=== PATIENT | female | born 1950 | race Caucasian/White ===

== ENCOUNTER → 2017-07-25 10:23 | Outpatient (CLI) | payer MEDICARE, OTHER, SELFPAY ==
--- NOTE | 2017-07-25 10:27 | DI.RAD.S_ITS ---
PROCEDURE: XR CHEST 2V INDICATIONS: PERSISTENT COUGH TECHNIQUE: 2 views of the chest were acquired. COMPARISON: [facility], , CHEST 2 VIEW, 09/18/2013, 11:51. FINDINGS: Surgical changes and devices: Gastric banding Lungs and pleura: No pleural effusions or pneumothorax. Lungs are clear. Mediastinum: Mediastinal contours are normal. Heart size is normal. Aortic calcifications. Bones and chest wall: No suspicious bony abnormalities. Degenerative a.c. joint disease. Thoracic spondylosis. Soft tissues appear unremarkable. IMPRESSION: No acute cardiopulmonary abnormality Dictated by: Terry Masters M.D. on 07/25/2017 at 11:51 Approved by: Terry Masters M.D. on 07/25/2017 at 11:53
== END ==
PROVIDERS: PCP Family Medicine; Visit Provider Family Medicine
DX: R05 Cough (principal)
CPT/HCPCS: 71046

== ENCOUNTER → 2017-08-17 13:47 | Outpatient (CLI) | payer MEDICARE, OTHER, SELFPAY ==
[2017-08-17 14:21] LABS: Hemoglobin A1C% w Est Avg Glu 8.4 % (4.0-6.0)
[2017-08-17 14:25] LABS: BUN Creatinine Ratio 22.5 (6-22); Blood Urea Nitrogen 18 mg/dL (7-17); Calcium 9.7 mg/dL (8.4-10.2); Carbon Dioxide 24 mmol/L (22-32); Chloride 102 mmol/L (98-107); Estimated Glomerular Filt Rate > 60.0 mL/min (>60); Glucose 197 mg/dL (80-110); HEMOLYSIS < 15 (0-50); Potassium 4.7 mmol/L (3.4-5.1); Sodium 139 mmol/L (137-145)
== END ==
PROVIDERS: PCP Family Medicine; Visit Provider Family Medicine
DX: E11.9 Type 2 diabetes mellitus without complications (principal)
CPT/HCPCS: 36415; 80048; 83036

== ENCOUNTER → 2017-09-16 08:12 | Outpatient (CLI) | payer MEDICARE, OTHER, SELFPAY ==
--- NOTE | 2017-09-16 | DI.ECHO.S_ITS ---
[facility]+ [facility] +---------+ : : [address] : : : : [id number] : : : : Phone: [phone] Echocardiogram Report + + :Name: ABELARDO LAMA Study Date: 09/16/2017 Height: 64 in : :[facility] Weight: 203 lb : : Gender: Female BSA: 2.0 m2 : :: 1950 Age: 67 yrs BP: 144/64 mmHg: :Reason For Study: Conduction Disorder, LBBB : :Ordering Physician: Garrett : :Juan Hernandez Performed By: Damari Avila : :Referring: Dr. Misael Cardona : + + Interpretation Summary 1) Normal left ventricular thickness, size, and systolic function (EF 55-60%). 2) Septal motion is consistent with conduction abnormality. 3) Normal right ventricular size and function. 4) No significant valvular abnormalities. 5) No prior Echo available for comparison. Procedure: A two-dimensional transthoracic echocardiogram with color flow and Doppler was performed. The study quality was technically adequate. There is no prior echocardiogram noted for this patient. The heart rate ranged between 76-79 bpm during the study. Left Ventricle: The left ventricle is normal in size. Left ventricular wall thickness is normal. The ejection fraction is estimated to be 55-60%. Left ventricular systolic function is normal. Septal motion is consistent with conduction abnormality. Assessment of diastolic parameters suggests a pseudonormalization pattern, consistent with elevated filling pressures. Right Ventricle: The right ventricle grossly appears normal in size with probable normal systolic function. Atria: The left atrial size is normal. Right atrial size is normal. The interatrial septum is intact with no evidence for an atrial septal defect. Mitral Valve: The mitral valve is normal in structure and function. There is trace mitral regurgitation. Aortic Valve: The aortic valve opens well. There is no aortic valve stenosis. There is trace aortic regurgitation. Tricuspid Valve: The tricuspid valve is normal in structure and function. There is trace tricuspid regurgitation. The right ventricular systolic pressure is estimated at 35 mmHg assuming a right atrial pressure of 3 mm Hg. Pulmonic Valve: The pulmonic valve is not well visualized. Great Vessels: The aortic root is normal size. The dimensions of the ascending aorta are normal. The IVC is of normal diameter and collapses greater than 50% with a sniff. This suggests a low right atrial pressure of 3 mm Hg. Pericardium/ Pleura There is no pericardial effusion. There is no pleural effusion. MMode/2D Measurements & Calculations LVIDd: 4.5 cm Ao root diam: 3.3 cm LVIDs: 2.6 cm Aortic Jxn: 2.8 cm FS: 42.8 % asc Aorta Diam: 3.3 cm EPSS: 0.73 cm Ao Arch Diam (Prox Trans): 2.7 cm IVSd: 1.2 cm LVPWd: 0.87 cm LV whitaker. diameter/BSA (cm/m^2): 2.3 LV sys. diameter/BSA (cm/m^2): 1.3 LA A2 area: 20.0 cm2 RA long axis: 4.1 cm LA A4 area: 17.3 cm2 RA area: 12.8 cm2 LA length (vol): 4.8 cm RA vol: 33.8 ml LA vol: 61.1 ml RA : 17.2 ml/m2 LA vol index: 31.0 ml/m2 IVC diam: 1.1 cm RVDd major: 5.6 cm RVD1 (basal): 2.5 cm RVD2 (mid): 2.6 cm Doppler Measurements & Calculations Ao V2 max: 171.1 cm/sec MV E max jonny: 89.1 cm/sec Ao V2 mean: 113.3 cm/sec MV A max jonny: 111.1 cm/sec Ao max P.7 mmHg MV E/A: 0.80 Ao mean P.0 mmHg Med Peak E' Jonny: 4.9 cm/sec Ao V2 VTI: 35.8 cm E/E' med: 18.0 Lat Peak E' Jonny: 7.1 cm/sec E/E' lat: 12.6 E/e' average: 15.3 MV dec time: 0.20 sec MV P1/2t: 60.1 msec TR max jonny: 282.3 cm/sec MV P1/2t max jonny: 87.7 cm/sec TR max P.9 mmHg MVA(P1/2t): 3.7 cm2 PA V2 max: 87.4 cm/sec PA V2 mean: 59.5 cm/sec PA mean P.6 mmHg PA Accel Time: 0.14 sec Reading Physician:10:44 AM
== END ==
PROVIDERS: Family Provider Family Medicine; PCP Family Medicine; Visit Provider Internal Medicine Cardiovascular Disease
DX: I44.7 Left bundle-branch block, unspecified (principal); I45.9 Conduction disorder, unspecified
CPT/HCPCS: 93306

== ENCOUNTER → 2017-10-07 13:12 | Outpatient (CLI) | payer MEDICARE, OTHER, SELFPAY ==
--- NOTE | 2017-10-07 | DI.MG.S_ITS ---
BILATERAL DIGITAL SCREENING MAMMOGRAM 3D/2D WITH CAD: 10/07/2017 CLINICAL: Routine screening. Comparison is made to exams dated: 08/25/2016 mammogram, 08/25/2015 mammogram, and 06/07/2014 mammogram - [facility]. The tissue of both breasts is heterogeneously dense. This may lower the sensitivity of mammography. Current study was also evaluated with a Computer Aided Detection (CAD) system. No significant masses, calcifications, or other findings are seen in either breast. There has been no significant interval change. IMPRESSION: NEGATIVE There is no mammographic evidence of malignancy. A 1 year screening mammogram is recommended. This exam was interpreted at Station ID: [id number]. NOTE: For mammograms, a report in lay terms will be sent to the patient. Approximately 15% of breast malignancies will not be visualized mammographically. In the management of a palpable breast mass, a negative mammogram must not discourage biopsy of a clinically suspicious lesion. Electronically Signed By: Shae manzano/margie:10/07/2017 14:49:00 letter sent: Normal Exam ACR BI-RADS Category 1: Negative 3341F
== END ==
PROVIDERS: Family Provider Family Medicine; PCP Family Medicine; Visit Provider Family Medicine
DX: Z12.31 Encounter for screening mammogram for malignant neoplasm of breast (principal)
CPT/HCPCS: 77063; 77067

== ENCOUNTER → 2017-10-12 11:32 | Outpatient (CLI) | payer MEDICARE, OTHER, SELFPAY ==
[2017-10-12 12:33] LABS: Hemoglobin A1C% w Est Avg Glu 8.9 % (4.0-6.0)
[2017-10-12 12:51] LABS: BUN Creatinine Ratio 22.2 (6-22); Blood Urea Nitrogen 20 mg/dL (7-17); Calcium 10.2 mg/dL (8.4-10.2); Carbon Dioxide 26 mmol/L (22-32); Chloride 100 mmol/L (98-107); Estimated Glomerular Filt Rate > 60.0 mL/min (>60); Glucose 223 mg/dL (80-110); HEMOLYSIS < 15 (0-50); Potassium 5.3 mmol/L (3.4-5.1); Sodium 137 mmol/L (137-145)
== END ==
PROVIDERS: Family Provider Family Medicine; PCP Family Medicine; Visit Provider Family Medicine
DX: E11.9 Type 2 diabetes mellitus without complications (principal)
CPT/HCPCS: 36415; 80048; 83036

== ENCOUNTER → 2017-11-28 11:16 | Outpatient (CLI) | payer MEDICARE, OTHER, SELFPAY ==
[2017-11-28 12:35] LABS: Hemoglobin A1C% w Est Avg Glu 8.5 % (4.0-6.0)
[2017-11-28 12:54] LABS: BUN Creatinine Ratio 15.6 (6-22); Blood Urea Nitrogen 14 mg/dL (7-17); Calcium 10.1 mg/dL (8.4-10.2); Carbon Dioxide 25 mmol/L (22-32); Chloride 101 mmol/L (98-107); Cholesterol 139 mg/dL (140-199); Estimated Glomerular Filt Rate > 60.0 mL/min (>60); Glucose 256 mg/dL (80-110); HDL Cholesterol 47 mg/dL (40-60); HEMOLYSIS < 15 (0-50); LDL Cholesterol Calculated 58 mg/dL (<100); Sodium 139 mmol/L (137-145); Triglycerides 171 mg/dL (35-150)
== END ==
PROVIDERS: Family Provider Family Medicine; PCP Family Medicine; Visit Provider Internal Medicine Cardiovascular Disease
DX: E11.9 Type 2 diabetes mellitus without complications (principal)
CPT/HCPCS: 36415; 80048; 80061; 83036

== ENCOUNTER → 2017-12-29 13:51 | Outpatient (CLI) | payer MEDICARE, OTHER, SELFPAY ==
--- NOTE | 2017-12-29 | DI.NM.S_ITS ---
PROCEDURE: NM QING PERF SPECT R&S PHARM Rest and pharmacological stress myocardial perfusion SPECT with gated imaging and ejection fraction RADIOPHARMACEUTICAL: 21.7 mCi Tc-99m tetrafosmin IV at rest and 27.2 mCi Tc-99m tetrafosmin IV at peak effect of pharmacological stress. Mcz-tva-kquyjbbm was performed. INDICATIONS: Left bundle-branch block TECHNIQUE: Radiopharmaceutical was injected at peak stress test, and also at rest. SPECT images were obtained. SPECT myocardial perfusion images were displayed in short axis, horizontal long axis, and vertical long axis views. Gated images were reviewed using [employer] software. COMPARISON: None. CARDIAC STRESS: A pharmacologic stress test was performed under the supervision of an attending staff, using an infusion of lexiscan 0.4mg IV X1. Hemodynamic data: There is normal blood pressure and heart rate response to pharmacologic stress. Symptoms: The patient denied anginal chest pain. Aminophylline: none EKG: Resting ECG shows sinus rhythm with LBBB. No diagnostic changes of ischemia with lexiscan; no ectopy. FINDINGS: Raw data: There is good myocardial uptake of radiotracer. No significant motion artifacts. Pmum-hg-otyvp ratio is 0.30 (normal is less than 0.38 for tetrafosmin tracer). Left ventricle function: Gated images demonstrate normal left ventricular wall thickening. No segmental wall motion abnormalities. No transient ischemic dilation; TID is 1.07 (normal less than 1.3). Left ventricle resting end diastolic volume is 93 mL. Left ventricle stress ejection fraction is 74%; normal range is above 45%. Myocardial perfusion: There is mildly intense fixed defect in the septum that could be prior infarction or due to LBBB. No ischemia present. IMPRESSION: Abnormal pharmaceutical nuclear stress test. No ischemia. 1) Mildly intense fixed defect in the septum that could be prior infarction or due to LBBB itself. No ischemia present. 2) Normal left ventricular size, wall motion, and systolic function (EF post stress 74%). 3) ECG changes non-diagnostic due to LBBB at baseline. 4) No angina during the study. 5) No prior nuclear stress test available for comparison. Dictated by: Garrett Hernandez MD on 01/02/2018 at 17:51 Approved by: Garrett Hernandez MD on 01/02/2018 at 17:54
--- NOTE | 2017-12-29 15:03 | PM.TREADMILL ---
Cardiac Stress Test Report Referral & Results Date Patient Seen: 12/29/17 Requesting provider: Sonam Saleh Indication: Left bundle branch block Rest ECG: Left bundle branch block Procedure Note: After both written and verbal informed consent the patient had an IV started by the diagnostic imaging RN and then was hooked up to the treadmill monitoring system. The patient was then injected with the Angela scan material. The Cardiolite was then immediately administered. The patient spent an additional 2-3 minutes under observation. The patient had a normal response to all infused materials. Impression: Normal response as above, perfusion imaging will be reported separately Please note: Actual ECG tracings can be found in the PACS system.
== END ==
PROVIDERS: PCP Family Medicine; Visit Provider Internal Medicine Cardiovascular Disease
DX: I44.7 Left bundle-branch block, unspecified (principal)
CPT/HCPCS: 78452; 93016; 93017; 93018; A9502; J2785

== ENCOUNTER → 2018-01-13 10:41 | Outpatient (CLI) | payer MEDICARE, OTHER, SELFPAY ==
[2018-01-13 12:10] LABS: Blood Urea Nitrogen 14 mg/dL (7-17); Calcium 9.7 mg/dL (8.4-10.2); Carbon Dioxide 26 mmol/L (22-32); Chloride 100 mmol/L (98-107); Estimated Glomerular Filt Rate 55.1 mL/min (>60); Glucose 246 mg/dL (80-110); HEMOLYSIS < 15 (0-50); Potassium 4.4 mmol/L (3.4-5.1); Sodium 139 mmol/L (137-145)
[2018-01-13 12:22] LABS: Hemoglobin A1C% w Est Avg Glu 9.4 % (4.0-6.0)
== END ==
PROVIDERS: Family Medicine; PCP Family Medicine; Visit Provider Family Medicine
DX: E11.9 Type 2 diabetes mellitus without complications (principal)
CPT/HCPCS: 36415; 80048; 83036

== ENCOUNTER → 2018-02-17 08:25 | Outpatient (CLI) | payer MEDICARE, OTHER, SELFPAY ==
--- NOTE | 2018-02-17 | DI.MRI.S_ITS ---
PROCEDURE: MR LUMBAR SPINE WO CON INDICATIONS: OSTEOARTHRITIS OF SPINE WITH RADICULOPATHY TECHNIQUE: Noncontrast sagittal T1 spin echo and T2 fast echo, sagittal STIR, axial T1 and T2 fast spin echo through the lumbar spine. In cases with scoliosis, additional coronal T2 fast spin echo may be performed. COMPARISON: [facility], , L-SPINE WITHOUT CONTRAST, 06/11/2014, 13:51. FINDINGS: Image quality: Excellent. Alignment and Curvature: Levocurvature as before. Bone Marrow: Diffuse degenerative endplate signal change and spurring is present. Grade 1 anterolisthesis of L4 on L5. Grade 1 retrolisthesis of L1 on L2, L2 on L3 and L3 on L4, in addition to T12 on L1. No acute vertebral body compression fractures. Spinal Cord: Conus medullaris terminates at the L2 level. Visualized cord demonstrates normal signal and size. Paraspinous Soft Tissues: No paravertebral masses. At T12-L1: Broad-based posterior disc bulge and facet arthropathy. Mild central canal narrowing which appears unchanged. Partial effacement of the lateral recesses which is also probably unchanged and symmetric in appearance. The left foraminal stenosis. Moderate right foraminal narrowing which is unchanged L1-L2: Broad-based posterior disc bulge mild facet arthropathy. Mild canal narrowing, which appears grossly unchanged. Partial effacement of the lateral recesses which is mildly asymmetric, right greater than left. Mild to moderate left and severe right foraminal stenoses, with unchanged appearance L2-L3: Broad-based posterior disc bulge and bilateral facet arthropathy. Partial effacement of the lateral recesses progression on the right since prior study however still probably left slightly greater than right. Severe left foraminal narrowing. Moderate right foraminal stenosis. No definite interval change L3-L4: Posterior annular fissure and broad-based posterior disc bulge and bilateral facet arthropathy. Ligamentum flavum hypertrophy also seen. There is epidural lipomatosis and severe central canal narrowing. Near complete effacement of left and right lateral recesses, which is probably unchanged. Severe left and mild to moderate right foraminal narrowing. No interval change L4-L5: Broad-based posterior disc bulge about sonograp a period mild central canal narrowing. Near complete effacement of the lateral recesses bilaterally although this appears grossly symmetric. Severe left and moderate right foraminal narrowing L5-S1: Broad-based asymmetric posterior disc bulge, right greater than left. Mild partial effacement of the left and right lateral recesses although right greater than left. This appears progressed on the right since the prior study. IMPRESSION: Levocurvature. Multiple spondylolistheses as above, grossly unchanged. Severe central canal narrowing at L3-L4. This is slightly progressed and in part due to epidural lipomatosis Bilateral foraminal stenoses as detailed above by spinal level. Interval progression in right L2-L3 and L5-S1 subarticular narrowing. Dictated by: Luis Gimenez M.D. on 02/17/2018 at 10:31 Approved by: Luis Gimenez M.D. on 02/17/2018 at 11:34
== END ==
PROVIDERS: PCP Family Medicine; Visit Provider Orthopaedic Surgery Orthopaedic Surgery of the Spine
DX: M47.26 Other spondylosis with radiculopathy, lumbar region (principal); M43.16 Spondylolisthesis, lumbar region; M48.061 Spinal stenosis, lumbar region without neurogenic claudication; M48.07 Spinal stenosis, lumbosacral region; E88.2 Lipomatosis, not elsewhere classified
CPT/HCPCS: 72148

== ENCOUNTER 2018-02-20 11:56 | Emergency (ER) | payer MEDICARE, OTHER, SELFPAY ==
[2018-02-20 13:14] VITALS: BP 178/90; PULSE 98; RESP 14; TEMP 36.6; O2SAT 95; BMI 36.3
--- NOTE | 2018-02-20 13:19 | DI.RAD.S_ITS ---
PROCEDURE: XR FOOT RT MIN 3V INDICATIONS: fall, now pain and bruising. TECHNIQUE: 3 views of the foot were acquired. COMPARISON: [facility], , FOOT 3V LEFT, 07/19/2006, 12:37. FINDINGS: Bones: There is a minimally displaced, oblique fracture through the mid and distal portions of the fifth metatarsal. There is no intra-articular extension. Soft tissues: No tibiotalar joint effusion. Achilles tendon appears normal. IMPRESSION: Limited displaced fifth metatarsal shaft fracture as above. Dictated by: Shanta Vann M.D. on 02/20/2018 at 13:41 Approved by: Shanta Vann M.D. on 02/20/2018 at 13:47
[2018-02-20] MEDS: ACETAMINOPHEN 325 MG TABLET 975 MG PO (13:23)
[2018-02-20] MEDS: IBUPROFEN 400 MG TABLET PO (13:24)
--- NOTE | 2018-02-20 13:53 | ED_ITS ---
HPI - Fall <Marla Johnson PA-C - Last Filed: 02/20/18 20:43> General Chief Complaint: Fall Stated Complaint: fall down stairs last night, R foot and L Hip pain Time Seen by Provider: 02/20/18 13:35 Source: patient Mode of arrival: ambulatory History of Present Illness HPI Narrative: This 67-year-old female complains of right foot pain after a fall down her stairs last night. She states that she has chronic mobility impairment in the left knee and sometimes that causes her to trip, and she was carrying a bag of which she thinks made her off balance. She states that she just slipped and denies any chest pain or presyncopal type symptoms leading to the fall. She denies any head injury, neck pain or LOC. She states that she noticed pain in the right foot as soon as she went to stand up, and that has persisted today with some bruising and swelling. She states that she is a little bit sore on her sides and hips but feels like she just bumped other areas and not much pain elsewhere. She denies pain in her spine. She states that she has chronic reduced sensation in her feet due to neuropathy, no sensation changes. Denies other complaints or injuries Related Data Home Medications Medication Instructions Recorded Confirmed amlodipine 5 mg tablet PO DAILY 30 Days tab 01/16/18 01/18/18 atorvastatin 20 mg tablet 20 mg PO BEDTIME 90 Days tab 01/16/18 02/20/18 losartan 100 mg tablet 100 mg PO DAILY 90 Days tab 01/16/18 02/20/18 metformin 500 mg tablet See Label Instructions PO .COMPLEX 01/16/18 01/18/18 tab naproxen 500 mg tablet 500 mg PO BID PRN tab 01/16/18 01/18/18 paroxetine 20 mg tablet 0 PO BID tab 01/16/18 01/18/18 venlafaxine 150 mg PO DAILY 02/20/18 02/20/18 Previous Rx's Medication Instructions Recorded propranolol 10 mg PO BID #180 tab 01/10/17 glimepiride [Amaryl] 2 mg PO BID #180 tab 05/03/17 lorazepam 0.5 mg tablet 0.5 mg PO BID #60 tab 01/16/18 venlafaxine ER 37.5 mg 37.5 mg PO QAM #7 cap 01/16/18 capsule,extended release 24 hr venlafaxine ER 75 mg 75 mg PO QAM #7 cap 01/16/18 capsule,extended release 24 hr Allergies Allergy/AdvReac Type Severity Reaction Status Date / Time cephalexin [CEPHALEXIN] Allergy Mild Verified 02/20/18 13:18 Penicillins [PENICILLINS] Allergy Mild Verified 02/20/18 13:18 Sulfa (Sulfonamide Allergy Mild Verified 02/20/18 13:18 Antibiotics) [SULFA (SULFONAMIDE ANTIBIOTICS)] Review of Systems <Marla Johnson PA-C - Last Filed: 02/20/18 20:43> Review of Systems All systems reviewed & are unremarkable except as noted in HPI and below Exam <Marla Johnson PA-C - Last Filed: 02/20/18 20:43> Narrative Exam Narrative: GENERAL APPEARANCE: Patient sitting comfortably, in no distress. LUNGS: Clear to auscultation bilaterally. HEART: Rate and rhythm regular without murmur, normal S1 and S2, no S3 or S4. MUSCULOSKELETAL: Right lateral foot there is mild effusion. No visible deformity. Tender over the left mid 5th metatarsal. No tenderness over the ankle or elsewhere over the foot. Full range of motion of the right ankle nonweightbearing. Tender with plantar and dorsiflexing right foot. No tenderness over the right lower leg, knee or hips. No tenderness over the lumbar spine NEUROVASCULAR: Right ft pedal pulses 2+, sensation grossly intact NEUROLOGIC: Patient is alert and oriented with normal speech and coordination Initial Vital Signs Initial Vital Signs: Vital Signs Temperature 97.9 F 02/20/18 13:14 Pulse Rate 98 H 02/20/18 13:14 Respiratory Rate 14 02/20/18 13:14 Blood Pressure 178/90 H 02/20/18 13:14 Pulse Oximetry 95 02/20/18 13:14 <Lena Rowell DO - Last Filed: 02/21/18 08:09> Initial Vital Signs Initial Vital Signs: Vital Signs Temperature 97.9 F 02/20/18 13:14 Pulse Rate 98 H 02/20/18 13:14 Respiratory Rate 14 02/20/18 13:14 Blood Pressure 178/90 H 02/20/18 13:14 Pulse Oximetry 95 02/20/18 13:14 Course <Marla Johnson PA-C - Last Filed: 02/20/18 20:43> Additional Information: Patient was able to ambulate comfortably in orthopedic shoe. She will follow up with her PCP for recheck next week Orders Ordered: Discontinued Medications Acetaminophen (Tylenol) 975 mg PO NOW ONE Stop: 02/20/18 13:20 Last Admin: 02/20/18 13:23 Dose: 975 mg Ibuprofen (Advil) 400 mg PO NOW ONE Stop: 02/20/18 13:20 Last Admin: 02/20/18 13:24 Dose: 400 mg Vital Signs - 8 hr 02/20/18 13:14 02/20/18 14:29 Temperature 97.9 F Pulse Rate 98 H 93 H Respiratory Rate 14 17 Blood Pressure 178/90 H Blood Pressure [Left Arm] 166/82 H Pulse Oximetry 95 99 <Lena Rowell DO - Last Filed: 02/21/18 08:09> Orders Ordered: Discontinued Medications Acetaminophen (Tylenol) 975 mg PO NOW ONE Stop: 02/20/18 13:20 Last Admin: 02/20/18 13:23 Dose: 975 mg Ibuprofen (Advil) 400 mg PO NOW ONE Stop: 02/20/18 13:20 Last Admin: 02/20/18 13:24 Dose: 400 mg Vital Signs - 8 hr 02/20/18 13:14 02/20/18 14:29 Temperature 97.9 F Pulse Rate 98 H 93 H Respiratory Rate 14 17 Blood Pressure 178/90 H Blood Pressure [Left Arm] 166/82 H Pulse Oximetry 95 99 MDM - Fall <Marla Johnson PA-C - Last Filed: 02/20/18 20:43> Lab Data Point of Care Testing Glucose POC 124 Imaging Data foot: Radiologist's impression: BACK Foot X-Ray (Signed) Shanta Vann - 02/20/18 Launch Image View Report History [address] [address] XRay Report Signed Patient: Luz Stearns MR#: [id number] : 1950 Acct:[id number] Age/Sex: 67 / F Date of Service: 02/20/18 Loc: ED Accession Number: [id number] Procedure: XR foot RT min 3V Ordering Provider: Lena Rowell D.O. PROCEDURE: XR FOOT RT MIN 3V INDICATIONS: fall, now pain and bruising. TECHNIQUE: 3 views of the foot were acquired. COMPARISON: [facility], , FOOT 3V LEFT, 07/19/2006, 12:37. FINDINGS: Bones: There is a minimally displaced, oblique fracture through the mid and distal portions of the fifth metatarsal. There is no intra-articular extension. Soft tissues: No tibiotalar joint effusion. Achilles tendon appears normal. IMPRESSION: Limited displaced fifth metatarsal shaft fracture as above. Dictated by: Shanta Vann M.D. on 02/20/2018 at 13:41 Approved by: Shanta Vann M.D. on 02/20/2018 at 13:47 <Lena Rowell DO - Last Filed: 02/21/18 08:09> Lab Data Point of Care Testing Glucose POC 124 Discharge Plan Departure Patient Disposition: Home Clinical Impression: Metatarsal bone fracture Discharge Date/Time: 02/20/18 14:43 Interventions: ED Discharge Assessment Last Done: 02/20/18 14:42 Instructions: DI for Foot Fracture Activity Restrictions/Additional Instructions: You do have a break in the foot in the bone that connects to the 5th toe where you are bruised and tender. This is only slightly pushed out of place and typically these will heal well as long as you keep the stress off of the broken bone. You can take your Aleve twice daily as needed for pain. You may wish to use ice on the sore area today. Please wear the orthopedic shoe that we gave you at all times when you are putting weight on the foot. Please follow up with your PCP in 1 week for recheck, as x-rays may need to be repeated. Please return if you have any acutely worsening symptoms in the interim. Prescriptions: No Action venlafaxine 37.5 mg capsule,extended release 24hr 37.5 mg PO QAM Qty: 7 RF: 0 venlafaxine 75 mg capsule,extended release 24hr 75 mg PO QAM Qty: 7 RF: 0 metformin [Glucophage] 500 mg tablet See Patient Comments PO .COMPLEX RF: 0 naproxen [Naprosyn] 500 mg tablet 500 mg PO BID PRNRF: 0 paroxetine HCl [Paxil] 20 mg tablet PO BID RF: 0 amlodipine 5 mg tablet PO DAILY 30 Days RF: 0 atorvastatin 20 mg tablet 20 mg PO BEDTIME 90 Days RF: 0 losartan 100 mg tablet 100 mg PO DAILY 90 Days RF: 0 propranolol 10 MG tablet 10 mg PO BID Qty: 180 RF: 3 glimepiride [Amaryl] 2 MG tablet 2 mg PO BID Qty: 180 RF: 3 lorazepam [Ativan] 0.5 mg tablet 0.5 mg PO BID Qty: 60 RF: 2 venlafaxine 150 mg capsule,extended release 24hr 150 mg PO DAILY RF: 0 Referrals: Misael Cardona MD [Primary Care Provider] - <Lena Rowell DO - Last Filed: 02/21/18 08:09> [facility] Att[facility]: I was immediately available in the department for consultation. Documentation has been reviewed. I agree with assessment and plan.
[2018-02-20 14:29] VITALS: BP 166/82; PULSE 93; RESP 17; O2SAT 99
== END 2018-02-20 14:43 | disposition home or self-care (01) ==
PROVIDERS: Emergency Provider Internal Medicine; PCP Family Medicine
DX: S92.351A Displaced fracture of fifth metatarsal bone, right foot, initial encounter for closed fracture (principal); W10.8XXA Fall (on) (from) other stairs and steps, initial encounter
CPT/HCPCS: 73630; 82962; 99282; 99284

== ENCOUNTER → 2018-03-16 11:16 | Outpatient (CLI) | payer MEDICARE, OTHER, SELFPAY ==
[2018-03-16 12:13] LABS: Hemoglobin A1C% w Est Avg Glu 8.9 % (4.0-6.0)
[2018-03-16 12:16] LABS: BUN Creatinine Ratio 22.5 (6-22); Blood Urea Nitrogen 18 mg/dL (7-17); Calcium 9.7 mg/dL (8.4-10.2); Carbon Dioxide 27 mmol/L (22-32); Chloride 102 mmol/L (98-107); Estimated Glomerular Filt Rate > 60.0 mL/min (>60); Glucose 216 mg/dL (80-110); HEMOLYSIS < 15 (0-50); Potassium 4.7 mmol/L (3.4-5.1); Sodium 140 mmol/L (137-145)
== END ==
PROVIDERS: PCP Family Medicine; Visit Provider Family Medicine
DX: E11.9 Type 2 diabetes mellitus without complications (principal)
CPT/HCPCS: 36415; 80048; 83036

== ENCOUNTER → 2018-03-23 12:15 | Outpatient (CLI) | payer MEDICARE, OTHER, SELFPAY ==
--- NOTE | 2018-03-23 12:29 | DI.RAD.S_ITS ---
PROCEDURE: XR LUMBAR SPINE 2-3V INDICATIONS: s/p fall- hip and back pain TECHNIQUE: 3 views of the lumbar spine were acquired. COMPARISON: None. FINDINGS: Bones: No fracture or focal osseous destruction. There is levocurvature centered at L1. Diffuse endplate sclerosis and spurring. Grade 1 retrolisthesis of T12 on L1 and L2 and L3, L3 on L4. Grade 1 anterolisthesis of L4 on L5. Diffuse severe facet arthropathy. Severe narrowing of the L1-L2 disc space and L5-S1 disc space. Elsewhere, moderate lumbar disc space narrowing. Soft tissues: Overlying bowel gas pattern is normal. No suspicious soft tissue calcifications. IMPRESSION: Diffuse lumbar spine disc degeneration and facet arthropathy, most pronounced at L1-L2 and L5-S1. Levocurvature centered at L1. Multiple spondylolistheses as above No acute fracture identified although advanced degenerative changes limits study sensitivity Dictated by: Luis Gimenez M.D. on 03/23/2018 at 14:31 Approved by: Luis Gimenez M.D. on 03/23/2018 at 14:34
--- NOTE | 2018-03-23 12:29 | DI.RAD.S_ITS ---
PROCEDURE: XR HIP W PEL IF DONE LT 2V INDICATIONS: s/p fall- hip and back pain TECHNIQUE: AP pelvis with lateral view(s) of the left hip(s). COMPARISON: None. FINDINGS: Bones: No fractures or dislocations. Pelvic ring appears intact. No suspicious bony lesions. Lower lumbar degenerative disease. Mild bilateral hip degeneration. Soft tissues: The visualized bowel gas pattern is normal. No suspicious soft tissue calcifications. IMPRESSION: Mild bilateral hip degeneration. Dictated by: Luis Gimenez M.D. on 03/23/2018 at 14:30 Approved by: Luis Gimenez M.D. on 03/23/2018 at 14:31
== END ==
PROVIDERS: PCP Family Medicine; Visit Provider Family Medicine
DX: M54.5 Low back pain (principal); M25.552 Pain in left hip; M16.0 Bilateral primary osteoarthritis of hip; M51.36 Other intervertebral disc degeneration, lumbar region; M51.37 Other intervertebral disc degeneration, lumbosacral region; M47.816 Spondylosis without myelopathy or radiculopathy, lumbar region; M47.817 Spondylosis without myelopathy or radiculopathy, lumbosacral region; M43.16 Spondylolisthesis, lumbar region; M43.17 Spondylolisthesis, lumbosacral region
CPT/HCPCS: 72100; 73502

== ENCOUNTER → 2018-03-30 14:15 | Outpatient (CLI) | payer MEDICARE, OTHER, SELFPAY ==
--- NOTE | 2018-03-30 14:18 | DI.MRI.S_ITS ---
PROCEDURE: MR HEAD/BRAIN WO CON INDICATIONS: vison loss TECHNIQUE: Noncontrast axial T1 spin echo, axial T2 fast spin echo, sagittal and axial FLAIR, coronal T2 fast spin echo, axial gradient echo, axial diffusion and ADC through the brain. COMPARISON: None. FINDINGS: Image quality: Excellent. CSF Spaces: Basal cisterns are patent. No extra-axial fluid collections. Ventricles are normal in size and shape. Brain: No intracranial masses or hemorrhage. Russo/white matter interface is normal. There are several scattered small foci of elevated fluid signal within the deep white matter of each hemisphere, right slightly greater than left Brainstem appears normal. Diffusion-weighted images demonstrate no acute ischemic insult. No chronic ischemic insults. Normal intravascular flow voids are present. Skull and face: Calvarium has normal marrow signal. Orbits appear normal. Sinuses: Sinuses and mastoids are clear. IMPRESSION: Mild microvascular atherosclerotic change in the deep white matter of each hemisphere, no evidence for presence of a mass or hemorrhage, and through the occipital region and orbits bilaterally no lesion is found. Dictated by: Manuel Hooker M.D. on 03/30/2018 at 15:43 Approved by: Manuel Hooker M.D. on 03/30/2018 at 15:45
== END ==
PROVIDERS: PCP Family Medicine; Visit Provider Family Medicine
DX: H54.7 Unspecified visual loss (principal)
CPT/HCPCS: 70551

== ENCOUNTER → 2018-04-20 10:51 | Outpatient (CLI) | payer MEDICARE, OTHER, SELFPAY ==
[2018-04-20 11:36] LABS: Add Manual Diff / Slide Review NO; Basophils Absolute Auto 0 /uL (0-100); Basophils Percent Auto 0.5 % (0-2); Eosinophils Absolute Auto 100 /uL (0-450); Eosinophils Percent Auto 1.5 % (2-4); Hematocrit 36.2 % (36-46); Hemoglobin 12.4 g/dL (12.0-16.0); Lymphocytes Absolute Auto 1800 /uL (1100-4500); Lymphocytes Percent Auto 29.7 % (25-40); Mean Corpuscular HGB Conc 34.1 % (30-36); Mean Corpuscular Hemoglobin 30.7 PG (26-34); Mean Corpuscular Volume 89.8 fL (80-100); Monocytes Absolute Auto 500 /uL (0-900); Monocytes Percent Auto 8.9 % (3-14); Neutrophils Absolute Auto 3600 /uL (1500-7000); Neutrophils Percent Auto 59.4 % (50-75); Platelet Count 313 X10^3/uL (150-400); Red Blood Cell Count 4.03 X10^6/uL (4.0-5.2); Red Cell Distribution Width 13.1 % (11.6-14.8); White Blood Cell Count 6.1 X10^3/uL (4.5-11.0)
[2018-04-20 11:42] LABS: INR 0.9 (0.9-1.3); Prothrombin Time 10.6 SECONDS (10.1-12.7)
[2018-04-20 11:45] LABS: PTT Partial Thromboplastin Tim 28 SECONDS (26.4-36.2)
[2018-04-20 11:47] LABS: BUN Creatinine Ratio 23.8 (6-22); Blood Urea Nitrogen 19 mg/dL (7-17); Calcium 9.7 mg/dL (8.4-10.2); Carbon Dioxide 25 mmol/L (22-32); Chloride 101 mmol/L (98-107); Estimated Glomerular Filt Rate > 60.0 mL/min (>60); Glucose 266 mg/dL (80-110); HEMOLYSIS < 15 (0-50); Potassium 4.6 mmol/L (3.4-5.1); Sodium 138 mmol/L (137-145)
[2018-04-20 11:49] LABS: Hemoglobin A1C% w Est Avg Glu 8.9 % (4.0-6.0)
== END ==
PROVIDERS: PCP Family Medicine; Visit Provider Orthopaedic Surgery Orthopaedic Surgery of the Spine
DX: M48.061 Spinal stenosis, lumbar region without neurogenic claudication (principal); M51.36 Other intervertebral disc degeneration, lumbar region; Z01.812 Encounter for preprocedural laboratory examination; Z51.81 Encounter for therapeutic drug level monitoring; Z01.818 Encounter for other preprocedural examination; Z01.84 Encounter for antibody response examination
CPT/HCPCS: 36415; 80048; 83036; 85025; 85610; 85730; 86765; 93005

== ENCOUNTER 2018-05-03 05:53 | Inpatient (IN) | payer MEDICARE, OTHER, SELFPAY ==
[2018-04-26 08:45] VITALS: BMI 34.3
[2018-05-03] VITALS (20 sets, daily range): BP systolic 124–165; BP diastolic 64–89; PULSE 74–130; RESP 10–24; TEMP 35.7–36.9; O2SAT 93–99; BMI 34.3
[2018-05-03] MEDS: LACTATED RINGERS 1,000 ML 42 ML IV ×3 (07:10→11:23)
[2018-05-03] MEDS: CLINDAMYCIN 900 MG/50 ML PIGGYBACK 50 MG IV ×2 (07:51→17:03)
--- NOTE | 2018-05-03 08:49 | SUR.OPER ---
Prone on spine table, head in foam head support, padded chest and pelvic supports, gel pad at knees, lower legs supported by pillows; nipples, genitalia and toes free of pressure, arms secured on foam padded arm boards at <90 degrees abduction. Tape over blanket at thigh secured to table.
[2018-05-03] MEDS: BUPIVACAINE 0.25% W/ EPI VIAL 30 ML INJ (08:52)
[2018-05-03] MEDS: BUPIVACAINE LIPOSOME 266 MG/20 ML VIAL INJ (08:52)
[2018-05-03] MEDS: ACETAMINOPHEN IV 1,000 MG/100 ML VIAL 400 MG IV (10:30)
--- NOTE | 2018-05-03 12:50 | DI.RAD.S_ITS ---
PROCEDURE: XR LUMBAR SPINE 2-3V INDICATIONS: L3-4, L4-5, L5-S1 TLIF FINDINGS: 2 limited intraoperative fluoroscopically stored images of the lower lumbar spine were obtained for intraoperative hardware localization purposes. These images are not meant for diagnostic purposes. Intraoperative findings related to a lower lumbar fusion procedure are present. IMPRESSION: Intraoperative images obtained during the patient's lumbar fusion procedure. Dictated by: Jean Triplett M.D. on 05/03/2018 at 11:59 Approved by: Jean Triplett M.D. on 05/03/2018 at 12:02
--- NOTE | 2018-05-03 12:51 | PM.OP.1 ---
Operative Date/Time/Diagnoses Date of procedure: 05/03/18 Time of procedure: 07:51 Pre-op diagnosis: 1. L3-4, L4-5, L5-S1 spondylolisthesis 2. L3-4, L4-5, L5-S1 spinal stenosis 3. L3-4, L4-5, L5-S1 spondylosis with radiculopathy Procedure & Clinicians Procedure: 1. L3-4, L4-5, L5-S1 Postero-lateral and posterior interbody fusion 2. L3-4, L4-5, L5-S1 interbody cage placement. 3. L3-4, L4-5, L5-S1 decompressive laminectomy with bilateral facetecomies 4. L3-4, L4-5, L5-S1 Posterior segmental instrumentation 5. [place] of bone marrow from iliac crest 6. Utilization of microsurgical technique and operating microscope Same procedure as scheduled: Yes Indications: Patient has been having chronic back pain and worsening lumbar radiculopathy. Patient failed multiple conservative management with worsening pain weakness and numbness in her lower extremity. Patient has been having difficulty performing activity of daily living. After discussing risks benefits of treatment options, patient elected proceed with surgery. Surgeon: Brii Colon Multicultural Internship: Delphine Felipe Click Yes if Unassisted: No Anesthesia Type: General Operative Notes Closure Type: primary Specimen(s): none sent Prosthetic devices, grafts, tissues, transplants, or devices: Globus revolve screws, Rise cages Applied: catheter Estimated Blood Loss (mL): 100 Blood products transfused: none Procedure in detail: Patient was seen in the preoperative area. Risks and benefits of the surgery was discussed with the patient. Informed consent was obtained from the patient and placed in the chart. Surgical site was marked. Patient was taken to the operative room. General anesthesia was administered. Prophylactic antibiotic was given to the patient less than 30 min before the incision was made. Patient was placed into a prone position on the Cristopher table. Patient's back was then prepped and draped in the sterile fashion. Time-out was performed at this time. Using AP and lateral C-arm imaging the interval between L3-S1 was identified and marked on patient's back. A 3 inch incision 2 in from midline was made on the left side first. The fascia was incised in line with skin incision. Globus MARS retractors was placed inside the incision and docked onto the L3, L4 and L5 lamina. Using microsurgical technique and operating microscope, a L3, L4 and L5 laminectomy and L3-4, L4-5 L5-S1 facetectomy was performed using a Kerrison rongeur. The disc space at L3-4, L4-5, L5-S1 was identified. And a total diskectomy was performed at L3-4, L4-5, L5-S1 level. The endplates were decorticated using a rasp and shaver. The total diskectomy and decortication was performed at L3-4, L4-5, L5-S1 level in order to to accomplish a L3-4, L4-5, L5-S1 fusion. The local bone from the laminectomy and facetectomy was saved for local bone grafting. After the total diskectomy and decortication was completed, Bio4 bone graft material was combined with local bone that was harvested earlier. At this time, a separate skin is incision was made over the iliac crest. A Jamshidi needle was inserted into the iliac crest through a separate skin incision. 5 cc of bone marrow aspiration was obtained through the separate skin incision using a Jamshidi needle from the iliac crest. The bone marrow aspiration was combined with local bone and the Bio4 bone grafting material. The bone grafting material was placed into the L3-4, L4-5, L5-S1 interbody space along with three cages, one expandable cage at each level. The cages were expanded to their maximum height using the torque limiting screwdriver. At this time a mirror image incision was made on the right side. The fascia was incised in line with the skin incision. Globus MARS retractor was inserted and docked onto the L3-4, L4-5, L5-S1 posterolateral gutter. Using the power drill, posterior-lateral decortication was performed at L3-4, L4-5, L5-S1 level until bleeding cortical bone was identified. The remaining bone grafting material was placed into the L3-4, L4-5 L5-S1 posterior lateral gutter he order to accomplish posterolateral fusion at the L3-4, L4-5 L5-S1 levels. Using the double C-arm technique, pedicle screws were placed into the L3, L4, L5, S1 pedicles bilaterally. This was done by placing the Jamshidi needle into the pedicles, then placing the guidewires over the Jamshidi needle, and finally placing the cannulated screws over the guidewires bilaterally. After the pedicle screws were placed, 2 titanium rods was locked into the heads of the pedicle screws using locking caps and torque limiting screwdriver. Total 8 pedicles screws were placed. After all the hardware was placed, and confirmed with AP and lateral C-arm imaging, the wound was then irrigated with sterile normal saline and packed with [place] gauze for 3 min to accomplish hemostasis. After the gauze was removed the deep fascia was closed with #1 Vicryl suture. The subcutaneous layer was closed with 2-0 Vicryl. The skin was closed with skin judson. Patient tolerated the procedure well. There were no complications. Complications: none Condition: stable Disposition: PACU Plan for aftercare: Admit to inpatient hospital
--- NOTE | 2018-05-03 13:09 | SUR.PHASEI ---
glucose 191
[2018-05-03] MEDS: ONDANSETRON 4 MG/2 ML INJ IV ×2 (13:40→16:00)
[2018-05-03] MEDS: HYDROMORPHONE 2 MG INJ 0.5 MG IV (13:44)
[2018-05-03] MEDS: HYDROMORPHONE 2 MG INJ 0.25 MG IV (14:07)
--- NOTE | 2018-05-03 15:49 | PC.NURSE ---
pt somnolent postop. opens eyes and responds. friend, Cal came in and took pt's keys with her permission. skin warm moist. RR 14-16 with sat 95% on 2L/NC. admission done
[2018-05-03] MEDS: SODIUM CHLORIDE 0.9% 1,000 ML 100 ML IV (16:00)
[2018-05-03] MEDS: INSULIN ASPART 100 UNIT/ML INSULN PEN SUBCUT ×2 (17:07→20:50)
[2018-05-03] MEDS: OXYCODONE IR 5 MG TABLET 10 MG PO ×2 (18:19→20:47)
[2018-05-03] MEDS: HYDROMORPHONE 1 MG INJ 0.5 MG IV ×2 (19:17→22:56)
[2018-05-03] MEDS: NAPROXEN 250 MG TABLET 500 MG PO (20:48)
[2018-05-03] MEDS: DOCUSATE 100 MG CAPSULE PO (20:48)
[2018-05-03] MEDS: GLIMEPIRIDE 2 MG TABLET 4 MG PO (20:48)
[2018-05-03] MEDS: ATORVASTATIN 20 MG TABLET PO (20:49)
[2018-05-03] MEDS: SENNOSIDES 8.6 MG TABLET 17.2 MG PO (20:51)
[2018-05-03] MEDS: PROPRANOLOL 10 MG TABLET PO (20:51)
[2018-05-04] VITALS (7 sets, daily range): BP systolic 104–126; BP diastolic 42–71; PULSE 84–94; RESP 16–20; TEMP 36.2–36.9; O2SAT 95–98
[2018-05-04] MEDS: OXYCODONE IR 5 MG TABLET 10 MG PO ×7 (00:06→19:51)
[2018-05-04] MEDS: CLINDAMYCIN 900 MG/50 ML PIGGYBACK 50 MG IV (00:06)
--- NOTE | 2018-05-04 01:52 | PC.NURSE ---
Assumed care of pt at 2300 on 05/03/18. Pt resting in bed during bedside hand-off. Reports analgesics have been effective. IVF infusing per orders. Drsg to back c/d/i. Able to demonstrate log roll. Pt aware of spinal precautions of no bending, lifting or twisting. CMS+. Hand tremor noted. Foot scd's applied. Pt calling appropriately for needs. Bed alarm on.
[2018-05-04] MEDS: SODIUM CHLORIDE 0.9% 1,000 ML 100 ML IV (03:20)
[2018-05-04] MEDS: LEVOTHYROXINE 25 MCG TABLET PO (06:21)
[2018-05-04 07:10] LABS: Hematocrit 31.5 % (36-46); Hemoglobin 10.8 g/dL (12.0-16.0)
--- NOTE | 2018-05-04 07:45 | PM.PNPO.1 ---
Subjective Date Patient Seen: 05/04/18 Time Patient Seen: 07:45 Interval history: Hospital day 2, postop day 1 following L3-4 through L5-S1 TLIF, cage, posterior screw fixation by Dr. Colon. Patient has remained stable postoperatively. Pain controlled with oxycodone 10 mg and occasional Dilaudid IV. She has not had any physical therapy yet. Patient does have stairs at home. She does anticipate to staying at least 2 nights. Exam Vital Signs (past 8 hours): - 05/04/18 03:20 05/04/18 07:29 Temperature 97.1 F L Pulse Rate 89 Respiratory Rate 20 Blood Pressure 111/56 L Pulse Oximetry 95 97 Fraction of Inspired Oxygen 21 Oxygen Delivery Method Room Air Oxygen Flow Rate 0 Narrative Exam Narrative: Alert, oriented no acute distress resting in bed. Legs. No calf pain or swelling. Pulses symmetrical. Good sensation to touch the lower legs. Good strength on foot dorsiflexion plantar flexion. Objective Labs Result Diagrams: 05/04/18 06:33 Labs: Laboratory Results - last 24 hr 05/04/18 06:33 Hgb 10.8 L Hct 31.5 L Assessment & Plan Post-op Postoperative Procedures Operation Date: 05/03/18 07:45 Actual Procedures Side Surgeon p L3-4,L4-5,L5-S1 TLIF w/Posterior Instru. Not Applicable Brii Colon MD plan: Patient will work with PT today. Observe for improvement in pain and function. Anticipate discharge home in the next 1-2 days if stable by PT.
[2018-05-04] MEDS: DOCUSATE 100 MG CAPSULE PO ×2 (08:23→19:53)
[2018-05-04] MEDS: VENLAFAXINE ER 75 MG CAP 150 MG PO (08:24)
[2018-05-04] MEDS: PROPRANOLOL 10 MG TABLET PO ×2 (08:24→19:52)
[2018-05-04] MEDS: AMLODIPINE 5 MG TABLET PO (08:24)
[2018-05-04] MEDS: METFORMIN HCL 500 MG TABLET 1500 MG PO (08:24)
[2018-05-04] MEDS: LOSARTAN 50 MG TABLET 100 MG PO (08:25)
[2018-05-04] MEDS: GLIMEPIRIDE 2 MG TABLET 4 MG PO ×2 (08:25→19:53)
[2018-05-04] MEDS: HYDROMORPHONE 1 MG INJ 0.5 MG IV (08:35)
[2018-05-04] MEDS: INSULIN ASPART 100 UNIT/ML INSULN PEN SUBCUT ×4 (08:37→20:59)
--- NOTE | 2018-05-04 10:45 | PT.IIE ---
Current Diagnoses Other secondary scoliosis, lumbar region (05/03/18) Spondylolisthesis, lumbar region (05/03/18) Spinal stenosis, lumbar region without neurogenic claudication (05/03/18) Surgery Performed Operation Date: 05/03/18 07:45 Actual Procedures p L3-4,L4-5,L5-S1 TLIF w/Posterior Instru.(Not Applicable) - Brii Colon MD Surgical History (This Medical Record has been edited. Action required.) Anesthesia (Resolved) History of knee replacement (Resolved 2004) History of knee replacement (Resolved 2007) History of knee replacement (Resolved 2009) History of tympanoplasty (Resolved 2013) S/P surgical manipulation of knee joint (Resolved 2004) Status post biopsy (Resolved 12/04/13) Status post gastric banding surgery (Resolved 2007) Status post hysterectomy (Resolved 1989) Status post hysteroscopic myomectomy (Resolved ~1979) Medical History (This Medical Record has been edited. Action required.) Diabetic retinopathy (Acute) Foot fracture, right (Acute ~02/2018) HTN (hypertension) (Acute) Hyperlipidemia (Acute) Ocular migraine (Acute ~02/2018) Anxiety (Chronic) Cataract (Chronic) Cervical spine disease (Chronic) Cervical stenosis (uterine cervix) (Chronic) Chronic back pain (Chronic) Depression (Chronic) Diabetes mellitus (Chronic ~1989) Dyspareunia (Chronic) Eczema (Chronic) Hayfever (Chronic) Hearing loss (Chronic) Hemorrhoids (Chronic) History of recurrent ear infection (Chronic 2013) Hypothyroidism (Chronic) IBS (irritable bowel syndrome) (Chronic) LBBB (left bundle branch block) (Chronic) Lumbar spine pain (Chronic) Osteoarthritis (Chronic) Psoriasis (Chronic) RLS (restless legs syndrome) (Chronic) Recurrent sinusitis (Chronic) Scoliosis (Chronic) Sleep apnea (Chronic) Thyroid nodule (Chronic 2013) Chicken pox (Resolved 1950) Endometriosis (Resolved) Fibroids (Resolved) History of heavy periods (Resolved) Irregular periods/menstrual cycles (Resolved) MRSA infection (Resolved 2003) Measles (Resolved) Mumps (Resolved) Ovarian cyst (Resolved) Painful menstrual periods (Resolved) Pelvic inflammatory disease (Resolved 1971) Ruptured tympanic membrane (Resolved 2013) Physical Therapy Inpatient Evaluation/Re-Eval M1 PT/OT-IP Prior Functional Status Start: 05/04/18 12:47 Freq: NEEDED Status: Active Protocol: Document 05/04/18 10:45 AB (Rec: 05/04/18 13:15 AB [id number]) Medical Review Prior Functional Status Medical History Reviewed Yes Communication able to make needs known Mobility and Gait pt stated that she is independent with all mobilities and ambulation without AD Social History Household Members other Living Arrangements House Number of Floors (Floors) Two Floors Number of Stairs To Enter/Railing? 6 steps to enter with L rail ascending has 17 stteps with L rail ascending to 2nd floor Home Environment Standard Height Toilet Tub/Shower Home Equipment Front Wheel Walker Straight Cane Employment Status Retired Additional Social History Comment pt stated that she can stay on the main level of the house if needed and sleep on her couch; will just have friends, her ex - and house renter to assist her at home. M2 PT-IP Current Condition Start: 05/04/18 12:47 Freq: NEEDED Status: Active Protocol: Document 05/04/18 10:45 AB (Rec: 05/04/18 13:15 AB [id number]) Physical Therapy Current Condition Current Condition Evaluation Date 05/04/18 Treatment Diagnosis s/p L3-4, L4-5, L5S1 fusion/ lami; difficulty in walking Onset Date 05/03/18 Precautions Lumbar Precautions Log Roll No Twisting Limit Bending Lifting Restriction of 10 lbs Gait Belt above Incisional Area Other Precautions Falls M3 PT-IP Subjective Start: 05/04/18 12:47 Freq: NEEDED Status: Active Protocol: Document 05/04/18 10:45 AB (Rec: 05/04/18 13:15 AB [id number]) Subjective Physical Therapy Visit Type Type Initial Evaluation Visit Start Time 10:45 Visit Stop Time 11:35 Total Visit Minutes 50 Number of [employer] Visits 0 Physical Therapy Visit Comments Patient Comments pt agreeable to do PT Therapy Pain Assessment Pain When Pain Assessed At Rest Pain Present Pain Present Pain Reported Location Back Intensity 10 Scale Used Numeric (1 - 10) Pain Management Techniques Apply Cold Re-positioning Timing of Activity with Medications M4 PT-IP Mobility and Gait Start: 05/04/18 12:47 Freq: NEEDED Status: Active Protocol: Document 05/04/18 10:45 AB (Rec: 05/04/18 13:15 AB [id number]) PT-Bed Mobility Assessment Rolling Type of Rolling Log Rolling Level of Assist Moderate Assistance Supine to Sit Supine to Sit Maximum Assistance 1 Person Assistance PT-Transfer Assessment Sit to and From Stand Sit to and from Stand Moderate Assistance 1 Person Assistance Use of Upper Extremities Equipment Transfer Assistive Device Gait Belt Front Wheeled Walker Orthotic/Prosthetic Devices or Brace: Yes Transfers Transfer Destination Chair Transfer Technique pt ambulated to the chair using FWW Transfer Ability Level of Assist Moderate Assistance Gait Assessment Gait Gait Assistance Required: Moderate Assistance Distance (Feet) 12 Able to Maintain Weight Bearing Status Yes During Gait Assistive Devices Assistive Device Gait Belt Front Wheeled Walker Orthotic/Prosthetic Devices or Brace: No Gait Deviations General Gait Pattern Antalgic Decreased Stride Length Decreased Feet Clearance Factors Limiting Gait Function Factors Limiting Gait Function Decreased Activity Tolerance Decreased Strength Limited Range of Motion Pain Poor Balance Poor Safety Awareness PT-Balance Assessment Sitting Balance and Reactions Static Sitting Balance Ability Good Dynamic Sitting Balance Ability Good Standing Balance and Reactions Static Standing Balance Ability Fair Dynamic Standing Balance Ability Poor Device Used FWW M5 PT-IP Objective Assessments Start: 05/04/18 12:47 Freq: NEEDED Status: Active Protocol: Document 05/04/18 10:45 AB (Rec: 05/04/18 13:15 AB [id number]) Orientation Orientation/Cognition Level of Alertness Alert Orientation Name Age Birthday Month Date Year Day of Week Place Situation Language Function Ability No Deficits Noted Safety Awareness Understands Safety Issues Memory Description No Deficits Noted Gross Range of Motion Lower Extremity ROM Assessment Left Impaired Impairments decrearse knee flexion: ~ 40 deg Strength Lower Extremity Strength Assessment Bilaterally Impaired Knee 3+/5 Coordination Assessment Gross Coordination Gross Coordination WNL Sensation Assessment Sensation Gross Sensation Right LE Impaired Left LE Impaired Light Touch Impaired Proprioception (Position) Impaired Sensation Description Numbness Comments Sensation Comments c/o numbness on all toes Muscle Tone Muscle Tone WNL Yes M6 PT-IP Treatment Start: 05/04/18 12:47 Freq: NEEDED Status: Active Protocol: Document 05/04/18 10:45 AB (Rec: 05/04/18 13:15 AB [id number]) Physical Therapy Treatment Exercises Exercises Heel Slides Education Education Provided Precautions Weight Bearing Status Post-Op Packet Safety M7 PT-IP Assessment and Plan Start: 05/04/18 12:47 Freq: NEEDED Status: Active Protocol: Document 05/04/18 10:45 AB (Rec: 05/04/18 13:15 AB [id number]) PT Summary Assessment and Plan Potential Rehabilitation Potential Fair Status of Condition at Evaluation Evolving Summary Impairments Pain ROM Strength Balance Coordination Sensation Bed Mobility Transfers Gait Activity Tolerance Assessment Summary pt requiring mod to max A with mobility at this time. pt has limited assistance at home and will benefit from SNF rehab to improve strength and functional independence prior to d/c home. Goals Bed Mobility Goal Standby Assistance Transfer Goal Standby Assistance Front Wheeled Walker Gait Goal Standby Assistance Front Wheel Walker Gait Distance 150 Other Goals up/down 17 steps with L rail ascending Days to Meet Goals 5 Frequency of Treatment Frequency Of Treatment Twice a Day Treatment Plan Physical Therapy Treatment Plan Bed Mobility Training Transfer Training Gait Training Therapeutic Exercise Balance Retraining Post Op Education Discharge Planning Hot or Cold Pack Neuromuscular Re-ed Coordination Retraining Manual Therapy Other Recommendations and Next Treatment ambulation Focus Recommendations To Nursing Amount of Assist Needed 1 Person Assist Discharge Recommendations PT Discharge Recommendations SNF Rehab
[2018-05-04] MEDS: NAPROXEN 250 MG TABLET 500 MG PO (11:50)
[2018-05-04] MEDS: hydrOXYzine pamoate 25 MG CAPSULE PO ×3 (12:43→20:59)
--- NOTE | 2018-05-04 13:38 | OT.IP.EVAL ---
Current Diagnoses Other secondary scoliosis, lumbar region (05/03/18) Spondylolisthesis, lumbar region (05/03/18) Spinal stenosis, lumbar region without neurogenic claudication (05/03/18) Surgery Performed Operation Date: 05/03/18 07:45 Actual Procedures p L3-4,L4-5,L5-S1 TLIF w/Posterior Instru.(Not Applicable) - Brii Colon MD Past Medical History (This Medical Record has been edited. Action required.) Diabetic retinopathy (Acute) Foot fracture, right (Acute ~02/2018) HTN (hypertension) (Acute) Hyperlipidemia (Acute) Ocular migraine (Acute ~02/2018) Anxiety (Chronic) Cataract (Chronic) Cervical spine disease (Chronic) Cervical stenosis (uterine cervix) (Chronic) Chronic back pain (Chronic) Depression (Chronic) Diabetes mellitus (Chronic ~1989) Dyspareunia (Chronic) Eczema (Chronic) Hayfever (Chronic) Hearing loss (Chronic) Hemorrhoids (Chronic) History of recurrent ear infection (Chronic 2014) Hypothyroidism (Chronic) IBS (irritable bowel syndrome) (Chronic) LBBB (left bundle branch block) (Chronic) Lumbar spine pain (Chronic) Osteoarthritis (Chronic) Psoriasis (Chronic) RLS (restless legs syndrome) (Chronic) Recurrent sinusitis (Chronic) Scoliosis (Chronic) Sleep apnea (Chronic) Thyroid nodule (Chronic 2013) Chicken pox (Resolved 1950) Endometriosis (Resolved) Fibroids (Resolved) History of heavy periods (Resolved) Irregular periods/menstrual cycles (Resolved) MRSA infection (Resolved 2003) Measles (Resolved) Mumps (Resolved) Ovarian cyst (Resolved) Painful menstrual periods (Resolved) Pelvic inflammatory disease (Resolved 1971) Ruptured tympanic membrane (Resolved 2013) Surgical History (This Medical Record has been edited. Action required.) Anesthesia (Resolved) History of knee replacement (Resolved 2004) History of knee replacement (Resolved 2007) History of knee replacement (Resolved 2009) History of tympanoplasty (Resolved 2013) S/P surgical manipulation of knee joint (Resolved 2004) Status post biopsy (Resolved 12/04/13) Status post gastric banding surgery (Resolved 2007) Status post hysterectomy (Resolved 1989) Status post hysteroscopic myomectomy (Resolved ~1979) Occupational Therapy Inpatient Evaluation/Re-Eval M1 PT/OT-IP Prior Functional Status Start: 05/04/18 12:47 Freq: NEEDED Status: Active Protocol: Document 05/04/18 13:38 PJM (Rec: 05/04/18 14:52 PJ [id number]) Medical Review Prior Functional Status Medical History Reviewed Yes Diet/Fluid Consistency Regular Communication WNL Mobility and Gait Pt stated that she is independent with all mobilities and ambulation without AD, but limited by LBP . Activities of Daily Living and IADL's Pt indep with all self are, IADLS, and driving. Prior Functional Level (Other details) Pt lives alone but has boarder who works stripper color. Social History Household Members other Living Arrangements House Number of Floors (Floors) Two Floors Number of Stairs To Enter/Railing? 6 steps to enter with L rail ascending has 17 steps with L rail ascending to 2nd floor bedroom and bathroom with claw foot tub Home Environment Standard Height Toilet Tub/Shower Home Equipment Front Wheel Walker Straight Cane Long Handled Sponge Automotive Service Advisor Employment Status Retired Additional Social History Comment Pt stated that she can stay on the main level of the house if needed and sleep on her couch; main floor bathroom has standard tub shower combo. Upstairs bath has claw foot tub. Pt's plans to borrow BSC or RTS to increase height of toilet and transfer tub bench . Ex stops in twice/day and can assist with dog care, groceries, some meal prep. Friends can also assist PRN. M2 OT-IP Current Condition Start: 05/04/18 14:36 Freq: Status: Active Protocol: Document 05/04/18 13:38 PJM (Rec: 05/04/18 14:52 PJ [id number]) Occupational Therapy Current Condition Current Condition Evaluation Date 05/04/18 Treatment Diagnosis decreased self care, mobility s/p L3-S1 decompressive lami, TLIF Post Operative Precautions Lumbar Precautions Log Roll No Twisting Limit Bending Lifting Restriction of 10 lbs Gait Belt above Incisional Area M3 OT- IP Subjective and Pain Start: 05/04/18 14:36 Freq: Status: Active Protocol: Document 05/04/18 13:38 PJM (Rec: 05/04/18 14:52 PJ [id number]) OT- Subjective Occupational Therapy Visit Type Type Initial Evaluation Visit Start Time 13:00 Visit Stop Time 13:38 Occupational Therapy Visit Comments Patient/Caregiver Goals to have less back pain during daily activities and regain independence in ambulation without a device OT Pain Assessment Pain When Pain Assessed After Treatment Pain Present Pain Present Pain Reported Location Back Intensity 8 Scale Used Numeric (1 - 10) Description Aching Acute M4 OT- IP ADL's Start: 05/04/18 14:36 Freq: Status: Active Protocol: Document 05/04/18 13:38 PJM (Rec: 05/04/18 14:52 PJM [id number]) OT [id number] General Evaluation Self-Feeding Ability Independent OT ADL-Grooming General Evaluation Grooming Ability Standby Assistance Areas Needing Assistance Retrieving/Set-up of Grooming Items Comments OT Grooming Comments seated in chair OT ADL-Oral Care General Eval Oral Care Ability Standby Assistance Devices Oral Care Devices Toothbrush Comments Oral Care Comments seated in chair OT ADL-Dressing General Eval Upper Body Dressing Ability Minimal Assistance Lower Body Dressing Ability Maximum Assistance Assistive Devices Dressing Assistive Devices Long Handled Shoe Horn [employer]otive Service Advisor Sock Aid Comments OT Dressing Comments Began education re: LB dressing techniques within lumbar spine precautions. Pt has manager technical sales and long shoe horn provided. pt does not usually wear socks and has difficulty getting them on so provided education re: sock aid also. OT ADL-Toileting General Evaluation Toileting Ability Total Assistance Areas Needing Assistance Empty Catheter or Colostomy Comments OT Toileting Comments mao in place OT ADL-Bathing Comments OT Bathing Comments to be assessed as activity tolerance improves M5 OT- IP IADL's Start: 05/04/18 14:36 Freq: Status: Active Protocol: Document 05/04/18 13:38 PJM (Rec: 05/04/18 14:52 PJ NR) OT-Instrumental Activities of Daily Living Deficits IADL Deficits Identified Deficits Home Safety Awareness Awareness of Need for Assistance at Home Good Awareness Ability to Problem Solve Emergency Able to Problem Solve Situations Medication Management Medication Management No Deficits Identified Money Management Money Management No Deficits Identified Meal Preparation Meal Preparation Caregiver Provides Assist Meal Preparation Comments ex and friends can provide some assist with meal prep Bed Bug Exterminator Bed Bug Exterminator Caregiver Provides Assist Bed Bug Exterminator Comments ex and friends can provide some assist until pt able Driving Driving Caregiver Provides Assist Driving Comments ex and friends can provide some assist until pt able M6 OT- IP Functional Cognition Start: 05/04/18 14:36 Freq: Status: Active Protocol: Document 05/04/18 13:38 PJM (Rec: 05/04/18 14:52 PJM [id number]) Cognitive Factors Limiting Selfcare Function Cognitive Ability Level of Alertness Alert Patient Orientation Name Age Birthday Month Date Year Day of Week Place Situation Attention Span Ability Capable of Focused Attention Capable of Sustained Attention Ability to Follow Commands Able to Follow One Step Commands Memory Description No Deficits Noted Safety Awareness Decreased Ability to Apply Precautions Underestimates Need for Assistance Problem Solving Ability Needs Assist to Identify Solutions OT- Vision and Hearing OT- Hearing Assessment OT- Hearing Assessment WFL OT- Vision Assessment Visual Acuity Glasses All The Time Vision Assessment Comments Pt has diabetic retinopathy with decreased ability to read small print. M7 OT- IP Mobility and Balance Start: 05/04/18 14:36 Freq: Status: Active Protocol: Document 05/04/18 13:38 PJM (Rec: 05/04/18 14:52 PJM [id number]) OT-Transfer Assessment Comments Mobility Comments see P.T. notes OT- Gait Assessment Comments Gait Ability Comments see P.T. notes OT- Balance Assessment Comments Other Balance Tests/Deviations/Treatment see P.T. notes : M8 OT- IP Objective Assessments Start: 05/04/18 14:36 Freq: Status: Active Protocol: Document 05/04/18 13:38 PJM (Rec: 05/04/18 14:52 PJM [id number]) OT Gross Range of Motion Upper Extremity Range of Motion Assessment Within Functional Limits OT Strength Hand Rhinologist Strength Hand Dominance Right OT- Coordination Assessment Upper Extremity Finger to Nose Test Within Functional Limits Finger Tapping Test Within Functional Limits Comments Coordination Comments pt has intermittent B hand essential tremor but none noted this session OT-Muscle Tone Assessment Muscle Tone WNL Yes OT Sensation Assessment Comments Summary Comments Pt denies deficits Edema Edema Absent M9 OT- IP Assessment and Plan Start: 05/04/18 14:36 Freq: Status: Active Protocol: Document 05/04/18 13:38 PJM (Rec: 05/04/18 14:52 PJM [id number]) OT Summary Assessment and Plan Potential Rehabilitation Potential Good Analytic Complexity at Evaluation Low Summary OT Impairments Pain Functional Mobility Grooming Dressing Toileting Bathing Toilet Transfers Shower Transfers Assessment Summary Low complexity OT assessment completed with emphasis on self care within lumbar spine precautions. Pt currently has high pain level with radiating B hip pain with performance deficits in all functional mobility/transfers, standing grooming, dressing, bathing, and toileting. Pt is far below her baseline level of function as she normally lives alone and is independent in all self are, IADLS, driving. Recommend short term SNF at d/c for short term rehab services prior to return home alone. Goals Grooming Goal Standby Assistance Dressing Goal Minimal Assistance Long Handled Shoe Horn [employer] Service Advisor Sock Aid Toileting Goal Standby Assistance Bathing Goal Minimal Assistance Toilet Transfer Goal Standby Assistance Shower Transfer Goal Contact Guard Assistance Patient/Caregiver Education Goal Demonstrate Post-Op Precautions Demonstrate Energy Conservation and Pacing Caregiver Independent Assisting Patient OT-Other Goals Grooming to be done standing at sink with good balance and safety awareness. Days to Meet Goals 3 Frequency of Treatment Frequency Of Treatment Once a Day Treatment Plan OT Treatment Plan ADL Training Functional Mobility Patient/Family Education Discharge Planning Discharge Recommendations OT Discharge Recommendations SNF Rehab Home Equipment Needs transfer tub bench, raised toilet seat or BSC over toilet
--- NOTE | 2018-05-04 13:42 | PC.NURSE ---
Addendum entered by Deborah Huang 05/04/18 14:00: Patient reported improved back pain with vistaril, still aching in hips. patient reported improved appetite, and provided snack Original Note: pt reporting post surgical back and hip pain throughout care. provided scheduled and ordered pain meds,ice packs and repositioned. Patient moed to chair with PT, tolerated moderately well and reported improved comfort while sitting in recliner. Patient reported having back spasms, vistaril ordered and given at 1245. IV fluids discontinued and saline locked at 1315
--- NOTE | 2018-05-04 14:30 | PC.NURSE ---
AM shift Agree with SN charting, precepted by this RN.
--- NOTE | 2018-05-04 14:33 | PT.IPTN ---
Current Diagnoses Other secondary scoliosis, lumbar region (05/03/18) Spondylolisthesis, lumbar region (05/03/18) Spinal stenosis, lumbar region without neurogenic claudication (05/03/18) Surgery Performed Operation Date: 05/03/18 07:45 Actual Procedures p L3-4,L4-5,L5-S1 TLIF w/Posterior Instru.(Not Applicable) - Brii Colon MD Physical Therapy Treatment Note M2 PT-IP Current Condition Start: 05/04/18 12:47 Freq: NEEDED Status: Active Protocol: Document 05/04/18 10:45 AB (Rec: 05/04/18 13:15 AB [id number]) Physical Therapy Current Condition Current Condition Evaluation Date 05/04/18 Treatment Diagnosis s/p L3-4, L4-5, L5S1 fusion/ lami; difficulty in walking Onset Date 05/03/18 Precautions Lumbar Precautions Log Roll No Twisting Limit Bending Lifting Restriction of 10 lbs Gait Belt above Incisional Area Other Precautions Falls M3 PT-IP Subjective Start: 05/04/18 12:47 Freq: NEEDED Status: Active Protocol: Document 05/04/18 15:04 AB (Rec: 05/04/18 15:22 AB [id number]) Subjective Physical Therapy Visit Type Type Treatment Note Visit Start Time 14:33 Visit Stop Time 14:58 Total Visit Minutes 25 Number of BRISKET PULLER Visits 0 Physical Therapy Visit Comments Patient Comments pt agreeable to do PT Therapy Pain Assessment Pain When Pain Assessed At Rest Pain Present Pain Present Pain Reported Location Back Intensity 5 Scale Used Numeric (1 - 10) Pain Management Techniques Apply Cold Re-positioning Timing of Activity with Medications M4 PT-IP Mobility and Gait Start: 05/04/18 12:47 Freq: NEEDED Status: Active Protocol: Document 05/04/18 15:04 AB (Rec: 05/04/18 15:22 AB [id number]) PT-Bed Mobility Assessment Rolling Type of Rolling Log Rolling Level of Assist Standby Assistance Supine to Sit Supine to Sit Standby Assistance Sit to Supine Sit to Supine Standby Assistance Scooting Scooting to Edge of Bed Standby Assistance Scooting Up and Down in Bed Standby Assistance PT-Transfer Assessment Sit to and From Stand Sit to and from Stand Standby Assistance Equipment Transfer Assistive Device Gait Belt Front Wheeled Walker Orthotic/Prosthetic Devices or Brace: No Comments Mobility Comments completed log roll bed mobility x 2 sets requiring SBA and cues for techniques and safety. Gait Assessment Gait Gait Assistance Required: Contact Guard Assist Minimum Assistance Distance (Feet) 60 Able to Maintain Weight Bearing Status Yes During Gait Assistive Devices Assistive Device Gait Belt Front Wheeled Walker Orthotic/Prosthetic Devices or Brace: No Gait Deviations General Gait Pattern Antalgic Decreased Stride Length Decreased Feet Clearance Factors Limiting Gait Function Factors Limiting Gait Function Decreased Activity Tolerance Decreased Strength Limited Range of Motion Pain Poor Balance Poor Safety Awareness Comments Gait Comments pt completed ambulation using FWW ~ 60 ft CGA to min A. increase unsteadiness towards end of ambulation. M5 PT-IP Objective Assessments Start: 05/04/18 12:47 Freq: NEEDED Status: Active Protocol: Document 05/04/18 10:45 AB (Rec: 05/04/18 13:15 AB [id number]) Orientation Orientation/Cognition Level of Alertness Alert Orientation Name Age Birthday Month Date Year Day of Week Place Situation Language Function Ability No Deficits Noted Safety Awareness Understands Safety Issues Memory Description No Deficits Noted Gross Range of Motion Lower Extremity ROM Assessment Left Impaired Impairments decrearse knee flexion: ~ 40 deg Strength Lower Extremity Strength Assessment Bilaterally Impaired Knee 3+/5 Coordination Assessment Gross Coordination Gross Coordination WNL Sensation Assessment Sensation Gross Sensation Right LE Impaired Left LE Impaired Light Touch Impaired Proprioception (Position) Impaired Sensation Description Numbness Comments Sensation Comments c/o numbness on all toes Muscle Tone Muscle Tone WNL Yes M6 PT-IP Treatment Start: 05/04/18 12:47 Freq: NEEDED Status: Active Protocol: Document 05/04/18 15:04 AB (Rec: 05/04/18 15:22 AB [id number]) Physical Therapy Treatment Education Education Provided Precautions Safety M7 PT-IP Assessment and Plan Start: 05/04/18 12:47 Freq: NEEDED Status: Active Protocol: Document 05/04/18 15:04 AB (Rec: 05/04/18 15:22 AB [id number]) PT Summary Assessment and Plan Potential Rehabilitation Potential Good Summary Impairments Pain ROM Strength Balance Coordination Sensation Cognition Bed Mobility Transfers Gait Activity Tolerance Progress Towards Goals Progressing Toward Goals Assessment Summary pt progressing with mobility and able to ambulate more this afternoon but continues to require one person assist with mobility. pt will benefit from SNF rehab to improve mobility and independence prior to d/c home. Goals Bed Mobility Goal Standby Assistance Transfer Goal Standby Assistance Front Wheeled Walker Gait Goal Standby Assistance Front Wheel Walker Gait Distance 150 Other Goals up/down 17 steps with L rail ascending Days to Meet Goals 5 Frequency of Treatment Frequency Of Treatment Twice a Day Treatment Plan Physical Therapy Treatment Plan Bed Mobility Training Transfer Training Gait Training Therapeutic Exercise Balance Retraining Post Op Education Discharge Planning Hot or Cold Pack Neuromuscular Re-ed Coordination Retraining Manual Therapy Other Recommendations and Next Treatment ambulation Focus Recommendations To Nursing Amount of Assist Needed 1 Person Assist Discharge Recommendations PT Discharge Recommendations SNF Rehab
[2018-05-04] MEDS: MAGNESIUM HYDROXIDE 30 ML UDC PO (15:48)
[2018-05-04] MEDS: METFORMIN HCL 500 MG TABLET 1000 MG PO (16:57)
[2018-05-04] MEDS: SENNOSIDES 8.6 MG TABLET 17.2 MG PO (19:52)
[2018-05-04] MEDS: ATORVASTATIN 20 MG TABLET PO (19:53)
[2018-05-05] VITALS (7 sets, daily range): BP systolic 111–153; BP diastolic 56–85; PULSE 88–95; RESP 16–18; TEMP 36.6–36.9; O2SAT 95–97
[2018-05-05] MEDS: OXYCODONE IR 5 MG TABLET 10 MG PO ×4 (00:10→16:10)
[2018-05-05] MEDS: hydrOXYzine pamoate 25 MG CAPSULE PO ×2 (01:07→08:02)
[2018-05-05] MEDS: LEVOTHYROXINE 25 MCG TABLET PO (05:57)
--- NOTE | 2018-05-05 06:30 | PC.NURSE ---
0600 DC'd daylin, tolerated procedure well. Reports having problem with urgency. BSC @ the bedside & instructed to call for assistance to the BSC or to the BR. Medicated with 10 mg. of Percolone X 2 doses this shift. Slept most of the shift, allso reports bilateral thighs still sl. numb. Will cont. POC & monitor.
[2018-05-05] MEDS: INSULIN ASPART 100 UNIT/ML INSULN PEN SUBCUT ×4 (07:59→20:49)
[2018-05-05] MEDS: METFORMIN HCL 500 MG TABLET 1500 MG PO (08:04)
--- NOTE | 2018-05-05 09:20 | PM.PNPO.1 ---
Subjective Date Patient Seen: 05/05/18 Interval history: Patient seen bedside status post L3-4,L4-5,L5-S1 TLIF with Dr. Colon on 05/03/18. Patient is POD #2. Patient is doing well, however she still complaining of pain as well as bilateral numbness into her thighs. She has had her Arango removed this morning. She has been ambulating with PT however she is having difficulty with rolling and getting out of bed. Exam Vital Signs (past 8 hours): - 05/05/18 05:00 05/05/18 08:00 Temperature 98.2 F 98.1 F Pulse Rate 91 H 95 H Respiratory Rate 16 18 Blood Pressure 128/65 131/74 Pulse Oximetry 96 96 Fraction of Inspired Oxygen 21 Oxygen Delivery Method Room Air Oxygen Flow Rate 0 Narrative Exam Narrative: Well-developed well-nourished no acute distress alert oriented x3. Lumbar spine dressing is clean dry and intact no signs of drainage minimal erythema and swelling around the surgical area. Calves are soft and compressible. Range of motion bilateral extremities intact. Objective Labs Result Diagrams: 05/04/18 06:33 Assessment & Plan Post-op Postoperative Procedures Operation Date: 05/03/18 07:45 Actual Procedures Side Surgeon p L3-4,L4-5,L5-S1 TLIF w/Posterior Instru. Not Applicable Brii Colon MD 1. Postop day 2. Status post above procedure- Continue with pain management, ambulation with PT/OT. Add Decadron to help with postoperative inflammation and pain. 2. Diabetes mellitus type 2-continue home medications. 3. Postoperative anemia due to acute blood loss-stable. Recheck H/H in A.M. Disp-d/c home tomorrow if ambulating better and pain controlled. Quality VTE Deep Vein Thrombosis/Pulmonary Embolism Present on Admission: No
[2018-05-05] MEDS: VENLAFAXINE ER 75 MG CAP 150 MG PO (09:37)
[2018-05-05] MEDS: AMLODIPINE 5 MG TABLET PO (09:37)
[2018-05-05] MEDS: DOCUSATE 100 MG CAPSULE PO ×2 (09:37→20:33)
[2018-05-05] MEDS: GLIMEPIRIDE 2 MG TABLET 4 MG PO ×2 (09:37→20:33)
[2018-05-05] MEDS: LOSARTAN 50 MG TABLET 100 MG PO (09:38)
[2018-05-05] MEDS: DEXAMETHASONE 4 MG TABLET 8 MG PO (09:38)
[2018-05-05] MEDS: PROPRANOLOL 10 MG TABLET PO ×2 (09:39→20:32)
[2018-05-05] MEDS: SODIUM CHLORIDE 0.9% FLUSH 10 ML IV ×3 (09:40→21:12)
--- NOTE | 2018-05-05 10:05 | CM.MNRNOTE ---
Assess- pt complains of 10/10 pain, given 10mg of percolone. Pt is working with OT at this time. She states that she is feeling better up and moving around. The bed makes her stiff. BS this am 261, insulin and po medications given. Sitting up in chair now.
--- NOTE | 2018-05-05 10:07 | OT.IP.TRT ---
Current Diagnoses Other secondary scoliosis, lumbar region (05/03/18) Spondylolisthesis, lumbar region (05/03/18) Spinal stenosis, lumbar region without neurogenic claudication (05/03/18) Surgery Performed Operation Date: 05/03/18 07:45 Actual Procedures p L3-4,L4-5,L5-S1 TLIF w/Posterior Instru.(Not Applicable) - Brii Colon MD Occupational Therapy Treatment Note M2 OT-IP Current Condition Start: 05/04/18 14:36 Freq: Status: Active Protocol: Document 05/04/18 13:38 PJM (Rec: 05/04/18 14:52 PJM [id number]) Occupational Therapy Current Condition Current Condition Evaluation Date 05/04/18 Treatment Diagnosis decreased self care, mobility s/p L3-S1 decompressive lami, TLIF Post Operative Precautions Lumbar Precautions Log Roll No Twisting Limit Bending Lifting Restriction of 10 lbs Gait Belt above Incisional Area M3 OT- IP Subjective and Pain Start: 05/04/18 14:36 Freq: Status: Active Protocol: Document 05/05/18 10:07 PJM (Rec: 05/05/18 12:06 PJM [id number]) OT- Subjective Occupational Therapy Visit Type Type Treatment Note Visit Start Time 09:28 Visit Stop Time 10:07 Total Visit Minutes 39 Notes Pt in bed, wants to get up to bathroom and then chair which she finds more comfortable than bed. Occupational Therapy Visit Comments Patient Comments I am ready to get up. Patient/Caregiver Goals to go home, have less pain during daily tasks OT Pain Assessment Pain When Pain Assessed After Treatment Pain Present Pain Present Pain Reported Location Back Intensity 7 Scale Used Numeric (1 - 10) Description Aching Acute Pain Behaviors Facial Grimacing Guarding Management Techniques Apply Cold Distraction Re-positioning Timing of Activity with Medications M4 OT- IP ADL's Start: 05/04/18 14:36 Freq: Status: Active Protocol: Document 05/05/18 10:07 PJM (Rec: 05/05/18 12:06 PJM [id number]) OT [id number] General Evaluation Self-Feeding Ability Independent OT ADL-Grooming General Evaluation Grooming Ability Standby Assistance Areas Needing Assistance Combing/Brushing Hair Face Washing Comments OT Grooming Comments standing at sink 5 min with FWW with no LOB after education re; body mechanics OT ADL-Oral Care General Eval Areas of Assistance Brushing Teeth Devices Oral Care Devices Toothbrush Comments Oral Care Comments standing at sink 5 min with FWW with no LOB after education re; body mechanics OT ADL-Dressing General Eval Upper Body Dressing Ability Minimal Assistance Areas Needing Assistance Underpants/Brief Assistive Devices Dressing Assistive Devices Fiscal Economist Comments OT Dressing Comments Pt donned incontinent brief with min assist and mod cues re: use of textile engraver to adhere to lumbar spine precautions. Pt states she never wears socks so declines sock aid. She plans to wear slip on shoes. OT ADL-Toileting General Evaluation Toileting Ability Standby Assistance Devices Toileting Assistive Devices Raised Toilet Seat OT ADL-Bathing Bathing Type Bathing Type Sponge Bath General Evaluation Bathing Ability Minimal Assistance Areas Needing Assistance Wash/Dry Back Comments OT Bathing Comments pt would like to shower tomorrow; pt needed min assist with upper body sponge bath seated in chair today M5 OT- IP IADL's Start: 05/04/18 14:36 Freq: Status: Active Protocol: Document 05/04/18 13:38 PJM (Rec: 05/04/18 14:52 PJM [id number]) OT-Instrumental Activities of Daily Living Deficits IADL Deficits Identified Deficits Home Safety Awareness Awareness of Need for Assistance at Home Good Awareness Ability to Problem Solve Emergency Able to Problem Solve Situations Medication Management Medication Management No Deficits Identified Money Management Money Management No Deficits Identified Meal Preparation Meal Preparation Caregiver Provides Assist Meal Preparation Comments ex and friends can provide some assist with meal prep Chip Loft Worker Chip Loft Worker Caregiver Provides Assist Chip Loft Worker Comments ex and friends can provide some assist until pt able Driving Driving Caregiver Provides Assist Driving Comments ex and friends can provide some assist until pt able M6 OT- IP Functional Cognition Start: 05/04/18 14:36 Freq: Status: Active Protocol: Document 05/05/18 10:07 PJM (Rec: 05/05/18 12:06 PJM [id number]) Cognitive Factors Limiting Selfcare Function Cognitive Ability Level of Alertness Alert Patient Orientation Name Age Birthday Month Date Year Day of Week Place Situation Attention Span Ability Capable of Focused Attention Capable of Sustained Attention Ability to Follow Commands Able to Follow One Step Commands Able to Follow Multi-Step Commands Cognitive Comments Cognitive Assessment Comments Pt needs min verbal cues to avoid twisting and forward bending during functional tasks. M7 OT- IP Mobility and Balance Start: 05/04/18 14:36 Freq: Status: Active Protocol: Document 05/05/18 10:07 INDRA (Rec: 05/05/18 12:06 JULIA [id number]) OT- Bed Mobility Assessment Rolling Type of Rolling Roll to Left Level of Assistance Contact Guard Assistance 1 Person Assistance Bedrails Supine to Sit Supine to Sit Assist Standby Assistance 1 Person Assistance Scooting Scooting to Edge of Bed Standby Assistance OT-Transfer Assessment Sit to and From Stand Sit to and from Stand Contact Guard Assistance Transfers Transfer Ability Contact Guard Assistance Technique Transfer Destination Chair Toilet Transfer Technique Stand Step Pivot Devices Transfer Assistive Devices Gait Belt Front Wheeled Walker Comments Mobility Comments Pt needs mod verbal cues for log roll technique and pt using upper bed rail today with bed flat. Once side lying, pt is SBA only for bed mobility. OT- Gait Assessment Gait Gait Assistance Required: Contact Guard Assist Distance (Feet) 35 Assistive Devices Assistive Device Gait Belt Front Wheeled Walker Comments Gait Ability Comments No LOB noted with gait to bathroom, sink, then chair with FWW. OT- Balance Assessment Sitting Balance and Reactions Static Sitting Balance Ability Good Dynamic Sitting Balance Ability Good Standing Balance and Reactions Static Standing Balance Ability Good M9 OT- IP Assessment and Plan Start: 05/04/18 14:36 Freq: Status: Active Protocol: Document 05/05/18 10:07 INDRA (Rec: 05/05/18 12:06 JULIA [id number]) OT Summary Assessment and Plan Potential Rehabilitation Potential Good Summary OT Impairments Pain Balance Functional Mobility Dressing Toileting Bathing Toilet Transfers Shower Transfers Progress Towards Goals Progressing Toward Goals Assessment Summary Pt making daily progress with bed mobility, functional mobility with FWW, and self care skills. Pt will benefit from 1 additional OT session tomorrow for showering and further education re: adapted dressing techniques. Pt may be able to d/c home with assist from ex and friends if she continues to improve here and is able to do stairs. She has 6 stairs to enter her home. Frequency of Treatment Frequency Of Treatment Once a Day Treatment Plan OT Treatment Plan ADL Training Functional Mobility Patient/Family Education Discharge Planning Discharge Recommendations OT Discharge Recommendations Home with Assistance Home Equipment Needs transfer tub bench, RTS with armrests or BSC over toilet
--- NOTE | 2018-05-05 10:30 | PT.IPTN ---
Current Diagnoses Other secondary scoliosis, lumbar region (05/03/18) Spondylolisthesis, lumbar region (05/03/18) Spinal stenosis, lumbar region without neurogenic claudication (05/03/18) Surgery Performed Operation Date: 05/03/18 07:45 Actual Procedures p L3-4,L4-5,L5-S1 TLIF w/Posterior Instru.(Not Applicable) - Brii Colon MD Physical Therapy Treatment Note M2 PT-IP Current Condition Start: 05/04/18 12:47 Freq: NEEDED Status: Active Protocol: Document 05/04/18 10:45 AB (Rec: 05/04/18 13:15 AB [id number]) Physical Therapy Current Condition Current Condition Evaluation Date 05/04/18 Treatment Diagnosis s/p L3-4, L4-5, L5S1 fusion/ lami; difficulty in walking Onset Date 05/03/18 Precautions Lumbar Precautions Log Roll No Twisting Limit Bending Lifting Restriction of 10 lbs Gait Belt above Incisional Area Other Precautions Falls M3 PT-IP Subjective Start: 05/04/18 12:47 Freq: NEEDED Status: Active Protocol: Document 05/05/18 10:30 AB (Rec: 05/05/18 11:39 AB [id number]) Subjective Physical Therapy Visit Type Type Treatment Note Visit Start Time 10:30 Visit Stop Time 10:46 Total Visit Minutes 16 Number of INTERACTIVE DIGITAL MEDIA SPECIALIST Visits 0 Physical Therapy Visit Comments Patient Comments pt agreed to do PT Therapy Pain Assessment Pain When Pain Assessed At Rest Pain Present Pain Present Pain Reported Location Back Intensity 6 Scale Used Numeric (1 - 10) Pain Management Techniques Apply Cold Re-positioning Timing of Activity with Medications M4 PT-IP Mobility and Gait Start: 05/04/18 12:47 Freq: NEEDED Status: Active Protocol: Document 05/05/18 10:30 AB (Rec: 05/05/18 11:39 AB [id number]) PT-Transfer Assessment Sit to and From Stand Sit to and from Stand Contact Guard Assistance 1 Person Assistance Use of Upper Extremities Equipment Transfer Assistive Device Gait Belt Front Wheeled Walker Orthotic/Prosthetic Devices or Brace: No Gait Assessment Gait Gait Assistance Required: Contact Guard Assist Minimum Assistance Distance (Feet) 100 Able to Maintain Weight Bearing Status Yes During Gait Assistive Devices Assistive Device Gait Belt Front Wheeled Walker Orthotic/Prosthetic Devices or Brace: No Gait Deviations General Gait Pattern Antalgic Decreased Stride Length Decreased Feet Clearance Factors Limiting Gait Function Factors Limiting Gait Function Decreased Activity Tolerance Decreased Strength Limited Range of Motion Pain Poor Balance Poor Safety Awareness Comments Gait Comments pt ambulated using FWW ~ 100 ft CGA with (+) slight LOB requiring min A to rebalance. M5 PT-IP Objective Assessments Start: 05/04/18 12:47 Freq: NEEDED Status: Active Protocol: Document 05/04/18 10:45 AB (Rec: 05/04/18 13:15 AB [id number]) Orientation Orientation/Cognition Level of Alertness Alert Orientation Name Age Birthday Month Date Year Day of Week Place Situation Language Function Ability No Deficits Noted Safety Awareness Understands Safety Issues Memory Description No Deficits Noted Gross Range of Motion Lower Extremity ROM Assessment Left Impaired Impairments decrearse knee flexion: ~ 40 deg Strength Lower Extremity Strength Assessment Bilaterally Impaired Knee 3+/5 Coordination Assessment Gross Coordination Gross Coordination WNL Sensation Assessment Sensation Gross Sensation Right LE Impaired Left LE Impaired Light Touch Impaired Proprioception (Position) Impaired Sensation Description Numbness Comments Sensation Comments c/o numbness on all toes Muscle Tone Muscle Tone WNL Yes M6 PT-IP Treatment Start: 05/04/18 12:47 Freq: NEEDED Status: Active Protocol: Document 05/05/18 10:30 AB (Rec: 05/05/18 11:39 AB [id number]) Physical Therapy Treatment Education Education Provided Safety M7 PT-IP Assessment and Plan Start: 05/04/18 12:47 Freq: NEEDED Status: Active Protocol: Document 05/05/18 10:30 AB (Rec: 05/05/18 11:39 AB [id number]) PT Summary Assessment and Plan Potential Rehabilitation Potential Good Summary Impairments Pain ROM Strength Balance Sensation Cognition Bed Mobility Transfers Gait Activity Tolerance Progress Towards Goals Slow Progress due to Pain Slow Progress due to Activity Tolerance Assessment Summary pt progressing slowly but continues to require CGA to min A with ambulation using FWW. Pt does not have much assistance at home and to be be more independent than current level to d/c home. pt will require SNF rehab to improve mobility and functional independence. Goals Bed Mobility Goal Standby Assistance Transfer Goal Standby Assistance Front Wheeled Walker Gait Goal Standby Assistance Front Wheel Walker Gait Distance 150 Other Goals up/down 17 steps with L rail ascending Days to Meet Goals 5 Frequency of Treatment Frequency Of Treatment Twice a Day Treatment Plan Physical Therapy Treatment Plan Bed Mobility Training Transfer Training Gait Training Therapeutic Exercise Balance Retraining Post Op Education Discharge Planning Hot or Cold Pack Neuromuscular Re-ed Coordination Retraining Manual Therapy Other Recommendations and Next Treatment ambulation Focus Recommendations To Nursing Amount of Assist Needed 1 Person Assist Discharge Recommendations PT Discharge Recommendations SNF Rehab
--- NOTE | 2018-05-05 13:02 | PC.NURSE ---
Assess_Pt complains of 10/10 pain, given 10mg of percolone. Pt is working with OT at this time. She states that she is feeling better when she is up and moving around. The bed makes her stiff. Bs this am 261, insulin and po meds given. Sitting up in chair now.
--- NOTE | 2018-05-05 13:15 | CM.DANOTE ---
Addendum entered by Katerin Norris LPN 05/05/18 13:44: Met with pt; introduced self and role. Pt confirms that her desire at d/c is for home, not snf. She is aware that some of the team has recommended snf setting but was under the impression that this might only be a day or 2. Explained more about the snf rehab process and also that the orthopedic team would need to order his. Pt is firm that her desire is home: I am much more comfortable there. My ex Cal will be checking in frequently and may stay with me for awhile. A friend is arriving Tuesday and will stay with me on the day of discharge. Pt confirms that she will be staying on one level of her home so will not have the 17 steps to her bedroom. She said she finds she is much more comfortable in a recliner and I have several of those that will work well. Pt says her boyfriend will not be available to help as per her initial pre-op plan as he is caring for him mother. Her roommate is a PT but is in and out. She says he can be counted on if an emergency arises. Pt does admit she still must master the stairs to the home. all three entrances to my home have stairs.. Discussed caregiver training with Cal. She said she did not realize this would be needed and agree to alert him to this. Cal then entered the room and left them discussing all this. Spoke with PT Maribell. She will alert the PT seeing pt this afternoon to need for this training. Pt is hopeful that she can get therapy morning and afternoon tomorrow and then go home if able or stay until Tuesday for more therapy if that is what it takes to get her to her home setting. Encouraged her to discuss this with the rounding ortho staff tomorrow. DCPlanning team will be following. Pt is aware that her Medicare will cover her stay here as long as she meets medical need for the INPT stay. Original Note: Discharge Planning/Care Management DCP: assessment: case received yesterday and discussed in Team Rounds: Documentation revealed that pt is a 67 year old female who admitted for a planned spinal surgery on 05/03/18: Surgeon: Dr. Colon Admission status: INPT: confirmed by [facility] RN team. PCP: Dr. Misael Cardona Payer: Medicare and [facility]. Case is discussed today in Team Rounds: PT is indicating that pt may need to consider snf before home. OT today is supportive of home plan if pt can continue to improve and manage stairs. Ortho PALOMA Crandall expects pt will go home tomorrow. P: will see pt now for discussion of d/c issues and options. CM Discharge Assessment Start: 05/05/18 13:13 Freq: Status: Active Protocol: Document 05/05/18 13:14 ITV (Rec: 05/05/18 13:14 ITV [id number]) Discharge Planning Assessment Advance Directives? Yes Advance Directives on File Yes History Provided By Patient Medical Record Prior Living Arrangements House Household Members other Whiteboard Updated in Patient Room with Yes name and ext. # of Executive Compensation Analyst Review Status In Process Next Review Type Continued Stay Review Pre-Anesthesia Assessment Start: 04/26/18 08:45 Freq: Status: Active Protocol: Document 04/26/18 08:45 CAB (Rec: 04/26/18 09:36 CAB [id number]) Pre-Anesthesia Assessment PAC Comment Cardiac visit/clearance scanned to record Patient Information Reviewed Via Phone Assessment Assessment Completed With Patient Diagnostic Results BMP/CMP CBC EKG Primary Care Provider Misael Cardona Seen Specialist in Last 12 Months Yes Specialist Seen Trucksmith Opthamologist/Designer/Writer Orthopedist Primary Language Portuguese Height 162.56 cm Weight 90.718 kg Body Mass Index (BMI) 34.3 Hearing Ability Normal Visual Assist Glasses Dentition Type Teeth, Natural Present Teeth, Missing Barriers to Learning None Other Aids No Hx Anesthesia Reactions No Hx Family Anesthesia Reaction No Hx Malignant Hyperthermia No Hx Blood Transfusions No Anesthesia Review Requested Yes: Surgeon requested re: Cardiac Medicare Contact Specialist No alcohol intake current alcohol intake frequency a few times a week Smoking Status Never smoker Substance Use Type marijuana Comment Pt advised not to smoke marijuana 24 hours prior to surgery Pain Present Pain Reported Musculoskeletal Symptoms Abnormal Gait Back Pain Difficulty Walking Joint Pain Limited Range of Motion Muscle Cramps Numbness Tingling History of Falling (Recent or History of Yes ) Patient is completely paralyzed or No completely immobile Prosthesis or Orthotic Device Front Wheel Walker Crutches Mental Status Oriented to own ability Is patient on oxygen? No Does patient have BRIGHT/SOB No Hx Sleep Apnea Yes: Resolved w/weight loss per pt, no CPAP Currently Taking a Beta Moshe Yes: Propanolol Can You Climb a Flight of Stairs Without Yes SOB Hx Chest Pain No Hx SOB No Hx Syncope or Dizziness No Anti-Coagulant Therapy No Has a Trucksmith Yes: Dr. 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 in the last 30 days? Marital Status Lives With other Prior Living Arrangements House Number of Floors (Floors) Two Floors Number of Stairs To Enter/Railing? 8 stairs, railing present Does the Patient Have Assistance After Yes Surgery Patient Discharge Plan Description Return Home Comment Roommate is a P.T., ex- and boyfriend will assist with care at home Feels Safe in Current Environment Yes Been Physically Hurt or Threatened By a No Person in Current Environment Do you have thoughts of harming yourself None or others? Are you currently considering suicide? No Do you have a plan to hurt yourself or No Plan others? Do You Have Any Spiritual Beliefs That No May Affect Your HC Choices? Do You Have Any Cultural Practices That No May Affect Your HC Choices? Who Can We Speak to About Patient's Care Family, friends Identifying Code for Release of Patient Declines to issue Information Health Care Proxy/Next of Kin Luis Alberto Reynososon) Health Care Proxy Emergency Contact Name Luis Alberto Reynososon) Emergency Contact Advance Directives? Yes Advance Directives on File Yes Power of Bar Machine Operator Production Yes Power of Bar Machine Operator Production Name Luis Alberto chavze) Power of Bar Machine Operator Production PAC Instructions Durable medical equipment Medications to take/avoid Nasal antibiotic No ETOH/petroleum product on skin DOS NPO Post-op transportation Pre-surgical wash Sensory aids Sturdy shoes/comfortable clothes Do not bring valuables and remove jewelry
[2018-05-05] MEDS: DEXAMETHASONE 4 MG TABLET PO ×2 (13:30→20:53)
--- NOTE | 2018-05-05 13:47 | PC.NURSE ---
pt. up to chair speaking with PT. States feeling much better after given vistaril. Pain decreased from 8 to 2.
--- NOTE | 2018-05-05 15:16 | PT.IPTN ---
Current Diagnoses Other secondary scoliosis, lumbar region (05/03/18) Spondylolisthesis, lumbar region (05/03/18) Spinal stenosis, lumbar region without neurogenic claudication (05/03/18) Surgery Performed Operation Date: 05/03/18 07:45 Actual Procedures p L3-4,L4-5,L5-S1 TLIF w/Posterior Instru.(Not Applicable) - Brii Colon MD Physical Therapy Treatment Note M2 PT-IP Current Condition Start: 05/04/18 12:47 Freq: NEEDED Status: Active Protocol: Document 05/04/18 10:45 AB (Rec: 05/04/18 13:15 AB [id number]) Physical Therapy Current Condition Current Condition Evaluation Date 05/04/18 Treatment Diagnosis s/p L3-4, L4-5, L5S1 fusion/ lami; difficulty in walking Onset Date 05/03/18 Precautions Lumbar Precautions Log Roll No Twisting Limit Bending Lifting Restriction of 10 lbs Gait Belt above Incisional Area Other Precautions Falls M3 PT-IP Subjective Start: 05/04/18 12:47 Freq: NEEDED Status: Active Protocol: Document 05/05/18 15:00 GGD (Rec: 05/05/18 15:16 GGD [id number]) Subjective Physical Therapy Visit Type Type Treatment Note Visit Start Time 14:30 Visit Stop Time 15:00 Total Visit Minutes 30 Notes PT up to toilet without assist . Number of TICKET TAKER FERRYBOAT Visits 1 Physical Therapy Visit Comments Patient Comments Pt ready to work with therapy. Therapy Pain Assessment Pain When Pain Assessed During Mobility Pain Present Pain Present Pain Reported M4 PT-IP Mobility and Gait Start: 05/04/18 12:47 Freq: NEEDED Status: Active Protocol: Document 05/05/18 15:00 GGD (Rec: 05/05/18 15:16 GGD [id number]) PT-Bed Mobility Assessment Rolling Type of Rolling Log Rolling Level of Assist Standby Assistance Supine to Sit Supine to Sit Standby Assistance Sit to Supine Sit to Supine Standby Assistance Scooting Scooting to Edge of Bed Standby Assistance Scooting Up and Down in Bed Standby Assistance PT-Transfer Assessment Sit to and From Stand Sit to and from Stand Contact Guard Assistance Use of Upper Extremities Equipment Transfer Assistive Device Gait Belt Front Wheeled Walker Orthotic/Prosthetic Devices or Brace: No Transfers Transfer Destination Bed Chair Transfer Ability Level of Assist Contact Guard Assistance Comments Mobility Comments Pt need min cues for full log roll. She was SBA for bed mobility from higher bed. Gait Assessment Gait Gait Assistance Required: Standby Assistance Contact Guard Assist Distance (Feet) 160 Able to Maintain Weight Bearing Status Yes During Gait Assistive Devices Assistive Device Gait Belt Front Wheeled Walker Orthotic/Prosthetic Devices or Brace: No Gait Deviations General Gait Pattern Antalgic Decreased Stride Length Decreased Feet Clearance Factors Limiting Gait Function Factors Limiting Gait Function Decreased Activity Tolerance Decreased Strength Limited Range of Motion Pain Poor Balance Poor Safety Awareness Stair Climbing Assessment Evaluation Level of Assist On Stairs Contact Guard Assistance Devices Stair Climbing Assistive Devices Left Railing Technique/Endurance Stair Climbing Direction Ascend and Descend Stair Climbing Technique Step to Step Number of Steps Climbed 3 Query Text: Stair Climbing Set # Repetitions (reps) 4 Comments Stair Climbing Comments Pt need min cues for stair techinque. M5 PT-IP Objective Assessments Start: 05/04/18 12:47 Freq: NEEDED Status: Active Protocol: Document 05/04/18 10:45 AB (Rec: 05/04/18 13:15 AB [id number]) Orientation Orientation/Cognition Level of Alertness Alert Orientation Name Age Birthday Month Date Year Day of Week Place Situation Language Function Ability No Deficits Noted Safety Awareness Understands Safety Issues Memory Description No Deficits Noted Gross Range of Motion Lower Extremity ROM Assessment Left Impaired Impairments decrearse knee flexion: ~ 40 deg Strength Lower Extremity Strength Assessment Bilaterally Impaired Knee 3+/5 Coordination Assessment Gross Coordination Gross Coordination WNL Sensation Assessment Sensation Gross Sensation Right LE Impaired Left LE Impaired Light Touch Impaired Proprioception (Position) Impaired Sensation Description Numbness Comments Sensation Comments c/o numbness on all toes Muscle Tone Muscle Tone WNL Yes M6 PT-IP Treatment Start: 05/04/18 12:47 Freq: NEEDED Status: Active Protocol: Document 05/05/18 15:00 GGD (Rec: 05/05/18 15:16 GGD [id number]) Physical Therapy Treatment Exercises Exercises Gluteal Sets Education Education Provided Precautions Safety M7 PT-IP Assessment and Plan Start: 05/04/18 12:47 Freq: NEEDED Status: Active Protocol: Document 05/05/18 15:00 GGD (Rec: 05/05/18 15:16 GGD [id number]) PT Summary Assessment and Plan Summary Assessment Summary Pt progressing with mobility. She was CGA for all mobility. She was safe and stable with stair. She had mild unsteadiness, but no LOB. She is safe for home D/C when medically stable. Frequency of Treatment Frequency Of Treatment Twice a Day Treatment Plan Physical Therapy Treatment Plan Bed Mobility Training Transfer Training Gait Training Therapeutic Exercise Balance Retraining Post Op Education Discharge Planning Hot or Cold Pack Neuromuscular Re-ed Coordination Retraining Manual Therapy Other Recommendations and Next Treatment ambulation Focus Recommendations To Nursing Amount of Assist Needed 1 Person Assist Discharge Recommendations PT Discharge Recommendations Home with Assistance
[2018-05-05] MEDS: METFORMIN HCL 500 MG TABLET 1000 MG PO (16:18)
[2018-05-05] MEDS: SENNOSIDES 8.6 MG TABLET 17.2 MG PO (20:32)
[2018-05-05] MEDS: ATORVASTATIN 20 MG TABLET PO (20:33)
--- NOTE | 2018-05-05 20:40 | PC.NURSE ---
PM shift Pt is doing significantly better with pain control since adding Decadron. Oxycodone 10mg given once this shift. CBG elevated since starting Decadron. SS and PO's given.
[2018-05-06 04:22] VITALS: BP 159/81; PULSE 91; RESP 16; TEMP 36.7; O2SAT 96
[2018-05-06] MEDS: DEXAMETHASONE 4 MG TABLET PO (05:50)
[2018-05-06] MEDS: LEVOTHYROXINE 25 MCG TABLET PO (05:50)
--- NOTE | 2018-05-06 07:46 | P.DS_ITS ---
History of Present Illness Date Patient Seen: 05/06/18 Chief complaint: Translaminar Interbody Fusion/Laminotomy Narrative: Patient seen bedside s/p L3-4, L4-5, L5-S1 Postero-lateral and posterior interbody fusion with Dr. Colon on 05/03/[address] Colon. Patient is post- op day #3. She is doing well, her pain is much better controlled and she feels like the dexamethasone yesterday really helped with her thigh pain. She denies CP, SOB, and nausea/vomiting. She has ambulated with physical therapy and is cognizant of her lumbar restrictions. She would like to go home today. She states that she will have help at home for the next few days. Discharge Providers Date of admission: 05/03/18 05:53 Discharge Date: 05/06/18 Primary care physician: Misael Cardona MD Consults: 04/26/18 09:37 Consult to Anesthesiology Routine Comment: Consulting Provider: Anesthesiologist Reason for consultation: Surgeon requested re: Cardiac Consult to Respiratory Therapy Evaluate & Treat Comment: Physician Instructions: Evaluate and treat 05/03/18 14:42 Consult to Occupational Therapy Evaluate & Treat Comment: Physician Instructions: Evaluate and treat Consult to Physical Therapy Evaluate & Treat Comment: Physician Instructions: Evaluate and Treat Discharge provider: Karley Lopez PA-C Summary Discharge Diagnosis: 1. L3-4, L4-5, L5-S1 spondylolisthesis 2. L3-4, L4-5, L5-S1 spinal stenosis 3. L3-4, L4-5, L5-S1 spondylosis with radiculopathy Hospital Course: Patient was admitted to the hospital on 05/03/18 s/p L3-4, L4-5, L5-S1 Postero-lateral and posterior interbody fusion with Dr. Colon. Patient tolerated the procedure well with no major complications. They were transferred to the acute care floor where they were placed on the standard lumbar fusion post-operative pathway and protocol. They were seen by physical therapy who recommended that they be discharged home. They were stable and ready for discharge on 05/06/18. Postoperative pain management was discussed and it was determined that benefit of treating the patient's pain with opioids outweighed the risks. Patient was notified of risks of use, safe and secure storage, and proper disposal of narcotics. Patient was screened for risks of overdose and was found to be low risk. Patient will be tapered off opioids appropriately and is expected to be completely off of opioids by 6 weeks post-operatively. Status at Discharge Cognitive/behavioral status at discharge: Alert & oriented x3 Functional status at discharge: uses cane/walker Overall status at discharge: patient is progressing back to baseline Time Spent with Patient Less than 30 minutes Exam Vital Signs (past 8 hours): - 05/05/18 23:52 05/06/18 04:22 Temperature 98.4 F 98.0 F Pulse Rate 93 H 91 H Respiratory Rate 16 16 Blood Pressure 127/57 L 159/81 H Pulse Oximetry 95 96 Fraction of Inspired Oxygen 21 Oxygen Delivery Method Room Air Oxygen Flow Rate 0 Narrative Exam Narrative: Well-developed, well-nourished, no acute distress. Alert and oriented to person, place, and time. Dressing on lumbar spine is clean, dry, and intact with no signs of drainage. Minimal erythema and generalized swelling around the surgical site. Neurovascularly intact in bilateral lower extremities with soft and compressible calves. Range of motion intact bilateral lower extremities. Objective Labs Result Diagrams: 05/04/18 06:33 Discharge Plan Discharge Plan Patient Disposition: Home Discharge Med Rec/Prescriptions Prescriptions: New hydroxyzine pamoate 25 mg Capsule 25 mg PO Q4HR PRN (Reason: Muscle Spasm) Qty: 50 RF: 0 oxycodone 5 mg tablet 5 mg PO Q4-6H PRN (Reason: pain) Qty: 40 RF: 0 Continued metformin [Glucophage] 500 mg tablet 1,000 mg PO BID RF: 0 naproxen [Naprosyn] 500 mg tablet 500 mg PO BID PRN (Reason: pain) RF: 0 amlodipine 5 mg tablet 5 mg PO DAILY 30 Days RF: 0 atorvastatin 20 mg tablet 20 mg PO BEDTIME 90 Days RF: 0 losartan 100 mg tablet 100 mg PO DAILY 90 Days RF: 0 venlafaxine 150 mg capsule,extended release 24hr 150 mg PO DAILY Qty: 30 RF: 5 propranolol 10 mg tablet 10 mg PO BID Qty: 180 RF: 3 glimepiride [Amaryl] 2 mg tablet 4 mg PO BID Qty: 360 RF: 3 levothyroxine 25 mcg Tablet 25 mcg PO DAILY RF: 0 Follow up/Referrals: Brii Colon MD [Physician] - (Follow up in 10-14 days at your previously scheduled appointment.) Provider Discharge Instructions Diet: Carb-consistent/Diabetic Activity: Weightbearing as tolerated, no bending, lifting greater than 5 lbs or twisting. Cold/Heat Therapy: Apply ice to surgical site 20 minutes at a time at least hourly while awake. Skin/Wound/Dressing Care Report to your healthcare provider any signs of infection, such as:: chills, fever, night sweats, increased pain, unusual drainage and unusual redness Dressing: Keep dressing clean, dry, and intact. May shower with it in place but no soaking. Visit Report/Discharge Packet Instructions: DI for Transforaminal Lumbar Interbody Fusion Stand Alone Forms: Surgery Discharge Discharge Data Primary Care Provider: Misael Cardona Attending Provider: Brii Colon Admit Date/Time: 05/03/18 05:53 Quality VTE Deep Vein Thrombosis/Pulmonary Embolism Present on Admission: No
[2018-05-06] MEDS: METFORMIN HCL 500 MG TABLET 1500 MG PO (08:24)
[2018-05-06] MEDS: INSULIN ASPART 100 UNIT/ML INSULN PEN SUBCUT ×2 (08:24→12:15)
[2018-05-06] MEDS: GLIMEPIRIDE 2 MG TABLET 4 MG PO (08:25)
[2018-05-06] MEDS: SODIUM CHLORIDE 0.9% FLUSH 10 ML IV (08:25)
[2018-05-06] MEDS: DOCUSATE 100 MG CAPSULE PO (08:25)
[2018-05-06] MEDS: VENLAFAXINE ER 75 MG CAP 150 MG PO (08:25)
[2018-05-06] MEDS: LOSARTAN 50 MG TABLET 100 MG PO (08:26)
[2018-05-06] MEDS: AMLODIPINE 5 MG TABLET PO (08:26)
[2018-05-06] MEDS: PROPRANOLOL 10 MG TABLET PO (08:26)
[2018-05-06] MEDS: OXYCODONE IR 5 MG TABLET 10 MG PO (08:32)
[2018-05-06 09:00] VITALS: BP 152/72; PULSE 88; RESP 18; TEMP 36.7; O2SAT 98
--- NOTE | 2018-05-06 09:00 | PT.IPTN ---
Current Diagnoses Other secondary scoliosis, lumbar region (05/03/18) Spondylolisthesis, lumbar region (05/03/18) Spinal stenosis, lumbar region without neurogenic claudication (05/03/18) Surgery Performed Operation Date: 05/03/18 07:45 Actual Procedures p L3-4,L4-5,L5-S1 TLIF w/Posterior Instru.(Not Applicable) - Brii Colon MD Physical Therapy Treatment Note M2 PT-IP Current Condition Start: 05/04/18 12:47 Freq: NEEDED Status: Active Protocol: Document 05/04/18 10:45 AB (Rec: 05/04/18 13:15 AB [id number]) Physical Therapy Current Condition Current Condition Evaluation Date 05/04/18 Treatment Diagnosis s/p L3-4, L4-5, L5S1 fusion/ lami; difficulty in walking Onset Date 05/03/18 Precautions Lumbar Precautions Log Roll No Twisting Limit Bending Lifting Restriction of 10 lbs Gait Belt above Incisional Area Other Precautions Falls M3 PT-IP Subjective Start: 05/04/18 12:47 Freq: NEEDED Status: Active Protocol: Document 05/06/18 11:32 GGD (Rec: 05/06/18 11:32 GGD [id number]) Subjective Physical Therapy Visit Type Type Patient Refusal Notes Pt refused, states that she is D/C and has no needs for PT.
--- NOTE | 2018-05-06 10:02 | OT.IP.TRT ---
Current Diagnoses Other secondary scoliosis, lumbar region (05/03/18) Spondylolisthesis, lumbar region (05/03/18) Spinal stenosis, lumbar region without neurogenic claudication (05/03/18) Surgery Performed Operation Date: 05/03/18 07:45 Actual Procedures p L3-4,L4-5,L5-S1 TLIF w/Posterior Instru.(Not Applicable) - Brii Colon MD Occupational Therapy Treatment Note M3 OT- IP Subjective and Pain Start: 05/04/18 14:36 Freq: Status: Active Protocol: Document 05/06/18 10:02 PJM (Rec: 05/06/18 16:34 PJM [id number]) OT- Subjective Occupational Therapy Visit Type Type Treatment Note Visit Start Time 09:04 Visit Stop Time 10:02 Total Visit Minutes 58 Notes Pt would like to shower today Occupational Therapy Visit Comments Patient Comments I feel better today. Patient/Caregiver Goals to go home today OT Pain Assessment Pain When Pain Assessed After Treatment Pain Present Pain Present Pain Reported Location Back Intensity 4 Description Aching Acute Pain Behaviors Guarding Management Techniques Distraction Re-positioning Timing of Activity with Medications M4 OT- IP ADL's Start: 05/04/18 14:36 Freq: Status: Active Protocol: Document 05/06/18 10:02 PJM (Rec: 05/06/18 16:34 PJ [id number]) OT [id number] General Evaluation Self-Feeding Ability Independent OT ADL-Grooming General Evaluation Grooming Ability Independent Areas Needing Assistance Combing/Brushing Hair Comments OT Grooming Comments standing at sink with good body mechanics OT ADL-Oral Care General Eval Oral Care Ability Independent Devices Oral Care Devices Toothbrush Comments Oral Care Comments standing at sink with good body mechanics OT ADL-Dressing General Eval Upper Body Dressing Ability Independent Areas Needing Assistance Pull-Over Shirt Underpants/Brief Pants/Shorts Shoes Assistive Devices Dressing Assistive Devices Long Handled Shoe Horn Jacquard Loom Carpet Weaver Comments OT Dressing Comments Pt does not wear socks. Pt using commercial real estate broker and long shoe horn, wears slip on shoes OT ADL-Toileting General Evaluation Toileting Ability Independent Comments OT Toileting Comments with good body mechanics OT ADL-Bathing Bathing Type Bathing Type Shower General Evaluation Bathing Ability Independent Devices Bathing Equipment Hand Held Shower Sprayer Shower Chair with Arms Comments OT Bathing Comments Pt indep after set up and education re: body mechanics. Ex obtaining transfer tub bench for pt to use in tub shower combo. Pt has long bath brush. M6 OT- IP Functional Cognition Start: 05/04/18 14:36 Freq: Status: Active Protocol: Document 05/06/18 10:02 PJM (Rec: 05/06/18 16:34 PJ [id number]) Cognitive Factors Limiting Selfcare Function Cognitive Ability Level of Alertness Alert Patient Orientation Name Age Birthday Month Date Year Day of Week Place Situation Attention Span Ability Capable of Focused Attention Capable of Sustained Attention Ability to Follow Commands Able to Follow Multi-Step Commands Memory Description No Deficits Noted Safety Awareness No Deficits Noted Problem Solving Ability No deficits Noted Cognitive Comments Cognitive Assessment Comments Pt verbalizes and demonstrates understanding of lumbar spine precautions during all self care tasks and functional mobility M7 OT- IP Mobility and Balance Start: 05/04/18 14:36 Freq: Status: Active Protocol: Document 05/06/18 10:02 PJM (Rec: 05/06/18 16:34 PJ [id number]) OT- Bed Mobility Assessment Rolling Type of Rolling Roll to Left Level of Assistance Independent Supine to Sit Supine to Sit Assist Independent Scooting Scooting to Edge of Bed Independent OT-Transfer Assessment Sit to and From Stand Sit to and from Stand Independent Transfers Transfer Ability Independent Technique Transfer Destination Chair Shower Stall Toilet Transfer Technique Stand Step Pivot Devices Transfer Assistive Devices Front Wheeled Walker OT- Gait Assessment Gait Gait Assistance Required: Independent Distance (Feet) 35 Assistive Devices Assistive Device Front Wheeled Walker OT- Balance Assessment Sitting Balance and Reactions Static Sitting Balance Ability Good Dynamic Sitting Balance Ability Good Standing Balance and Reactions Static Standing Balance Ability Good Dynamic Standing Balance Ability Good M9 OT- IP Assessment and Plan Start: 05/04/18 14:36 Freq: Status: Active Protocol: Document 05/06/18 10:02 PJM (Rec: 05/06/18 16:34 PJ [id number]) OT Summary Assessment and Plan Summary Progress Towards Goals Safe For Discharge Goals Met Assessment Summary All OT goals achieved for this admission. Pt to d/c home today with daily assist from ex and/or friends. No further OT services needed. Frequency of Treatment Frequency Of Treatment Discharge Discharge Recommendations OT Discharge Recommendations Home with Assistance
--- NOTE | 2018-05-06 12:29 | PC.NURSE ---
Discharge: IV dc'd itact. Showered with the help of OT this morning. Dressing on her back had rolled down, so was replaced with new Coversite dressings. Incisions were well-approximated with judson, no active bleeding or drainage noted. Instructed to leave in place until follow up appt. She does sweat a fair amount, so was given a few extra dressings in case the one I put on starts to come off. Reviewed d/c instructions thoroughly. Given scripts for Oxycodone and Vistaril. Advised to take OTC stool softener while on narcotics, and to consider taking something stronger since her last reported BM was 04/30. Patient reports issues with infrequent BM's before surgery and denies feeling constipated. Verbalized understanding of all d/c info and stated no further questions. All belongings sent with patient at discharge including glasses, clothing, cellphone and charges, and wallet from safe. Assisted into wheelchair, taken out to private vehicle by nursing staff.
== END 2018-05-06 12:34 | disposition home or self-care (01) | DRG 454 ==
PROVIDERS: Admitting Provider Orthopaedic Surgery Orthopaedic Surgery of the Spine; PCP Family Medicine; Visit Provider Orthopaedic Surgery Orthopaedic Surgery of the Spine
PROC: 0SG10AJ Fusion of 2 or more Lumbar Vertebral Joints with Interbody Fusion Device, Posterior Approach, Anterior Column, Open Approach (ICD-10-PCS; principal; 2018-05-03 07:45)
DX: M43.16 Spondylolisthesis, lumbar region (principal); D62 Acute posthemorrhagic anemia; E11.40 Type 2 diabetes mellitus with diabetic neuropathy, unspecified; M43.17 Spondylolisthesis, lumbosacral region; M48.061 Spinal stenosis, lumbar region without neurogenic claudication; M48.07 Spinal stenosis, lumbosacral region; M47.26 Other spondylosis with radiculopathy, lumbar region; M47.27 Other spondylosis with radiculopathy, lumbosacral region; G25.81 Restless legs syndrome; E66.9 Obesity, unspecified; Z79.84 Long term (current) use of oral hypoglycemic drugs; M41.9 Scoliosis, unspecified
CPT/HCPCS: 36415; 72100; 76000; 82962; 85014; 85018; 94760; 94762; 97110; 97116; 97162; 97165; 97530; 97535; C1776; C9290; J0131; J0330; J1170; J2250; J2405; J2704; J3010

== ENCOUNTER → 2018-06-15 11:15 | Outpatient (CLI) | payer MEDICARE, OTHER, SELFPAY ==
[2018-05-03 14:44] VITALS: BMI 34.3
[2018-06-15 12:55] LABS: BUN Creatinine Ratio 18.6 (6-22); Blood Urea Nitrogen 13 mg/dL (7-17); Calcium 9.8 mg/dL (8.4-10.2); Carbon Dioxide 23 mmol/L (22-32); Chloride 101 mmol/L (98-107); Estimated Glomerular Filt Rate > 60.0 mL/min (>60); Glucose 293 mg/dL (80-110); HEMOLYSIS < 15 (0-50); Potassium 4.6 mmol/L (3.4-5.1); Sodium 137 mmol/L (137-145)
== END ==
PROVIDERS: PCP Family Medicine; Visit Provider Family Medicine
DX: E11.9 Type 2 diabetes mellitus without complications (principal)
CPT/HCPCS: 36415; 80048; 83036

== ENCOUNTER → 2018-07-04 08:55 | Outpatient (CLI) | payer MEDICARE, OTHER, SELFPAY ==
[2018-05-03 14:44] VITALS: BMI 34.3
--- NOTE | 2018-07-04 | DI.US.S_ITS ---
PROCEDURE: US PELVIC COMPLETE INDICATIONS: HIRSUTISM TECHNIQUE: Real-time scanning was performed of the pelvic organs, with image documentation. Additional endovaginal scanning was necessary due to incomplete visualization of the adnexal and endometrial structures by transabdominal scanning. COMPARISON: None. FINDINGS: Transabdominal scanning: Limited scanning through the kidneys shows no hydronephrosis. No pathologic free abdominal or pelvic fluid. Endovaginal scanning: Uterus: Uterus is surgically absent. Ovaries: Right ovary measures 3.2 x 1.1 x 1.3 cm. Left ovary measures 2.9 x 1.2 x 1.3 cm. There are punctate calcifications in the right ovary. No overt masses. IMPRESSION: 1. Hysterectomy. 2. Punctate calcifications in the right ovary. Ovaries are slightly prominent in size for age but no ovarian masses. Dictated by: Shawn Lion M.D. on 07/04/2018 at 12:30 Approved by: Shawn Lion M.D. on 07/04/2018 at 12:34
== END ==
PROVIDERS: PCP Family Medicine; Visit Provider Internal Medicine
DX: L68.0 Hirsutism (principal); N83.8 Other noninflammatory disorders of ovary, fallopian tube and broad ligament; Z90.710 Acquired absence of both cervix and uterus
CPT/HCPCS: 76830; 76856

== ENCOUNTER 2018-07-13 00:01 | Emergency (ER) | payer MEDICARE, OTHER, SELFPAY ==
[2018-05-03 14:44] VITALS: BMI 34.3
[2018-07-13 00:12] VITALS: BP 179/102; PULSE 88; RESP 20; TEMP 36.6; O2SAT 100; BMI 29.2
[2018-07-13 00:37] LABS: RBC Urine None Seen (0-5/HPF)
[2018-07-13 00:41] LABS: Appearance Urine UA CLOUDY; Bilirubin Urine UA NEGATIVE (NEGATIVE); Color Urine UA YELLOW; Glucose Urine UA 3+ g/dL (Negative); Ketones Urine UA NEGATIVE (NEGATIVE); Leukocyte Esterase Urine UA TRACE (NEGATIVE); Nitrite Urine UA NEGATIVE (Negative); Occult Blood Urine UA TRACE-LYSED (Negative); Protein Urine UA NEGATIVE (Negative); Urobilinogen Urine UA 0.2 E.U./dL (0.2); pH Urine UA 5.5 (4.5-8.0)
[2018-07-13 00:51] LABS: Bacteria Urine Many (>30); Squamous Epithelial Cell Urine 5-10 /HPF (0-5/HPF); WBC Urine 5-10/HPF (0-5/HPF)
[2018-07-13 00:54] LABS: Urine Amphetamines Negative (Negative); Urine Barbiturates Negative (Negative); Urine Benzodiazepines Negative (Negative); Urine Cocaine Negative (Negative); Urine MDMA Negative (Negative); Urine Methadone Negative (Negative); Urine Methamphetamines Negative (Negative); Urine Morphine/Opi cutoff 2000 Negative (Negative); Urine Oxycodone Negative (Negative); Urine Phencyclidine Negative (Negative); Urine Tetrahydrocannabinol Positive (Negative); Urine Tricyclic Antidepressant Negative (Negative)
--- NOTE | 2018-07-13 01:00 | ED.AMS ---
HPI - Altered Mental Status <Lena Rowell, DO - Last Filed: 07/13/18 18:09> General Chief Complaint: Altered Mental Status Stated Complaint: States repeating same things non stop Time Seen by Provider: 07/13/18 01:00 Source: family Mode of arrival: ambulatory History of Present Illness HPI narrative: Patient is 67-year-old female presents with her son for altered mental status. Son states that she has been very hyperactive today. His aunt called him she saw the patient yesterday noted that something was off. Patient does not remember the last time she slept. She has no history of bipolar. She was seen by psychiatrist diagnosed with anxiety and depression. She was placed on venlalfazine complaint: altered mental status Related Data Home Medications Medication Instructions Recorded Confirmed amlodipine 5 mg tablet 5 mg PO DAILY 30 Days tab 01/16/18 07/13/18 atorvastatin 20 mg tablet 20 mg PO BEDTIME 90 Days tab 01/16/18 07/13/18 losartan 100 mg tablet 100 mg PO QPM 90 Days tab 01/16/18 07/13/18 metformin 500 mg tablet 1,500 mg PO QAM tab 01/16/18 07/13/18 naproxen 500 mg tablet 500 mg PO BID PRN tab 01/16/18 07/13/18 levothyroxine 25 mcg PO DAILY 04/26/18 07/13/18 gabapentin 300 mg PO BID 07/13/18 07/13/18 metformin 1,000 mg PO QPM 07/13/18 07/13/18 Previous Rx's Medication Instructions Recorded glimepiride 2 mg tablet 4 mg PO BID #360 tab 03/23/18 propranolol 10 mg PO BID #180 tab 03/28/18 venlafaxine ER 150 mg 150 mg PO DAILY #30 cap 03/28/18 capsule,extended release 24 hr lamotrigine 25 mg tablet 25 mg PO BID #60 tab 07/13/18 Allergies Allergy/AdvReac Type Severity Reaction Status Date / Time cephalexin [CEPHALEXIN] Allergy Mild Rash Verified 05/03/18 06:53 latex Allergy Mild Rash Verified 05/03/18 06:53 Penicillins [PENICILLINS] Allergy Mild Rash Verified 05/03/18 06:53 Sulfa (Sulfonamide Allergy Mild Rash Verified 05/03/18 06:53 Antibiotics) [SULFA (SULFONAMIDE ANTIBIOTICS)] Review of Systems <Lena Rowell DO - Last Filed: 07/13/18 18:09> Review of Systems ROS Unobtainable: All systems reviewed & are unremarkable except as noted in HPI and below Eyes Denies change in vision, Denies eye discharge, Denies irritation and Denies loss of vision Cardiovascular Denies chest pain, Denies irregular heart rhythm, Denies lightheadedness, Denies palpitations, Denies dyspnea, Denies dyspnea on exertion and Denies orthopnea Respiratory Denies cough, Denies dyspnea, Denies dyspnea on exertion and Denies wheezing Musculoskeletal Denies back pain, Denies muscle weakness, Denies numbness and Denies tingling Integumentary/Breasts Denies pruritus, Denies erythema, Denies rash and Denies wounds Neurologic Denies loss of vision, Denies numbness and Denies tingling Psychiatric Reports as per HPI Endocrine Denies palpitations Allergic/Immunologic Denies wheezing Exam <Lena Rowell DO - Last Filed: 07/13/18 18:09> Initial Vital Signs Initial Vital Signs: Vital Signs Temperature 98 F 07/13/18 00:12 Pulse Rate 88 07/13/18 00:12 Respiratory Rate 20 07/13/18 00:12 Blood Pressure 179/102 H 07/13/18 00:12 Pulse Oximetry 100 07/13/18 00:12 Gen.: Alert well-dressed female no acute distress HEENT: Head atraumatic EOMI Neck: Neck is supple Lungs: Speaks without any difficulty clear bilaterally Cardiac: Regular rate and rhythm peripheral pulses intact Extremities: Moves all extremities no gross bony deformity no edema Neurologic: Alert oriented x3 PSHYCH: Pressured speech, flight of ideas he has, slightly promiscuous <Gerald Brennan DO - Last Filed: 07/13/18 14:05> Initial Vital Signs Initial Vital Signs: Vital Signs Temperature 98 F 07/13/18 00:12 Pulse Rate 88 07/13/18 00:12 Respiratory Rate 20 07/13/18 00:12 Blood Pressure 179/102 H 07/13/18 00:12 Pulse Oximetry 100 07/13/18 00:12 Course <Lena Rowell DO - Last Filed: 07/13/18 18:09> Orders Ordered: ED Orders 07/13/18 06:51 CT head/brain wo con Stat Vital Signs - 8 hr 07/13/18 11:12 Pulse Rate 95 H Respiratory Rate 20 Blood Pressure 146/80 H Pulse Oximetry 96 <Gerald Brennan DO - Last Filed: 07/13/18 14:05> Course Narrative: Patient seen by [facility]. Please see her note for details, but in some after extensive bedside interview patient and family feel quite comfortable with the patient going home with family members and initiation of some new medications. Her primary care provider has been kept in the loop and will see her on Tuesday morning in the office (Dr. Cardona). Additionally he called in a new prescription which she will pick up operator today Orders Ordered: ED Orders 07/13/18 06:51 CT head/brain wo con Stat Vital Signs - 8 hr 07/13/18 11:12 Pulse Rate 95 H Respiratory Rate 20 Blood Pressure 146/80 H Pulse Oximetry 96 MDM - Altered Mental Status <Lena Rowell DO - Last Filed: 07/13/18 18:09> Lab Data Attestation: I reviewed the patient's lab results. Result diagrams: 07/13/18 01:17 07/13/18 01:17 Lab Results 07/13/18 07/13/18 07/13/18 Range/Units 00:36 00:36 01:17 WBC 9.3 (4.5-11.0) X10^3/uL RBC 3.90 L (4.0-5.2) X10^6/uL Hgb 11.6 L (12.0-16.0) g/dL Hct 34.2 L (36-46) % MCV 87.6 (80-100) fL MCH 29.8 (26-34) PG MCHC 34.0 (30-36) % RDW 13.2 (11.6-14.8) % Plt Count 347 (150-400) X10^3/uL Neut % (Auto) 57.2 (50-75) % Lymph % (Auto) 26.1 (25-40) % [place] % (Auto) 12.5 (3-14) % Eos % (Auto) 3.3 (2-4) % Baso % (Auto) 0.9 (0-2) % Neut # (Auto) 5300 (6780-1847) /uL Lymph # (Auto) 2400 (8086-9199) /uL Oter[place] # (Auto) 1200 H (0-900) /uL Eos # (Auto) 300 (0-450) /uL Baso # (Auto) 100 (0-100) /uL Sodium (137-145) mmol/L Potassium (3.4-5.1) mmol/L Chloride (98-107) mmol/L Carbon Dioxide (22-32) mmol/L BUN (7-17) mg/dL Creatinine (0.52-1.04) mg/dL Estimated GFR (>60) mL/min BUN/Creatinine Ratio (6-22) Glucose (80-110) mg/dL Calcium (8.4-10.2) mg/dL Total Bilirubin (0.2-1.3) mg/dL AST (14-36) IU/L ALT (9-52) IU/L Alkaline Phosphatase (38-126) U/L Total Protein (6.3-8.2) g/dL Albumin (3.5-5.0) g/dL Globulin (1.7-4.1) g/dL Albumin/Globulin Ratio (1.0-2.8) TSH (0.47-4.68) uIU/mL Urine Color Yellow Urine Appearance Cloudy Urine pH 5.5 (4.5-8.0) Ur Specific [place] 1.020 (1.000-1.035) Urine Protein Negative (Negative) Urine Glucose (UA) 3+ H (Negative) g/dL Urine Ketones Negative (NEGATIVE) Urine Occult Blood Trace-lysed (Negative) Urine Nitrate Negative (Negative) Urine Bilirubin Negative (NEGATIVE) Urine Urobilinogen 0.2 (0.2) E.U./dL Ur Leukocyte Esterase Trace H (NEGATIVE) Urine RBC None seen (0-5/HPF) Urine WBC 5-10/hpf H (0-5/HPF) Ur Squamous Epith Cells 5-10 /hpf H (0-5/HPF) Urine Bacteria Many (>30) H (None) Ur Culture Indicated? Culture not indicate Micro UA Comment Urine Opiates Screen Negative (Negative) Ur Oxycodone Screen Negative (Negative) Urine Methadone Screen Negative (Negative) Ur Barbiturates Screen Negative (Negative) U Tricyclic Antidepress Negative (Negative) Ur Phencyclidine Scrn Negative (Negative) Ur Amphetamines Screen Negative (Negative) U Methamphetamines Scrn Negative (Negative) Ur MDMA Scrn (Ecstasy) Negative (Negative) U Benzodiazepines Scrn Negative (Negative) Urine Cocaine Screen Negative (Negative) U Marijuana (THC) Screen Positive H (Negative) Ethyl Alcohol mg/dL 07/13/18 07/13/18 Range/Units 01:17 01:17 WBC (4.5-11.0) X10^3/uL RBC (4.0-5.2) X10^6/uL Hgb (12.0-16.0) g/dL Hct (36-46) % MCV (80-100) fL MCH (26-34) PG MCHC (30-36) % RDW (11.6-14.8) % Plt Count (150-400) X10^3/uL Neut % (Auto) (50-75) % Lymph % (Auto) (25-40) % [place]ter[place] % (Auto) (3-14) % Eos % (Auto) (2-4) % Baso % (Auto) (0-2) % Neut # (Auto) (0795-7120) /uL Lymph # (Auto) (1567-2511) /uL [place] # (Auto) (0-900) /uL Eos # (Auto) (0-450) /uL Baso # (Auto) (0-100) /uL Sodium 138 (137-145) mmol/L Potassium 4.1 (3.4-5.1) mmol/L Chloride 102 (98-107) mmol/L Carbon Dioxide 22 (22-32) mmol/L BUN 18 H (7-17) mg/dL Creatinine 0.70 (0.52-1.04) mg/dL Estimated GFR > 60.0 (>60) mL/min BUN/Creatinine Ratio 25.7 H (6-22) Glucose 320 H (80-110) mg/dL Calcium 9.8 (8.4-10.2) mg/dL Total Bilirubin 0.2 (0.2-1.3) mg/dL AST 23 (14-36) IU/L ALT 14 (9-52) IU/L Alkaline Phosphatase 119 (38-126) U/L Total Protein 7.6 (6.3-8.2) g/dL Albumin 4.6 (3.5-5.0) g/dL Globulin 3.0 (1.7-4.1) g/dL Albumin/Globulin Ratio 1.5 (1.0-2.8) TSH 2.74 (0.47-4.68) uIU/mL Urine Color Urine Appearance Urine pH (4.5-8.0) Ur Specific [place] (1.000-1.035) Urine Protein (Negative) Urine Glucose (UA) (Negative) g/dL Urine Ketones (NEGATIVE) Urine Occult Blood (Negative) Urine Nitrate (Negative) Urine Bilirubin (NEGATIVE) Urine Urobilinogen (0.2) E.U./dL Ur Leukocyte Esterase (NEGATIVE) Urine RBC (0-5/HPF) Urine WBC (0-5/HPF) Ur Squamous Epith Cells (0-5/HPF) Urine Bacteria (None) Ur Culture Indicated? Micro UA Comment Urine Opiates Screen (Negative) Ur Oxycodone Screen (Negative) Urine Methadone Screen (Negative) Ur Barbiturates Screen (Negative) U Tricyclic Antidepress (Negative) Ur Phencyclidine Scrn (Negative) Ur Amphetamines Screen (Negative) U Methamphetamines Scrn (Negative) Ur MDMA Scrn (Ecstasy) (Negative) U Benzodiazepines Scrn (Negative) Urine Cocaine Screen (Negative) U Marijuana (THC) Screen (Negative) Ethyl Alcohol < 10 mg/dL Imaging Data CT scan - head: Radiologist's impression: security shift supervisor report: Generalized involutional changes noted, consistent with age. No acute abnormality identified. MDM Narrative Medical decision making narrative: The son is at bedside this is extremely odd and new behavior for his mother. She is typically able to care for herself is. He she does have depression but no history of jamilah. [employer] have been called. Someone will be dispatched. 6:00 a.m. as the patient has been talking nonstop since she arrived to the emergency department. Her son is in the room seems to be keeping her calm. But she overall has not slept and has not stopped talking. CT had requested by psychiatric facilities Patient signed out to Dr. Brennan is waiting for mental health [facility]. <Gerald Brennan DO - Last Filed: 07/13/18 14:05> Lab Data Lab Results 07/13/18 07/13/18 07/13/18 Range/Units 00:36 00:36 01:17 WBC 9.3 (4.5-11.0) X10^3/uL RBC 3.90 L (4.0-5.2) X10^6/uL Hgb 11.6 L (12.0-16.0) g/dL Hct 34.2 L (36-46) % MCV 87.6 (80-100) fL MCH 29.8 (26-34) PG MCHC 34.0 (30-36) % RDW 13.2 (11.6-14.8) % Plt Count 347 (150-400) X10^3/uL Neut % (Auto) 57.2 (50-75) % Lymph % (Auto) 26.1 (25-40) % [place] % (Auto) 12.5 (3-14) % Eos % (Auto) 3.3 (2-4) % Baso % (Auto) 0.9 (0-2) % Neut # (Auto) 5300 (4843-7224) /uL Lymph # (Auto) 2400 (6468-8982) /uL [place] # (Auto) 1200 H (0-900) /uL Eos # (Auto) 300 (0-450) /uL Baso # (Auto) 100 (0-100) /uL Sodium (137-145) mmol/L Potassium (3.4-5.1) mmol/L Chloride (98-107) mmol/L Carbon Dioxide (22-32) mmol/L BUN (7-17) mg/dL Creatinine (0.52-1.04) mg/dL Estimated GFR (>60) mL/min BUN/Creatinine Ratio (6-22) Glucose (80-110) mg/dL Calcium (8.4-10.2) mg/dL Total Bilirubin (0.2-1.3) mg/dL AST (14-36) IU/L ALT (9-52) IU/L Alkaline Phosphatase (38-126) U/L Total Protein (6.3-8.2) g/dL Albumin (3.5-5.0) g/dL Globulin (1.7-4.1) g/dL Albumin/Globulin Ratio (1.0-2.8) TSH (0.47-4.68) uIU/mL Urine Color Yellow Urine Appearance Cloudy Urine pH 5.5 (4.5-8.0) Ur Specific [place] 1.020 (1.000-1.035) Urine Protein Negative (Negative) Urine Glucose (UA) 3+ H (Negative) g/dL Urine Ketones Negative (NEGATIVE) Urine Occult Blood Trace-lysed (Negative) Urine Nitrate Negative (Negative) Urine Bilirubin Negative (NEGATIVE) Urine Urobilinogen 0.2 (0.2) E.U./dL Ur Leukocyte Esterase Trace H (NEGATIVE) Urine RBC None seen (0-5/HPF) Urine WBC 5-10/hpf H (0-5/HPF) Ur Squamous Epith Cells 5-10 /hpf H (0-5/HPF) Urine Bacteria Many (>30) H (None) Ur Culture Indicated? Culture not indicate Micro UA Comment Urine Opiates Screen Negative (Negative) Ur Oxycodone Screen Negative (Negative) Urine Methadone Screen Negative (Negative) Ur Barbiturates Screen Negative (Negative) U Tricyclic Antidepress Negative (Negative) Ur Phencyclidine Scrn Negative (Negative) Ur Amphetamines Screen Negative (Negative) U Methamphetamines Scrn Negative (Negative) Ur MDMA Scrn (Ecstasy) Negative (Negative) U Benzodiazepines Scrn Negative (Negative) Urine Cocaine Screen Negative (Negative) U Marijuana (THC) Screen Positive H (Negative) Ethyl Alcohol mg/dL 07/13/18 07/13/18 Range/Units 01:17 01:17 WBC (4.5-11.0) X10^3/uL RBC (4.0-5.2) X10^6/uL Hgb (12.0-16.0) g/dL Hct (36-46) % MCV (80-100) fL MCH (26-34) PG MCHC (30-36) % RDW (11.6-14.8) % Plt Count (150-400) X10^3/uL Neut % (Auto) (50-75) % Lymph % (Auto) (25-40) % [place]ter[place] % (Auto) (3-14) % Eos % (Auto) (2-4) % Baso % (Auto) (0-2) % Neut # (Auto) (1511-5883) /uL Lymph # (Auto) (9011-9025) /uL [place] # (Auto) (0-900) /uL Eos # (Auto) (0-450) /uL Baso # (Auto) (0-100) /uL Sodium 138 (137-145) mmol/L Potassium 4.1 (3.4-5.1) mmol/L Chloride 102 (98-107) mmol/L Carbon Dioxide 22 (22-32) mmol/L BUN 18 H (7-17) mg/dL Creatinine 0.70 (0.52-1.04) mg/dL Estimated GFR > 60.0 (>60) mL/min BUN/Creatinine Ratio 25.7 H (6-22) Glucose 320 H (80-110) mg/dL Calcium 9.8 (8.4-10.2) mg/dL Total Bilirubin 0.2 (0.2-1.3) mg/dL AST 23 (14-36) IU/L ALT 14 (9-52) IU/L Alkaline Phosphatase 119 (38-126) U/L Total Protein 7.6 (6.3-8.2) g/dL Albumin 4.6 (3.5-5.0) g/dL Globulin 3.0 (1.7-4.1) g/dL Albumin/Globulin Ratio 1.5 (1.0-2.8) TSH 2.74 (0.47-4.68) uIU/mL Urine Color Urine Appearance Urine pH (4.5-8.0) Ur Specific [place] (1.000-1.035) Urine Protein (Negative) Urine Glucose (UA) (Negative) g/dL Urine Ketones (NEGATIVE) Urine Occult Blood (Negative) Urine Nitrate (Negative) Urine Bilirubin (NEGATIVE) Urine Urobilinogen (0.2) E.U./dL Ur Leukocyte Esterase (NEGATIVE) Urine RBC (0-5/HPF) Urine WBC (0-5/HPF) Ur Squamous Epith Cells (0-5/HPF) Urine Bacteria (None) Ur Culture Indicated? Micro UA Comment Urine Opiates Screen (Negative) Ur Oxycodone Screen (Negative) Urine Methadone Screen (Negative) Ur Barbiturates Screen (Negative) U Tricyclic Antidepress (Negative) Ur Phencyclidine Scrn (Negative) Ur Amphetamines Screen (Negative) U Methamphetamines Scrn (Negative) Ur MDMA Scrn (Ecstasy) (Negative) U Benzodiazepines Scrn (Negative) Urine Cocaine Screen (Negative) U Marijuana (THC) Screen (Negative) Ethyl Alcohol < 10 mg/dL Discharge Plan Departure Patient Disposition: Home Clinical Impression: Manic behavior Discharge Date/Time: 07/13/18 11:13 Interventions: ED Discharge Assessment Last Done: 07/13/18 11:12 Instructions: DI for Bipolar Disorder Activity Restrictions/Additional Instructions: *You have been diagnosed with [manic type behavior] *What to do: *Take medications as directed: Dr. Cardona has called in a prescription for you please start taking it today *Follow up with Dr. Cardona on Tuesday at 1000am. *Please be sure to have family stay with you during the weekend, and at least until you see Dr. Cardona on Tuesday. Please have family with you for this visit. *Return to ER if you should have any new, worsening or concerning symptoms] Prescriptions: No Action metformin [Glucophage] 500 mg tablet 1,500 mg PO QAM RF: 0 naproxen [Naprosyn] 500 mg tablet 500 mg PO BID PRN (Reason: pain) RF: 0 amlodipine 5 mg tablet 5 mg PO DAILY 30 Days RF: 0 atorvastatin 20 mg tablet 20 mg PO BEDTIME 90 Days RF: 0 losartan 100 mg tablet 100 mg PO QPM 90 Days RF: 0 venlafaxine 150 mg capsule,extended release 24hr 150 mg PO DAILY Qty: 30 RF: 5 propranolol 10 mg tablet 10 mg PO BID Qty: 180 RF: 3 lamotrigine [Lamictal] 25 mg tablet 25 mg PO BID Qty: 60 RF: 6 glimepiride [Amaryl] 2 mg tablet 4 mg PO BID Qty: 360 RF: 3 metformin 500 mg tablet 1,000 mg PO QPM RF: 0 gabapentin 300 mg capsule 300 mg PO BID RF: 0 levothyroxine 25 mcg Tablet 25 mcg PO DAILY RF: 0 Referrals: Misael Cardona MD [Primary Care Provider] -
--- NOTE | 2018-07-13 01:17 | ED_ITS ---
HPI - Altered Mental Status <Lena Rowell, DO - Last Filed: 07/13/18 18:09> General Chief Complaint: Altered Mental Status Stated Complaint: States repeating same things non stop Time Seen by Provider: 07/13/18 01:00 Source: family Mode of arrival: ambulatory History of Present Illness HPI narrative: Patient is 67-year-old female presents with her son for altered mental status. Son states that she has been very hyperactive today. His aunt called him she saw the patient yesterday noted that something was off. Patient does not remember the last time she slept. She has no history of bipolar. She was seen by psychiatrist diagnosed with anxiety and depression. She was placed on venlalfazine complaint: altered mental status Related Data Home Medications Medication Instructions Recorded Confirmed amlodipine 5 mg tablet 5 mg PO DAILY 30 Days tab 01/16/18 07/13/18 atorvastatin 20 mg tablet 20 mg PO BEDTIME 90 Days tab 01/16/18 07/13/18 losartan 100 mg tablet 100 mg PO QPM 90 Days tab 01/16/18 07/13/18 metformin 500 mg tablet 1,500 mg PO QAM tab 01/16/18 07/13/18 naproxen 500 mg tablet 500 mg PO BID PRN tab 01/16/18 07/13/18 levothyroxine 25 mcg PO DAILY 04/26/18 07/13/18 gabapentin 300 mg PO BID 07/13/18 07/13/18 metformin 1,000 mg PO QPM 07/13/18 07/13/18 Previous Rx's Medication Instructions Recorded glimepiride 2 mg tablet 4 mg PO BID #360 tab 03/23/18 propranolol 10 mg PO BID #180 tab 03/28/18 venlafaxine ER 150 mg 150 mg PO DAILY #30 cap 03/28/18 capsule,extended release 24 hr lamotrigine 25 mg tablet 25 mg PO BID #60 tab 07/13/18 Allergies Allergy/AdvReac Type Severity Reaction Status Date / Time cephalexin [CEPHALEXIN] Allergy Mild Rash Verified 05/03/18 06:53 latex Allergy Mild Rash Verified 05/03/18 06:53 Penicillins [PENICILLINS] Allergy Mild Rash Verified 05/03/18 06:53 Sulfa (Sulfonamide Allergy Mild Rash Verified 05/03/18 06:53 Antibiotics) [SULFA (SULFONAMIDE ANTIBIOTICS)] Review of Systems <Lena Rowell DO - Last Filed: 07/13/18 18:09> Review of Systems ROS Unobtainable: All systems reviewed & are unremarkable except as noted in HPI and below Eyes Denies change in vision, Denies eye discharge, Denies irritation and Denies loss of vision Cardiovascular Denies chest pain, Denies irregular heart rhythm, Denies lightheadedness, Denies palpitations, Denies dyspnea, Denies dyspnea on exertion and Denies orthopnea Respiratory Denies cough, Denies dyspnea, Denies dyspnea on exertion and Denies wheezing Musculoskeletal Denies back pain, Denies muscle weakness, Denies numbness and Denies tingling Integumentary/Breasts Denies pruritus, Denies erythema, Denies rash and Denies wounds Neurologic Denies loss of vision, Denies numbness and Denies tingling Psychiatric Reports as per HPI Endocrine Denies palpitations Allergic/Immunologic Denies wheezing Exam <Lena Rowell DO - Last Filed: 07/13/18 18:09> Initial Vital Signs Initial Vital Signs: Vital Signs Temperature 98 F 07/13/18 00:12 Pulse Rate 88 07/13/18 00:12 Respiratory Rate 20 07/13/18 00:12 Blood Pressure 179/102 H 07/13/18 00:12 Pulse Oximetry 100 07/13/18 00:12 Gen.: Alert well-dressed female no acute distress HEENT: Head atraumatic EOMI Neck: Neck is supple Lungs: Speaks without any difficulty clear bilaterally Cardiac: Regular rate and rhythm peripheral pulses intact Extremities: Moves all extremities no gross bony deformity no edema Neurologic: Alert oriented x3 PSHYCH: Pressured speech, flight of ideas he has, slightly promiscuous <Gerald Brennan DO - Last Filed: 07/13/18 14:05> Initial Vital Signs Initial Vital Signs: Vital Signs Temperature 98 F 07/13/18 00:12 Pulse Rate 88 07/13/18 00:12 Respiratory Rate 20 07/13/18 00:12 Blood Pressure 179/102 H 07/13/18 00:12 Pulse Oximetry 100 07/13/18 00:12 Course <Lena Rowell DO - Last Filed: 07/13/18 18:09> Orders Ordered: ED Orders 07/13/18 06:51 CT head/brain wo con Stat Vital Signs - 8 hr 07/13/18 11:12 Pulse Rate 95 H Respiratory Rate 20 Blood Pressure 146/80 H Pulse Oximetry 96 <Gerald Brennan DO - Last Filed: 07/13/18 14:05> Course Narrative: Patient seen by [facility]. Please see her note for details, but in some after extensive bedside interview patient and family feel quite comfortable with the patient going home with family members and initiation of some new medications. Her primary care provider has been kept in the loop and will see her on Tuesday morning in the office (Dr. Cardona). 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 Result diagrams: 07/13/18 01:17 07/13/18 01:17 Lab Results 07/13/18 07/13/18 07/13/18 Range/Units 00:36 00:36 01:17 WBC 9.3 (4.5-11.0) X10^3/uL RBC 3.90 L (4.0-5.2) X10^6/uL Hgb 11.6 L (12.0-16.0) g/dL Hct 34.2 L (36-46) % MCV 87.6 (80-100) fL MCH 29.8 (26-34) PG MCHC 34.0 (30-36) % RDW 13.2 (11.6-14.8) % Plt Count 347 (150-400) X10^3/uL Neut % (Auto) 57.2 (50-75) % Lymph % (Auto) 26.1 (25-40) % [place] % (Auto) 12.5 (3-14) % Eos % (Auto) 3.3 (2-4) % Baso % (Auto) 0.9 (0-2) % Neut # (Auto) 5300 (1740-9191) /uL Lymph # (Auto) 2400 (1722-3621) /uL [place] # (Auto) 1200 H (0-900) /uL Eos # (Auto) 300 (0-450) /uL Baso # (Auto) 100 (0-100) /uL Sodium (137-145) mmol/L Potassium (3.4-5.1) mmol/L Chloride (98-107) mmol/L Carbon Dioxide (22-32) mmol/L BUN (7-17) mg/dL Creatinine (0.52-1.04) mg/dL Estimated GFR (>60) mL/min BUN/Creatinine Ratio (6-22) Glucose (80-110) mg/dL Calcium (8.4-10.2) mg/dL Total Bilirubin (0.2-1.3) mg/dL AST (14-36) IU/L ALT (9-52) IU/L Alkaline Phosphatase (38-126) U/L Total Protein (6.3-8.2) g/dL Albumin (3.5-5.0) g/dL Globulin (1.7-4.1) g/dL Albumin/Globulin Ratio (1.0-2.8) TSH (0.47-4.68) uIU/mL Urine Color Yellow Urine Appearance Cloudy Urine pH 5.5 (4.5-8.0) Ur Specific [place] 1.020 (1.000-1.035) Urine Protein Negative (Negative) Urine Glucose (UA) 3+ H (Negative) g/dL Urine Ketones Negative (NEGATIVE) Urine Occult Blood Trace-lysed (Negative) Urine Nitrate Negative (Negative) Urine Bilirubin Negative (NEGATIVE) Urine Urobilinogen 0.2 (0.2) E.U./dL Ur Leukocyte Esterase Trace H (NEGATIVE) Urine RBC None seen (0-5/HPF) Urine WBC 5-10/hpf H (0-5/HPF) Ur Squamous Epith Cells 5-10 /hpf H (0-5/HPF) Urine Bacteria Many (>30) H (None) Ur Culture Indicated? Culture not indicate Micro UA Comment Urine Opiates Screen Negative (Negative) Ur Oxycodone Screen Negative (Negative) Urine Methadone Screen Negative (Negative) Ur Barbiturates Screen Negative (Negative) U Tricyclic Antidepress Negative (Negative) Ur Phencyclidine Scrn Negative (Negative) Ur Amphetamines Screen Negative (Negative) U Methamphetamines Scrn Negative (Negative) Ur MDMA Scrn (Ecstasy) Negative (Negative) U Benzodiazepines Scrn Negative (Negative) Urine Cocaine Screen Negative (Negative) U Marijuana (THC) Screen Positive H (Negative) Ethyl Alcohol mg/dL 07/13/18 07/13/18 Range/Units 01:17 01:17 WBC (4.5-11.0) X10^3/uL RBC (4.0-5.2) X10^6/uL Hgb (12.0-16.0) g/dL Hct (36-46) % MCV (80-100) fL MCH (26-34) PG MCHC (30-36) % RDW (11.6-14.8) % Plt Count (150-400) X10^3/uL Neut % (Auto) (50-75) % Lymph % (Auto) (25-40) % [place]anan % (Auto) (3-14) % Eos % (Auto) (2-4) % Baso % (Auto) (0-2) % Neut # (Auto) (7219-2039) /uL Lymph # (Auto) (2786-0986) /uL [place] # (Auto) (0-900) /uL Eos # (Auto) (0-450) /uL Baso # (Auto) (0-100) /uL Sodium 138 (137-145) mmol/L Potassium 4.1 (3.4-5.1) mmol/L Chloride 102 (98-107) mmol/L Carbon Dioxide 22 (22-32) mmol/L BUN 18 H (7-17) mg/dL Creatinine 0.70 (0.52-1.04) mg/dL Estimated GFR > 60.0 (>60) mL/min BUN/Creatinine Ratio 25.7 H (6-22) Glucose 320 H (80-110) mg/dL Calcium 9.8 (8.4-10.2) mg/dL Total Bilirubin 0.2 (0.2-1.3) mg/dL AST 23 (14-36) IU/L ALT 14 (9-52) IU/L Alkaline Phosphatase 119 (38-126) U/L Total Protein 7.6 (6.3-8.2) g/dL Albumin 4.6 (3.5-5.0) g/dL Globulin 3.0 (1.7-4.1) g/dL Albumin/Globulin Ratio 1.5 (1.0-2.8) TSH 2.74 (0.47-4.68) uIU/mL Urine Color Urine Appearance Urine pH (4.5-8.0) Ur Specific [place] (1.000-1.035) Urine Protein (Negative) Urine Glucose (UA) (Negative) g/dL Urine Ketones (NEGATIVE) Urine Occult Blood (Negative) Urine Nitrate (Negative) Urine Bilirubin (NEGATIVE) Urine Urobilinogen (0.2) E.U./dL Ur Leukocyte Esterase (NEGATIVE) Urine RBC (0-5/HPF) Urine WBC (0-5/HPF) Ur Squamous Epith Cells (0-5/HPF) Urine Bacteria (None) Ur Culture Indicated? Micro UA Comment Urine Opiates Screen (Negative) Ur Oxycodone Screen (Negative) Urine Methadone Screen (Negative) Ur Barbiturates Screen (Negative) U Tricyclic Antidepress (Negative) Ur Phencyclidine Scrn (Negative) Ur Amphetamines Screen (Negative) U Methamphetamines Scrn (Negative) Ur MDMA Scrn (Ecstasy) (Negative) U Benzodiazepines Scrn (Negative) Urine Cocaine Screen (Negative) U Marijuana (THC) Screen (Negative) Ethyl Alcohol < 10 mg/dL Imaging Data CT scan - head: Radiologist's impression: security shift supervisor report: Generalized involutional changes noted, consistent with age. No acute abnormality identified. MDM Narrative Medical decision making narrative: The son is at bedside this is extremely odd and new behavior for his mother. She is typically able to care for herself is. He she does have depression but no history of jamilah. [employer] have been called. Someone will be dispatched. 6:00 a.m. as the patient has been talking nonstop since she arrived to the emergency department. Her son is in the room seems to be keeping her calm. But she overall has not slept and has not stopped talking. CT had requested by psychiatric facilities Patient signed out to Dr. Brennan is waiting for mental health [facility]. <Gerald Brennan DO - Last Filed: 07/13/18 14:05> Lab Data Lab Results 07/13/18 07/13/18 07/13/18 Range/Units 00:36 00:36 01:17 WBC 9.3 (4.5-11.0) X10^3/uL RBC 3.90 L (4.0-5.2) X10^6/uL Hgb 11.6 L (12.0-16.0) g/dL Hct 34.2 L (36-46) % MCV 87.6 (80-100) fL MCH 29.8 (26-34) PG MCHC 34.0 (30-36) % RDW 13.2 (11.6-14.8) % Plt Count 347 (150-400) X10^3/uL Neut % (Auto) 57.2 (50-75) % Lymph % (Auto) 26.1 (25-40) % [place]anan % (Auto) 12.5 (3-14) % Eos % (Auto) 3.3 (2-4) % Baso % (Auto) 0.9 (0-2) % Neut # (Auto) 5300 (0327-3452) /uL Lymph # (Auto) 2400 (6896-1856) /uL [place] # (Auto) 1200 H (0-900) /uL Eos # (Auto) 300 (0-450) /uL Baso # (Auto) 100 (0-100) /uL Sodium (137-145) mmol/L Potassium (3.4-5.1) mmol/L Chloride (98-107) mmol/L Carbon Dioxide (22-32) mmol/L BUN (7-17) mg/dL Creatinine (0.52-1.04) mg/dL Estimated GFR (>60) mL/min BUN/Creatinine Ratio (6-22) Glucose (80-110) mg/dL Calcium (8.4-10.2) mg/dL Total Bilirubin (0.2-1.3) mg/dL AST (14-36) IU/L ALT (9-52) IU/L Alkaline Phosphatase (38-126) U/L Total Protein (6.3-8.2) g/dL Albumin (3.5-5.0) g/dL Globulin (1.7-4.1) g/dL Albumin/Globulin Ratio (1.0-2.8) TSH (0.47-4.68) uIU/mL Urine Color Yellow Urine Appearance Cloudy Urine pH 5.5 (4.5-8.0) Ur Specific [place] 1.020 (1.000-1.035) Urine Protein Negative (Negative) Urine Glucose (UA) 3+ H (Negative) g/dL Urine Ketones Negative (NEGATIVE) Urine Occult Blood Trace-lysed (Negative) Urine Nitrate Negative (Negative) Urine Bilirubin Negative (NEGATIVE) Urine Urobilinogen 0.2 (0.2) E.U./dL Ur Leukocyte Esterase Trace H (NEGATIVE) Urine RBC None seen (0-5/HPF) Urine WBC 5-10/hpf H (0-5/HPF) Ur Squamous Epith Cells 5-10 /hpf H (0-5/HPF) Urine Bacteria Many (>30) H (None) Ur Culture Indicated? Culture not indicate Micro UA Comment Urine Opiates Screen Negative (Negative) Ur Oxycodone Screen Negative (Negative) Urine Methadone Screen Negative (Negative) Ur Barbiturates Screen Negative (Negative) U Tricyclic Antidepress Negative (Negative) Ur Phencyclidine Scrn Negative (Negative) Ur Amphetamines Screen Negative (Negative) U Methamphetamines Scrn Negative (Negative) Ur MDMA Scrn (Ecstasy) Negative (Negative) U Benzodiazepines Scrn Negative (Negative) Urine Cocaine Screen Negative (Negative) U Marijuana (THC) Screen Positive H (Negative) Ethyl Alcohol mg/dL 07/13/18 07/13/18 Range/Units 01:17 01:17 WBC (4.5-11.0) X10^3/uL RBC (4.0-5.2) X10^6/uL Hgb (12.0-16.0) g/dL Hct (36-46) % MCV (80-100) fL MCH (26-34) PG MCHC (30-36) % RDW (11.6-14.8) % Plt Count (150-400) X10^3/uL Neut % (Auto) (50-75) % Lymph % (Auto) (25-40) % [place] % (Auto) (3-14) % Eos % (Auto) (2-4) % Baso % (Auto) (0-2) % Neut # (Auto) (9644-4375) /uL Lymph # (Auto) (8705-7951) /uL [place] # (Auto) (0-900) /uL Eos # (Auto) (0-450) /uL Baso # (Auto) (0-100) /uL Sodium 138 (137-145) mmol/L Potassium 4.1 (3.4-5.1) mmol/L Chloride 102 (98-107) mmol/L Carbon Dioxide 22 (22-32) mmol/L BUN 18 H (7-17) mg/dL Creatinine 0.70 (0.52-1.04) mg/dL Estimated GFR > 60.0 (>60) mL/min BUN/Creatinine Ratio 25.7 H (6-22) Glucose 320 H (80-110) mg/dL Calcium 9.8 (8.4-10.2) mg/dL Total Bilirubin 0.2 (0.2-1.3) mg/dL AST 23 (14-36) IU/L ALT 14 (9-52) IU/L Alkaline Phosphatase 119 (38-126) U/L Total Protein 7.6 (6.3-8.2) g/dL Albumin 4.6 (3.5-5.0) g/dL Globulin 3.0 (1.7-4.1) g/dL Albumin/Globulin Ratio 1.5 (1.0-2.8) TSH 2.74 (0.47-4.68) uIU/mL Urine Color Urine Appearance Urine pH (4.5-8.0) Ur Specific [place] (1.000-1.035) Urine Protein (Negative) Urine Glucose (UA) (Negative) g/dL Urine Ketones (NEGATIVE) Urine Occult Blood (Negative) Urine Nitrate (Negative) Urine Bilirubin (NEGATIVE) Urine Urobilinogen (0.2) E.U./dL Ur Leukocyte Esterase (NEGATIVE) Urine RBC (0-5/HPF) Urine WBC (0-5/HPF) Ur Squamous Epith Cells (0-5/HPF) Urine Bacteria (None) Ur Culture Indicated? Micro UA Comment Urine Opiates Screen (Negative) Ur Oxycodone Screen (Negative) Urine Methadone Screen (Negative) Ur Barbiturates Screen (Negative) U Tricyclic Antidepress (Negative) Ur Phencyclidine Scrn (Negative) Ur Amphetamines Screen (Negative) U Methamphetamines Scrn (Negative) Ur MDMA Scrn (Ecstasy) (Negative) U Benzodiazepines Scrn (Negative) Urine Cocaine Screen (Negative) U Marijuana (THC) Screen (Negative) Ethyl Alcohol < 10 mg/dL Discharge Plan Departure Patient Disposition: Home Clinical Impression: Manic behavior Discharge Date/Time: 07/13/18 11:13 Interventions: ED Discharge Assessment Last Done: 07/13/18 11:12 Instructions: DI for Bipolar Disorder Activity Restrictions/Additional Instructions: *You have been diagnosed with [manic type behavior] *What to do: *Take medications as directed: Dr. Cardona has called in a prescription for you please start taking it today *Follow up with Dr. Cardona on Tuesday at 1000am. *Please be sure to have family stay with you during the weekend, and at least until you see Dr. Cardona on Tuesday. Please have family with you for this visit. *Return to ER if you should have any new, worsening or concerning symptoms] Prescriptions: No Action metformin [Glucophage] 500 mg tablet 1,500 mg PO QAM RF: 0 naproxen [Naprosyn] 500 mg tablet 500 mg PO BID PRN (Reason: pain) RF: 0 amlodipine 5 mg tablet 5 mg PO DAILY 30 Days RF: 0 atorvastatin 20 mg tablet 20 mg PO BEDTIME 90 Days RF: 0 losartan 100 mg tablet 100 mg PO QPM 90 Days RF: 0 venlafaxine 150 mg capsule,extended release 24hr 150 mg PO DAILY Qty: 30 RF: 5 propranolol 10 mg tablet 10 mg PO BID Qty: 180 RF: 3 lamotrigine [Lamictal] 25 mg tablet 25 mg PO BID Qty: 60 RF: 6 glimepiride [Amaryl] 2 mg tablet 4 mg PO BID Qty: 360 RF: 3 metformin 500 mg tablet 1,000 mg PO QPM RF: 0 gabapentin 300 mg capsule 300 mg PO BID RF: 0 levothyroxine 25 mcg Tablet 25 mcg PO DAILY RF: 0 Referrals: Misael Cardona MD [Primary Care Provider] -
[2018-07-13 01:42] LABS: Add Manual Diff / Slide Review NO; Basophils Absolute Auto 100 /uL (0-100); Basophils Percent Auto 0.9 % (0-2); Eosinophils Absolute Auto 300 /uL (0-450); Eosinophils Percent Auto 3.3 % (2-4); Hematocrit 34.2 % (36-46); Hemoglobin 11.6 g/dL (12.0-16.0); Lymphocytes Absolute Auto 2400 /uL (1100-4500); Lymphocytes Percent Auto 26.1 % (25-40); Mean Corpuscular Hemoglobin 29.8 PG (26-34); Mean Corpuscular Volume 87.6 fL (80-100); Monocytes Absolute Auto 1200 /uL (0-900); Monocytes Percent Auto 12.5 % (3-14); Neutrophils Absolute Auto 5300 /uL (1500-7000); Neutrophils Percent Auto 57.2 % (50-75); Platelet Count 347 X10^3/uL (150-400); Red Cell Distribution Width 13.2 % (11.6-14.8); White Blood Cell Count 9.3 X10^3/uL (4.5-11.0)
--- NOTE | 2018-07-13 01:56 | PC.NURSE ---
She told me I may start going 5000 MPH again,my right eye is closing like a dolls eye,I know you conferred with every body and know this.
[2018-07-13 01:57] LABS: Alanine Aminotransferase 14 IU/L (9-52); Albumin 4.6 g/dL (3.5-5.0); Albumin Globulin Ratio 1.5 (1.0-2.8); Alkaline Phosphatase 119 U/L (38-126); Aspartate Aminotransferase 23 IU/L (14-36); BUN Creatinine Ratio 25.7 (6-22); Bilirubin Total 0.2 mg/dL (0.2-1.3); Blood Urea Nitrogen 18 mg/dL (7-17); Calcium 9.8 mg/dL (8.4-10.2); Carbon Dioxide 22 mmol/L (22-32); Chloride 102 mmol/L (98-107); Estimated Glomerular Filt Rate > 60.0 mL/min (>60); Ethanol (ETOH) < 10 mg/dL; Glucose 320 mg/dL (80-110); HEMOLYSIS < 15 (0-50); Potassium 4.1 mmol/L (3.4-5.1); Sodium 138 mmol/L (137-145); Total Protein 7.6 g/dL (6.3-8.2)
[2018-07-13 02:02] VITALS: BP 165/96; PULSE 92; RESP 20; O2SAT 96
[2018-07-13 02:55] LABS: Thyroid Stimulating Hormone 2.74 uIU/mL (0.47-4.68)
--- NOTE | 2018-07-13 06:51 | DI.CT.S_ITS ---
PROCEDURE: CT HEAD/BRAIN WO CON INDICATIONS: acute behavior changes TECHNIQUE: Noncontrast 4.5 mm thick angled axial sections acquired from the foramen magnum to the vertex, with coronal and sagittal reformats. For radiation dose reduction, the following was used: automated exposure control, adjustment of mA and/or kV according to patient size. COMPARISON: None. FINDINGS: Image quality: Excellent. CSF spaces: Basal cisterns are patent. No extra-axial fluid collections. The ventricles are symmetric in size and shape. Brain: No intracranial bleeds or masses. There is cerebral volume loss for age, with resultant ventricular and sulcal prominence. There are periventricular and deep white matter chronic small vessel ischemic changes. There is intracranial internal carotid artery atherosclerosis. Skull and face: Calvarium and visualized facial bones appear intact, without suspicious lesions. Sinuses: Visualized sinuses and mastoids are clear. IMPRESSION: No acute intracranial process. Dictated by: Luis Gimenez M.D. on 07/13/2018 at 7:58 Approved by: Luis Gimenez M.D. on 07/13/2018 at 7:59
[2018-07-13 08:15] VITALS: BP 137/61; PULSE 91; RESP 20
[2018-07-13 11:12] VITALS: BP 146/80; PULSE 95; RESP 20; O2SAT 96
== END 2018-07-13 11:13 | disposition home or self-care (01) ==
PROVIDERS: Emergency Medicine; Emergency Provider Emergency Medicine; PCP Family Medicine
DX: F30.10 Manic episode without psychotic symptoms, unspecified (principal)
CPT/HCPCS: 36415; 70450; 80053; 80305; 80320; 81001; 84443; 85025; 99283; 99284

== ENCOUNTER 2018-07-15 15:05 | Emergency (ER) | payer MEDICARE, OTHER, SELFPAY ==
[2018-05-03 14:44] VITALS: BMI 34.3
[2018-07-15 15:18] VITALS: BP 148/98; PULSE 100; RESP 18; TEMP 36.4; O2SAT 99; BMI 29.2
--- NOTE | 2018-07-15 16:13 | ED.PSYCH ---
HPI - Psych <Sonam Saleh, TRIAGE TECHNICIAN-BC - Last Filed: 07/15/18 22:53> General Chief Complaint: Psychiatric Symptoms Stated Complaint: manic behavior Time Seen by Provider: 07/15/18 16:05 Source: patient and family Mode of arrival: ambulatory Limitations: no limitations History of Present Illness HPI Narrative: The patient is a 67-year-old female with history of depression and type 2 diabetes who presents with her family. They states she is manic. She was seen in this department 2 days ago for the same thing. Her family states that she is unable to sleep, not eating, not drinking and not taking her medications unless prompted.. They state that her son committed suicide 6 years ago. She presents with her brother, sister, best friend and son. They states she has been very hyperactive. She was started on Lamictal 2 days ago. Patient does not have any history of bipolar. Of note her father appeared to have bipolar disorder plate in his life. She had a thorough evaluation on the including head CT and was seen by the [facility] The patient has no physical complaints. Related Data Home Medications Medication Instructions Recorded Confirmed amlodipine 5 mg tablet 5 mg PO DAILY 30 Days tab 01/16/18 07/13/18 atorvastatin 20 mg tablet 20 mg PO BEDTIME 90 Days tab 01/16/18 07/13/18 losartan 100 mg tablet 100 mg PO QPM 90 Days tab 01/16/18 07/13/18 metformin 500 mg tablet 1,500 mg PO QAM tab 01/16/18 07/13/18 naproxen 500 mg tablet 500 mg PO BID PRN tab 01/16/18 07/13/18 levothyroxine 25 mcg PO DAILY 04/26/18 07/13/18 gabapentin 300 mg PO BID 07/13/18 07/13/18 metformin 1,000 mg PO QPM 07/13/18 07/13/18 Previous Rx's Medication Instructions Recorded glimepiride 2 mg tablet 4 mg PO BID #360 tab 03/23/18 propranolol 10 mg PO BID #180 tab 03/28/18 venlafaxine ER 150 mg 150 mg PO DAILY #30 cap 03/28/18 capsule,extended release 24 hr lamotrigine 25 mg tablet 25 mg PO BID #60 tab 07/13/18 Allergies Allergy/AdvReac Type Severity Reaction Status Date / Time cephalexin [CEPHALEXIN] Allergy Mild Rash Verified 07/15/18 15:18 latex Allergy Mild Rash Verified 07/15/18 15:18 Penicillins [PENICILLINS] Allergy Mild Rash Verified 07/15/18 15:18 Sulfa (Sulfonamide Allergy Mild Rash Verified 07/15/18 15:18 Antibiotics) [SULFA (SULFONAMIDE ANTIBIOTICS)] Review of Systems [facility] - Last Filed: 07/15/18 22:53> Review of Systems GENERAL: Denies chills, fatigue, malaise, fever, sweats. HEENT: Denies sinus pain, ear pain, sore throat, difficulty swallowing, dizziness. RESPIRATORY: Denies dyspnea, cough, wheezing, hemoptysis, sputum. CARDIOVASCULAR: Denies chest pain, palpitations, orthopnea, edema, GASTROINTESTINAL: Denies nausea, vomiting, abdominal pain, diarrhea, constipation, melena. : Denies dysuria, frequency, incontinence, hematuria, urinary retention. MUSCULOSKELETAL: denies weakness, joint pain, or bony pain SKIN: Denies rash, skin lesions, or other NEUROLOGIC: Denies weakness, headache, numbness, change in speech, confusion, seizures, incoordination. PSYCHIATRIC: See HPI 12 point review of systems is negative except for those stated above PFSH <[facility] - Last Filed: 07/15/18 22:53> Social History household members: other Smoking Status: Never smoker alcohol intake: current Exam <Sonam Mccannmadalyn [facility] - Last Filed: 07/15/18 22:53> Narrative Exam Narrative: GENERAL: well-dressed female sitting on stretcher speaking with family HEAD: Atraumatic. Normocephalic. No temporal or scalp tenderness. EYES: Pupils equal round and reactive. Extraocular motions intact. No scleral icterus. No injection or drainage. CARDIOVASCULAR: Regular rate and rhythm. RESPIRATORY: Clear to auscultation. Breath sounds equal bilaterally. No wheezes, rales, or rhonchi. GASTROINTESTINAL: Abdomen soft, non-tender, nondistended. No hepato-splenomegaly, or palpable masses. No guarding. NEURO: AOx3. Psych: Tangential. Pressured speech. Flight of ideas noted. Denies SI. Denies HI. Initial Vital Signs Initial Vital Signs: Vital Signs Temperature 97.5 F L 07/15/18 15:18 Pulse Rate 100 H 07/15/18 15:18 Respiratory Rate 18 07/15/18 15:18 Blood Pressure 148/98 H 07/15/18 15:18 Pulse Oximetry 99 07/15/18 15:18 <Albino Booth DO - Last Filed: 07/16/18 05:29> Initial Vital Signs Initial Vital Signs: Vital Signs Temperature 97.5 F L 07/15/18 15:18 Pulse Rate 100 H 07/15/18 15:18 Respiratory Rate 18 07/15/18 15:18 Blood Pressure 148/98 H 07/15/18 15:18 Pulse Oximetry 99 07/15/18 15:18 Course <AUDREY Townsend - Last Filed: 07/15/18 22:53> Orders Ordered: Discontinued Medications Atorvastatin Calcium (Lipitor) 20 mg PO NOW ONE Stop: 07/15/18 22:29 Last Admin: 07/15/18 22:36 Dose: Not Given Gabapentin (Neurontin) 300 mg PO NOW ONE Stop: 07/15/18 22:29 Last Admin: 07/15/18 22:36 Dose: Not Given Glimepiride (Amaryl) 4 mg PO NOW ONE Stop: 07/15/18 22:31 Last Admin: 07/15/18 22:36 Dose: Not Given Lamotrigine (Lamictal) 25 mg PO NOW ONE Stop: 07/15/18 22:29 Last Admin: 07/15/18 22:36 Dose: Not Given Lorazepam (Ativan) 1 mg PO NOW ONE Stop: 07/15/18 22:31 Last Admin: 07/15/18 22:44 Dose: 1 mg Losartan Potassium (Cozaar) 100 mg PO NOW ONE Stop: 07/15/18 22:31 Last Admin: 07/15/18 22:36 Dose: Not Given Metformin HCl (Glucophage) 1,000 mg PO BEDTIME MARICRUZ Olanzapine (Zyprexa Zydis) 10 mg PO NOW ONE Stop: 07/15/18 20:19 Last Admin: 07/15/18 20:28 Dose: 10 mg Vital Signs - 8 hr 07/16/18 05:04 Temperature 97.3 F L Pulse Rate 67 Respiratory Rate 16 Blood Pressure [Left Arm] 97/63 Pulse Oximetry 100 <Albino Booth DO - Last Filed: 07/16/18 05:29> Orders Ordered: Discontinued Medications Atorvastatin Calcium (Lipitor) 20 mg PO NOW ONE Stop: 07/15/18 22:29 Last Admin: 07/15/18 22:36 Dose: Not Given Gabapentin (Neurontin) 300 mg PO NOW ONE Stop: 07/15/18 22:29 Last Admin: 07/15/18 22:36 Dose: Not Given Glimepiride (Amaryl) 4 mg PO NOW ONE Stop: 07/15/18 22:31 Last Admin: 07/15/18 22:36 Dose: Not Given Lamotrigine (Lamictal) 25 mg PO NOW ONE Stop: 07/15/18 22:29 Last Admin: 07/15/18 22:36 Dose: Not Given Lorazepam (Ativan) 1 mg PO NOW ONE Stop: 07/15/18 22:31 Last Admin: 07/15/18 22:44 Dose: 1 mg Losartan Potassium (Cozaar) 100 mg PO NOW ONE Stop: 07/15/18 22:31 Last Admin: 07/15/18 22:36 Dose: Not Given Metformin HCl (Glucophage) 1,000 mg PO BEDTIME MARICRUZ Olanzapine (Zyprexa Zydis) 10 mg PO NOW ONE Stop: 07/15/18 20:19 Last Admin: 07/15/18 20:28 Dose: 10 mg Vital Signs - 8 hr 07/16/18 05:04 Temperature 97.3 F L Pulse Rate 67 Respiratory Rate 16 Blood Pressure [Left Arm] 97/63 Pulse Oximetry 100 MDM - Psych <AUDREY Townsend - Last Filed: 07/15/18 22:53> Lab Data Result diagrams: 07/15/18 16:35 07/15/18 16:35 Lab Results 07/15/18 07/15/18 07/15/18 Range/Units 16:30 16:30 16:35 WBC 7.8 (4.5-11.0) X10^3/uL RBC 4.14 (4.0-5.2) X10^6/uL Hgb 12.0 (12.0-16.0) g/dL Hct 36.5 (36-46) % MCV 88.2 (80-100) fL MCH 29.0 (26-34) PG MCHC 32.9 (30-36) % RDW 13.2 (11.6-14.8) % Plt Count 363 (150-400) X10^3/uL Neut % (Auto) 53.3 (50-75) % Lymph % (Auto) 32.0 (25-40) % [place] % (Auto) 10.5 (3-14) % Eos % (Auto) 3.5 (2-4) % Baso % (Auto) 0.7 (0-2) % Neut # (Auto) 4200 (3070-5345) /uL Lymph # (Auto) 2500 (5157-0980) /uL [place] # (Auto) 800 (0-900) /uL Eos # (Auto) 300 (0-450) /uL Baso # (Auto) 100 (0-100) /uL Sodium (137-145) mmol/L Potassium (3.4-5.1) mmol/L Chloride (98-107) mmol/L Carbon Dioxide (22-32) mmol/L BUN (7-17) mg/dL Creatinine (0.52-1.04) mg/dL Estimated GFR (>60) mL/min BUN/Creatinine Ratio (6-22) Glucose (80-110) mg/dL Calcium (8.4-10.2) mg/dL Total Bilirubin (0.2-1.3) mg/dL AST (14-36) IU/L ALT (9-52) IU/L Alkaline Phosphatase (38-126) U/L Total Protein (6.3-8.2) g/dL Albumin (3.5-5.0) g/dL Globulin (1.7-4.1) g/dL Albumin/Globulin Ratio (1.0-2.8) TSH (0.47-4.68) uIU/mL Urine Color Yellow Urine Appearance Cloudy Urine pH 5.0 (4.5-8.0) Ur Specific [place] >=1.030 H (1.000-1.035) Urine Protein Trace H (Negative) Urine Glucose (UA) 3+ H (Negative) g/dL Urine Ketones Negative (NEGATIVE) Urine Occult Blood Negative (Negative) Urine Nitrate Negative (Negative) Urine Bilirubin Negative (NEGATIVE) Urine Urobilinogen 0.2 (0.2) E.U./dL Ur Leukocyte Esterase Negative (NEGATIVE) Urine RBC 1-5/hpf (0-5/HPF) Urine WBC 1-5/hpf (0-5/HPF) Ur Squamous Epith Cells 1-5 /hpf (0-5/HPF) Urine Bacteria Many (>30) H (None) Ur Culture Indicated? Cult not indicated Salicylates (<20) mg/dL Urine Opiates Screen Negative (Negative) Ur Oxycodone Screen Negative (Negative) Urine Methadone Screen Negative (Negative) Acetaminophen (10-30) ug/mL Ur Barbiturates Screen Negative (Negative) U Tricyclic Antidepress Negative (Negative) Ur Phencyclidine Scrn Negative (Negative) Ur Amphetamines Screen Negative (Negative) U Methamphetamines Scrn Negative (Negative) Ur MDMA Scrn (Ecstasy) Negative (Negative) U Benzodiazepines Scrn Negative (Negative) Urine Cocaine Screen Negative (Negative) U Marijuana (THC) Screen Positive H (Negative) Ethyl Alcohol mg/dL 07/15/18 07/15/18 Range/Units 16:35 16:35 WBC (4.5-11.0) X10^3/uL RBC (4.0-5.2) X10^6/uL Hgb (12.0-16.0) g/dL Hct (36-46) % MCV (80-100) fL MCH (26-34) PG MCHC (30-36) % RDW (11.6-14.8) % Plt Count (150-400) X10^3/uL Neut % (Auto) (50-75) % Lymph % (Auto) (25-40) % [place] % (Auto) (3-14) % Eos % (Auto) (2-4) % Baso % (Auto) (0-2) % Neut # (Auto) (6397-0787) /uL Lymph # (Auto) (5123-6706) /uL [place] # (Auto) (0-900) /uL Eos # (Auto) (0-450) /uL Baso # (Auto) (0-100) /uL Sodium 136 L (137-145) mmol/L Potassium 4.6 (3.4-5.1) mmol/L Chloride 98 (98-107) mmol/L Carbon Dioxide 23 (22-32) mmol/L BUN 21 H (7-17) mg/dL Creatinine 0.80 (0.52-1.04) mg/dL Estimated GFR > 60.0 (>60) mL/min BUN/Creatinine Ratio 26.3 H (6-22) Glucose 269 H (80-110) mg/dL Calcium 9.9 (8.4-10.2) mg/dL Total Bilirubin 0.4 (0.2-1.3) mg/dL AST 19 (14-36) IU/L ALT 21 (9-52) IU/L Alkaline Phosphatase 132 H (38-126) U/L Total Protein 8.3 H (6.3-8.2) g/dL Albumin 4.8 (3.5-5.0) g/dL Globulin 3.5 (1.7-4.1) g/dL Albumin/Globulin Ratio 1.4 (1.0-2.8) TSH 2.35 (0.47-4.68) uIU/mL Urine Color Urine Appearance Urine pH (4.5-8.0) Ur Specific [place] (1.000-1.035) Urine Protein (Negative) Urine Glucose (UA) (Negative) g/dL Urine Ketones (NEGATIVE) Urine Occult Blood (Negative) Urine Nitrate (Negative) Urine Bilirubin (NEGATIVE) Urine Urobilinogen (0.2) E.U./dL Ur Leukocyte Esterase (NEGATIVE) Urine RBC (0-5/HPF) Urine WBC (0-5/HPF) Ur Squamous Epith Cells (0-5/HPF) Urine Bacteria (None) Ur Culture Indicated? Salicylates < 1.0 (<20) mg/dL Urine Opiates Screen (Negative) Ur Oxycodone Screen (Negative) Urine Methadone Screen (Negative) Acetaminophen < 10 L (10-30) ug/mL Ur Barbiturates Screen (Negative) U Tricyclic Antidepress (Negative) Ur Phencyclidine Scrn (Negative) Ur Amphetamines Screen (Negative) U Methamphetamines Scrn (Negative) Ur MDMA Scrn (Ecstasy) (Negative) U Benzodiazepines Scrn (Negative) Urine Cocaine Screen (Negative) U Marijuana (THC) Screen (Negative) Ethyl Alcohol < 10 mg/dL Point of Care Testing Glucose POC 249 MDM Narrative Medical decision making narrative: the patient is a 67-year-old female who presents in a manic state. She is gravely disabled at this point time and is unable to take care of herself. Thus DCR was contacted and came out to see the patient. Pio, the DCR mad the patient involuntary. The patient was given Zyprexa to help her be calmed, and as needed Ativan order was placed. She was given her nightly medications by her family members. The patient was able to obtain a bed at [facility] in [place]. She can be accepted at 9:00 a.m.. Transportation was arranged. A sitter was arranged. The patient has not made any threats towards self or anybody else during her stay at this point time. The patient was signed out to Dr. Booth at 23:00 <Albino Booth, DO - Last Filed: 07/16/18 05:29> Lab Data Lab Results 07/15/18 07/15/18 07/15/18 Range/Units 16:30 16:30 16:35 WBC 7.8 (4.5-11.0) X10^3/uL RBC 4.14 (4.0-5.2) X10^6/uL Hgb 12.0 (12.0-16.0) g/dL Hct 36.5 (36-46) % MCV 88.2 (80-100) fL MCH 29.0 (26-34) PG MCHC 32.9 (30-36) % RDW 13.2 (11.6-14.8) % Plt Count 363 (150-400) X10^3/uL Neut % (Auto) 53.3 (50-75) % Lymph % (Auto) 32.0 (25-40) % [place] % (Auto) 10.5 (3-14) % Eos % (Auto) 3.5 (2-4) % Baso % (Auto) 0.7 (0-2) % Neut # (Auto) 4200 (2723-6224) /uL Lymph # (Auto) 2500 (2180-0113) /uL [place] # (Auto) 800 (0-900) /uL Eos # (Auto) 300 (0-450) /uL Baso # (Auto) 100 (0-100) /uL Sodium (137-145) mmol/L Potassium (3.4-5.1) mmol/L Chloride (98-107) mmol/L Carbon Dioxide (22-32) mmol/L BUN (7-17) mg/dL Creatinine (0.52-1.04) mg/dL Estimated GFR (>60) mL/min BUN/Creatinine Ratio (6-22) Glucose (80-110) mg/dL Calcium (8.4-10.2) mg/dL Total Bilirubin (0.2-1.3) mg/dL AST (14-36) IU/L ALT (9-52) IU/L Alkaline Phosphatase (38-126) U/L Total Protein (6.3-8.2) g/dL Albumin (3.5-5.0) g/dL Globulin (1.7-4.1) g/dL Albumin/Globulin Ratio (1.0-2.8) TSH (0.47-4.68) uIU/mL Urine Color Yellow Urine Appearance Cloudy Urine pH 5.0 (4.5-8.0) Ur Specific [place] >=1.030 H (1.000-1.035) Urine Protein Trace H (Negative) Urine Glucose (UA) 3+ H (Negative) g/dL Urine Ketones Negative (NEGATIVE) Urine Occult Blood Negative (Negative) Urine Nitrate Negative (Negative) Urine Bilirubin Negative (NEGATIVE) Urine Urobilinogen 0.2 (0.2) E.U./dL Ur Leukocyte Esterase Negative (NEGATIVE) Urine RBC 1-5/hpf (0-5/HPF) Urine WBC 1-5/hpf (0-5/HPF) Ur Squamous Epith Cells 1-5 /hpf (0-5/HPF) Urine Bacteria Many (>30) H (None) Ur Culture Indicated? Cult not indicated Salicylates (<20) mg/dL Urine Opiates Screen Negative (Negative) Ur Oxycodone Screen Negative (Negative) Urine Methadone Screen Negative (Negative) Acetaminophen (10-30) ug/mL Ur Barbiturates Screen Negative (Negative) U Tricyclic Antidepress Negative (Negative) Ur Phencyclidine Scrn Negative (Negative) Ur Amphetamines Screen Negative (Negative) U Methamphetamines Scrn Negative (Negative) Ur MDMA Scrn (Ecstasy) Negative (Negative) U Benzodiazepines Scrn Negative (Negative) Urine Cocaine Screen Negative (Negative) U Marijuana (THC) Screen Positive H (Negative) Ethyl Alcohol mg/dL 07/15/18 07/15/18 Range/Units 16:35 16:35 WBC (4.5-11.0) X10^3/uL RBC (4.0-5.2) X10^6/uL Hgb (12.0-16.0) g/dL Hct (36-46) % MCV (80-100) fL MCH (26-34) PG MCHC (30-36) % RDW (11.6-14.8) % Plt Count (150-400) X10^3/uL Neut % (Auto) (50-75) % Lymph % (Auto) (25-40) % [place] % (Auto) (3-14) % Eos % (Auto) (2-4) % Baso % (Auto) (0-2) % Neut # (Auto) (5710-4113) /uL Lymph # (Auto) (0570-4694) /uL [place] # (Auto) (0-900) /uL Eos # (Auto) (0-450) /uL Baso # (Auto) (0-100) /uL Sodium 136 L (137-145) mmol/L Potassium 4.6 (3.4-5.1) mmol/L Chloride 98 (98-107) mmol/L Carbon Dioxide 23 (22-32) mmol/L BUN 21 H (7-17) mg/dL Creatinine 0.80 (0.52-1.04) mg/dL Estimated GFR > 60.0 (>60) mL/min BUN/Creatinine Ratio 26.3 H (6-22) Glucose 269 H (80-110) mg/dL Calcium 9.9 (8.4-10.2) mg/dL Total Bilirubin 0.4 (0.2-1.3) mg/dL AST 19 (14-36) IU/L ALT 21 (9-52) IU/L Alkaline Phosphatase 132 H (38-126) U/L Total Protein 8.3 H (6.3-8.2) g/dL Albumin 4.8 (3.5-5.0) g/dL Globulin 3.5 (1.7-4.1) g/dL Albumin/Globulin Ratio 1.4 (1.0-2.8) TSH 2.35 (0.47-4.68) uIU/mL Urine Color Urine Appearance Urine pH (4.5-8.0) Ur Specific [place] (1.000-1.035) Urine Protein (Negative) Urine Glucose (UA) (Negative) g/dL Urine Ketones (NEGATIVE) Urine Occult Blood (Negative) Urine Nitrate (Negative) Urine Bilirubin (NEGATIVE) Urine Urobilinogen (0.2) E.U./dL Ur Leukocyte Esterase (NEGATIVE) Urine RBC (0-5/HPF) Urine WBC (0-5/HPF) Ur Squamous Epith Cells (0-5/HPF) Urine Bacteria (None) Ur Culture Indicated? Salicylates < 1.0 (<20) mg/dL Urine Opiates Screen (Negative) Ur Oxycodone Screen (Negative) Urine Methadone Screen (Negative) Acetaminophen < 10 L (10-30) ug/mL Ur Barbiturates Screen (Negative) U Tricyclic Antidepress (Negative) Ur Phencyclidine Scrn (Negative) Ur Amphetamines Screen (Negative) U Methamphetamines Scrn (Negative) Ur MDMA Scrn (Ecstasy) (Negative) U Benzodiazepines Scrn (Negative) Urine Cocaine Screen (Negative) U Marijuana (THC) Screen (Negative) Ethyl Alcohol < 10 mg/dL Point of Care Testing Glucose POC 249 Discharge Plan Departure Patient Disposition: Xfer Psychiatric Hosp Clinical Impression: Manic behavior Referrals: Misael Cardona MD [Primary Care Provider] - <Albino Booth DO - Last Filed: 07/16/18 05:29> Cosign ED Attending Cosignature Attestation: Received turned over from day provider. I did review the patient's note and lab reports. The patient has been detained by the DCR. Patient has also already been medicated. She is scheduled for pick up and delivery driver at 0900 hours in the morning to be taken to care facility. Patient has been sleeping all night without any problems. Patient continues to be medically cleared.
[2018-07-15 16:41] LABS: Add Manual Diff / Slide Review NO; Basophils Absolute Auto 100 /uL (0-100); Basophils Percent Auto 0.7 % (0-2); Eosinophils Absolute Auto 300 /uL (0-450); Eosinophils Percent Auto 3.5 % (2-4); Hematocrit 36.5 % (36-46); Lymphocytes Absolute Auto 2500 /uL (1100-4500); Mean Corpuscular HGB Conc 32.9 % (30-36); Mean Corpuscular Volume 88.2 fL (80-100); Monocytes Absolute Auto 800 /uL (0-900); Monocytes Percent Auto 10.5 % (3-14); Neutrophils Absolute Auto 4200 /uL (1500-7000); Neutrophils Percent Auto 53.3 % (50-75); Platelet Count 363 X10^3/uL (150-400); Red Blood Cell Count 4.14 X10^6/uL (4.0-5.2); Red Cell Distribution Width 13.2 % (11.6-14.8); White Blood Cell Count 7.8 X10^3/uL (4.5-11.0)
[2018-07-15 16:48] LABS: Bilirubin Urine UA NEGATIVE (NEGATIVE); Color Urine UA YELLOW; Glucose Urine UA 3+ g/dL (Negative); Ketones Urine UA NEGATIVE (NEGATIVE); Leukocyte Esterase Urine UA NEGATIVE (NEGATIVE); Nitrite Urine UA NEGATIVE (Negative); Occult Blood Urine UA NEGATIVE (Negative); Protein Urine UA TRACE (Negative); Specific Gravity Urine UA >=1.030 (1.000-1.035); Urobilinogen Urine UA 0.2 E.U./dL (0.2)
[2018-07-15 16:53] LABS: Acetaminophen < 10 ug/mL (10-30); Alanine Aminotransferase 21 IU/L (9-52); Albumin 4.8 g/dL (3.5-5.0); Albumin Globulin Ratio 1.4 (1.0-2.8); Alkaline Phosphatase 132 U/L (38-126); Aspartate Aminotransferase 19 IU/L (14-36); BUN Creatinine Ratio 26.3 (6-22); Bilirubin Total 0.4 mg/dL (0.2-1.3); Blood Urea Nitrogen 21 mg/dL (7-17); Calcium 9.9 mg/dL (8.4-10.2); Carbon Dioxide 23 mmol/L (22-32); Chloride 98 mmol/L (98-107); Estimated Glomerular Filt Rate > 60.0 mL/min (>60); Ethanol (ETOH) < 10 mg/dL; Globulin 3.5 g/dL (1.7-4.1); Glucose 269 mg/dL (80-110); HEMOLYSIS < 15 (0-50); Potassium 4.6 mmol/L (3.4-5.1); Salicylate < 1.0 mg/dL (<20); Sodium 136 mmol/L (137-145); Total Protein 8.3 g/dL (6.3-8.2)
[2018-07-15 16:55] LABS: Urine Amphetamines Negative (Negative); Urine Barbiturates Negative (Negative); Urine Benzodiazepines Negative (Negative); Urine Cocaine Negative (Negative); Urine MDMA Negative (Negative); Urine Methadone Negative (Negative); Urine Methamphetamines Negative (Negative); Urine Morphine/Opi cutoff 2000 Negative (Negative); Urine Oxycodone Negative (Negative); Urine Phencyclidine Negative (Negative); Urine Tetrahydrocannabinol Positive (Negative); Urine Tricyclic Antidepressant Negative (Negative)
[2018-07-15 16:57] LABS: Bacteria Urine Many (>30); RBC Urine 1-5/HPF (0-5/HPF); Squamous Epithelial Cell Urine 1-5 /HPF (0-5/HPF); WBC Urine 1-5/HPF (0-5/HPF)
[2018-07-15 16:58] LABS: Appearance Urine UA Cloudy
[2018-07-15 16:59] LABS: Culture Indicated Urine Cult Not Indicated
[2018-07-15 17:23] LABS: Thyroid Stimulating Hormone 2.35 uIU/mL (0.47-4.68)
[2018-07-15 20:27] VITALS: BP 148/76; PULSE 98; RESP 20; O2SAT 97
[2018-07-15] MEDS: OLANZapine ODT 10 MG TAB PO (20:28)
[2018-07-15] MEDS: LORazepam 0.5 MG TABLET 1 MG PO (22:44)
--- NOTE | 2018-07-15 22:52 | ED_ITS ---
HPI - Psych <Sonam Saleh, CUSTOMER SALES [employer]IST[employer] - Last Filed: 07/15/18 22:53> General Chief Complaint: Psychiatric Symptoms Stated Complaint: manic behavior Time Seen by Provider: 07/15/18 16:05 Source: patient and family Mode of arrival: ambulatory Limitations: no limitations History of Present Illness HPI Narrative: The patient is a 67-year-old female with history of depression and type 2 diabetes who presents with her family. They states she is manic. She was seen in this department 2 days ago for the same thing. Her family states that she is unable to sleep, not eating, not drinking and not taking her medications unless prompted.. They state that her son committed suicide 6 years ago. She presents with her brother, sister, best friend and son. They states she has been very hyperactive. She was started on Lamictal 2 days ago. Patient does not have any history of bipolar. Of note her father appeared to have bipolar disorder plate in his life. She had a thorough evaluation on the including head CT and was seen by the [facility] The patient has no physical complaints. Related Data Home Medications Medication Instructions Recorded Confirmed amlodipine 5 mg tablet 5 mg PO DAILY 30 Days tab 01/16/18 07/13/18 atorvastatin 20 mg tablet 20 mg PO BEDTIME 90 Days tab 01/16/18 07/13/18 losartan 100 mg tablet 100 mg PO QPM 90 Days tab 01/16/18 07/13/18 metformin 500 mg tablet 1,500 mg PO QAM tab 01/16/18 07/13/18 naproxen 500 mg tablet 500 mg PO BID PRN tab 01/16/18 07/13/18 levothyroxine 25 mcg PO DAILY 04/26/18 07/13/18 gabapentin 300 mg PO BID 07/13/18 07/13/18 metformin 1,000 mg PO QPM 07/13/18 07/13/18 Previous Rx's Medication Instructions Recorded glimepiride 2 mg tablet 4 mg PO BID #360 tab 03/23/18 propranolol 10 mg PO BID #180 tab 03/28/18 venlafaxine ER 150 mg 150 mg PO DAILY #30 cap 03/28/18 capsule,extended release 24 hr lamotrigine 25 mg tablet 25 mg PO BID #60 tab 07/13/18 Allergies Allergy/AdvReac Type Severity Reaction Status Date / Time cephalexin [CEPHALEXIN] Allergy Mild Rash Verified 07/15/18 15:18 latex Allergy Mild Rash Verified 07/15/18 15:18 Penicillins [PENICILLINS] Allergy Mild Rash Verified 07/15/18 15:18 Sulfa (Sulfonamide Allergy Mild Rash Verified 07/15/18 15:18 Antibiotics) [SULFA (SULFONAMIDE ANTIBIOTICS)] Review of Systems <[facility] - Last Filed: 07/15/18 22:53> Review of Systems GENERAL: Denies chills, fatigue, malaise, fever, sweats. HEENT: Denies sinus pain, ear pain, sore throat, difficulty swallowing, dizziness. RESPIRATORY: Denies dyspnea, cough, wheezing, hemoptysis, sputum. CARDIOVASCULAR: Denies chest pain, palpitations, orthopnea, edema, GASTROINTESTINAL: Denies nausea, vomiting, abdominal pain, diarrhea, constipation, melena. : Denies dysuria, frequency, incontinence, hematuria, urinary retention. MUSCULOSKELETAL: denies weakness, joint pain, or bony pain SKIN: Denies rash, skin lesions, or other NEUROLOGIC: Denies weakness, headache, numbness, change in speech, confusion, seizures, incoordination. PSYCHIATRIC: See HPI 12 point review of systems is negative except for those stated above PFSH <[facility]ID[facility] - Last Filed: 07/15/18 22:53> Social History household members: other Smoking Status: Never smoker alcohol intake: current Exam <Sonam Mccannmadalyn [facility] - Last Filed: 07/15/18 22:53> Narrative Exam Narrative: GENERAL: well-dressed female sitting on stretcher speaking with family HEAD: Atraumatic. Normocephalic. No temporal or scalp tenderness. EYES: Pupils equal round and reactive. Extraocular motions intact. No scleral icterus. No injection or drainage. CARDIOVASCULAR: Regular rate and rhythm. RESPIRATORY: Clear to auscultation. Breath sounds equal bilaterally. No wheezes, rales, or rhonchi. GASTROINTESTINAL: Abdomen soft, non-tender, nondistended. No hepato- splenomegaly, or palpable masses. No guarding. NEURO: AOx3. Psych: Tangential. Pressured speech. Flight of ideas noted. Denies SI. Denies HI. Initial Vital Signs Initial Vital Signs: Vital Signs Temperature 97.5 F L 07/15/18 15:18 Pulse Rate 100 H 07/15/18 15:18 Respiratory Rate 18 07/15/18 15:18 Blood Pressure 148/98 H 07/15/18 15:18 Pulse Oximetry 99 07/15/18 15:18 <Albino Booth DO - Last Filed: 07/16/18 05:29> Initial Vital Signs Initial Vital Signs: Vital Signs Temperature 97.5 F L 07/15/18 15:18 Pulse Rate 100 H 07/15/18 15:18 Respiratory Rate 18 07/15/18 15:18 Blood Pressure 148/98 H 07/15/18 15:18 Pulse Oximetry 99 07/15/18 15:18 Course <AUDREY Townsend - Last Filed: 07/15/18 22:53> Orders Ordered: Discontinued Medications Atorvastatin Calcium (Lipitor) 20 mg PO NOW ONE Stop: 07/15/18 22:29 Last Admin: 07/15/18 22:36 Dose: Not Given Gabapentin (Neurontin) 300 mg PO NOW ONE Stop: 07/15/18 22:29 Last Admin: 07/15/18 22:36 Dose: Not Given Glimepiride (Amaryl) 4 mg PO NOW ONE Stop: 07/15/18 22:31 Last Admin: 07/15/18 22:36 Dose: Not Given Lamotrigine (Lamictal) 25 mg PO NOW ONE Stop: 07/15/18 22:29 Last Admin: 07/15/18 22:36 Dose: Not Given Lorazepam (Ativan) 1 mg PO NOW ONE Stop: 07/15/18 22:31 Last Admin: 07/15/18 22:44 Dose: 1 mg Losartan Potassium (Cozaar) 100 mg PO NOW ONE Stop: 07/15/18 22:31 Last Admin: 07/15/18 22:36 Dose: Not Given Metformin HCl (Glucophage) 1,000 mg PO BEDTIME MARICRUZ Olanzapine (Zyprexa Zydis) 10 mg PO NOW ONE Stop: 07/15/18 20:19 Last Admin: 07/15/18 20:28 Dose: 10 mg Vital Signs - 8 hr 07/16/18 05:04 Temperature 97.3 F L Pulse Rate 67 Respiratory Rate 16 Blood Pressure [Left Arm] 97/63 Pulse Oximetry 100 <Albino Booth DO - Last Filed: 07/16/18 05:29> Orders Ordered: Discontinued Medications Atorvastatin Calcium (Lipitor) 20 mg PO NOW ONE Stop: 07/15/18 22:29 Last Admin: 07/15/18 22:36 Dose: Not Given Gabapentin (Neurontin) 300 mg PO NOW ONE Stop: 07/15/18 22:29 Last Admin: 07/15/18 22:36 Dose: Not Given Glimepiride (Amaryl) 4 mg PO NOW ONE Stop: 07/15/18 22:31 Last Admin: 07/15/18 22:36 Dose: Not Given Lamotrigine (Lamictal) 25 mg PO NOW ONE Stop: 07/15/18 22:29 Last Admin: 07/15/18 22:36 Dose: Not Given Lorazepam (Ativan) 1 mg PO NOW ONE Stop: 07/15/18 22:31 Last Admin: 07/15/18 22:44 Dose: 1 mg Losartan Potassium (Cozaar) 100 mg PO NOW ONE Stop: 07/15/18 22:31 Last Admin: 07/15/18 22:36 Dose: Not Given Metformin HCl (Glucophage) 1,000 mg PO BEDTIME MARICRUZ Olanzapine (Zyprexa Zydis) 10 mg PO NOW ONE Stop: 07/15/18 20:19 Last Admin: 07/15/18 20:28 Dose: 10 mg Vital Signs - 8 hr 07/16/18 05:04 Temperature 97.3 F L Pulse Rate 67 Respiratory Rate 16 Blood Pressure [Left Arm] 97/63 Pulse Oximetry 100 MDM - Psych <AUDREY Townsend - Last Filed: 07/15/18 22:53> Lab Data Result diagrams: 07/15/18 16:35 07/15/18 16:35 Lab Results 07/15/18 07/15/18 07/15/18 Range/Units 16:30 16:30 16:35 WBC 7.8 (4.5-11.0) X10^3/uL RBC 4.14 (4.0-5.2) X10^6/uL Hgb 12.0 (12.0-16.0) g/dL Hct 36.5 (36-46) % MCV 88.2 (80-100) fL MCH 29.0 (26-34) PG MCHC 32.9 (30-36) % RDW 13.2 (11.6-14.8) % Plt Count 363 (150-400) X10^3/uL Neut % (Auto) 53.3 (50-75) % Lymph % (Auto) 32.0 (25-40) % [place] % (Auto) 10.5 (3-14) % Eos % (Auto) 3.5 (2-4) % Baso % (Auto) 0.7 (0-2) % Neut # (Auto) 4200 (3563-5627) /uL Lymph # (Auto) 2500 (4216-6950) /uL [place] # (Auto) 800 (0-900) /uL Eos # (Auto) 300 (0-450) /uL Baso # (Auto) 100 (0-100) /uL Sodium (137-145) mmol/L Potassium (3.4-5.1) mmol/L Chloride (98-107) mmol/L Carbon Dioxide (22-32) mmol/L BUN (7-17) mg/dL Creatinine (0.52-1.04) mg/dL Estimated GFR (>60) mL/min BUN/Creatinine Ratio (6-22) Glucose (80-110) mg/dL Calcium (8.4-10.2) mg/dL Total Bilirubin (0.2-1.3) mg/dL AST (14-36) IU/L ALT (9-52) IU/L Alkaline Phosphatase (38-126) U/L Total Protein (6.3-8.2) g/dL Albumin (3.5-5.0) g/dL Globulin (1.7-4.1) g/dL Albumin/Globulin Ratio (1.0-2.8) TSH (0.47-4.68) uIU/mL Urine Color Yellow Urine Appearance Cloudy Urine pH 5.0 (4.5-8.0) Ur Specific [place] >=1.030 H (1.000-1.035) Urine Protein Trace H (Negative) Urine Glucose (UA) 3+ H (Negative) g/dL Urine Ketones Negative (NEGATIVE) Urine Occult Blood Negative (Negative) Urine Nitrate Negative (Negative) Urine Bilirubin Negative (NEGATIVE) Urine Urobilinogen 0.2 (0.2) E.U./dL Ur Leukocyte Esterase Negative (NEGATIVE) Urine RBC 1-5/hpf (0-5/HPF) Urine WBC 1-5/hpf (0-5/HPF) Ur Squamous Epith Cells 1-5 /hpf (0-5/HPF) Urine Bacteria Many (>30) H (None) Ur Culture Indicated? Cult not indicated Salicylates (<20) mg/dL Urine Opiates Screen Negative (Negative) Ur Oxycodone Screen Negative (Negative) Urine Methadone Screen Negative (Negative) Acetaminophen (10-30) ug/mL Ur Barbiturates Screen Negative (Negative) U Tricyclic Antidepress Negative (Negative) Ur Phencyclidine Scrn Negative (Negative) Ur Amphetamines Screen Negative (Negative) U Methamphetamines Scrn Negative (Negative) Ur MDMA Scrn (Ecstasy) Negative (Negative) U Benzodiazepines Scrn Negative (Negative) Urine Cocaine Screen Negative (Negative) U Marijuana (THC) Screen Positive H (Negative) Ethyl Alcohol mg/dL 07/15/18 07/15/18 Range/Units 16:35 16:35 WBC (4.5-11.0) X10^3/uL RBC (4.0-5.2) X10^6/uL Hgb (12.0-16.0) g/dL Hct (36-46) % MCV (80-100) fL MCH (26-34) PG MCHC (30-36) % RDW (11.6-14.8) % Plt Count (150-400) X10^3/uL Neut % (Auto) (50-75) % Lymph % (Auto) (25-40) % [place] % (Auto) (3-14) % Eos % (Auto) (2-4) % Baso % (Auto) (0-2) % Neut # (Auto) (5508-9562) /uL Lymph # (Auto) (3543-8320) /uL [place] # (Auto) (0-900) /uL Eos # (Auto) (0-450) /uL Baso # (Auto) (0-100) /uL Sodium 136 L (137-145) mmol/L Potassium 4.6 (3.4-5.1) mmol/L Chloride 98 (98-107) mmol/L Carbon Dioxide 23 (22-32) mmol/L BUN 21 H (7-17) mg/dL Creatinine 0.80 (0.52-1.04) mg/dL Estimated GFR > 60.0 (>60) mL/min BUN/Creatinine Ratio 26.3 H (6-22) Glucose 269 H (80-110) mg/dL Calcium 9.9 (8.4-10.2) mg/dL Total Bilirubin 0.4 (0.2-1.3) mg/dL AST 19 (14-36) IU/L ALT 21 (9-52) IU/L Alkaline Phosphatase 132 H (38-126) U/L Total Protein 8.3 H (6.3-8.2) g/dL Albumin 4.8 (3.5-5.0) g/dL Globulin 3.5 (1.7-4.1) g/dL Albumin/Globulin Ratio 1.4 (1.0-2.8) TSH 2.35 (0.47-4.68) uIU/mL Urine Color Urine Appearance Urine pH (4.5-8.0) Ur Specific [place] (1.000-1.035) Urine Protein (Negative) Urine Glucose (UA) (Negative) g/dL Urine Ketones (NEGATIVE) Urine Occult Blood (Negative) Urine Nitrate (Negative) Urine Bilirubin (NEGATIVE) Urine Urobilinogen (0.2) E.U./dL Ur Leukocyte Esterase (NEGATIVE) Urine RBC (0-5/HPF) Urine WBC (0-5/HPF) Ur Squamous Epith Cells (0-5/HPF) Urine Bacteria (None) Ur Culture Indicated? Salicylates < 1.0 (<20) mg/dL Urine Opiates Screen (Negative) Ur Oxycodone Screen (Negative) Urine Methadone Screen (Negative) Acetaminophen < 10 L (10-30) ug/mL Ur Barbiturates Screen (Negative) U Tricyclic Antidepress (Negative) Ur Phencyclidine Scrn (Negative) Ur Amphetamines Screen (Negative) U Methamphetamines Scrn (Negative) Ur MDMA Scrn (Ecstasy) (Negative) U Benzodiazepines Scrn (Negative) Urine Cocaine Screen (Negative) U Marijuana (THC) Screen (Negative) Ethyl Alcohol < 10 mg/dL Point of Care Testing Glucose POC 249 MDM Narrative Medical decision making narrative: the patient is a 67-year-old female who presents in a manic state. She is gravely disabled at this point time and is unable to take care of herself. Thus DCR was contacted and came out to see the patient. Pio, the DCR mad the patient involuntary. The patient was given Zyprexa to help her be calmed, and as needed Ativan order was placed. She was given her nightly medications by her family members. The patient was able to obtain a bed at [facility] in [place]. She can be accepted at 9:00 a.m.. Transportation was arranged. A sitter was arranged. The patient has not made any threats towards self or anybody else during her stay at this point time. The patient was signed out to Dr. Booth at 23:00 <Albino Booth, DO - Last Filed: 07/16/18 05:29> Lab Data Lab Results 07/15/18 07/15/18 07/15/18 Range/Units 16:30 16:30 16:35 WBC 7.8 (4.5-11.0) X10^3/uL RBC 4.14 (4.0-5.2) X10^6/uL Hgb 12.0 (12.0-16.0) g/dL Hct 36.5 (36-46) % MCV 88.2 (80-100) fL MCH 29.0 (26-34) PG MCHC 32.9 (30-36) % RDW 13.2 (11.6-14.8) % Plt Count 363 (150-400) X10^3/uL Neut % (Auto) 53.3 (50-75) % Lymph % (Auto) 32.0 (25-40) % [place] % (Auto) 10.5 (3-14) % Eos % (Auto) 3.5 (2-4) % Baso % (Auto) 0.7 (0-2) % Neut # (Auto) 4200 (8118-2135) /uL Lymph # (Auto) 2500 (0781-5257) /uL [place] # (Auto) 800 (0-900) /uL Eos # (Auto) 300 (0-450) /uL Baso # (Auto) 100 (0-100) /uL Sodium (137-145) mmol/L Potassium (3.4-5.1) mmol/L Chloride (98-107) mmol/L Carbon Dioxide (22-32) mmol/L BUN (7-17) mg/dL Creatinine (0.52-1.04) mg/dL Estimated GFR (>60) mL/min BUN/Creatinine Ratio (6-22) Glucose (80-110) mg/dL Calcium (8.4-10.2) mg/dL Total Bilirubin (0.2-1.3) mg/dL AST (14-36) IU/L ALT (9-52) IU/L Alkaline Phosphatase (38-126) U/L Total Protein (6.3-8.2) g/dL Albumin (3.5-5.0) g/dL Globulin (1.7-4.1) g/dL Albumin/Globulin Ratio (1.0-2.8) TSH (0.47-4.68) uIU/mL Urine Color Yellow Urine Appearance Cloudy Urine pH 5.0 (4.5-8.0) Ur Specific [place] >=1.030 H (1.000-1.035) Urine Protein Trace H (Negative) Urine Glucose (UA) 3+ H (Negative) g/dL Urine Ketones Negative (NEGATIVE) Urine Occult Blood Negative (Negative) Urine Nitrate Negative (Negative) Urine Bilirubin Negative (NEGATIVE) Urine Urobilinogen 0.2 (0.2) E.U./dL Ur Leukocyte Esterase Negative (NEGATIVE) Urine RBC 1-5/hpf (0-5/HPF) Urine WBC 1-5/hpf (0-5/HPF) Ur Squamous Epith Cells 1-5 /hpf (0-5/HPF) Urine Bacteria Many (>30) H (None) Ur Culture Indicated? Cult not indicated Salicylates (<20) mg/dL Urine Opiates Screen Negative (Negative) Ur Oxycodone Screen Negative (Negative) Urine Methadone Screen Negative (Negative) Acetaminophen (10-30) ug/mL Ur Barbiturates Screen Negative (Negative) U Tricyclic Antidepress Negative (Negative) Ur Phencyclidine Scrn Negative (Negative) Ur Amphetamines Screen Negative (Negative) U Methamphetamines Scrn Negative (Negative) Ur MDMA Scrn (Ecstasy) Negative (Negative) U Benzodiazepines Scrn Negative (Negative) Urine Cocaine Screen Negative (Negative) U Marijuana (THC) Screen Positive H (Negative) Ethyl Alcohol mg/dL 07/15/18 07/15/18 Range/Units 16:35 16:35 WBC (4.5-11.0) X10^3/uL RBC (4.0-5.2) X10^6/uL Hgb (12.0-16.0) g/dL Hct (36-46) % MCV (80-100) fL MCH (26-34) PG MCHC (30-36) % RDW (11.6-14.8) % Plt Count (150-400) X10^3/uL Neut % (Auto) (50-75) % Lymph % (Auto) (25-40) % [place] % (Auto) (3-14) % Eos % (Auto) (2-4) % Baso % (Auto) (0-2) % Neut # (Auto) (1693-1538) /uL Lymph # (Auto) (9581-6792) /uL [place] # (Auto) (0-900) /uL Eos # (Auto) (0-450) /uL Baso # (Auto) (0-100) /uL Sodium 136 L (137-145) mmol/L Potassium 4.6 (3.4-5.1) mmol/L Chloride 98 (98-107) mmol/L Carbon Dioxide 23 (22-32) mmol/L BUN 21 H (7-17) mg/dL Creatinine 0.80 (0.52-1.04) mg/dL Estimated GFR > 60.0 (>60) mL/min BUN/Creatinine Ratio 26.3 H (6-22) Glucose 269 H (80-110) mg/dL Calcium 9.9 (8.4-10.2) mg/dL Total Bilirubin 0.4 (0.2-1.3) mg/dL AST 19 (14-36) IU/L ALT 21 (9-52) IU/L Alkaline Phosphatase 132 H (38-126) U/L Total Protein 8.3 H (6.3-8.2) g/dL Albumin 4.8 (3.5-5.0) g/dL Globulin 3.5 (1.7-4.1) g/dL Albumin/Globulin Ratio 1.4 (1.0-2.8) TSH 2.35 (0.47-4.68) uIU/mL Urine Color Urine Appearance Urine pH (4.5-8.0) Ur Specific [place] (1.000-1.035) Urine Protein (Negative) Urine Glucose (UA) (Negative) g/dL Urine Ketones (NEGATIVE) Urine Occult Blood (Negative) Urine Nitrate (Negative) Urine Bilirubin (NEGATIVE) Urine Urobilinogen (0.2) E.U./dL Ur Leukocyte Esterase (NEGATIVE) Urine RBC (0-5/HPF) Urine WBC (0-5/HPF) Ur Squamous Epith Cells (0-5/HPF) Urine Bacteria (None) Ur Culture Indicated? Salicylates < 1.0 (<20) mg/dL Urine Opiates Screen (Negative) Ur Oxycodone Screen (Negative) Urine Methadone Screen (Negative) Acetaminophen < 10 L (10-30) ug/mL Ur Barbiturates Screen (Negative) U Tricyclic Antidepress (Negative) Ur Phencyclidine Scrn (Negative) Ur Amphetamines Screen (Negative) U Methamphetamines Scrn (Negative) Ur MDMA Scrn (Ecstasy) (Negative) U Benzodiazepines Scrn (Negative) Urine Cocaine Screen (Negative) U Marijuana (THC) Screen (Negative) Ethyl Alcohol < 10 mg/dL Point of Care Testing Glucose POC 249 Discharge Plan Departure Patient Disposition: Xfer Psychiatric Hosp Clinical Impression: Manic behavior Referrals: Misael Cardona MD [Primary Care Provider] - <Albino Booth DO - Last Filed: 07/16/18 05:29> Cosign ED Attending Cosignature Attestation: Received turned over from day provider. I did review the patient's note and lab reports. The patient has been detained by the DCR. Patient has also already been medicated. She is scheduled for olive pick[facility] at 0900 hours in the morning to be taken to care facility. Patient has been sleeping all night without any problems. Patient continues to be medically cleared.
--- NOTE | 2018-07-15 22:59 | PC.NURSE ---
Addendum entered by Vonda Miranda R.N. 07/15/18 23:43: Patient's purse, home meds, and all jewelry (except two rings on hand that will not come off) sent home with family. Addendum entered by Vonda Miranda R.N. 07/15/18 23:18: Took patient's cell phone, labeled and secured. Gave her a magazine. She is reading it without issue or complaint on stretcher. Original Note: Family is leaving for the night. Arranged for sitter to come and hospital bed for patient to be more comfortable. Patient moved to room 13 for better visualization. Gave patient more snacks per her request. Pt appears to be more calm and family states somewhat improved.
--- NOTE | 2018-07-15 23:40 | PC.NURSE ---
Patient requested that the head of her bed be lowered and extra warm blankets because she wanted to go to sleep. She is laying down in bed and appears to be resting. She is cooperative and calm.
[2018-07-16 05:04] VITALS: BP 97/63; PULSE 67; RESP 16; TEMP 36.3; O2SAT 100
--- NOTE | 2018-07-16 08:37 | PC.NURSE ---
Per noc shift nurse pt has not slept in weeks. did not disturb pt's sleep, observed rise and fall of chest. does not appear in distress.
[2018-07-16 08:53] VITALS: BP 112/64; PULSE 64; RESP 16; O2SAT 100
== END 2018-07-16 09:08 ==
PROVIDERS: Emergency Provider Nurse Practitioner Family; PCP Family Medicine
DX: F30.10 Manic episode without psychotic symptoms, unspecified (principal)
CPT/HCPCS: 36415; 80053; 80305; 80320; 80329; 81001; 82962; 84443; 85025; 99283; 99284; G0480

== ENCOUNTER → 2018-08-10 09:16 | Outpatient (CLI) | payer MEDICARE, OTHER, SELFPAY ==
[2018-05-03 14:44] VITALS: BMI 34.3
[2018-08-10 11:37] LABS: Hemoglobin A1C% w Est Avg Glu 11.1 % (4.0-6.0)
[2018-08-10 12:03] LABS: BUN Creatinine Ratio 18.8 (6-22); Blood Urea Nitrogen 15 mg/dL (7-17); Calcium 9.3 mg/dL (8.4-10.2); Carbon Dioxide 24 mmol/L (22-32); Chloride 104 mmol/L (98-107); Estimated Glomerular Filt Rate > 60.0 mL/min (>60); Glucose 236 mg/dL (80-110); HEMOLYSIS < 15 (0-50); Potassium 4.5 mmol/L (3.4-5.1); Sodium 136 mmol/L (137-145)
== END ==
PROVIDERS: PCP Family Medicine; Visit Provider Family Medicine
DX: E11.9 Type 2 diabetes mellitus without complications (principal)
CPT/HCPCS: 36415; 80048; 83036

== ENCOUNTER → 2018-08-12 10:06 | Outpatient (CLI) | payer MEDICARE, OTHER, SELFPAY ==
[2018-05-03 14:44] VITALS: BMI 34.3
[2018-08-12 11:07] LABS: Free T4, Direct Thyroxine 0.97 ng/dL (0.78-2.19)
[2018-08-12 11:21] LABS: Thyroid Stimulating Hormone 3.69 uIU/mL (0.47-4.68)
== END ==
PROVIDERS: PCP Family Medicine; Visit Provider Psychiatry & Neurology Psychiatry
DX: F31.13 Bipolar disorder, current episode manic without psychotic features, severe (principal)
CPT/HCPCS: 36415; 80178; 84439; 84443

== ENCOUNTER → 2018-09-08 10:52 | Outpatient (CLI) | payer MEDICARE, OTHER, SELFPAY ==
[2018-05-03 14:44] VITALS: BMI 34.3
[2018-09-08 13:19] LABS: Thyroid Stimulating Hormone 3.49 uIU/mL (0.47-4.68)
== END ==
PROVIDERS: Family Provider Family Medicine; PCP Family Medicine; Visit Provider Internal Medicine Endocrinology, Diabetes & Metabolism
DX: E03.8 Other specified hypothyroidism (principal); E04.2 Nontoxic multinodular goiter
CPT/HCPCS: 36415; 84443

== ENCOUNTER → 2018-09-14 09:53 | Outpatient (CLI) | payer MEDICARE, OTHER, SELFPAY ==
[2018-05-03 14:44] VITALS: BMI 34.3
[2018-09-14 11:03] LABS: BUN Creatinine Ratio 21.1 (6-22); Blood Urea Nitrogen 19 mg/dL (7-17); Carbon Dioxide 23 mmol/L (22-32); Chloride 105 mmol/L (98-107); Estimated Glomerular Filt Rate > 60.0 mL/min (>60); Glucose 97 mg/dL (80-110); HEMOLYSIS < 15 (0-50); Potassium 4.9 mmol/L (3.4-5.1); Sodium 139 mmol/L (137-145)
== END ==
PROVIDERS: PCP Family Medicine; Visit Provider Family Medicine
DX: E11.9 Type 2 diabetes mellitus without complications (principal)
CPT/HCPCS: 36415; 80048; 83036

== ENCOUNTER → 2018-09-21 11:14 | Outpatient (CLI) | payer MEDICARE, OTHER, SELFPAY ==
[2018-05-03 14:44] VITALS: BMI 34.3
--- NOTE | 2018-09-21 | DI.US.S_ITS ---
PROCEDURE: US THYROID INDICATIONS: GOITER TECHNIQUE: Real-time scanning was performed of the thyroid gland, with image documentation. COMPARISON: [facility], US, THYROID, 11/15/2016, 10:25. FINDINGS: Right: Thyroid lobe measures 4.8 x 1.6 x 1.5 cm, and is homogeneous in echotexture. Left: Thyroid lobe measures 4.1 x 2.2 x 1.7 cm, and is homogenous in echotexture. Isthmus: 6 mm thick. Nodule number: 1 Location: Mid right lobe Size: 0.5 x 0.5 x 0.4 cm. Composition: Solid Echogenicity: Isoechoic Shape: wider than tall. Margins: Smooth Echogenic foci: None Total points: 3 ACR TI-RADS category: Mildly suspicious Nodule number: 2 Location: Right/Isthmus Size: 0.8 x 0.7 x 0.4 cm. Composition: Solid Echogenicity: Isoechoic Shape: wider than tall. Margins: Smooth Echogenic foci: None Total points: 3 ACR TI-RADS category: Mildly suspicious Nodule number: 3 Location: Left mid lobe Size: 2.2 x 1.4 x 1.2 cm . Composition: Solid Echogenicity: Hypoechoic Shape: wider than tall. Margins: Smooth Echogenic foci: Punctate Total points: 7 ACR TI-RADS category: Highly suspicious Nodule number: 4 Location: Inferior left lobe Size: 1.2 x 0.9 x 0.8 cm. Composition: spongiform Echogenicity: Hypoechoic Shape: wider than tall. Margins: Smooth Echogenic foci: None Total points: 2 ACR TI-RADS category: Not suspicious IMPRESSION: Multiple bilateral thyroid nodules as above. Recommend further evaluation with ultrasound guided FNA of nodule #3 in the left lobe, per consensus guidelines below ACR TI-RADS definitions and recommendations: TI-RADS 1 (benign): 0 points. FNA not needed. TI-RADS 2 (not suspicious): 2 points. FNA not needed. TI-RADS 3 (mildly suspicious): 3 points. * FNA if 2.5 cm or larger, follow up if 1.5 cm or larger (at 1, 3, and 5 years). TI-RADS 4 (moderately suspicious): 4-6 points. * FNA if 1.5 cm or larger, follow up if 1 cm or larger (at 1, 2, 3, and 5 years). TI-RADS 5 (highly suspicious): 7 points or more. * FNA if 1 cm or larger, follow up if 0.5 cm or larger (every year for 5 years). Dictated by: Luis Gimenez M.D. on 09/21/2018 at 17:15 Approved by: Luis Gimenez M.D. on 09/21/2018 at 17:20
== END ==
PROVIDERS: PCP Family Medicine; Visit Provider Internal Medicine Endocrinology, Diabetes & Metabolism
DX: E04.2 Nontoxic multinodular goiter (principal)
CPT/HCPCS: 76536

== ENCOUNTER → 2018-10-19 08:29 | Outpatient (CLI) | payer MEDICARE, OTHER, SELFPAY ==
[2018-05-03 14:44] VITALS: BMI 34.3
--- NOTE | 2018-10-19 | DI.US.S_ITS ---
PROCEDURE: US FINE NEEDLE ASPIRATION INDICATIONS: GOITER TECHNIQUE: The indications, alternatives, benefits, risks, and complications of the procedure were explained to the patient. Written informed consent was obtained and placed in the chart. The thyroid region was examined sonographically and a site was chosen for ultrasound guided percutaneous sampling. The skin was prepared and draped in the usual fashion, and anesthetized with 1% lidocaine infiltrated from the skin down to the thyroid gland. Multiple passes were then performed, with contents emptied into an appropriate pathology specimen container. A bandage was applied to the area of access at completion of the study. COMPARISON: None. FINDINGS: Location(s) of lesion(s) sampled: Left lobe [place]: 25 gauge hypodermic needles. Number of passes: 6 Medications: 1% lidocaine for local anaesthesia. Complications: None. IMPRESSION: Successful ultrasound-guided thyroid nodule fine needle aspiration, with cytology results pending. Please see chart below for management recommendations based on cytology results. [employer] ReportingRecommendationsNon-diagnostic* Repeat US-guided FNA, with on-site cytology evaluation if possible. * Repeated non-diagnostic nodules without high suspicion US features: close observation vs surgical consult. * Consider surgery if nodule has high suspicion US features, grows >20% in 2 dimensions on followup, or patient has clinical risk factors for malignancy. Benign* If nodule has high suspicion US features: repeat US and FNA within 12 months. * If nodule has low to intermediate suspicion US features: repeat US at 12-24 months. If nodule grows (20% increase in at least 2 dimensions, with minimal increase of 2 mm or >50% change in volume), or development of new suspicious US features, then repeat FNA or continue followup. * If nodule has very low suspicion US features: followup US at >24 months. Atypia of undetermined significance, follicular lesion of undetermined significanceRepeat FNA, molecular testing, followup US, or surgical consult.Follicular neoplasm, suspicious for follicular neoplasmSurgical consult; also consider molecular testing. Suspicious for malignancySurgical consult.MalignantSurgical consult. Dictated by: Luis Gimenez M.D. on 10/19/2018 at 12:43 Approved by: Luis Gimenez M.D. on 10/19/2018 at 12:43
--- NOTE | 2018-10-19 | PATH_ITS ---
Note [facility] Accession Number: [id number] TESTS RESULT FLAG UNITS REF RANGE LAB Clinician Provided Cytology Information No. of containers..01 ThinPrep Vial No. of containers..10 Previously Prepared Cytology Slide 01 L THYROID DIAGNOSIS: 02 L THYROID NEGATIVE FOR MALIGNANT CELLS. BETHESDA CATEGORY II. SPECIMEN CONSISTS IS SCANTLY CELLULAR AND CONSISTS OF FEW BENIGN FOLLICULAR CELLS AND BLOOD. THIS PATTERN IS CONSISTENT WITH A BENIGN NODULE. 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 She has a multinodular goiter. Her las ultrasound was in 2017. The dominant nodule is 1.5 x 1.1 x 2.2 cm on the left. She had a smaller nodule on the left measuring 9 x 8 x 7mm there is a small nodule under a centimeter in the isthmus and no nodules in the right lobe area she had a biopsy of the dominant nodule on the left and it came back nondiagnostic. 02 Kathie Jauregui MD, Pathologist NPI- [id number] Shant Fox, Complaint Manager ([facility]) 01 30 CC, PINK, CLEAR Also received 5 alcohol fixed, 5 quick stained slides, and 1 RNA vial. /[facility] FLAG LEGEND: L-Low Normal,H-High Normal,LL-Alert Low,HH-Alert High <-Panic Low,>-Panic High,A-Abnormal,AA-Critical Abnormal Performed at: 01 =Z [facility] [address] [place] [address] [address] [facility], [place] [address] Jayden Silva MD, 02 [facility] [address] [place] [address] Heather Yeager MD, Performed at: 01 [facility] [address] [place] [address], [place], [place] [id number] MD Jayden Silva MD Phone: [phone]
== END ==
PROVIDERS: PCP Family Medicine; Visit Provider Internal Medicine Endocrinology, Diabetes & Metabolism
DX: E04.2 Nontoxic multinodular goiter (principal)
CPT/HCPCS: 10005

== ENCOUNTER → 2018-10-19 08:32 | Outpatient (CLI) | payer MEDICARE, OTHER, SELFPAY ==
[2018-05-03 14:44] VITALS: BMI 34.3
[2018-10-19 10:02] LABS: Lithium 0.5 mmol/L (0.6-1.2)
[2018-10-19 10:03] LABS: Blood Urea Nitrogen 20 mg/dL (7-17); Calcium 9.7 mg/dL (8.4-10.2); Carbon Dioxide 26 mmol/L (22-32); Chloride 104 mmol/L (98-107); Glucose 171 mg/dL (80-110); HEMOLYSIS < 15 (0-50); Sodium 140 mmol/L (137-145)
== END ==
PROVIDERS: PCP Family Medicine; Visit Provider Psychiatry & Neurology Psychiatry
DX: F31.73 Bipolar disorder, in partial remission, most recent episode manic (principal)
CPT/HCPCS: 36415; 80048; 80178

== ENCOUNTER → 2018-10-24 10:23 | Outpatient (CLI) | payer MEDICARE, OTHER, SELFPAY ==
[2018-05-03 14:44] VITALS: BMI 34.3
[2018-10-24 11:24] LABS: Blood Urea Nitrogen 18 mg/dL (7-17); Calcium 9.8 mg/dL (8.4-10.2); Carbon Dioxide 24 mmol/L (22-32); Chloride 104 mmol/L (98-107); Estimated Glomerular Filt Rate > 60.0 mL/min (>60); Glucose 173 mg/dL (80-110); HEMOLYSIS < 15 (0-50); Potassium 5.1 mmol/L (3.4-5.1); Sodium 138 mmol/L (137-145)
[2018-10-24 11:59] LABS: Hemoglobin A1C% w Est Avg Glu 7.9 % (4.0-6.0)
== END ==
PROVIDERS: PCP Family Medicine; Visit Provider Family Medicine
DX: E11.9 Type 2 diabetes mellitus without complications (principal)
CPT/HCPCS: 36415; 80048; 83036

== ENCOUNTER → 2018-10-25 14:05 | Outpatient (CLI) | payer MEDICARE, OTHER, SELFPAY ==
[2018-05-03 14:44] VITALS: BMI 34.3
--- NOTE | 2018-10-25 | DI.CT.S_ITS ---
PROCEDURE: CT LUMBAR SPINE WO CON INDICATIONS: Spinal stenosis, lumbar region TECHNIQUE: Noncontrast 3 mm thick sections acquired from the T12 level to the sacrum. Sagittal and coronal reformats were constructed. For radiation dose reduction, the following was used: automated exposure control. COMPARISON: None. FINDINGS: Image quality: Excellent. Bones: Postsurgical changes compatible L3-S1 PLIF. Orthopedic hardware is intact. No lucencies at the bone hardware interface. There is mild L2-L3 retrolisthesis. There is trace L1-L2 retrolisthesis. Approximately 14? of convex right scoliosis. No acute vertebral body compression fractures. No suspicious lytic or blastic bony lesions. Central spinal caliber is of normal overall caliber. No pars defects. T12-L1: Loss of disc height. Vacuum disc phenomenon. Mild, diffuse disc bulge. Mild narrowing of the central canal. Moderate right and mild left neural foraminal narrowing. No definite neural compression. L1-L2: Loss of disc height. Vacuum disc phenomenon. Moderate, diffuse disc bulge. Moderate narrowing of the central canal. Severe right and mild left neural foraminal narrowing with compression of the exiting right L1 nerve root. L2-L3: Loss of disc height. Moderate, diffuse disc bulge. Mild bilateral facet hypertrophy. Moderate ligamentum flavum hypertrophy. Moderate to severe narrowing of the central canal with possible compression of the nerve roots of the cauda equina. Mild right and severe left neural foraminal narrowing with compression of the exiting left L2 nerve root. L3-L4: Status post fusion. Status post left laminotomy. Moderate, diffuse disc bulge. Mild bilateral facet hypertrophy. Moderate narrowing of the central canal. Moderate bilateral neural foraminal narrowing. No definite neural compression. L4-L5: Status post fusion. Mild, diffuse disc bulge. Mild bilateral facet hypertrophy. Mild narrowing of the central canal. Moderate right and severe left neural foraminal narrowing with compression of the exiting left L4 nerve root. L5-S1: Status post fusion. Mild, diffuse disc bulge. Mild bilateral facet hypertrophy. No central stenosis. Severe right and moderate left neural foraminal narrowing with compression of the exiting right L5 nerve root Soft tissues: No retroperitoneal masses or hematomas. Visualized aorta is normal in caliber. IMPRESSION: 1. Status post L3-S1 PLIF. 2. Multilevel degenerative disease. 3. Multilevel facet arthropathy. 4. Moderate to severe L2-L3 central canal narrowing with possible compression of the nerve roots of cauda equina. 5. Severe right L1-L2 neural foraminal narrowing with compression of the right L1 nerve root. Severe left L2-L3 neural foraminal narrowing with compression of the left L2 nerve root. Severe left L4-L5 neural foraminal narrowing with compression of the left L4 nerve root. Severe right L5-S1 neuroforaminal narrowing with compression of the right L5 nerve root. 6. Convex right scoliosis. Dictated by: Nancy Mai MD, PhD on 10/25/2018 at 17:45 Approved by: Nancy Mai MD, PhD on 10/25/2018 at 17:52
== END ==
PROVIDERS: PCP Family Medicine; Visit Provider Orthopaedic Surgery Orthopaedic Surgery of the Spine
DX: M48.061 Spinal stenosis, lumbar region without neurogenic claudication (principal)
CPT/HCPCS: 72131

== ENCOUNTER → 2018-11-10 14:22 | Outpatient (CLI) | payer MEDICARE, OTHER, SELFPAY ==
[2018-05-03 14:44] VITALS: BMI 34.3
--- NOTE | 2018-11-10 | DI.MG.S_ITS ---
BILATERAL DIGITAL SCREENING MAMMOGRAM 3D/2D WITH CAD: 11/10/2018 CLINICAL: Routine screening. Comparison is made to exams dated: 10/07/2017 mammogram, 08/25/2016 mammogram, and 08/25/2015 mammogram - [facility]. The tissue of both breasts is heterogeneously dense. This may lower the sensitivity of mammography. Current study was also evaluated with a Computer Aided Detection (CAD) system. There are benign vascular calcifications in both breasts. No significant masses, calcifications, or other findings are seen in either breast. There has been no significant interval change. IMPRESSION: There is no mammographic evidence of malignancy. A 1 year screening mammogram is recommended. This exam was interpreted at Station ID: [id number]. NOTE: For mammograms, a report in lay terms will be sent to the patient. Approximately 15% of breast malignancies will not be visualized mammographically. In the management of a palpable breast mass, a negative mammogram must not discourage biopsy of a clinically suspicious lesion. Electronically Signed By: John hodge/margie:11/10/2018 17:54:51 letter sent: Normal Exam ACR BI-RADS Category 2: Benign Finding(s) 3342F
== END ==
PROVIDERS: PCP Family Medicine; Visit Provider Family Medicine
DX: Z12.31 Encounter for screening mammogram for malignant neoplasm of breast (principal); M85.852 Other specified disorders of bone density and structure, left thigh; Z78.0 Asymptomatic menopausal state; Z82.62 Family history of osteoporosis
CPT/HCPCS: 77063; 77067; 77080

== ENCOUNTER → 2018-12-11 09:31 | Outpatient (CLI) | payer MEDICARE, OTHER, SELFPAY ==
[2018-05-03 14:44] VITALS: BMI 34.3
[2018-12-11 11:45] LABS: Thyroid Stimulating Hormone 3.49 uIU/mL (0.47-4.68)
== END ==
PROVIDERS: Family Provider Family Medicine; PCP Family Medicine; Visit Provider Internal Medicine Endocrinology, Diabetes & Metabolism
DX: E03.8 Other specified hypothyroidism (principal); E04.2 Nontoxic multinodular goiter; E04.1 Nontoxic single thyroid nodule
CPT/HCPCS: 36415; 84443

== ENCOUNTER → 2018-12-23 10:50 | Outpatient (CLI) | payer MEDICARE, OTHER, SELFPAY ==
[2018-05-03 14:44] VITALS: BMI 34.3
[2018-12-23 12:55] LABS: Hemoglobin A1C% w Est Avg Glu 8.6 % (4.0-6.0)
== END ==
PROVIDERS: PCP Family Medicine; Visit Provider Family Medicine
DX: E11.9 Type 2 diabetes mellitus without complications (principal)
CPT/HCPCS: 36415; 83036

== ENCOUNTER → 2019-01-18 14:07 | Outpatient (CLI) | payer MEDICARE, OTHER, SELFPAY ==
[2018-05-03 14:44] VITALS: BMI 34.3
[2019-01-18 15:53] LABS: BUN Creatinine Ratio 22.2 (6-22); Blood Urea Nitrogen 20 mg/dL (7-17); Calcium 10.2 mg/dL (8.4-10.2); Carbon Dioxide 25 mmol/L (22-32); Chloride 102 mmol/L (98-107); Estimated Glomerular Filt Rate > 60.0 mL/min (>60); Glucose 246 mg/dL (80-110); HEMOLYSIS < 15 (0-50); Potassium 5.2 mmol/L (3.4-5.1); Sodium 136 mmol/L (137-145)
[2019-01-18 16:33] LABS: Lithium 0.4 mmol/L (0.6-1.2)
== END ==
PROVIDERS: PCP Family Medicine; Visit Provider Psychiatry & Neurology Psychiatry
DX: F31.74 Bipolar disorder, in full remission, most recent episode manic (principal)
CPT/HCPCS: 36415; 80048; 80178

== ENCOUNTER → 2019-02-09 11:18 | Outpatient (CLI) | payer MEDICARE, OTHER, SELFPAY ==
[2018-05-03 14:44] VITALS: BMI 34.3
[2019-02-09 12:30] LABS: Hemoglobin A1C% w Est Avg Glu 7.5 % (4.0-6.0)
[2019-02-09 12:32] LABS: BUN Creatinine Ratio 12.2 (6-22); Blood Urea Nitrogen 11 mg/dL (7-17); Calcium 9.9 mg/dL (8.4-10.2); Carbon Dioxide 24 mmol/L (22-32); Chloride 104 mmol/L (98-107); Estimated Glomerular Filt Rate > 60.0 mL/min (>60); Glucose 159 mg/dL (80-110); HEMOLYSIS < 15 (0-50); Sodium 137 mmol/L (137-145)
[2019-02-09 12:36] LABS: Potassium 5.4 mmol/L (3.4-5.1)
== END ==
PROVIDERS: PCP Family Medicine; Visit Provider Family Medicine
DX: E11.9 Type 2 diabetes mellitus without complications (principal)
CPT/HCPCS: 36415; 80048; 83036

== ENCOUNTER 2019-03-02 13:01 | Emergency (ER) | payer MEDICARE, OTHER, SELFPAY ==
[2018-05-03 14:44] VITALS: BMI 34.3
[2019-03-02 13:14] VITALS: BP 164/65; PULSE 73; RESP 21; TEMP 36.5; O2SAT 100; BMI 34.3
--- NOTE | 2019-03-02 13:17 | ED.SYNCOPE ---
HPI - Syncope General Chief Complaint: Syncope Stated Complaint: faint on catrachito glenda Time Seen by Provider: 03/02/19 13:17 Source: patient Mode of arrival: Ambulatory Limitations: no limitations History of Present Illness HPI narrative: Patient is a 68-year-old female is who presents with a syncopal episode 3 nights ago. She states that on Catrachito Glenda she was eating dinner she stood up she felt lightheaded and like she might pass out so she sat down and passed out briefly. EMS was called she was not evaluated. She tried follow-up with her PCP who told her to come to the emergency department for further evaluation. She has not had any recurrent episodes since then she denies any chest pain is heart palpitations dizziness lightheadedness numbness tingling or weakness. MD complaint: collapsed Related Data Home Medications Medication Instructions Recorded Confirmed atorvastatin 20 mg tablet 20 mg PO BEDTIME tab 02/20/19 03/02/19 glimepiride 4 mg PO BID 03/02/19 03/02/19 metformin 1,000 mg PO QPM 03/02/19 03/02/19 metformin 1,500 mg PO QAM 03/02/19 03/02/19 Previous Rx's Medication Instructions Recorded levothyroxine 25 mcg tablet 25 mcg PO DAILY #30 tab 08/09/18 lithium carbonate 300 mg capsule 300 mg PO BEDTIME #30 cap 12/19/18 losartan 100 mg tablet 100 mg PO QPM 90 Days #90 tab 12/28/18 propranolol 10 mg tablet 20 mg PO BID #180 tab 02/15/19 Allergies Allergy/AdvReac Type Severity Reaction Status Date / Time cephalexin [CEPHALEXIN] Allergy Mild Rash Verified 03/02/19 13:14 latex Allergy Mild Rash Verified 03/02/19 13:14 Penicillins [PENICILLINS] Allergy Mild Rash Verified 03/02/19 13:14 Sulfa (Sulfonamide Allergy Mild Rash Verified 03/02/19 13:14 Antibiotics) [SULFA (SULFONAMIDE ANTIBIOTICS)] Review of Systems Review of Systems Narrative: GENERAL: Denies chills, fatigue, malaise, fever, sweats, travel HEENT: Denies sinus pain, ear pain, sore throat, difficulty swallowing, neck pain RESPIRATORY: Denies dyspnea, cough, wheezing, hemoptysis, sputum. CARDIOVASCULAR: Denies chest pain, palpitations, orthopnea, edema GASTROINTESTINAL: Denies nausea, vomiting, abdominal pain, diarrhea, constipation, melena. : Denies dysuria, frequency, incontinence, hematuria, urinary retention, flank pain. MUSCULOSKELETAL: Denies weakness, joint pain, or bony pain SKIN: No rash, no erythema, no pruritus NEUROLOGIC: See HPI PSYCHIATRIC: No concerning psychosocial issues. 12 point review of systems is negative except for those stated above and HPI Patient History Medical History Anxiety (Chronic) Cataract (Chronic) Cervical spine disease (Chronic) Cervical stenosis (uterine cervix) (Chronic) Chicken pox (Resolved 1950) Chronic back pain (Chronic) Depression (Chronic) Diabetes mellitus (Chronic ~1989) Diabetic retinopathy (Acute) Dyspareunia (Chronic) Eczema (Chronic) Endometriosis (Resolved) Fibroids (Resolved) Foot fracture, right (Acute ~02/2018) Hayfever (Chronic) Hearing loss (Chronic) Hemorrhoids (Chronic) History of heavy periods (Resolved) History of recurrent ear infection (Chronic 2013) HTN (hypertension) (Acute) Hyperlipidemia (Acute) Hypothyroidism (Chronic) IBS (irritable bowel syndrome) (Chronic) Irregular periods/menstrual cycles (Resolved) LBBB (left bundle branch block) (Chronic) Lumbar spine pain (Chronic) Measles (Resolved) MRSA infection (Resolved 2003) Mumps (Resolved) Ocular migraine (Acute ~02/2018) Osteoarthritis (Chronic) Ovarian cyst (Resolved) Painful menstrual periods (Resolved) Pelvic inflammatory disease (Resolved 1971) Psoriasis (Chronic) Recurrent sinusitis (Chronic) RLS (restless legs syndrome) (Chronic) Ruptured tympanic membrane (Resolved 2013) Scoliosis (Chronic) Sleep apnea (Chronic) Thyroid nodule (Chronic 2013) Surgical History Anesthesia (Resolved) History of knee replacement (Resolved 2004) History of knee replacement (Resolved 2007) History of knee replacement (Resolved 2009) History of tympanoplasty (Resolved 2013) S/P surgical manipulation of knee joint (Resolved 2004) Status post biopsy (Resolved 12/04/13) Status post gastric banding surgery (Resolved 2007) Status post hysterectomy (Resolved 1989) Status post hysteroscopic myomectomy (Resolved ~1979) Family History Child Mental health problem Father Cancer Heart disease Hypertension High cholesterol Stroke Grandfather Cancer Grandmother Cancer Mother Heart disease Mental health problem Stroke Grandfather Diabetes mellitus Sister Age: 65 Mental health problem Social History household members: other Smoking Status: Never smoker alcohol intake: current Smoking Status: Never smoker alcohol intake frequency: a few times a week Substance Use Type: marijuana Exam Initial Vital Signs Initial Vital Signs: Vital Signs Temperature 97.7 F 03/02/19 13:14 Pulse Rate 73 03/02/19 13:14 Respiratory Rate 21 03/02/19 13:14 Blood Pressure 164/65 H 03/02/19 13:14 Pulse Oximetry 100 03/02/19 13:14 GENERAL: Well-appearing, well-nourished and in no acute distress. HEENT: Head atraumatic,EOMI, pupils reactive, face symmetric, moist mucous membranes CARDIOVASCULAR: Regular rate and rhythm without murmurs, rubs or gallops. RESPIRATORY: Breath sounds equal bilaterally, no wheezes rales or rhonchi. ABDOMEN: Soft, nontender. Normoactive bowel sounds all 4 quadrants. No guarding or rebound. EXTREMITIES: Normal range of motion, no clubbing or edema. Neurovascularly intact NEUROLOGICAL: Alert and oriented x4.Normal gait and speech. Cranial nerves II through XII grossly intact. SKIN: Warm, dry, no laceration, no petechiae, no rashes or lesions. Course Orders Ordered: ED Orders 03/02/19 13:12 Complete Blood Count AUTO DIFF Stat Comprehensive Metabolic Panel Stat [place] Stat 03/02/19 13:19 XR chest 2V Stat EKG-12 Lead Stat Discontinued Medications Sodium Chloride (Normal Saline 0.9%) 1,000 mls @ 1,000 mls/hr IV BOLUS ONE Stop: 03/02/19 14:53 Last Infusion: 03/02/19 14:48 Dose: 0 mls/hr Documented by: Admin: 03/02/19 14:00 Dose: 1,000 mls/hr Documented by: CHARLES Vital Signs Vital signs: Vital Signs - 8 hr 03/02/19 13:14 03/02/19 14:00 03/02/19 14:30 Temperature 97.7 F Pulse Rate 73 74 76 Respiratory Rate 21 12 17 Blood Pressure 164/65 H Blood Pressure [Right Arm] 131/63 139/70 Pulse Oximetry 100 100 98 MDM - Syncope Lab Data Attestation: I reviewed the patient's lab results. Result diagrams: 03/02/19 13:12 03/02/19 13:12 Labs: Lab Results 03/02/19 03/02/19 03/02/19 Range/Units 13:12 13:12 13:12 WBC 11.7 H (4.5-11.0) X10^3/uL RBC 3.96 L (4.0-5.2) X10^6/uL Hgb 11.9 L (12.0-16.0) g/dL Hct 35.5 L (36-46) % MCV 89.6 (80-100) fL MCH 30.1 (26-34) PG MCHC 33.6 (30-36) % RDW 13.8 (11.6-14.8) % Plt Count 358 (150-400) X10^3/uL Neut % (Auto) 66.3 (50-75) % Lymph % (Auto) 22.2 L (25-40) % [place] % (Auto) 8.3 (3-14) % Eos % (Auto) 2.7 (2-4) % Baso % (Auto) 0.5 (0-2) % Neut # (Auto) 7800 H (3127-0549) /uL Lymph # (Auto) 2600 (2826-9620) /uL [place] # (Auto) 1000 H (0-900) /uL Eos # (Auto) 300 (0-450) /uL Baso # (Auto) 100 (0-100) /uL Sodium 141 (137-145) mmol/L Potassium 5.1 (3.4-5.1) mmol/L Chloride 104 (98-107) mmol/L Carbon Dioxide 23 (22-32) mmol/L BUN 38 H (7-17) mg/dL Creatinine 2.10 H (0.52-1.04) mg/dL Estimated GFR 23.4 L (>60) mL/min BUN/Creatinine Ratio 18.1 (6-22) Glucose 81 (80-110) mg/dL Calcium 10.0 (8.4-10.2) mg/dL Total Bilirubin 0.4 (0.2-1.3) mg/dL AST 31 (14-36) IU/L ALT 16 (<35) IU/L Alkaline Phosphatase 72 (38-126) U/L Total Protein 7.8 (6.3-8.2) g/dL Albumin 4.9 (3.5-5.0) g/dL Globulin 2.9 (1.7-4.1) g/dL Albumin/Globulin Ratio 1.7 (1.0-2.8) [place] 1.1 (0.6-1.2) mmol/L Imaging Data Chest x-ray: Radiologist's Impression: PROCEDURE: XR CHEST 2V INDICATIONS: shortness of breath TECHNIQUE: 2 views of the chest were acquired. COMPARISON: [facility], CR, XR CHEST 2V, 07/25/2017, 10:27. FINDINGS: Surgical changes and devices: A gastric band is incidentally noted. Lungs and pleura: There may be minimal scar versus atelectasis within the left costophrenic angle. No definite pulmonary consolidation is evident. No effusion or pneumothorax is appreciated. Mediastinum: Mediastinal contours are normal. Heart size is normal. There is aortic atherosclerosis. Bones and chest wall: No suspicious bony abnormalities. At least moderate degenerative changes of the spine are present, not well evaluated. Soft tissues appear unremarkable. IMPRESSION: Probable mild scarring versus atelectasis at the left lung base. No definite acute cardiopulmonary process. Dictated by: Jean Triplett M.D. on 03/02/2019 at 12:56 Approved by: Jean Triplett M.D. on 03/02/2019 at 12:58 ECG Data Attestation: I personally reviewed and interpreted this ECG as follows: Prior ECG tracings: available for review Interpretation: Left bundle branch block sinus rhythm rate 59 is p.r. interval 2 0 for QRS [address] elevation depression or T-wave inversions similar to previous EKG MDM Narrative Medical decision making narrative: Patient is noted to have elevated creatinine of 2.1 a couple weeks ago her creatinine was normal this may have contributed to her syncopal episode 2 days ago. Has not had a recurrent syncopal episodes she is given 1 L of fluid she is tolerating oral fluids and electrolytes are normal. At this time I encouraged her to to drink fluids and follow up with his PCP and have blood work recheck I discussed case with , agrees with outpatient follow-up and recheck of blood work on Tuesday. Discharge Plan Departure Patient Disposition: Home Clinical Impression: Dehydration Activity Restrictions/Additional Instructions: Tuesday 11:[address] Cardona *You have been diagnosed with dehydration *What to do: Increase fluid intake with Gatorade or Gatorade like *Continue to take medications as directed *Follow up with your primary care provider on Tuesday as scheduled above *Return to ER if you should have recurrent episode of passing out dizziness lightheadedness or any new, worsening or concerning symptoms Prescriptions: No Action lithium carbonate 300 mg capsule 300 mg PO BEDTIME Qty: 30 RF: 3 atorvastatin 20 mg tablet 20 mg PO BEDTIME RF: 0 levothyroxine 25 mcg tablet 25 mcg PO DAILY Qty: 30 RF: 3 losartan 100 mg tablet 100 mg PO QPM 90 Days Qty: 90 RF: 3 propranolol 10 mg tablet 20 mg PO BID Qty: 180 RF: 3 metformin 500 mg tablet 1,000 mg PO QPM RF: 0 metformin 500 mg tablet 1,500 mg PO QAM RF: 0 glimepiride 4 mg tablet 4 mg PO BID RF: 0 Referrals: Misael Cardona MD [Primary Care Provider] -
[2019-03-02 13:27] LABS: Add Manual Diff / Slide Review NO; Basophils Absolute Auto 100 /uL (0-100); Basophils Percent Auto 0.5 % (0-2); Eosinophils Absolute Auto 300 /uL (0-450); Eosinophils Percent Auto 2.7 % (2-4); Hematocrit 35.5 % (36-46); Hemoglobin 11.9 g/dL (12.0-16.0); Lymphocytes Absolute Auto 2600 /uL (1100-4500); Lymphocytes Percent Auto 22.2 % (25-40); Mean Corpuscular HGB Conc 33.6 % (30-36); Mean Corpuscular Hemoglobin 30.1 PG (26-34); Mean Corpuscular Volume 89.6 fL (80-100); Monocytes Absolute Auto 1000 /uL (0-900); Monocytes Percent Auto 8.3 % (3-14); Neutrophils Absolute Auto 7800 /uL (1500-7000); Neutrophils Percent Auto 66.3 % (50-75); Platelet Count 358 X10^3/uL (150-400); Red Blood Cell Count 3.96 X10^6/uL (4.0-5.2); Red Cell Distribution Width 13.8 % (11.6-14.8); White Blood Cell Count 11.7 X10^3/uL (4.5-11.0)
[2019-03-02 13:43] LABS: Alanine Aminotransferase 16 IU/L (<35); Albumin 4.9 g/dL (3.5-5.0); Albumin Globulin Ratio 1.7 (1.0-2.8); Alkaline Phosphatase 72 U/L (38-126); Aspartate Aminotransferase 31 IU/L (14-36); BUN Creatinine Ratio 18.1 (6-22); Bilirubin Total 0.4 mg/dL (0.2-1.3); Blood Urea Nitrogen 38 mg/dL (7-17); Carbon Dioxide 23 mmol/L (22-32); Chloride 104 mmol/L (98-107); Estimated Glomerular Filt Rate 23.4 mL/min (>60); Globulin 2.9 g/dL (1.7-4.1); Glucose 81 mg/dL (80-110); HEMOLYSIS < 15 (0-50); Potassium 5.1 mmol/L (3.4-5.1); Sodium 141 mmol/L (137-145); Total Protein 7.8 g/dL (6.3-8.2)
[2019-03-02 14:00] VITALS: BP 131/63; PULSE 74; RESP 12; O2SAT 100
[2019-03-02] MEDS: SODIUM CHLORIDE 0.9% 1,000 ML 1000 ML IV (14:00)
[2019-03-02 14:30] VITALS: BP 139/70; PULSE 76; RESP 17; O2SAT 98
[2019-03-02 15:00] VITALS: BP 128/71; PULSE 97; RESP 17; O2SAT 96
[2019-03-02 15:04] LABS: Lithium 1.1 mmol/L (0.6-1.2)
== END 2019-03-02 15:19 | disposition home or self-care (01) ==
PROVIDERS: Emergency Provider Emergency Medicine; PCP Family Medicine
DX: E86.0 Dehydration (principal); R06.02 Shortness of breath; I10 Essential (primary) hypertension
CPT/HCPCS: 36415; 71046; 80053; 80178; 85025; 93005; 96360; 99284; 99285

== ENCOUNTER → 2019-03-05 10:54 | Outpatient (CLI) | payer MEDICARE, OTHER, SELFPAY ==
[2018-05-03 14:44] VITALS: BMI 34.3
[2019-03-05 11:44] LABS: Hemoglobin A1C% w Est Avg Glu 6.8 % (4.0-6.0)
[2019-03-05 13:18] LABS: BUN Creatinine Ratio 11.6 (6-22); Blood Urea Nitrogen 22 mg/dL (7-17); Calcium 9.5 mg/dL (8.4-10.2); Carbon Dioxide 23 mmol/L (22-32); Chloride 106 mmol/L (98-107); Estimated Glomerular Filt Rate 26.2 mL/min (>60); Glucose 99 mg/dL (80-110); HEMOLYSIS < 15 (0-50); Sodium 138 mmol/L (137-145)
[2019-03-05 13:20] LABS: Potassium 5.8 mmol/L (3.4-5.1)
== END ==
PROVIDERS: PCP Family Medicine; Visit Provider Family Medicine
DX: E11.9 Type 2 diabetes mellitus without complications (principal)
CPT/HCPCS: 36415; 80048; 83036

== ENCOUNTER → 2019-04-06 11:34 | Outpatient (CLI) | payer MEDICARE, OTHER, SELFPAY ==
[2018-05-03 14:44] VITALS: BMI 34.3
[2019-04-06 12:52] LABS: BUN Creatinine Ratio 21.8 (6-22); Blood Urea Nitrogen 24 mg/dL (7-17); Calcium 9.6 mg/dL (8.4-10.2); Carbon Dioxide 23 mmol/L (22-32); Chloride 102 mmol/L (98-107); Estimated Glomerular Filt Rate 49.2 mL/min (>60); Glucose 211 mg/dL (80-110); HEMOLYSIS < 15 (0-50); Sodium 137 mmol/L (137-145)
[2019-04-06 13:31] LABS: Lithium 0.6 mmol/L (0.6-1.2)
== END ==
PROVIDERS: PCP Family Medicine; Visit Provider Psychiatry & Neurology Psychiatry
DX: F31.74 Bipolar disorder, in full remission, most recent episode manic (principal)
CPT/HCPCS: 36415; 80048; 80178

== ENCOUNTER → 2019-04-20 12:17 | Outpatient (CLI) | payer MEDICARE, OTHER, SELFPAY ==
[2018-05-03 14:44] VITALS: BMI 34.3
[2019-04-20 12:47] LABS: Add Manual Diff / Slide Review NO; Basophils Absolute Auto 100 /uL (0-100); Basophils Percent Auto 0.7 % (0-2); Eosinophils Absolute Auto 300 /uL (0-450); Eosinophils Percent Auto 3.9 % (2-4); Hematocrit 33.3 % (36-46); Hemoglobin 11.1 g/dL (12.0-16.0); Lymphocytes Absolute Auto 2000 /uL (1100-4500); Lymphocytes Percent Auto 25.9 % (25-40); Mean Corpuscular HGB Conc 33.2 % (30-36); Mean Corpuscular Hemoglobin 29.9 PG (26-34); Monocytes Absolute Auto 700 /uL (0-900); Monocytes Percent Auto 8.8 % (3-14); Neutrophils Absolute Auto 4800 /uL (1500-7000); Neutrophils Percent Auto 60.7 % (50-75); Platelet Count 321 X10^3/uL (150-400); Red Blood Cell Count 3.71 X10^6/uL (4.0-5.2); Red Cell Distribution Width 13.8 % (11.6-14.8); White Blood Cell Count 7.9 X10^3/uL (4.5-11.0)
[2019-04-20 13:03] LABS: Alanine Aminotransferase 31 IU/L (<35); Albumin 4.6 g/dL (3.5-5.0); Albumin Globulin Ratio 1.5 (1.0-2.8); Alkaline Phosphatase 103 U/L (38-126); Aspartate Aminotransferase 28 IU/L (14-36); BUN Creatinine Ratio 16.4 (6-22); Bilirubin Total 0.4 mg/dL (0.2-1.3); Blood Urea Nitrogen 18 mg/dL (7-17); Calcium 9.7 mg/dL (8.4-10.2); Carbon Dioxide 23 mmol/L (22-32); Chloride 104 mmol/L (98-107); Estimated Glomerular Filt Rate 49.2 mL/min (>60); Glucose 271 mg/dL (80-110); HEMOLYSIS < 15 (0-50); Potassium 5.2 mmol/L (3.4-5.1); Sodium 136 mmol/L (137-145); Total Protein 7.6 g/dL (6.3-8.2)
[2019-04-20 13:43] LABS: Lithium 0.4 mmol/L (0.6-1.2)
[2019-04-20 13:59] LABS: Free T4, Direct Thyroxine 1.03 ng/dL (0.78-2.19)
[2019-04-20 14:13] LABS: Thyroid Stimulating Hormone 3.76 uIU/mL (0.47-4.68)
== END ==
PROVIDERS: Psychiatry & Neurology Psychiatry; PCP Family Medicine; Referring Provider Family Medicine; Visit Provider Family Medicine
DX: F31.74 Bipolar disorder, in full remission, most recent episode manic (principal)
CPT/HCPCS: 36415; 80053; 80178; 84439; 84443; 85025

== ENCOUNTER → 2019-04-25 15:37 | Outpatient (CLI) | payer MEDICARE, OTHER, SELFPAY ==
[2018-05-03 14:44] VITALS: BMI 34.3
[2019-04-25 17:10] LABS: Hemoglobin A1C% w Est Avg Glu 8.3 % (4.0-6.0)
[2019-04-25 17:59] LABS: HEMOLYSIS < 15 (0-50); Iron 95 ug/dL (37-170)
[2019-04-25 18:02] LABS: Blood Urea Nitrogen 21 mg/dL (7-17); Calcium 10.3 mg/dL (8.4-10.2); Carbon Dioxide 25 mmol/L (22-32); Chloride 102 mmol/L (98-107); Estimated Glomerular Filt Rate 37.3 mL/min (>60); Glucose 295 mg/dL (80-110); HEMOLYSIS < 15 (0-50); Potassium 4.9 mmol/L (3.4-5.1); Sodium 138 mmol/L (137-145)
[2019-04-25 18:10] LABS: Percent Iron Saturation 27 % (15-50); Total Iron Binding Capacity 353 ug/dL (265-497); Transferrin 302 mg/dL (206-381)
[2019-04-25 18:39] LABS: Ferritin 27 ng/mL (11-264)
[2019-04-25 19:08] LABS: Vitamin B12 260 pg/mL (239-931)
[2019-04-25 20:47] LABS: Folate 9.7 ng/mL (2.76-20.0)
== END ==
PROVIDERS: PCP Family Medicine; Referring Provider Family Medicine; Visit Provider Family Medicine
DX: E11.9 Type 2 diabetes mellitus without complications (principal); R79.9 Abnormal finding of blood chemistry, unspecified; R89.9 Unspecified abnormal finding in specimens from other organs, systems and tissues
CPT/HCPCS: 36415; 80048; 82607; 82728; 82746; 83036; 83540; 83550

== ENCOUNTER → 2019-05-10 11:50 | Outpatient (CLI) | payer MEDICARE, OTHER, SELFPAY ==
[2018-05-03 14:44] VITALS: BMI 34.3
[2019-05-10 12:43] LABS: Add Manual Diff / Slide Review NO; Basophils Absolute Auto 100 /uL (0-100); Basophils Percent Auto 0.8 % (0-2); Eosinophils Absolute Auto 300 /uL (0-450); Eosinophils Percent Auto 4.2 % (2-4); Hematocrit 31.3 % (36-46); Hemoglobin 10.6 g/dL (12.0-16.0); Lymphocytes Absolute Auto 2100 /uL (1100-4500); Lymphocytes Percent Auto 28.3 % (25-40); Mean Corpuscular HGB Conc 33.9 % (30-36); Mean Corpuscular Hemoglobin 30.4 PG (26-34); Mean Corpuscular Volume 89.7 fL (80-100); Monocytes Absolute Auto 600 /uL (0-900); Neutrophils Absolute Auto 4300 /uL (1500-7000); Neutrophils Percent Auto 58.7 % (50-75); Platelet Count 278 X10^3/uL (150-400); Red Blood Cell Count 3.49 X10^6/uL (4.0-5.2); Red Cell Distribution Width 13.7 % (11.6-14.8); White Blood Cell Count 7.4 X10^3/uL (4.5-11.0)
[2019-05-10 13:00] LABS: Blood Urea Nitrogen 18 mg/dL (7-17); Calcium 9.3 mg/dL (8.4-10.2); Carbon Dioxide 22 mmol/L (22-32); Chloride 101 mmol/L (98-107); Cholesterol 178 mg/dL (140-199); Estimated Glomerular Filt Rate 44.5 mL/min (>60); Glucose 320 mg/dL (80-110); HDL Cholesterol 43 mg/dL (40-60); HEMOLYSIS < 15 (0-50); LDL Cholesterol Calculated 83 mg/dL (<100); Potassium 4.5 mmol/L (3.4-5.1); Sodium 136 mmol/L (137-145); Triglycerides 260 mg/dL (35-150)
== END ==
PROVIDERS: PCP Family Medicine; Referring Provider Internal Medicine Cardiovascular Disease; Visit Provider Internal Medicine Cardiovascular Disease
DX: I10 Essential (primary) hypertension (principal)
CPT/HCPCS: 36415; 80048; 80061; 85025

== ENCOUNTER 2019-05-17 07:06 | Day surgery (SDC) | payer MEDICARE, OTHER, SELFPAY ==
[2018-05-03 14:44] VITALS: BMI 34.3
[2019-05-17] MEDS: PROPARACAINE 0.5% OPHTH SOL 2 DROPS EYE-OP (07:46)
[2019-05-17] MEDS: CATARACT EYE COMPOUND (10 DROPS/SYRINGE) 3 DROPS EYE-OP (07:47)
[2019-05-17 08:01] VITALS: BP 157/78; PULSE 70; RESP 16; TEMP 36.8; O2SAT 100; BMI 37.1
--- NOTE | 2019-05-17 08:21 | PM.PREOP ---
Pre-operative Note Interval Note History & Physical reviewed/Exam performed by Physician: Yes Changes to H&P: No
[2019-05-17] MEDS: MOXIFLOXACIN INJ 5 MG/ML VIAL EYE-OP (08:44)
[2019-05-17] MEDS: CHONDROIDTIN/SOD HYALURONATE 1.05 ML SYRINGE INTRAOCULA (08:45)
[2019-05-17] MEDS: TETRACAINE 0.5% OPHTH DROPS 4 ML 2 DROPS EYE-OP (08:45)
[2019-05-17] MEDS: BALANCED SALT IRRIG SOLN NO.2 500 ML, EPINEPHrine 1 MG IRR (08:45)
[2019-05-17] MEDS: LIDOCAINE 2% INJ SDV 2 ML INJ (08:46)
[2019-05-17] MEDS: PHENYLEPHRINE/LIDOCAINE VIAL (OR) 0.2 ML EYE-OP (08:46)
[2019-05-17] MEDS: BALANCED SALT IRRIG SOLN NO.2 15 ML 5 ML IRR (08:47)
--- NOTE | 2019-05-17 09:02 | PM.OP.1 ---
Procedure & Clinicians Procedure: Cataract extraction with intraocular lens implant, right. Same procedure as scheduled: Yes Indications: Visually significant age related nuclear sclerosis Surgeon: Yfn Castrejon Click Yes if Unassisted: Yes Anesthesia Type: MAC +/- Operative Notes Procedure in detail: The patient was brought to the operating suite. The correct patient, surgical site and lens were confirmed. 0.5 % tetracaine drops were placed in the right eye. The patient was prepped and draped in the typical sterile manner. A lid speculum was placed in the eye. 2% lidocaine was placed on the eye. A paracentesis port was created with a side-port blade. 0.1 mL of 1% preservative free lidocaine with phenylephrine was injected into the anterior chamber. Viscoelastic was injected into the anterior chamber. A 2.6mm keratome was used to create a clear corneal temporal incision. Cystotome and Utrata forceps were used to create a continuous curvilinear capsulorrhexis. Balanced salt solution was used to hydrodissect the nucleus. Phacoemulsification was used to remove the lens. The capsular bag was inflated with viscoelastic. A Hatfield ZCBOO +21.0D lens was inserted into the capsule. Viscoelastic was removed and the wound hydrated. The wound was found to be leak free and the eye was assessed to be at normal physiologic pressure. 0.1mL Moxifloxacin (5mg/mL) preservative free was injected into the anterior chamber. The lid speculum was removed and the patient left the operating room in excellent condition. Complications: none Post-operative Condition: stable Disposition: same day surgery
[2019-05-17 09:18] VITALS: BP 171/77; PULSE 77; RESP 17; TEMP 36.5; O2SAT 100
== END 2019-05-17 09:24 | disposition home or self-care (01) ==
LOC: OR 07:08
PROVIDERS: PCP Family Medicine; Referring Provider Ophthalmology; Visit Provider Ophthalmology
PROC: (CPT 66984; principal; 2019-05-17 08:15)
DX: H25.11 Age-related nuclear cataract, right eye (principal); I10 Essential (primary) hypertension; E11.9 Type 2 diabetes mellitus without complications; F41.9 Anxiety disorder, unspecified; F31.9 Bipolar disorder, unspecified; J44.9 Chronic obstructive pulmonary disease, unspecified; Z79.84 Long term (current) use of oral hypoglycemic drugs
CPT/HCPCS: 66984; J0171; J2250

== ENCOUNTER → 2019-06-15 09:56 | Outpatient (CLI) | payer MEDICARE, OTHER, SELFPAY ==
[2018-05-03 14:44] VITALS: BMI 34.3
[2019-06-15 10:46] LABS: Hemoglobin A1C% w Est Avg Glu 9.8 % (4.0-6.0)
[2019-06-15 11:43] LABS: BUN Creatinine Ratio 20.7 (6-22); Blood Urea Nitrogen 29 mg/dL (7-17); Calcium 9.7 mg/dL (8.4-10.2); Carbon Dioxide 21 mmol/L (22-32); Chloride 105 mmol/L (98-107); Estimated Glomerular Filt Rate 37.3 mL/min (>60); Glucose 260 mg/dL (80-110); HEMOLYSIS < 15 (0-50); Potassium 4.9 mmol/L (3.4-5.1); Sodium 137 mmol/L (137-145)
== END ==
PROVIDERS: PCP Family Medicine; Referring Provider Family Medicine; Visit Provider Family Medicine
DX: E11.9 Type 2 diabetes mellitus without complications (principal)
CPT/HCPCS: 36415; 80048; 83036

== ENCOUNTER → 2019-07-02 10:51 | Outpatient (CLI) | payer MEDICARE, OTHER, SELFPAY ==
[2018-05-03 14:44] VITALS: BMI 34.3
[2019-07-02 13:13] LABS: Alanine Aminotransferase 13 IU/L (<35); Albumin 4.6 g/dL (3.5-5.0); Albumin Globulin Ratio 1.5 (1.0-2.8); Alkaline Phosphatase 79 U/L (38-126); Aspartate Aminotransferase 24 IU/L (14-36); BUN Creatinine Ratio 25.2 (6-22); Bilirubin Total 0.3 mg/dL (0.2-1.3); Blood Urea Nitrogen 38 mg/dL (7-17); Calcium 9.8 mg/dL (8.4-10.2); Carbon Dioxide 21 mmol/L (22-32); Chloride 104 mmol/L (98-107); Estimated Glomerular Filt Rate 34.2 mL/min (>60); Glucose 302 mg/dL (80-110); HEMOLYSIS < 15 (0-50); Lithium 0.7 mmol/L (0.6-1.2); Potassium 5.3 mmol/L (3.4-5.1); Sodium 137 mmol/L (137-145); Total Protein 7.6 g/dL (6.3-8.2)
== END ==
PROVIDERS: PCP Family Medicine; Referring Provider Psychiatry & Neurology Psychiatry; Visit Provider Psychiatry & Neurology Psychiatry
DX: F31.81 Bipolar II disorder (principal); Z79.899 Other long term (current) drug therapy
CPT/HCPCS: 36415; 80053; 80178

== ENCOUNTER → 2019-07-16 09:55 | Outpatient (CLI) | payer MEDICARE, OTHER, SELFPAY ==
[2018-05-03 14:44] VITALS: BMI 34.3
[2019-07-16 11:51] LABS: Thyroid Stimulating Hormone 2.68 uIU/mL (0.47-4.68)
== END ==
PROVIDERS: PCP Family Medicine; Referring Provider Internal Medicine Endocrinology, Diabetes & Metabolism; Visit Provider Internal Medicine Endocrinology, Diabetes & Metabolism
DX: E04.1 Nontoxic single thyroid nodule (principal)
CPT/HCPCS: 36415; 84443

== ENCOUNTER → 2019-08-16 09:52 | Outpatient (CLI) | payer MEDICARE, OTHER, SELFPAY ==
[2018-05-03 14:44] VITALS: BMI 34.3
[2019-08-16 10:44] LABS: Add Manual Diff / Slide Review NO; Basophils Absolute Auto 0 /uL (0-100); Basophils Percent Auto 0.4 % (0-2); Eosinophils Absolute Auto 300 /uL (0-450); Eosinophils Percent Auto 3.5 % (2-4); Hematocrit 30.4 % (36-46); Hemoglobin 10.5 g/dL (12.0-16.0); Lymphocytes Absolute Auto 2400 /uL (1100-4500); Lymphocytes Percent Auto 26.1 % (25-40); Mean Corpuscular HGB Conc 34.4 % (30-36); Mean Corpuscular Hemoglobin 31.2 PG (26-34); Mean Corpuscular Volume 90.7 fL (80-100); Monocytes Absolute Auto 700 /uL (0-900); Monocytes Percent Auto 7.3 % (3-14); Neutrophils Absolute Auto 5700 /uL (1500-7000); Neutrophils Percent Auto 62.7 % (50-75); Platelet Count 309 X10^3/uL (150-400); Red Blood Cell Count 3.35 X10^6/uL (4.0-5.2); Red Cell Distribution Width 13.8 % (11.6-14.8); White Blood Cell Count 9.1 X10^3/uL (4.5-11.0)
[2019-08-16 10:52] LABS: Hemoglobin A1C% w Est Avg Glu 7.9 % (4.0-6.0)
[2019-08-16 11:04] LABS: BUN Creatinine Ratio 20.2 (6-22); Blood Urea Nitrogen 25 mg/dL (7-17); Calcium 9.4 mg/dL (8.4-10.2); Carbon Dioxide 23 mmol/L (22-32); Chloride 106 mmol/L (98-107); Estimated Glomerular Filt Rate 42.8 mL/min (>60); Glucose 81 mg/dL (80-110); HEMOLYSIS < 15 (0-50); Potassium 5.1 mmol/L (3.4-5.1); Sodium 137 mmol/L (137-145)
[2019-08-16 11:49] LABS: TSH w/ Reflex to FT4 3.85 uIU/mL (0.47-4.68)
== END ==
PROVIDERS: PCP Family Medicine; Referring Provider Family Medicine; Visit Provider Family Medicine
DX: E11.9 Type 2 diabetes mellitus without complications (principal)
CPT/HCPCS: 36415; 80048; 83036; 84443; 85025

== ENCOUNTER → 2019-08-20 10:41 | Outpatient (CLI) | payer MEDICARE, OTHER, SELFPAY ==
[2018-05-03 14:44] VITALS: BMI 34.3
[2019-08-21 02:01] LABS: COVID19 Sendout Not Detected (Not Detect)
== END ==
PROVIDERS: PCP Family Medicine; Visit Provider Physician Assistant
DX: Z01.812 Encounter for preprocedural laboratory examination (principal)
CPT/HCPCS: 87635

== ENCOUNTER 2019-08-23 06:32 | Day surgery (SDC) | payer MEDICARE, OTHER, SELFPAY ==
[2018-05-03 14:44] VITALS: BMI 34.3
[2019-08-23] MEDS: PROPARACAINE 0.5% OPHTH SOL 2 DROPS EYE-OP (07:19)
[2019-08-23] MEDS: CATARACT EYE COMPOUND (10 DROPS/SYRINGE) 3 DROPS EYE-OP (07:23)
[2019-08-23 07:27] VITALS: BP 127/70; PULSE 72; RESP 16; TEMP 36.7; O2SAT 100; BMI 36.6
--- NOTE | 2019-08-23 07:31 | PM.PREOP ---
Pre-operative Note COVID-19 COVID-19 status: Negative Result date/Date tested (Pos, Neg/Pending): 08/20/19 Interval Note History & Physical reviewed/Exam performed by Physician: Yes Changes to H&P: No
--- NOTE | 2019-08-23 07:53 | SUR.OPER ---
Supine on eye stretcher, head on extension cradle secured with tape. Arms tucked at sides with blanket. Pillow under knees.
[2019-08-23] MEDS: TETRACAINE 0.5% OPHTH DROPS 4 ML 2 DROPS EYE-OP (08:00)
[2019-08-23] MEDS: PHENYLEPHRINE/LIDOCAINE VIAL (OR) 0.2 ML EYE-OP (08:01)
[2019-08-23] MEDS: MOXIFLOXACIN INJ 5 MG/ML VIAL EYE-OP (08:02)
[2019-08-23] MEDS: CHONDROIDTIN/SOD HYALURONATE 1.05 ML SYRINGE INTRAOCULA (08:03)
[2019-08-23] MEDS: LIDOCAINE 2% INJ SDV 2 ML INJ (08:03)
[2019-08-23] MEDS: BALANCED SALT IRRIG SOLN NO.2 500 ML, EPINEPHrine 1 MG IRR (08:04)
--- NOTE | 2019-08-23 08:17 | PM.OP.1 ---
Procedure & Clinicians Procedure: Cataract extraction with intraocular lens implant, left. Same procedure as scheduled: Yes Indications: Visually significant nuclear sclerosis Surgeon: Yfn Castrejon Click Yes if Unassisted: Yes Anesthesia Type: MAC +/- Operative Notes Procedure in detail: The patient was brought to the operating suite. The correct patient, surgical site and lens were confirmed. 0.5 % tetracaine drops were placed in the left eye. The patient was prepped and draped in the typical sterile manner. A lid speculum was placed in the eye. 2% lidocaine was placed on the eye. A paracentesis port was created with a side-port blade. 0.1 mL of 1% preservative free lidocaine with phenylephrine was injected into the anterior chamber. Viscoelastic was injected into the anterior chamber. A 2.6mm keratome was used to create a clear corneal temporal incision. Cystotome and Utrata forceps were used to create a continuous curvilinear capsulorrhexis. Balanced salt solution was used to hydrodissect the nucleus. Phacoemulsification was used to remove the lens. The capsular bag was inflated with viscoelastic. A Hatfield ZCBOO 21.0D lens was inserted into the capsule. Viscoelastic was removed and the wound hydrated. The wound was found to be leak free and the eye was assessed to be at normal physiologic pressure. 0.1mL Moxifloxacin (5mg/mL) preservative free was injected into the anterior chamber. The lid speculum was removed and the patient left the operating room in excellent condition. Complications: none Post-operative Condition: stable Disposition: same day surgery
[2019-08-23 08:23] VITALS: BP 130/76; PULSE 80; RESP 16; TEMP 36.2; O2SAT 100
== END 2019-08-23 08:32 | disposition home or self-care (01) ==
PROVIDERS: PCP Family Medicine; Referring Provider Ophthalmology; Visit Provider Ophthalmology
PROC: (CPT 66984; principal; 2019-08-23 07:45)
DX: H25.12 Age-related nuclear cataract, left eye (principal); E11.3212 Type 2 diabetes mellitus with mild nonproliferative diabetic retinopathy with macular edema, left eye; I10 Essential (primary) hypertension; G47.33 Obstructive sleep apnea (adult) (pediatric); F41.9 Anxiety disorder, unspecified
CPT/HCPCS: 66984; J0171; J2250

== ENCOUNTER → 2019-08-31 12:47 | Outpatient (CLI) | payer MEDICARE, OTHER, SELFPAY ==
[2018-05-03 14:44] VITALS: BMI 34.3
--- NOTE | 2019-08-31 12:49 | DI.US.S_ITS ---
PROCEDURE: US THYROID INDICATIONS: NODULE TECHNIQUE: Real-time scanning was performed of the thyroid gland, with image documentation. COMPARISON: [facility], [place], US THYROID, 09/21/2018, 11:22. FINDINGS: Right: Thyroid lobe measures 5.2 x 1.7 x 2.0 cm, and is homogeneous in echotexture. Left: Thyroid lobe measures 4.8 x 2.0 x 2.2 cm, and is homogenous in echotexture. Isthmus: 2.0 mm thick. Nodule number: 1 Location: Right mid Size: Unchanged 0.7 x 0.4 x 0.7 cm. Composition: Solid Echogenicity: Isoechoic Shape: wider than tall. Margins: Smooth Echogenic foci: None Total points: 3 ACR TI-RADS category: Of a suspicious Nodule number: 2 Location: Right isthmus Size: Unchanged at 0.9 x 0.3 x 0.8 cm. Composition: Predominately solid Echogenicity: Isoechoic Shape: wider than tall. Margins: Smooth Echogenic foci: None Total points: 3 ACR TI-RADS category: Mildly suspicious Nodule number: 3 Location: Left mid Size: Unchanged 2.2 x 1.0 x 1.4 cm. Composition: Predominately solid Echogenicity: Hypoechoic Shape: wider than tall. Margins: Smooth Echogenic foci: Internal punctate echogenic foci Total points: 7 ACR TI-RADS category: Highly suspicious Nodule number: 4 Location: Left inferior Size: Unchanged at 1.0 x 0.8 x 1.3 cm. Composition: spongiform Echogenicity: Isoechoic Shape: wider than tall. Margins: Smooth Echogenic foci: None Total points: 1 ACR TI-RADS category: Benign Nodule number: 5 Location: Left mid Size: 0.8 x 0.6 x 0.8 cm. Composition: Predominately solid Echogenicity: Isoechoic Shape: wider than tall. Margins: Smooth Echogenic foci: None Total points: 3 ACR TI-RADS category: Mildly suspicious IMPRESSION: Stable appearance of bilateral thyroid nodules. Recommend continued followup ultrasound as detailed below. ACR TI-RADS definitions and recommendations: TI-RADS 1 (benign): 0 points. FNA not needed. TI-RADS 2 (not suspicious): 2 points. FNA not needed. TI-RADS 3 (mildly suspicious): 3 points. * FNA if 2.5 cm or larger, follow up if 1.5 cm or larger (at 1, 3, and 5 years). TI-RADS 4 (moderately suspicious): 4-6 points. * FNA if 1.5 cm or larger, follow up if 1 cm or larger (at 1, 2, 3, and 5 years). TI-RADS 5 (highly suspicious): 7 points or more. * FNA if 1 cm or larger, follow up if 0.5 cm or larger (every year for 5 years). Dictated by: Yaakov Grace [facility] Interpreted: Shanta Vann MD on 09/03/2019 at 11:32 Approved by: Shanta Vann M.D. on 09/03/2019 at 13:22
== END ==
PROVIDERS: PCP Family Medicine; Referring Provider Family Medicine; Visit Provider Family Medicine
DX: E04.2 Nontoxic multinodular goiter (principal)
CPT/HCPCS: 76536

== ENCOUNTER → 2019-09-14 10:25 | Outpatient (CLI) | payer MEDICARE, OTHER, SELFPAY ==
[2018-05-03 14:44] VITALS: BMI 34.3
[2019-09-14 12:27] LABS: Add Manual Diff / Slide Review NO; Basophils Absolute Auto 0 /uL (0-100); Basophils Percent Auto 0.6 % (0-2); Eosinophils Absolute Auto 200 /uL (0-450); Eosinophils Percent Auto 3.2 % (2-4); Hematocrit 32.6 % (36-46); Hemoglobin 10.7 g/dL (12.0-16.0); Lymphocytes Absolute Auto 2200 /uL (1100-4500); Lymphocytes Percent Auto 29.7 % (25-40); Mean Corpuscular HGB Conc 32.8 % (30-36); Mean Corpuscular Hemoglobin 30.2 PG (26-34); Monocytes Absolute Auto 700 /uL (0-900); Monocytes Percent Auto 8.8 % (3-14); Neutrophils Absolute Auto 4300 /uL (1500-7000); Neutrophils Percent Auto 57.7 % (50-75); Platelet Count 321 X10^3/uL (150-400); Red Blood Cell Count 3.54 X10^6/uL (4.0-5.2); White Blood Cell Count 7.4 X10^3/uL (4.5-11.0)
[2019-09-14 12:40] LABS: Alanine Aminotransferase 12 IU/L (<35); Albumin 4.3 g/dL (3.5-5.0); Albumin Globulin Ratio 1.5 (1.0-2.8); Alkaline Phosphatase 68 U/L (38-126); Aspartate Aminotransferase 19 IU/L (14-36); BUN Creatinine Ratio 17.5 (6-22); Bilirubin Total 0.3 mg/dL (0.2-1.3); Blood Urea Nitrogen 21 mg/dL (7-17); Calcium 9.9 mg/dL (8.4-10.2); Carbon Dioxide 21 mmol/L (22-32); Chloride 107 mmol/L (98-107); Estimated Glomerular Filt Rate 44.4 mL/min (>60); Globulin 2.9 g/dL (1.7-4.1); Glucose 114 mg/dL (80-110); HEMOLYSIS < 15 (0-50); Potassium 5.6 mmol/L (3.4-5.1); Sodium 135 mmol/L (137-145); Total Protein 7.2 g/dL (6.3-8.2)
[2019-09-14 12:44] LABS: Hemoglobin A1C% w Est Avg Glu 7.1 % (4.0-6.0)
== END ==
PROVIDERS: PCP Family Medicine; Referring Provider Family Medicine; Visit Provider Family Medicine
DX: D64.9 Anemia, unspecified (principal); E11.9 Type 2 diabetes mellitus without complications; N17.9 Acute kidney failure, unspecified; N18.9 Chronic kidney disease, unspecified; R73.09 Other abnormal glucose
CPT/HCPCS: 36415; 80053; 83036; 85025

== ENCOUNTER → 2019-09-28 08:03 | Outpatient (CLI) | payer MEDICARE, OTHER, SELFPAY ==
[2018-05-03 14:44] VITALS: BMI 34.3
--- NOTE | 2019-09-28 08:06 | DI.ECHO.S_ITS ---
[place] [facility]---------+ [facility] +---------+ : : [address] : : : : [address] : : : : [id number] : : : : Phone: [phone]+ Echocardiogram Report + + :Name: ABELARDO LAMA Study Date: 09/28/2019 Height: 25 in : :[facility] Weight: 214 lb : : Gender: Female BSA: 1.0 m2 : :: 1950 Age: 69 yrs BP: 144/72 mmHg: :Reason For Study: MURMUR : : Performed By: Pio Carvajal : :Referring: NADIYA MASTERS : + + Interpretation Summary 1) Normal left ventricular thickness, size, and systolic function (EF 55-60%). 2) Septal motion is consistent with conduction abnormality. 3) Diastolic parameters suggest a pseudonormalization pattern, consistent with probable elevated filling pressures. 4) Normal right ventricular size and function. 5) There is mild aortic regurgitation. 6) Compared to the Echo done 09/16/2017, no significant change. Procedure: A two-dimensional transthoracic echocardiogram with color flow and Doppler was performed. The study quality was technically good. Comparison is made with the echocardiogram of 09/16/17. The patient had a bundle branch block rhythm during the exam. Left Ventricle: The left ventricle is normal in size. There is normal left ventricular wall thickness. The ejection fraction is estimated to be 55-60%. Septal motion is consistent with conduction abnormality. Diastolic parameters suggest a pseudonormalization pattern, consistent with probable elevated filling pressures. Right Ventricle: The right ventricle is normal in size and function. Atria: The left atrium is moderately dilated. The right atrium is mildly dilated. The interatrial septum is intact with no evidence for an atrial septal defect. Mitral Valve: The mitral valve is normal in structure and function. There is mild mitral regurgitation. Aortic Valve: The aortic valve is trileaflet. The aortic valve opens well. The aortic valve is slightly calcified. There is no aortic valve stenosis. There is mild aortic regurgitation. Tricuspid Valve: The tricuspid valve is normal in structure and function. There is mild tricuspid regurgitation. The right ventricular systolic pressure is estimated to be at least 28 mmHg based on an estimated right atrial pressure of 3 mm Hg. Pulmonic Valve: The pulmonic valve is not well seen, but is grossly normal. There is no pulmonic valvular regurgitation. Great Vessels: The aortic root is normal size. The dimensions of the ascending aorta are normal. The pulmonary artery is normal size. The IVC is of normal diameter and collapses greater than 50% with a sniff. This suggests a low right atrial pressure of 3 mm Hg. Pericardium/ Pleura There is no pericardial effusion. There is no pleural effusion. MMode/2D Measurements & Calculations LVIDd: 4.7 cm LVOT diam: 2.1 cm LVIDs: 3.4 cm Ao root diam: 3.1 cm FS: 27.1 % asc Aorta Diam: 3.4 cm EPSS: 0.54 cm Ao Arch Diam (Prox Trans): 2.5 cm IVSd: 1.0 cm LVPWd: 1.0 cm LV whitaker. diameter/BSA (cm/m^2): 4.6 LV sys. diameter/BSA (cm/m^2): 3.3 LA dimension: 3.9 cm RA long axis: 4.7 cm LA A2 area: 23.3 cm2 RA area: 16.8 cm2 LA A4 area: 20.7 cm2 RA vol: 50.7 ml LA length (vol): 5.5 cm RA : 49.5 ml/m2 LA vol: 75.0 ml IVC diam: 1.7 cm LA vol index: 73.2 ml/m2 RVD1 (basal): 3.0 cm RVD2 (mid): 3.9 cm Doppler Measurements & Calculations Ao V2 max: 149.9 cm/sec LVOT Max Jonny: 83.4 cm/sec Ao V2 mean: 110.8 cm/sec LV V1 max P.8 mmHg Ao max P.0 mmHg LV V1 VTI: 20.1 cm Ao mean P.4 mmHg ROYAL(I,D): 1.9 cm2 Ao V2 VTI: 38.8 cm ROYAL(V,D): 2.0 cm2 sev ratio: 0.52 ROYAL indexed to BSA (cm^2/m^2): 1.8 AI P1/2t: 594.5 msec AI dec slope: 173.6 cm/sec2 MV E max jonny: 100.1 cm/sec TR max jonny: 250.6 cm/sec MV A max jonny: 78.6 cm/sec TR max P.1 mmHg MV E/A: 1.3 PA V2 max: 69.9 cm/sec Med Peak E' Jonny: 5.5 cm/sec PA V2 mean: 43.3 cm/sec E/E' med: 18.3 PA mean P.86 mmHg Lat Peak E' Jonny: 6.0 cm/sec PA pr(Accel): 24.2 mmHg E/E' lat: 16.7 E/e' average: 17.5 MV dec time: 0.17 sec SV(LVOT): 72.5 ml Reading Physician:11:33 AM
== END ==
PROVIDERS: PCP Family Medicine; Referring Provider Family Medicine; Visit Provider Family Medicine
DX: I08.3 Combined rheumatic disorders of mitral, aortic and tricuspid valves (principal); R01.1 Cardiac murmur, unspecified
CPT/HCPCS: 93306

== ENCOUNTER → 2019-10-23 10:41 | Outpatient (CLI) | payer MEDICARE, OTHER, SELFPAY ==
[2018-05-03 14:44] VITALS: BMI 34.3
[2019-10-23 12:59] LABS: Hemoglobin A1C% w Est Avg Glu 6.6 % (4.0-6.0)
[2019-10-23 13:18] LABS: Alanine Aminotransferase 12 IU/L (<35); Albumin 4.2 g/dL (3.5-5.0); Albumin Globulin Ratio 1.5 (1.0-2.8); Alkaline Phosphatase 73 U/L (38-126); Aspartate Aminotransferase 17 IU/L (14-36); BUN Creatinine Ratio 23.3 (6-22); Bilirubin Total 0.3 mg/dL (0.2-1.3); Blood Urea Nitrogen 27 mg/dL (7-17); Calcium 9.6 mg/dL (8.4-10.2); Carbon Dioxide 22 mmol/L (22-32); Chloride 107 mmol/L (98-107); Cholesterol 208 mg/dL (140-199); Estimated Glomerular Filt Rate 46.2 mL/min (>60); Globulin 2.8 g/dL (1.7-4.1); Glucose 137 mg/dL (80-110); HDL Cholesterol 36 mg/dL (40-60); HEMOLYSIS < 15 (0-50); LDL Cholesterol Calculated 120 mg/dL (<100); Sodium 136 mmol/L (137-145); Triglycerides 262 mg/dL (35-150)
[2019-10-23 13:29] LABS: LDL Cholesterol Direct 125 mg/dL (<100); Potassium 5.4 mmol/L (3.4-5.1)
[2019-10-23 15:18] LABS: Microalbumin Urine Random 0.7 mg/dL (0-1.6)
[2019-10-23 15:19] LABS: Creatinine Urine Random 72.7 mg/dL; Microalbumi Creatinin Ratio Ur 9.6 ug/mg CR (<30)
== END ==
PROVIDERS: PCP Family Medicine; Referring Provider Internal Medicine Endocrinology, Diabetes & Metabolism; Visit Provider Internal Medicine Endocrinology, Diabetes & Metabolism
DX: E04.2 Nontoxic multinodular goiter (principal); E11.22 Type 2 diabetes mellitus with diabetic chronic kidney disease; N18.3 Chronic kidney disease, stage 3 (moderate); Z79.4 Long term (current) use of insulin
CPT/HCPCS: 36415; 80053; 80061; 82043; 82570; 83036; 83721

== ENCOUNTER → 2019-10-26 11:10 | Outpatient (CLI) | payer MEDICARE, OTHER, SELFPAY ==
[2018-05-03 14:44] VITALS: BMI 34.3
--- NOTE | 2019-10-26 11:17 | DI.US.S_ITS ---
PROCEDURE: US RENAL COMPLETE INDICATIONS: CKD TECHNIQUE: Real-time scanning was performed of the kidneys and bladder, with image documentation. COMPARISON: None. FINDINGS: Kidneys: Kidneys are normal in size. Right kidney measures 10.5 cm long; left kidney measures 9.6 cm long. Right renal cortical thickness is 1.5 cm; left renal cortical thickness is 1.2 cm. Renal cortical echotexture is normal. No hydronephrosis or nephrolithiasis. No suspicious solid mass lesions. Peripelvic cysts are seen at the left kidney. Bladder: Bladder did not contain sufficient fluid for accurate assessment of the bladder lumen. lumen. Miscellaneous: No free pelvic fluid. IMPRESSION: No hydronephrosis or nephrolithiasis is found. A source of renal insufficiency is not identified. Note is made of several left-sided peripelvic cysts. Dictated by: Manuel Hooker M.D. on 10/26/2019 at 13:04 Approved by: Manuel Hooker M.D. on 10/26/2019 at 13:47
== END ==
PROVIDERS: PCP Family Medicine; Referring Provider Internal Medicine; Visit Provider Internal Medicine
DX: N18.3 Chronic kidney disease, stage 3 (moderate) (principal); N28.1 Cyst of kidney, acquired
CPT/HCPCS: 76770

== ENCOUNTER → 2019-10-30 10:44 | Outpatient (CLI) | payer MEDICARE, OTHER, SELFPAY ==
[2018-05-03 14:44] VITALS: BMI 34.3
[2019-10-30 11:37] LABS: RBC Urine None Seen (0-5/HPF)
[2019-10-30 13:35] LABS: Appearance Urine UA CLEAR; Bilirubin Urine UA NEGATIVE (NEGATIVE); Color Urine UA YELLOW; Glucose Urine UA NEGATIVE (Negative); Ketones Urine UA NEGATIVE (NEGATIVE); Leukocyte Esterase Urine UA NEGATIVE (NEGATIVE); Nitrite Urine UA POSITIVE (Negative); Occult Blood Urine UA NEGATIVE (Negative); Protein Urine UA NEGATIVE (Negative); Urobilinogen Urine UA 0.2 E.U./dL (0.2)
[2019-10-30 13:38] LABS: Add Manual Diff / Slide Review NO; Basophils Absolute Auto 0 /uL (0-100); Basophils Percent Auto 0.6 % (0-2); Eosinophils Absolute Auto 200 /uL (0-450); Eosinophils Percent Auto 3.1 % (2-4); Hematocrit 34.6 % (36-46); Hemoglobin 11.6 g/dL (12.0-16.0); Lymphocytes Absolute Auto 2100 /uL (1100-4500); Lymphocytes Percent Auto 28.8 % (25-40); Mean Corpuscular HGB Conc 33.5 % (30-36); Mean Corpuscular Hemoglobin 30.4 PG (26-34); Mean Corpuscular Volume 90.8 fL (80-100); Monocytes Absolute Auto 600 /uL (0-900); Monocytes Percent Auto 8.6 % (3-14); Neutrophils Absolute Auto 4300 /uL (1500-7000); Neutrophils Percent Auto 58.9 % (50-75); Platelet Count 329 X10^3/uL (150-400); Red Blood Cell Count 3.81 X10^6/uL (4.0-5.2); Red Cell Distribution Width 13.5 % (11.6-14.8); White Blood Cell Count 7.3 X10^3/uL (4.5-11.0)
[2019-10-30 13:45] LABS: Bacteria Urine Many (>30); Culture Indicated Urine Specimen Cultured; WBC Urine 5-10/HPF (0-5/HPF)
[2019-10-30 14:24] LABS: Alanine Aminotransferase 13 IU/L (<35); Albumin 4.5 g/dL (3.5-5.0); Albumin Globulin Ratio 1.6 (1.0-2.8); Alkaline Phosphatase 73 U/L (38-126); Aspartate Aminotransferase 19 IU/L (14-36); Bilirubin Total 0.5 mg/dL (0.2-1.3); Blood Urea Nitrogen 25 mg/dL (7-17); Calcium 9.8 mg/dL (8.4-10.2); Carbon Dioxide 22 mmol/L (22-32); Chloride 105 mmol/L (98-107); Estimated Glomerular Filt Rate 52.4 mL/min (>60); Globulin 2.9 g/dL (1.7-4.1); Glucose 159 mg/dL (80-110); HEMOLYSIS < 15 (0-50); Phosphorous 3.8 mg/dL (2.8-4.1); Potassium 5.2 mmol/L (3.4-5.1); Sodium 138 mmol/L (137-145); Total Protein 7.4 g/dL (6.3-8.2); Uric Acid 6.3 mg/dL (2.5-6.2)
[2019-10-30 15:10] LABS: Creatinine Urine Random 113.4 mg/dL
[2019-10-30 15:14] LABS: Microalbumi Creatinin Ratio Ur 27.3 ug/mg CR (<30); Microalbumin Urine Random 3.1 mg/dL (0-1.6)
[2019-10-30 15:26] LABS: Vitamin D 25 Hydroxy (D3) 25.6 ng/mL (30.0-100.0)
[2019-10-31 07:11] LABS: Parathyroid Hormone Int 28 pg/mL (15-65)
== END ==
PROVIDERS: PCP Family Medicine; Referring Provider Internal Medicine; Visit Provider Internal Medicine
DX: N18.3 Chronic kidney disease, stage 3 (moderate) (principal)
CPT/HCPCS: 36415; 80053; 81001; 82043; 82306; 82570; 83970; 84100; 84550; 85025; 87077; 87086; 87186

== ENCOUNTER → 2019-12-18 10:44 | Outpatient (CLI) | payer MEDICARE, OTHER, SELFPAY ==
[2018-05-03 14:44] VITALS: BMI 34.3
[2019-12-18 13:07] LABS: Alanine Aminotransferase 15 IU/L (<35); Albumin 4.5 g/dL (3.5-5.0); Albumin Globulin Ratio 1.5 (1.0-2.8); Alkaline Phosphatase 80 U/L (38-126); Aspartate Aminotransferase 20 IU/L (14-36); Bilirubin Total 0.4 mg/dL (0.2-1.3); Bilirubin Unconjugated 0.3 mg/dL (0.0-1.1); Cholesterol 153 mg/dL (140-199); Globulin 3.1 g/dL (1.7-4.1); HDL Cholesterol 36 mg/dL (40-60); HEMOLYSIS < 15 (0-50); LDL Cholesterol Calculated 74 mg/dL (<100); Total Protein 7.6 g/dL (6.3-8.2); Triglycerides 216 mg/dL (35-150)
== END ==
PROVIDERS: PCP Family Medicine; Referring Provider Internal Medicine Endocrinology, Diabetes & Metabolism; Visit Provider Internal Medicine Endocrinology, Diabetes & Metabolism
DX: E78.5 Hyperlipidemia, unspecified (principal)
CPT/HCPCS: 36415; 80061; 80076

== ENCOUNTER → 2020-01-18 10:29 | Outpatient (CLI) | payer MEDICARE, OTHER, SELFPAY ==
[2018-05-03 14:44] VITALS: BMI 34.3
[2020-01-18 11:24] LABS: Add Manual Diff / Slide Review NO; Basophils Absolute Auto 100 /uL (0-100); Basophils Percent Auto 0.7 % (0-2); Eosinophils Absolute Auto 300 /uL (0-450); Eosinophils Percent Auto 3.7 % (2-4); Hematocrit 33.4 % (36-46); Hemoglobin 11.1 g/dL (12.0-16.0); Lymphocytes Absolute Auto 2200 /uL (1100-4500); Lymphocytes Percent Auto 28.9 % (25-40); Mean Corpuscular HGB Conc 33.3 % (30-36); Mean Corpuscular Hemoglobin 29.7 PG (26-34); Monocytes Absolute Auto 700 /uL (0-900); Monocytes Percent Auto 9.6 % (3-14); Neutrophils Absolute Auto 4400 /uL (1500-7000); Neutrophils Percent Auto 57.1 % (50-75); Platelet Count 308 X10^3/uL (150-400); Red Blood Cell Count 3.76 X10^6/uL (4.0-5.2); Red Cell Distribution Width 13.6 % (11.6-14.8); White Blood Cell Count 7.7 X10^3/uL (4.5-11.0)
[2020-01-18 11:43] LABS: Hemoglobin A1C% w Est Avg Glu 8.4 % (4.0-6.0)
[2020-01-18 11:57] LABS: HEMOLYSIS < 15 (0-50); Potassium 4.6 mmol/L (3.4-5.1)
[2020-01-18 11:58] LABS: BUN Creatinine Ratio 22.3 (6-22); Blood Urea Nitrogen 25 mg/dL (7-17); Calcium 9.4 mg/dL (8.4-10.2); Carbon Dioxide 25 mmol/L (22-32); Chloride 105 mmol/L (98-107); Cholesterol 202 mg/dL (140-199); Estimated Glomerular Filt Rate 48.1 mL/min (>60); Glucose 193 mg/dL (80-110); HDL Cholesterol 36 mg/dL (40-60); LDL Cholesterol Calculated 107 mg/dL (<100); Sodium 135 mmol/L (137-145); Triglycerides 293 mg/dL (35-150)
== END ==
PROVIDERS: PCP Family Medicine; Referring Provider Family Medicine; Visit Provider Family Medicine
DX: E11.9 Type 2 diabetes mellitus without complications (principal)
CPT/HCPCS: 36415; 80048; 80061; 83036; 85025

== ENCOUNTER → 2020-02-28 10:15 | Outpatient (CLI) | payer MEDICARE, OTHER, SELFPAY ==
[2020-01-24 11:30] VITALS: BMI 34.3
--- NOTE | 2020-02-28 | DI.MG.S_ITS ---
BILATERAL DIGITAL SCREENING MAMMOGRAM 3D/2D WITH CAD: 02/28/2020 CLINICAL: Routine screening. Comparison is made to exams dated: 11/10/2018 mammogram, 10/07/2017 mammogram, and 08/25/2016 mammogram - [facility]. The tissue of both breasts is heterogeneously dense. This may lower the sensitivity of mammography. Current study was also evaluated with a Computer Aided Detection (CAD) system. There are benign calcifications in both breasts. There also are benign vascular calcifications in both breasts. No significant masses, calcifications, or other findings are seen in either breast. There has been no significant interval change. IMPRESSION: BENIGN There is no mammographic evidence of malignancy. A 1 year screening mammogram is recommended. This exam was interpreted at Station ID: [id number]. NOTE: For mammograms, a report in lay terms will be sent to the patient. Approximately 15% of breast malignancies will not be visualized mammographically. In the management of a palpable breast mass, a negative mammogram must not discourage biopsy of a clinically suspicious lesion. Electronically Signed By: Chris Russell acr/penrad:02/28/2020 11:13:03 letter sent: Normal Exam ACR BI-RADS Category 2: Benign Finding(s) 3342F
== END ==
PROVIDERS: PCP Nurse Practitioner Family; Referring Provider Nurse Practitioner Family; Visit Provider Nurse Practitioner Family
DX: Z12.31 Encounter for screening mammogram for malignant neoplasm of breast (principal)
CPT/HCPCS: 77063; 77067

== ENCOUNTER → 2020-04-23 11:42 | Outpatient (CLI) | payer MEDICARE, OTHER, SELFPAY ==
[2020-01-24 11:30] VITALS: BMI 34.3
[2020-04-23 12:48] LABS: Hemoglobin A1C% w Est Avg Glu 8.6 % (4.0-6.0)
[2020-04-23 12:52] LABS: BUN Creatinine Ratio 19.5 (6-22); Blood Urea Nitrogen 23 mg/dL (7-17); Calcium 9.7 mg/dL (8.4-10.2); Carbon Dioxide 28 mmol/L (22-32); Chloride 102 mmol/L (98-107); Estimated Glomerular Filt Rate 45.3 mL/min (>60); Glucose 223 mg/dL (80-110); HEMOLYSIS < 15 (0-50); Potassium 4.8 mmol/L (3.4-5.1); Sodium 135 mmol/L (137-145)
== END ==
PROVIDERS: Family Medicine; PCP Nurse Practitioner Family; Referring Provider Internal Medicine Endocrinology, Diabetes & Metabolism; Visit Provider Internal Medicine Endocrinology, Diabetes & Metabolism
DX: E11.22 Type 2 diabetes mellitus with diabetic chronic kidney disease (principal); N18.30 Chronic kidney disease, stage 3 unspecified; Z79.4 Long term (current) use of insulin
CPT/HCPCS: 36415; 80048; 83036; 84443

== ENCOUNTER → 2020-04-30 09:54 | Outpatient (CLI) | payer MEDICARE, OTHER, SELFPAY ==
[2020-01-24 11:30] VITALS: BMI 34.3
[2020-04-30 10:58] LABS: COVID19 -Nasal RAPID Negative (Negative)
== END ==
PROVIDERS: PCP Nurse Practitioner Family; Visit Provider Surgery
DX: Z20.822 Contact with and (suspected) exposure to COVID-19 (principal)
CPT/HCPCS: 87635; C9803

== ENCOUNTER 2020-05-01 11:50 | Day surgery (SDC) | payer MEDICARE, OTHER, SELFPAY ==
[2020-01-24 11:30] VITALS: BMI 34.3
[2020-05-01] MEDS: LACTATED RINGERS 1,000 ML 200 ML IV (12:12)
[2020-05-01 12:18] VITALS: BP 159/83; PULSE 94; RESP 18; TEMP 37.1; O2SAT 98; BMI 36.7
--- NOTE | 2020-05-01 13:14 | PM.HP.1 ---
History of Present Illness History of Present Illness Date Patient Seen: 05/01/20 Time Patient Seen: 13:14 Chief complaint: SCREENING COLONOSCOPY Narrative: The patient presents for colorectal sreening. She had a previous colonoscopy 5 years ago significant for benign polyps. No personal or family history of colon cancer. On further history denies any recent gastrointestinal symptoms. No nausea, vomiting, abdominal pain, loss of appetite, unexplained weight loss, change in bowel habits, diarrhea, constipation, melena, hematochezia, or bright red blood per rectum. Patient History Medical History Anxiety Cataract Cervical spine disease Cervical stenosis (uterine cervix) Chicken pox (1950) Chronic back pain Depression Diabetes mellitus (~1989) Diabetic retinopathy Dyspareunia Eczema Endometriosis Fibroids Foot fracture, right (~02/2018) Hayfever Hearing loss Hemorrhoids History of heavy periods History of recurrent ear infection (2013) HTN (hypertension) Hyperlipidemia Hypothyroidism IBS (irritable bowel syndrome) Irregular periods/menstrual cycles LBBB (left bundle branch block) Lumbar spine pain Measles MRSA infection (2003) Mumps Ocular migraine (~02/2018) Osteoarthritis Ovarian cyst Painful menstrual periods Pelvic inflammatory disease (1971) Psoriasis Recurrent sinusitis RLS (restless legs syndrome) Ruptured tympanic membrane (2013) Scoliosis Sleep apnea Thyroid nodule (2013) Surgical History Anesthesia History of knee replacement (2004) History of knee replacement (2007) History of knee replacement (2009) History of tympanoplasty (2013) S/P surgical manipulation of knee joint (2004) Status post biopsy (12/04/13) Status post gastric banding surgery (2007) Status post hysterectomy (1989) Status post hysteroscopic myomectomy (~1979) Family & Social History Family History Child Mental health problem Father Cancer Heart disease Hypertension High cholesterol Stroke Grandfather Cancer Grandmother Cancer Mother Heart disease Mental health problem Stroke Grandfather Diabetes mellitus Sister Age: 66 Mental health problem Social History: household members friend(s),none,other Tobacco & Substance use: Tobacco type cannabis/marijuana Smoking Status Current some day smoker alcohol intake current alcohol intake frequency a few times a week Substance Use Type marijuana Meds Home Medications and Allergies Home Medications Medication Instructions Recorded Confirmed Type glimepiride 4 mg tablet 2 mg PO BID #90 tab 01/24/20 05/01/20 Rx levothyroxine 25 mcg tablet 25 mcg PO DAILY #90 tab 01/24/20 05/01/20 Rx lithium carbonate 300 mg capsule 300 mg PO BEDTIME #90 cap 01/24/20 05/01/20 Rx losartan 50 mg tablet 50 mg PO BEDTIME #90 tab 01/24/20 05/01/20 Rx metformin 500 mg tablet See Rx Instructions PO 5XD #450 tab 01/24/20 05/01/20 Rx miscellaneous medical supply #1 ea 01/24/20 04/29/20 Rx pioglitazone 15 mg tablet 15 mg PO DAILY #90 tab 01/24/20 05/01/20 Rx propranolol 10 mg tablet 20 mg PO BID #360 tab 01/24/20 05/01/20 Rx dulaglutide 0.75 mg/0.5 mL 0.75 mg SUBCUT QWEEK #2 ml 04/29/20 05/01/20 Rx subcutaneous pen injector Allergies Allergy/AdvReac Type Severity Reaction Status Date / Time cephalexin [CEPHALEXIN] Allergy Mild Rash Verified 04/29/20 13:32 latex Allergy Mild Rash Verified 04/29/20 13:32 Penicillins [PENICILLINS] Allergy Mild Rash Verified 04/29/20 13:32 Sulfa (Sulfonamide Allergy Mild Rash Verified 04/29/20 13:32 Antibiotics) [SULFA (SULFONAMIDE ANTIBIOTICS)] Review of Systems Review of Systems ROS: Yes All systems reviewed with the patient and are negative except as otherwise documented Exam Vital Signs (past 8 hours): - 05/01/20 12:18 Temperature 98.7 F Pulse Rate 94 H Respiratory Rate 18 Blood Pressure 159/83 H Pulse Oximetry 98 Oxygen Delivery Method Room Air Narrative Exam Narrative: General-no acute distress, obese female HEENT-moist mucous membranes, no scleral icterus Neck-supple, no lymphadenopathy Chest- non labored respirations, clear to auscultation bilaterally Cardiac-regular rate no peripheral edema Abdomen-soft, nontender, non distended Extremities-warm, well perfused Neurological-alert and oriented, no focal deficits Assessment & Plan Assessment & Plan narrative: The patient requires colorectal screening and colonoscopy is recommended. Technical details were discussed. Risks, benefits, alternatives explained. Risks including but not limited to myocardial infarction, aspiration, bleeding, pain, missed lesion, incomplete examination, need for further radiographic studies, colonic perforation, and need for major abdominal surgery were discussed. All questions were answered to their satisfaction, and they are in agreement with this plan.
[2020-05-01] MEDS: fentaNYL 250 MCG/5 ML INJ IV (13:22)
[2020-05-01] MEDS: MIDAZOLAM 5 MG/5 ML VIAL IV (13:22)
--- NOTE | 2020-05-01 13:54 | PM.OP.ENDO ---
Operative Date/Time/Diagnoses Date of procedure: 05/01/20 Time of procedure: 13:54 Pre-op diagnosis: personal history of colonic polyps Post-op diagnosis: same Procedure & Clinicians Study performed: colonoscopy Same procedure as scheduled: Yes Indications: 69F colonoscopy 5 yrs ago with benign polyps Surgeon: Jose Wayne Procedure Notes Procedure in detail: Medications: Conscious sedation using 5mg IV midazolam and 200mcg IV of fentanyl The history and physical was performed/updated and the patient is ASA class is 2. The procedure was discussed in detail with the patient. Potential risks complications including infection, bleeding, missed diagnosis, perforation, need for surgery, and were explained. Their questions were answered and informed consent was obtained. Patient was brought to the procedure room and placed standard monitoring equipment. The patient's vital signs were monitored continuously throughout the entire procedure. Prior to starting time-out was performed. The patient was placed in the left lateral recumbent position. Procedural sedation was administered. Examination began with a thorough inspection of the perianal area there was no evidence of fissures, fistulae, external hemorrhoids or cutaneous malignancy. The colonoscopy scope was then placed into the anal canal and was advanced to the cecum, which was identified by the ileocecal valve, the appendiceal orifice and the confluence of the taenia. The scope was then slowly withdrawn examining colon thoroughly in all directions, irrigating it of any residual stool. No masses or polyps Sigmoid diverticulosis The patient tolerated the procedure well. They will be discharged once criteria are met. The prep was of good/excellent quality. The withdrawl time was 7 minutes. The sedation time was 29 minutes. Specimen(s): none sent Complications: none Impression: Normal colonoscopy Post-procedure Recommendations: Colonscopy in 10 years Disposition: same day surgery
[2020-05-01 14:00] VITALS: BP 168/77; PULSE 96; RESP 17; TEMP 36.5; O2SAT 97
[2020-05-01 14:05] VITALS: BP 154/60; PULSE 100; RESP 20; O2SAT 99
[2020-05-01 14:10] VITALS: BP 161/86; PULSE 93; RESP 16; O2SAT 99
[2020-05-01 14:15] VITALS: BP 165/82; PULSE 88; RESP 12; TEMP 36.9; O2SAT 98
[2020-05-01 14:16] VITALS: BP 160/76; PULSE 90; RESP 18; TEMP 36.9; O2SAT 97
== END 2020-05-01 14:30 | disposition home or self-care (01) ==
PROVIDERS: PCP Nurse Practitioner Family; Referring Provider Surgery; Visit Provider Surgery
PROC: 0DJD8ZZ Inspection of Lower Intestinal Tract, Via Natural or Artificial Opening Endoscopic (ICD-10-PCS; CPT 45378; principal; 2020-05-01 13:00)
DX: Z12.11 Encounter for screening for malignant neoplasm of colon (principal); Z86.010 Personal history of colon polyps; E11.9 Type 2 diabetes mellitus without complications; Z79.84 Long term (current) use of oral hypoglycemic drugs; E03.9 Hypothyroidism, unspecified; I10 Essential (primary) hypertension; E78.5 Hyperlipidemia, unspecified; K57.30 Diverticulosis of large intestine without perforation or abscess without bleeding
CPT/HCPCS: G0105; 82962; 99152; 99153; J2250; J3010

== ENCOUNTER → 2020-06-23 11:01 | Outpatient (CLI) | payer MEDICARE, OTHER, SELFPAY ==
[2020-01-24 11:30] VITALS: BMI 34.3
[2020-06-23 12:00] LABS: Add Manual Diff / Slide Review NO; Basophils Absolute Auto 0 /uL (0-100); Basophils Percent Auto 0.5 % (0-2); Eosinophils Absolute Auto 400 /uL (0-450); Eosinophils Percent Auto 5.1 % (2-4); Hematocrit 32.1 % (36-46); Hemoglobin 10.9 g/dL (12.0-16.0); Lymphocytes Absolute Auto 2000 /uL (1100-4500); Lymphocytes Percent Auto 26.4 % (25-40); Mean Corpuscular Hemoglobin 30.4 PG (26-34); Mean Corpuscular Volume 89.3 fL (80-100); Monocytes Absolute Auto 600 /uL (0-900); Monocytes Percent Auto 7.5 % (3-14); Neutrophils Absolute Auto 4700 /uL (1500-7000); Neutrophils Percent Auto 60.5 % (50-75); Platelet Count 251 X10^3/uL (150-400); Red Cell Distribution Width 13.4 % (11.6-14.8); White Blood Cell Count 7.7 X10^3/uL (4.5-11.0)
[2020-06-23 12:42] LABS: HEMOLYSIS < 15 (0-50); Iron 85 ug/dL (37-170)
[2020-06-23 12:45] LABS: BUN Creatinine Ratio 21.3 (6-22); Blood Urea Nitrogen 23 mg/dL (7-17); Calcium 9.5 mg/dL (8.4-10.2); Carbon Dioxide 24 mmol/L (22-32); Chloride 103 mmol/L (98-107); Estimated Glomerular Filt Rate 50.2 mL/min (>60); Glucose 223 mg/dL (80-110); HEMOLYSIS < 15 (0-50); Potassium 4.5 mmol/L (3.4-5.1); Sodium 135 mmol/L (137-145)
[2020-06-23 12:53] LABS: Percent Iron Saturation 24 % (15-50); Total Iron Binding Capacity 353 ug/dL (265-497); Transferrin 292 mg/dL (206-381)
[2020-06-23 13:21] LABS: Ferritin 26 ng/mL (11-264)
[2020-06-23 16:15] LABS: Vitamin D 25 Hydroxy (D3) 25.5 ng/mL (30.0-100.0)
== END ==
PROVIDERS: Nurse Practitioner Family; PCP Family Medicine; Referring Provider Family Medicine; Visit Provider Family Medicine
DX: E11.9 Type 2 diabetes mellitus without complications (principal); D64.9 Anemia, unspecified; N17.9 Acute kidney failure, unspecified; N18.1 Chronic kidney disease, stage 1
CPT/HCPCS: 36415; 80048; 82306; 82728; 83540; 83550; 85025

== ENCOUNTER → 2020-09-05 12:35 | Outpatient (CLI) | payer MEDICARE, OTHER, SELFPAY ==
[2020-01-24 11:30] VITALS: BMI 34.3
[2020-09-05 12:47] LABS: RBC Urine None Seen (0-5/HPF)
[2020-09-05 13:36] LABS: Add Manual Diff / Slide Review NO; Basophils Absolute Auto 0 /uL (0-100); Basophils Percent Auto 0.6 % (0-2); Bilirubin Urine UA NEGATIVE (NEGATIVE); Color Urine UA YELLOW; Eosinophils Absolute Auto 300 /uL (0-450); Eosinophils Percent Auto 3.9 % (2-4); Glucose Urine UA NEGATIVE (Negative); Hematocrit 35.5 % (36-46); Hemoglobin 11.8 g/dL (12.0-16.0); Ketones Urine UA NEGATIVE (NEGATIVE); Leukocyte Esterase Urine UA NEGATIVE (NEGATIVE); Lymphocytes Absolute Auto 2200 /uL (1100-4500); Lymphocytes Percent Auto 29.2 % (25-40); Mean Corpuscular HGB Conc 33.1 % (30-36); Mean Corpuscular Hemoglobin 29.7 PG (26-34); Mean Corpuscular Volume 89.8 fL (80-100); Monocytes Absolute Auto 700 /uL (0-900); Monocytes Percent Auto 9.1 % (3-14); Neutrophils Absolute Auto 4300 /uL (1500-7000); Neutrophils Percent Auto 57.2 % (50-75); Nitrite Urine UA POSITIVE (Negative); Occult Blood Urine UA NEGATIVE (Negative); Platelet Count 299 X10^3/uL (150-400); Protein Urine UA TRACE (Negative); Red Blood Cell Count 3.96 X10^6/uL (4.0-5.2); Red Cell Distribution Width 13.7 % (11.6-14.8); Urobilinogen Urine UA 0.2 E.U./dL (0.2); White Blood Cell Count 7.6 X10^3/uL (4.5-11.0)
[2020-09-05 13:37] LABS: Appearance Urine UA Slightly Cloudy
[2020-09-05 13:40] LABS: Bacteria Urine Many (>30); Squamous Epithelial Cell Urine 1-5 /HPF (0-5/HPF); WBC Urine 10-30/HPF (0-5/HPF)
[2020-09-05 13:41] LABS: Culture Indicated Urine Specimen Cultured
[2020-09-05 13:51] LABS: Albumin 4.4 g/dL (3.5-5.0); BUN Creatinine Ratio 16.8 (6-22); Blood Urea Nitrogen 20 mg/dL (7-17); Calcium 9.8 mg/dL (8.4-10.2); Carbon Dioxide 22 mmol/L (22-32); Chloride 108 mmol/L (98-107); Estimated Glomerular Filt Rate 44.7 mL/min (>60); Glucose 158 mg/dL (80-110); HEMOLYSIS < 15 (0-50); Phosphorous 3.8 mg/dL (2.8-4.1); Potassium 4.7 mmol/L (3.4-5.1); Sodium 139 mmol/L (137-145)
[2020-09-05 15:06] LABS: Creatinine Urine Random 114.7 mg/dL
[2020-09-05 15:10] LABS: Microalbumi Creatinin Ratio Ur 94.1 ug/mg CR (<30); Microalbumin Urine Random 10.8 mg/dL (0-1.6)
[2020-09-05 15:19] LABS: Vitamin D 25 Hydroxy (D3) 27.7 ng/mL (30.0-100.0)
[2020-09-06 12:09] LABS: Parathyroid Hormone Int 59 pg/mL (15-65)
== END ==
PROVIDERS: PCP Family Medicine; Referring Provider Internal Medicine Nephrology; Visit Provider Internal Medicine Nephrology
DX: N18.32 Chronic kidney disease, stage 3b (principal)
CPT/HCPCS: 36415; 80069; 81001; 82043; 82306; 82570; 83970; 85025; 87077; 87086; 87186

== ENCOUNTER → 2020-09-25 11:53 | Outpatient (CLI) | payer MEDICARE, OTHER, SELFPAY ==
[2020-01-24 11:30] VITALS: BMI 34.3
[2020-09-25 13:03] LABS: Add Manual Diff / Slide Review NO; Basophils Absolute Auto 0 /uL (0-100); Basophils Percent Auto 0.5 % (0-2); Eosinophils Absolute Auto 300 /uL (0-450); Eosinophils Percent Auto 3.7 % (2-4); Hematocrit 36.3 % (36-46); Hemoglobin 11.9 g/dL (12.0-16.0); Lymphocytes Absolute Auto 2300 /uL (1100-4500); Lymphocytes Percent Auto 30.4 % (25-40); Mean Corpuscular HGB Conc 32.8 % (30-36); Mean Corpuscular Hemoglobin 29.8 PG (26-34); Mean Corpuscular Volume 90.8 fL (80-100); Monocytes Absolute Auto 700 /uL (0-900); Monocytes Percent Auto 9.7 % (3-14); Neutrophils Absolute Auto 4300 /uL (1500-7000); Neutrophils Percent Auto 55.7 % (50-75); Platelet Count 309 X10^3/uL (150-400); Red Cell Distribution Width 13.9 % (11.6-14.8); White Blood Cell Count 7.7 X10^3/uL (4.5-11.0)
[2020-09-25 13:16] LABS: Alanine Aminotransferase 18 IU/L (<35); Albumin 4.6 g/dL (3.5-5.0); Albumin Globulin Ratio 1.5 (1.0-2.8); Alkaline Phosphatase 66 U/L (38-126); Aspartate Aminotransferase 23 IU/L (14-36); BUN Creatinine Ratio 15.7 (6-22); Bilirubin Total 0.3 mg/dL (0.2-1.3); Blood Urea Nitrogen 19 mg/dL (7-17); Carbon Dioxide 22 mmol/L (22-32); Chloride 107 mmol/L (98-107); Estimated Glomerular Filt Rate 43.9 mL/min (>60); Globulin 3.1 g/dL (1.7-4.1); Glucose 181 mg/dL (80-110); HEMOLYSIS < 15 (0-50); Potassium 4.7 mmol/L (3.4-5.1); Sodium 138 mmol/L (137-145); Total Protein 7.7 g/dL (6.3-8.2)
[2020-09-25 13:17] LABS: Hemoglobin A1C% w Est Avg Glu 8.3 % (4.0-6.0)
[2020-09-25 13:30] LABS: Lithium 0.2 mmol/L (0.6-1.2)
== END ==
PROVIDERS: PCP Family Medicine; Referring Provider Psychiatry & Neurology Psychiatry; Visit Provider Psychiatry & Neurology Psychiatry
DX: F31.74 Bipolar disorder, in full remission, most recent episode manic (principal); Z79.899 Other long term (current) drug therapy; D64.9 Anemia, unspecified; E11.9 Type 2 diabetes mellitus without complications; N18.31 Chronic kidney disease, stage 3a
CPT/HCPCS: 36415; 80053; 80178; 83036; 85025

== ENCOUNTER → 2020-09-29 13:33 | Outpatient (CLI) | payer MEDICARE, OTHER, SELFPAY ==
[2020-01-24 11:30] VITALS: BMI 34.3
--- NOTE | 2020-09-29 | DI.US.S_ITS ---
PROCEDURE: US THYROID INDICATIONS: NONTOXIC MULTINODULAR GOITER TECHNIQUE: Real-time scanning was performed of the thyroid gland, with image documentation. COMPARISON: [facility], US, US THYROID, 08/31/2019, 13:01. FINDINGS: Right: Thyroid lobe measures 5.1 x 1.6 x 1.9 cm, and is diffusely heterogeneous in echotexture. Left: Thyroid lobe measures 4.6 x 1.6 x 1.3 cm, and is diffusely heterogeneous in echotexture. Isthmus: 7.2 mm thick. Nodule number: 1 Location: Right Size: Essentially unchanged at 1.1 x 0.9 x 0.5 cm. Composition: Mixed cystic and solid Echogenicity: Heterogeneous Shape: wider than tall. Margins: Smooth Echogenic foci: None Total points: 3 ACR TI-RADS category: Mildly suspicious Nodule number: 2 Location: Left superior to mid Size: Unchanged 2.1 x 1.7 x 0.9 cm. Composition: Solid Echogenicity: Hypoechoic Shape: Wider than tall Margins: Smooth Echogenic foci: None Total points: 4 ACR TI-RADS category: Moderately suspicious Nodule number: 3 Location: Left inferior Size: Unchanged 1.1 x 1.4 x 1.0 cm. Composition: Spongy form Echogenicity: Heterogeneous Shape: wider than tall. Margins: Smooth Echogenic foci: None Total points: 2 ACR TI-RADS category: Not suspicious Nodule number: 4 Location: Left mid inferior Size: Unchanged 0.7 x 0.6 x 0.6 cm. Composition: Predominantly solid Echogenicity: Isoechoic Shape: wider than tall. Margins: Smooth Echogenic foci: None Total points: 3 ACR TI-RADS category: Mildly suspicious IMPRESSION: Stable appearance of bilateral thyroid nodules. Recommend continued followup ultrasound as detailed below. ACR TI-RADS definitions and recommendations: TI-RADS 1 (benign): 0 points. FNA not needed. TI-RADS 2 (not suspicious): 2 points. FNA not needed. TI-RADS 3 (mildly suspicious): 3 points. * FNA if 2.5 cm or larger, follow up if 1.5 cm or larger (at 1, 3, and 5 years). TI-RADS 4 (moderately suspicious): 4-6 points. * FNA if 1.5 cm or larger, follow up if 1 cm or larger (at 1, 2, 3, and 5 years). TI-RADS 5 (highly suspicious): 7 points or more. * FNA if 1 cm or larger, follow up if 0.5 cm or larger (every year for 5 years). Dictated by: Yaakov RAMIREZ Interpreted: Jimmy Del Valle MD on 09/29/2020 at 15:35 Transcribed by: KWESI on 09/29/2020 at 15:38 Approved by: Jimmy Del Valle M.D. on 09/29/2020 at 16:48
== END ==
PROVIDERS: PCP Family Medicine; Referring Provider Internal Medicine Endocrinology, Diabetes & Metabolism; Visit Provider Internal Medicine Endocrinology, Diabetes & Metabolism
DX: E04.2 Nontoxic multinodular goiter (principal)
CPT/HCPCS: 76536

== ENCOUNTER → 2021-01-27 08:23 | Outpatient (CLI) | payer MEDICARE, OTHER, SELFPAY ==
[2020-01-24 11:30] VITALS: BMI 34.3
[2021-01-27 09:28] LABS: Add Manual Diff / Slide Review NO; Basophils Absolute Auto 0 /uL (0-100); Basophils Percent Auto 0.7 % (0-2); Eosinophils Absolute Auto 200 /uL (0-450); Eosinophils Percent Auto 4.7 % (2-4); Hematocrit 36.3 % (36-46); Hemoglobin 12.2 g/dL (12.0-16.0); Lymphocytes Absolute Auto 1800 /uL (1100-4500); Lymphocytes Percent Auto 35.7 % (25-40); Mean Corpuscular HGB Conc 33.7 % (30-36); Mean Corpuscular Hemoglobin 29.9 PG (26-34); Mean Corpuscular Volume 88.7 fL (80-100); Monocytes Absolute Auto 500 /uL (0-900); Monocytes Percent Auto 10.3 % (3-14); Neutrophils Absolute Auto 2400 /uL (1500-7000); Neutrophils Percent Auto 48.6 % (50-75); Platelet Count 292 X10^3/uL (150-400); Red Blood Cell Count 4.09 X10^6/uL (4.0-5.2); Red Cell Distribution Width 13.7 % (11.6-14.8)
[2021-01-27 09:43] LABS: BUN Creatinine Ratio 16.7 (6-22); Blood Urea Nitrogen 19 mg/dL (7-17); Calcium 10.1 mg/dL (8.4-10.2); Carbon Dioxide 26 mmol/L (22-32); Chloride 104 mmol/L (98-107); Cholesterol 167 mg/dL (140-199); Glucose 217 mg/dL (80-110); HDL Cholesterol 45 mg/dL (40-60); HEMOLYSIS < 15 (0-50); LDL Cholesterol Calculated 83 mg/dL (<100); Potassium 4.7 mmol/L (3.4-5.1); Sodium 141 mmol/L (137-145); Triglycerides 197 mg/dL (35-150)
== END ==
PROVIDERS: PCP Family Medicine; Referring Provider Internal Medicine Cardiovascular Disease; Visit Provider Internal Medicine Cardiovascular Disease
DX: I10 Essential (primary) hypertension (principal); E78.5 Hyperlipidemia, unspecified
CPT/HCPCS: 36415; 80048; 80061; 85025

== ENCOUNTER → 2021-03-24 09:08 | Outpatient (CLI) | payer MEDICARE, OTHER, SELFPAY ==
[2020-01-24 11:30] VITALS: BMI 34.3
--- NOTE | 2021-03-24 | DI.MG.S_ITS ---
BILATERAL DIGITAL SCREENING MAMMOGRAM 3D/2D WITH CAD: 03/24/2021 CLINICAL: Routine screening. Family history of breast cancer. Comparison is made to exams dated: 02/28/2020 mammogram, 11/10/2018 mammogram, and 10/07/2017 mammogram - [facility]. The tissue of both breasts is heterogeneously dense. This may lower the sensitivity of mammography. Current study was also evaluated with a Computer Aided Detection (CAD) system. There are benign calcifications in both breasts. There also are benign vascular calcifications in both breasts. No significant masses, calcifications, or other findings are seen in either breast. There has been no significant interval change. IMPRESSION: BENIGN There is no mammographic evidence of malignancy. A 1 year screening mammogram is recommended. This exam was interpreted at Station ID: [id number]. NOTE: For mammograms, a report in lay terms will be sent to the patient. Approximately 15% of breast malignancies will not be visualized mammographically. In the management of a palpable breast mass, a negative mammogram must not discourage biopsy of a clinically suspicious lesion. Electronically Signed By: Jayden malone/margie:03/24/2021 14:07:20 letter sent: Normal Exam ACR BI-RADS Category 2: Benign Finding(s) 3342F
== END ==
PROVIDERS: PCP Family Medicine; Referring Provider Family Medicine; Visit Provider Family Medicine
DX: Z12.31 Encounter for screening mammogram for malignant neoplasm of breast (principal)
CPT/HCPCS: 77063; 77067

== ENCOUNTER → 2021-08-04 09:25 | Outpatient (CLI) | payer MEDICARE, OTHER, SELFPAY ==
[2020-01-24 11:30] VITALS: BMI 34.3
[2021-08-04 10:11] LABS: Add Manual Diff / Slide Review NO; Basophils Absolute Auto 100 /uL (0-100); Eosinophils Absolute Auto 400 /uL (0-450); Eosinophils Percent Auto 6.8 % (2-4); Hematocrit 36.4 % (36-46); Hemoglobin 12.2 g/dL (12.0-16.0); Lymphocytes Absolute Auto 1600 /uL (1100-4500); Lymphocytes Percent Auto 26.5 % (25-40); Mean Corpuscular HGB Conc 33.6 % (30-36); Mean Corpuscular Hemoglobin 30.1 PG (26-34); Mean Corpuscular Volume 89.4 fL (80-100); Monocytes Absolute Auto 700 /uL (0-900); Monocytes Percent Auto 10.8 % (3-14); Neutrophils Absolute Auto 3300 /uL (1500-7000); Neutrophils Percent Auto 54.9 % (50-75); Platelet Count 289 X10^3/uL (150-400); Red Blood Cell Count 4.06 X10^6/uL (4.0-5.2); Red Cell Distribution Width 13.8 % (11.6-14.8)
[2021-08-04 10:18] LABS: Hemoglobin A1C% w Est Avg Glu 6.9 % (4.0-6.0)
[2021-08-04 11:13] LABS: Alanine Aminotransferase 16 IU/L (<35); Albumin 4.6 g/dL (3.5-5.0); Albumin Globulin Ratio 1.6 (1.0-2.8); Alkaline Phosphatase 71 U/L (38-126); Aspartate Aminotransferase 21 IU/L (14-36); BUN Creatinine Ratio 20.7 (6-22); Bilirubin Total 0.4 mg/dL (0.2-1.3); Blood Urea Nitrogen 28 mg/dL (7-17); Calcium 9.6 mg/dL (8.4-10.2); Carbon Dioxide 25 mmol/L (22-32); Chloride 104 mmol/L (98-107); Cholesterol 170 mg/dL (140-199); Estimated Glomerular Filt Rate 42 mL/min (>60); Globulin 2.9 g/dL (1.7-4.1); Glucose 139 mg/dL (80-110); HDL Cholesterol 48 mg/dL (40-60); HEMOLYSIS < 15 (0-50); LDL Cholesterol Calculated 94 mg/dL (<100); Potassium 5.1 mmol/L (3.4-5.1); Sodium 141 mmol/L (137-145); Total Protein 7.5 g/dL (6.3-8.2); Triglycerides 141 mg/dL (35-150)
[2021-08-04 11:41] LABS: TSH w/ Reflex to FT4 1.65 uIU/mL (0.47-4.68)
== END ==
PROVIDERS: PCP Family Medicine; Referring Provider Family Medicine; Visit Provider Family Medicine
DX: D64.9 Anemia, unspecified (principal); E11.9 Type 2 diabetes mellitus without complications; I10 Essential (primary) hypertension; N18.31 Chronic kidney disease, stage 3a
CPT/HCPCS: 36415; 80053; 80061; 83036; 84443; 85025

== ENCOUNTER → 2021-09-17 14:33 | Outpatient (CLI) | payer MEDICARE, OTHER, SELFPAY ==
[2020-01-24 11:30] VITALS: BMI 34.3
--- NOTE | 2021-09-17 14:35 | DI.US.S_ITS ---
PROCEDURE: US THYROID INDICATIONS: GOITER TECHNIQUE: Real-time scanning was performed of the thyroid gland, with image documentation. COMPARISON: [facility], US, US THYROID, 09/29/2020, 14:14. FINDINGS: Right: Thyroid lobe measures 5.1 x 1.7 x 1.9 cm, and is homogeneous in echotexture. Left: Thyroid lobe measures 4.6 x 1.5 x 2.7 cm, and is homogenous in echotexture. Isthmus: 7 mm thick. Nodule number: 1 Location: Isthmus Size: 1.2 x 1.1 x 0.4 cm compared to 1.1 x 0.9 x 0.5 cm. Composition: Solid Echogenicity: Hypoechoic Shape: wider than tall. Margins: Smooth Echogenic foci: None. Is noted punctate echogenic foci were noted on prior exam, not seen on current exam. Total points: 4 ACR TI-RADS category: 4 Nodule number: 2 Location: Left superior Size: 2.2 x 2.0 x 1.1 cm compared to 2.1 x 1.7 x 0.9 cm. Composition: Solid Echogenicity: Hypoechoic Shape: wider than tall. Margins: Smooth Echogenic foci: Punctate Total points: 7 ACR TI-RADS category: 5 Nodule number: 3 Location: Left inferior Size: 1.0 x 1.0 x 0.8 cm compared to 1.1 x 1.4 x 1.0 cm. Composition: Spongiform Echogenicity: Isoechoic Shape: wider than tall. Margins: Smooth Echogenic foci: None Total points: 1 ACR TI-RADS category: 2 Nodule number: 4 Location: Left inferior Size: 0.8 x 0.7 x 0.7 cm compared to 0.7 x 0.6 x 0.6 cm. Composition: Solid Echogenicity: Hypoechoic Shape: wider than tall. Margins: Smooth Echogenic foci: None Total points: 4 ACR TI-RADS category: 4 IMPRESSION: Lesions 1 and 4 are stable and secondary to size continued interval imaging follow-up is recommended. Lesion 2 is considered category 5 and FNA is recommended if not already biopsy. Lesion 3 is considered category 2 and secondary to characteristics and size, no additional follow-up. ACR TI-RADS definitions and recommendations: TI-RADS 1 (benign): 0 points. FNA not needed. TI-RADS 2 (not suspicious): 2 points. FNA not needed. TI-RADS 3 (mildly suspicious): 3 points. * FNA if 2.5 cm or larger, follow up if 1.5 cm or larger (at 1, 3, and 5 years). TI-RADS 4 (moderately suspicious): 4-6 points. * FNA if 1.5 cm or larger, follow up if 1 cm or larger (at 1, 2, 3, and 5 years). TI-RADS 5 (highly suspicious): 7 points or more. * FNA if 1 cm or larger, follow up if 0.5 cm or larger (every year for 5 years). Dictated by: Shanta Vann M.D. on 09/17/2021 at 17:14 Approved by: Shanta Vann M.D. on 09/17/2021 at 17:39
== END ==
PROVIDERS: PCP Family Medicine; Referring Provider Internal Medicine Endocrinology, Diabetes & Metabolism; Visit Provider Internal Medicine Endocrinology, Diabetes & Metabolism
DX: E04.2 Nontoxic multinodular goiter (principal)
CPT/HCPCS: 76536

== ENCOUNTER → 2021-09-30 14:04 | Outpatient (CLI) | payer MEDICARE, OTHER, SELFPAY ==
[2020-01-24 11:30] VITALS: BMI 34.3
--- NOTE | 2021-09-30 | DI.US.S_ITS ---
PROCEDURE: US FINE NEEDLE ASPIRATION INDICATIONS: Nontoxic single thyroid nodule. Patient with multinodular thyroid. A left mid/upper pole nodule, which has grown on the most recent previous study, measures 2.2 x 2.0 x 1.1 cm, is a highly suspicious lesion by imaging criteria, for which fine-needle aspiration has been recommended. TECHNIQUE: The indications, alternatives, benefits, risks, and complications of the procedure were explained to the patient. Written informed consent was obtained and placed in the chart. The area of interest was examined sonographically and a site was chosen for ultrasound guided percutaneous sampling. The skin was prepared and draped in the usual fashion, and anesthetized with 1% lidocaine infiltrated from the skin down to the lesion. Multiple passes were then performed, with contents emptied into an appropriate pathology specimen container. A bandage was applied to the area of access at completion of the study. COMPARISON: [facility], , US THYROID, 09/17/2021, 15:45. [facility], , US FINE NEEDLE ASPIRATION, 10/19/2018, 9:15. FINDINGS: Location(s) of lesion(s) sampled: Left mid/upper pole nodule, previously labeled as nodule 2 Raymond: 25 gauge hypodermic needles. Number of passes: 6 Medications: 1% lidocaine for local anaesthesia. Complications: None. IMPRESSION: Successful ultrasound-guided 2.2 cm left lobe thyroid nodule fine needle aspiration, with cytology results pending. Comment: A sample was obtained for messenger RNA studies (Thyramir). Dictated by: Gaurav Avila M.D. on 09/30/2021 at 17:26 Approved by: Gaurav Avila M.D. on 09/30/2021 at 17:29
--- NOTE | 2021-09-30 | PATH_ITS ---
Note [facility] Accession Number: [id number] TESTS RESULT FLAG UNITS REF RANGE LAB Clinician Provided Cytology Information No. of containers..01 Other (Miscellaneous) No. of containers..02 Previously Prepared Cytology Slide Source: LEFT THYROID SUPERIOR NODULE DIAGNOSIS: LEFT THYROID SUPERIOR NODULE NEGATIVE FOR MALIGNANT CELLS. BETHESDA CATEGORY II. SPECIMEN CONSISTS OF BENIGN FOLLICULAR CELLS, BOTH MACRO- AND MICROFOLLICLES. THIS PATTERN IS CONSISTENT WITH A BENIGN FOLLICULAR NODULE. Pathologist ICD10: E04.1 Signed out by: Shirley Slaughter MD, Pathologist NPI- [id number] Performed by: Zenia Durbin, Senior Research Analyst ([facility]) Gross description: 30 CC, PINK, CLEAR RECIEVED: IN CYTOLYT WITH 6 ALCOHOL FIXED AND 6 QUICK STAINED SLIDES ALSO 1 RNA VIAL WAS RECEIVED. /VDU 10/01/[address] [place] [address] FLAG LEGEND: L-Low Normal,H-High Normal,LL-Alert Low,HH-Alert High <-Panic Low,>-Panic High,A-Abnormal,AA-Critical Abnormal Performed at: 01 =Z [facility] [address], [place] [address] Jayden Silva MD, Performed at: 01 [facility] [address], [place], [place] [id number] MD Jayden Silva MD Phone: [phone]
== END ==
PROVIDERS: PCP Family Medicine; Referring Provider Internal Medicine Endocrinology, Diabetes & Metabolism; Visit Provider Internal Medicine Endocrinology, Diabetes & Metabolism
DX: E04.1 Nontoxic single thyroid nodule (principal)
CPT/HCPCS: 10005

== ENCOUNTER → 2022-02-02 12:35 | Outpatient (CLI) | payer MEDICARE, OTHER, SELFPAY ==
[2020-01-24 11:30] VITALS: BMI 34.3
--- NOTE | 2022-02-02 12:37 | DI.ECHO.S_ITS ---
[place] [facility]---------+ [facility] +---------+ : : [address] : : : : [id number] : : : : Phone: [phone]+ Echocardiogram Report + + :Name: ABELARDO LAMA Study Date: 02/02/2022 Height: 64 in : :[facility] ReadingLocation: Weight: 187 lb : : Gender: Female BSA: 1.9 m2 : :: 1950 Age: 71 yrs BP: 148/84 mmHg: :Reason For Study: CARDIAC MURMUR : :Ordering Physician: WILMER, : :KATHRYN Performed By: Adele Lopez : :Referring: KATHRYN HERNANDEZ : + + Interpretation Summary 1) Normal left ventricular size with low normal systolic function (EF 50-55%). 2) Septal motion is consistent with conduction abnormality. 3) Normal right ventricular size and function. 4) There is mild to moderate aortic regurgitation. 5) Compared to the Echo done 09/28/2019, aortic regurgitation has progressed from mild to mild-moderate on this study. Procedure: A two-dimensional transthoracic echocardiogram with color flow and Doppler was performed. The study quality was technically adequate. Comparison is made with the echocardiogram of 09/28/2019. The patient had a bundle branch block rhythm during the exam. The heart rate ranged between 65- 78 bpm during the study. Left Ventricle: The left ventricle is normal in size. There is mild concentric left ventricular hypertrophy. The ejection fraction is estimated to be 50-55%. There is a mild dyssynchronous contraction pattern, consistent with a conduction abnormality. Diastolic function could not be accurately assessed due to contradictory data. Right Ventricle: The right ventricle is normal in size and function. Atria: The left atrial size is normal. Right atrial size is normal. There is no Doppler evidence for an interatrial shunt. Mitral Valve: The mitral valve is normal in structure and function. There is mild mitral regurgitation. Aortic Valve: The aortic valve is trileaflet. The aortic valve opens well. The aortic valve is slightly calcified. There is no aortic valve stenosis. There is mild to moderate aortic regurgitation. Tricuspid Valve: The tricuspid valve is normal in structure and function. There is mild tricuspid regurgitation. The right ventricular systolic pressure is estimated to be at least 30 mmHg based on an estimated right atrial pressure of 3 mm Hg. Pulmonic Valve: The pulmonic valve leaflets are thin and pliable; valve motion is normal. There is trace pulmonic regurgitation. Great Vessels: The aortic root is normal size. The dimensions of the ascending aorta are normal. The IVC is of normal diameter and collapses greater than 50% with a sniff. This suggests a low right atrial pressure of 3 mm Hg. Pericardium/ Pleura There is no pericardial effusion. There is no pleural effusion. MMode/2D Measurements & Calculations LVIDd: 4.3 cm LVOT diam: 2.0 cm LVIDs: 2.9 cm Ao root diam: 2.9 cm FS: 32.4 % asc Aorta Diam: 3.4 cm EPSS: 1.3 cm Ao Arch Diam (Prox Trans): 2.6 cm IVSd: 1.3 cm LVPWd: 1.1 cm LV whitaker. diameter/BSA (cm/m^2): 2.3 LV sys. diameter/BSA (cm/m^2): 1.5 LA A2 area: 22.2 cm2 RA long axis: 4.9 cm LA A4 area: 15.4 cm2 RA area: 15.4 cm2 LA length (vol): 5.1 cm RA vol: 41.1 ml LA vol: 56.8 ml RA : 21.6 ml/m2 LA vol index: 29.9 ml/m2 IVC diam: 1.6 cm RVD1 (basal): 3.4 cm RVD2 (mid): 3.0 cm TAPSE: 1.8 cm Doppler Measurements & Calculations Ao V2 max: 167.2 cm/sec LVOT Max Jonny: 81.8 cm/sec Ao V2 mean: 115.8 cm/sec LV V1 max P.7 mmHg Ao max P.2 mmHg LV V1 VTI: 18.9 cm Ao mean P.1 mmHg ROYAL(I,D): 1.7 cm2 Ao V2 VTI: 35.7 cm ROYAL(V,D): 1.6 cm2 sev ratio: 0.53 ROYAL indexed to BSA (cm^2/m^2): 0.90 AI P1/2t: 524.9 msec AI dec slope: 246.0 cm/sec2 MV E max jonny: 78.0 cm/sec TR max jonny: 259.6 cm/sec MV A max ojnny: 100.5 cm/sec TR max P.0 mmHg MV E/A: 0.78 PA V2 max: 104.7 cm/sec Med Peak E' Jonny: 4.0 cm/sec PA V2 mean: 70.8 cm/sec E/E' med: 19.3 PA mean P.3 mmHg Lat Peak E' Jonny: 6.3 cm/sec PA pr(Accel): 34.5 mmHg E/E' lat: 12.3 E/e' average: 15.8 MV dec time: 0.25 sec SV(LVOT): 61.4 ml Reading Physician:05:47 PM
== END ==
PROVIDERS: PCP Family Medicine; Referring Provider Internal Medicine Cardiovascular Disease; Visit Provider Internal Medicine Cardiovascular Disease
DX: I08.3 Combined rheumatic disorders of mitral, aortic and tricuspid valves (principal); R01.1 Cardiac murmur, unspecified
CPT/HCPCS: 93306

== ENCOUNTER → 2022-02-18 09:23 | Outpatient (CLI) | payer MEDICARE, OTHER, SELFPAY ==
[2020-01-24 11:30] VITALS: BMI 34.3
[2022-02-18 11:21] LABS: Add Manual Diff / Slide Review NO; Basophils Absolute Auto 0 /uL (0-100); Basophils Percent Auto 0.8 % (0-2); Eosinophils Absolute Auto 200 /uL (0-450); Eosinophils Percent Auto 3.9 % (2-4); Hematocrit 37.5 % (36-46); Hemoglobin 12.6 g/dL (12.0-16.0); Lymphocytes Absolute Auto 1600 /uL (1100-4500); Lymphocytes Percent Auto 29.6 % (25-40); Mean Corpuscular HGB Conc 33.5 % (30-36); Mean Corpuscular Hemoglobin 29.9 PG (26-34); Mean Corpuscular Volume 89.4 fL (80-100); Monocytes Absolute Auto 500 /uL (0-900); Monocytes Percent Auto 9.8 % (3-14); Neutrophils Absolute Auto 3100 /uL (1500-7000); Neutrophils Percent Auto 55.9 % (50-75); Platelet Count 268 X10^3/uL (150-400); Red Blood Cell Count 4.19 X10^6/uL (4.0-5.2); Red Cell Distribution Width 13.7 % (11.6-14.8); White Blood Cell Count 5.6 X10^3/uL (4.5-11.0)
[2022-02-18 11:23] LABS: Appearance Urine UA CLEAR; Bilirubin Urine UA NEGATIVE (NEGATIVE); Color Urine UA YELLOW; Glucose Urine UA NEGATIVE (Negative); Ketones Urine UA TRACE (NEGATIVE); Leukocyte Esterase Urine UA TRACE (NEGATIVE); Nitrite Urine UA NEGATIVE (Negative); Occult Blood Urine UA TRACE-LYSED (Negative); Protein Urine UA 1+ (Negative); Specific Gravity Urine UA 1.025 (1.000-1.035); Urobilinogen Urine UA 0.2 E.U./dL (0.2)
[2022-02-18 11:27] LABS: Creatinine Urine Random 141.5 mg/dL
[2022-02-18 11:32] LABS: Microalbumin Urine Random 14.3 mg/dL (0-1.6)
[2022-02-18 11:38] LABS: Bacteria Urine Many (>30); Culture Indicated Urine Specimen Cultured; RBC Urine 1-5/HPF (0-5/HPF); Squamous Epithelial Cell Urine 10-30 /HPF (0-5/HPF); WBC Urine 5-10/HPF (0-5/HPF)
[2022-02-18 11:59] LABS: Alanine Aminotransferase 17 IU/L (<35); Albumin 4.6 g/dL (3.5-5.0); Albumin Globulin Ratio 1.6 (1.0-2.8); Alkaline Phosphatase 66 U/L (38-126); Aspartate Aminotransferase 22 IU/L (14-36); Bilirubin Total 0.5 mg/dL (0.2-1.3); Blood Urea Nitrogen 19 mg/dL (7-17); Calcium 9.7 mg/dL (8.4-10.2); Carbon Dioxide 23 mmol/L (22-32); Chloride 103 mmol/L (98-107); Cholesterol 125 mg/dL (140-199); Estimated Glomerular Filt Rate 52 mL/min (>60); Globulin 2.9 g/dL (1.7-4.1); Glucose 145 mg/dL (80-110); HDL Cholesterol 54 mg/dL (40-60); HEMOLYSIS < 15 (0-50); LDL Cholesterol Calculated 48 mg/dL (<100); Potassium 4.7 mmol/L (3.4-5.1); Sodium 139 mmol/L (137-145); Total Protein 7.5 g/dL (6.3-8.2); Triglycerides 114 mg/dL (35-150)
[2022-02-18 12:00] LABS: Magnesium 1.7 mg/dL (1.6-2.3); Phosphorous 3.9 mg/dL (2.8-4.1); Uric Acid 6.5 mg/dL (2.5-6.2)
[2022-02-18 12:16] LABS: Vitamin D 25 Hydroxy (D3) 29.6 ng/mL (30.0-100.0)
[2022-02-18 12:21] LABS: TSH w/ Reflex to FT4 0.47 uIU/mL (0.47-4.68)
[2022-02-21 10:53] LABS: Parathyroid Hormone Int 50 pg/mL (15-65)
== END ==
PROVIDERS: PCP Family Medicine; Referring Provider Internal Medicine Nephrology; Visit Provider Internal Medicine Nephrology
DX: N18.32 Chronic kidney disease, stage 3b (principal); E11.319 Type 2 diabetes mellitus with unspecified diabetic retinopathy without macular edema; D64.9 Anemia, unspecified; I10 Essential (primary) hypertension; N17.9 Acute kidney failure, unspecified; N18.1 Chronic kidney disease, stage 1; N18.31 Chronic kidney disease, stage 3a
CPT/HCPCS: 36415; 80053; 80061; 81001; 82043; 82306; 82570; 83036; 83735; 83970; 84100; 84443; 84550; 85025; 87086

== ENCOUNTER → 2022-03-17 10:09 | Outpatient (CLI) | payer MEDICARE, OTHER, SELFPAY ==
[2020-01-24 11:30] VITALS: BMI 34.3
--- NOTE | 2022-03-17 10:10 | DI.MG.S_ITS ---
BILATERAL DIGITAL SCREENING MAMMOGRAM 3D/2D WITH CAD: 03/17/2022 CLINICAL: Routine screening. Family history of breast cancer. Comparison is made to exams dated: 03/24/2021 mammogram, 02/28/2020 mammogram, and 11/10/2018 mammogram - [facility]. Both breasts are heterogeneously dense, which may obscure small masses (category c / 51-75% glandular tissue). Current study was also evaluated with a Computer Aided Detection (CAD) system. There are benign calcifications in both breasts. There also are benign vascular calcifications in both breasts. No significant masses, calcifications, or other findings are seen in either breast. There has been no significant interval change. IMPRESSION: BENIGN There is no mammographic evidence of malignancy. A 1 year screening mammogram is recommended. Based on the Tyrer Cuzick model (a risk assessment model) the patient's lifetime risk is 4.3% and her 10 year risk is 3.2%. According to the ACR, ACS, and NCCN guidelines, an annual breast MRI exam along with mammogram is recommended if the patient's lifetime risk is 20% or greater. This exam was interpreted at Station ID: [id number]. NOTE: For mammograms, a report in lay terms will be sent to the patient. Approximately 15% of breast malignancies will not be visualized mammographically. In the management of a palpable breast mass, a negative mammogram must not discourage biopsy of a clinically suspicious lesion. Electronically Signed By: Lesly obregon/margie:03/17/2022 15:12:55 letter sent: Normal Exam ACR BI-RADS Category 2: Benign Finding(s) 3342F
[2022-03-17 11:57] LABS: Appearance Urine UA SL CLOUDY; Bilirubin Urine UA NEGATIVE (NEGATIVE); Color Urine UA YELLOW; Glucose Urine UA NEGATIVE (Negative); Ketones Urine UA NEGATIVE (NEGATIVE); Leukocyte Esterase Urine UA NEGATIVE (NEGATIVE); Nitrite Urine UA NEGATIVE (Negative); Occult Blood Urine UA TRACE-LYSED (Negative); Protein Urine UA 1+ (Negative); Specific Gravity Urine UA >=1.030 (1.000-1.035); Urobilinogen Urine UA 0.2 E.U./dL (0.2)
[2022-03-17 12:06] LABS: Bacteria Urine Moderate (10-30); Culture Indicated Urine Cult Not Indicated; RBC Urine 0-1/HPF (0-5/HPF); Squamous Epithelial Cell Urine 5-10 /HPF (0-5/HPF); WBC Urine 1-5/HPF (0-5/HPF)
== END ==
PROVIDERS: PCP Family Medicine; Referring Provider Family Medicine; Visit Provider Family Medicine
DX: Z12.31 Encounter for screening mammogram for malignant neoplasm of breast (principal); Z80.3 Family history of malignant neoplasm of breast; I12.9 Hypertensive chronic kidney disease with stage 1 through stage 4 chronic kidney disease, or unspecified chronic kidney disease; N18.31 Chronic kidney disease, stage 3a; N32.89 Other specified disorders of bladder
CPT/HCPCS: 77063; 77067; 81001

== ENCOUNTER → 2022-05-26 11:25 | Outpatient (CLI) | payer MEDICARE, OTHER, SELFPAY ==
[2020-01-24 11:30] VITALS: BMI 34.3
[2022-05-26 12:47] LABS: Appearance Urine UA SL CLOUDY; Bilirubin Urine UA NEGATIVE (NEGATIVE); Color Urine UA YELLOW; Glucose Urine UA NEGATIVE (Negative); Ketones Urine UA NEGATIVE (NEGATIVE); Leukocyte Esterase Urine UA 1+ (NEGATIVE); Nitrite Urine UA NEGATIVE (Negative); Occult Blood Urine UA 1+ (Negative); Protein Urine UA TRACE (Negative); Urobilinogen Urine UA 0.2 E.U./dL (0.2)
[2022-05-26 13:01] LABS: Free T4, Direct Thyroxine 1.03 ng/dL (0.78-2.19)
[2022-05-26 13:03] LABS: Bacteria Urine Moderate (10-30); Culture Indicated Urine Specimen Cultured; RBC Urine 1-5/HPF (0-5/HPF); Squamous Epithelial Cell Urine 0-1 /HPF (0-5/HPF); Transitional Epi Cells Urine 0-1/HPF (0-5/HPF); WBC Urine 30-100/HPF (0-5/HPF)
[2022-05-26 13:15] LABS: Thyroid Stimulating Hormone 1.62 uIU/mL (0.47-4.68)
== END ==
PROVIDERS: PCP Family Medicine; Referring Provider Internal Medicine Endocrinology, Diabetes & Metabolism; Visit Provider Internal Medicine Endocrinology, Diabetes & Metabolism
DX: E03.8 Other specified hypothyroidism (principal); E04.2 Nontoxic multinodular goiter; G89.29 Other chronic pain; M54.50 Low back pain, unspecified; R35.0 Frequency of micturition
CPT/HCPCS: 36415; 81001; 84439; 84443; 87077; 87086; 87186

== ENCOUNTER → 2022-08-27 12:41 | Outpatient (CLI) | payer MEDICARE, OTHER, SELFPAY ==
[2020-01-24 11:30] VITALS: BMI 34.3
--- NOTE | 2022-08-27 | DI.MRI.S_ITS ---
PROCEDURE: MR LUMBAR SPINE WO CON INDICATIONS: Spondylosis without myelopathy or radiculopathy, t TECHNIQUE: Noncontrast sagittal T1 spin echo and T2 fast echo, sagittal STIR, and T2 fast spin echo through the lumbar spine. In cases with scoliosis, additional coronal T2 fast spin echo may be performed. COMPARISON: [facility], MR, MR LUMBAR SPINE WO CON, 02/17/2018, 8:36. CT 01/06/2021 FINDINGS: Image quality: Good Alignment: There is leftward spinal curvature again seen, centered at L1. This is similar to prior. Trace retrolisthesis of L2 on L3 again seen. Marrow: Scattered Modic changes. Compared to 2018, there is new fusion hardware from L3-S1, with interbody spacers. These were present on CT from 2020. Multilevel disc space height loss and desiccation. Cord: Cord terminates at L1-L2, within normal limits. There is clumping of the cauda equina nerve roots at L2-L3. Soft tissues: There are small renal cysts. Postsurgical changes in the post lumbar soft tissues. Suspected small hiatal hernia. Specific levels: T11-T12: Mild facet arthropathy, mild to moderate left and moderate right neural foraminal narrowing. T12-L1 could posterior osteophyte and disc bulge. Facet arthropathy. Moderate right and mild left neural foraminal narrowing. Mild right subarticular recess narrowing. L1-L2: Right greater than left osteophyte and disc bulge. Facet arthropathy. Moderate central narrowing, affecting both subarticular recesses. Moderate to severe right and [id number] left neural foraminal narrowing. L2-L3: Posterior osteophyte, significant facet arthropathy, and diffuse disc bulge. There is significant displacement of the traversing L3 nerve root in the left subarticular recess. Moderate to severe central narrowing, also involving the right subarticular recess. Moderate right and severe left neural foraminal narrowing. The above levels are progressed compared to 2018 imaging. L3-L4: Fused level. Annular fissure. Small disc bulge. Moderate left neural foraminal narrowing. L4-L5: Fused level. Mild central narrowing affecting both subarticular recesses. Moderate left and mild right neural foraminal narrowing. L5-S1: Fused level [id number] left and mild right neural foraminal narrowing. IMPRESSION: Fusion from L3-S1. Spondylosis above the level of fusion, with particular stenosis at L2-L3, have progressed. Dictated by: Riley Ma M.D. on 08/27/2022 at 16:00 Approved by: Riley Ma M.D. on 08/27/2022 at 16:09
== END ==
PROVIDERS: PCP Family Medicine; Referring Provider Physical Medicine & Rehabilitation Pain Medicine; Visit Provider Physical Medicine & Rehabilitation Pain Medicine
DX: M47.815 Spondylosis without myelopathy or radiculopathy, thoracolumbar region (principal); M47.814 Spondylosis without myelopathy or radiculopathy, thoracic region; M47.816 Spondylosis without myelopathy or radiculopathy, lumbar region; M48.061 Spinal stenosis, lumbar region without neurogenic claudication; M54.50 Low back pain, unspecified; Z98.1 Arthrodesis status
CPT/HCPCS: 72148

== ENCOUNTER → 2022-09-03 15:30 | Outpatient (CLI) | payer MEDICARE, OTHER, SELFPAY ==
[2020-01-24 11:30] VITALS: BMI 34.3
[2022-09-03 16:39] LABS: Appearance Urine UA CLEAR; Bilirubin Urine UA NEGATIVE (NEGATIVE); Color Urine UA YELLOW; Glucose Urine UA NEGATIVE (Negative); Ketones Urine UA NEGATIVE (NEGATIVE); Leukocyte Esterase Urine UA TRACE (NEGATIVE); Nitrite Urine UA NEGATIVE (Negative); Occult Blood Urine UA NEGATIVE (Negative); Protein Urine UA NEGATIVE (Negative); Urobilinogen Urine UA 0.2 E.U./dL (0.2)
[2022-09-03 16:40] LABS: pH Urine UA 5.5 (4.5-8.0)
[2022-09-03 16:41] LABS: Hematocrit 33.7 % (36-46); Hemoglobin 11.4 g/dL (12.0-16.0); Mean Corpuscular HGB Conc 33.8 % (30-36); Mean Corpuscular Hemoglobin 30.2 PG (26-34); Mean Corpuscular Volume 89.4 fL (80-100); Platelet Count 251 X10^3/uL (150-400); Red Blood Cell Count 3.76 X10^6/uL (4.0-5.2); Red Cell Distribution Width 13.2 % (11.6-14.8); White Blood Cell Count 8.1 X10^3/uL (4.5-11.0)
[2022-09-03 16:46] LABS: Alanine Aminotransferase 23 IU/L (<35); Albumin 4.5 g/dL (3.5-5.0); Albumin Globulin Ratio 1.6 (1.0-2.8); Alkaline Phosphatase 67 U/L (38-126); Aspartate Aminotransferase 28 IU/L (14-36); BUN Creatinine Ratio 23.7 (6-22); Bilirubin Total 0.4 mg/dL (0.2-1.3); Blood Urea Nitrogen 31 mg/dL (7-17); Calcium 9.1 mg/dL (8.4-10.2); Carbon Dioxide 24 mmol/L (22-32); Chloride 103 mmol/L (98-107); Estimated Glomerular Filt Rate 43 mL/min (>60); Globulin 2.8 g/dL (1.7-4.1); Glucose 128 mg/dL (80-110); HEMOLYSIS < 15 (0-50); Potassium 4.3 mmol/L (3.4-5.1); Sodium 137 mmol/L (137-145); Total Protein 7.3 g/dL (6.3-8.2)
[2022-09-03 17:03] LABS: Free T4, Direct Thyroxine 0.93 ng/dL (0.78-2.19)
[2022-09-03 17:04] LABS: Bacteria Urine Occasional (0-1); Culture Indicated Urine Specimen Cultured; RBC Urine None Seen (0-5/HPF); Squamous Epithelial Cell Urine 5-10 /HPF (0-5/HPF); WBC Urine 5-10/HPF (0-5/HPF)
[2022-09-03 17:17] LABS: Thyroid Stimulating Hormone 1.29 uIU/mL (0.47-4.68)
[2022-09-04 08:29] LABS: Labcorp Hemoglobin (Hb) A1c 6.6 % (4.8-5.6)
== END ==
PROVIDERS: PCP Family Medicine; Referring Provider Nurse Practitioner Family; Visit Provider Nurse Practitioner Family
DX: D64.9 Anemia, unspecified (principal); E11.9 Type 2 diabetes mellitus without complications; I10 Essential (primary) hypertension; N18.31 Chronic kidney disease, stage 3a
CPT/HCPCS: 36415; 80053; 81001; 83036; 84439; 84443; 85027; 87086

== ENCOUNTER → 2022-09-11 13:46 | Outpatient (CLI) | payer MEDICARE, OTHER, SELFPAY ==
[2020-01-24 11:30] VITALS: BMI 34.3
--- NOTE | 2022-09-11 13:47 | DI.MRI.S_ITS ---
PROCEDURE: MR THORACIC SPINE WO CON INDICATIONS: Sprain of unspecified parts of thorax TECHNIQUE: Noncontrast sagittal T1 spine echo and T2 fast spin echo, sagittal STIR, and T2 fast spin echo through the thoracic spine. COMPARISON: [facility], , MR LUMBAR SPINE WO CON, 08/27/2022, 13:10. [facility] [place], CR, XR THORACIC SPINE 2 VIEWS, 08/18/2022, 14:26. FINDINGS: Image quality: Excellent. Alignment and Curvature: Mild dextroconvex scoliotic curvature is seen. Accentuated thoracic kyphosis is seen. No focal AP alignment abnormality is seen. Bone Marrow: Marrow is of normal overall signal. No acute vertebral body compression fractures. Spinal Cord: Visualized spinal cord is normal in size and signal. Paraspinous Soft Tissues: No paravertebral masses. A small hiatal hernia is incidentally noted. Miscellaneous: At the T5-T6 level, there is a central/right disc protrusion. Mild central canal narrowing is seen, without significant mass effect upon the ventral spinal cord. Moderate bilateral neural foraminal narrowing is seen. At the T6-T7 level, there is a central/left disc protrusion seen, with new mild central canal narrowing and mild mass effect upon the ventral spinal cord. At least moderate bilateral neural foraminal narrowing can be seen. At the T7-T8 level, there is a central/left disc protrusion seen, with minimal central canal narrowing, without mass effect upon the ventral spinal cord. Mac VIII right foraminal At the T1-T2 level, there is a central/right disc protrusion, with moderate central canal narrowing and at least moderate right-sided neural foraminal narrowing. Milder degenerative changes are seen elsewhere. IMPRESSION: Midthoracic spine degenerative change can be seen. Additional findings: Small hiatal hernia Dictated by: Laurent Rhoades M.D. on 09/13/2022 at 17:36 Approved by: Laurent Rhoades M.D. on 09/13/2022 at 17:39
== END ==
PROVIDERS: PCP Family Medicine; Referring Provider Physical Medicine & Rehabilitation Pain Medicine; Visit Provider Physical Medicine & Rehabilitation Pain Medicine
DX: S23.9XXA Sprain of unspecified parts of thorax, initial encounter (principal); M47.814 Spondylosis without myelopathy or radiculopathy, thoracic region; K44.9 Diaphragmatic hernia without obstruction or gangrene
CPT/HCPCS: 72146

== ENCOUNTER → 2022-09-15 16:58 | Outpatient (CLI) | payer MEDICARE, OTHER, SELFPAY ==
[2020-01-24 11:30] VITALS: BMI 34.3
--- NOTE | 2022-09-15 17:01 | DI.US.S_ITS ---
PROCEDURE: US ABDOMEN COMPLETE INDICATIONS: PAIN TECHNIQUE: Real-time scanning was performed of the abdominal and retroperitoneal organs, with image documentation. COMPARISON: [facility], US, US ABDOMEN COMPLETE, 10/15/2020, 9:39. [facility], CT, CT ABDOMEN PELVIS WITH CONTRAST, 01/06/2021, 14:17. FINDINGS: Liver: Liver is normal in size and homogeneous in echotexture. Gallbladder: No findings of gallstones or sludge are seen. The gallbladder wall is not thickened, measuring 3 mm or less. No specific pericholecystic fluid is seen. The sonographic Cortes sign is negative. Biliary ducts: Intrahepatic bile ducts are non-dilated. Extrahepatic bile duct caliber measures 6 mm. Normal is 6-7 mm or less in diameter, or 10 mm or less post-cholecystectomy. Pancreas: Visualized portions of the pancreas are sonographically normal. Spleen: Spleen is normal in size and homogeneous in echotexture. Kidneys: Kidneys are normal in size and echotexture. Right kidney measures 10.7 cm long; left kidney measures 9.9 cm long. No hydronephrosis or nephrolithiasis. No solid masses. At the inferior aspect of the right kidney, there is a 1.3 cm simple cyst seen. Within the left kidney, multiple likely simple peripelvic cysts can be seen that measure up to 0.9 cm. Aorta: Visualized aorta is normal in caliber at less than 3 cm. Iliacs: Proximal common iliac arteries are normal in caliber at less than 2.5 cm. IVC: Intrahepatic inferior vena cava is patent. Miscellaneous: No free abdominal fluid. Overall scan quality is limited to bowel gas. The patient's lap band surgery is partially seen. IMPRESSION: The gallbladder demonstrates a normal sonographic appearance. No biliary dilatation is seen. Additional findings: Bilateral renal cysts Dictated by: Laurent Rhoades M.D. on 09/15/2022 at 17:14 Approved by: Laurent Rhoades M.D. on 09/15/2022 at 17:16
== END ==
PROVIDERS: PCP Family Medicine; Referring Provider Nurse Practitioner Family; Visit Provider Nurse Practitioner Family
DX: N28.1 Cyst of kidney, acquired (principal); R10.9 Unspecified abdominal pain
CPT/HCPCS: 76700

== ENCOUNTER → 2022-09-23 12:38 | Outpatient (CLI) | payer MEDICARE, OTHER, SELFPAY ==
[2020-01-24 11:30] VITALS: BMI 34.3
[2022-09-23 13:55] LABS: Albumin 4.7 g/dL (3.5-5.0); Blood Urea Nitrogen 26 mg/dL (7-17); Calcium 9.6 mg/dL (8.4-10.2); Carbon Dioxide 24 mmol/L (22-32); Chloride 104 mmol/L (98-107); Estimated Glomerular Filt Rate 46 mL/min (>60); Glucose 111 mg/dL (80-110); HEMOLYSIS < 15 (0-50); Magnesium 1.7 mg/dL (1.6-2.3); Phosphorous 3.6 mg/dL (2.8-4.1); Potassium 4.2 mmol/L (3.4-5.1); Sodium 138 mmol/L (137-145)
[2022-09-23 14:53] LABS: Folate 11.7 ng/mL (2.76-20.0); Vitamin B12 265 pg/mL (239-931)
[2022-09-24 06:36] LABS: Parathyroid Hormone Int 40 pg/mL (15-65)
[2022-09-24 17:25] LABS: Vitamin D 25 Hydroxy (D3) 33.6 ng/mL (30.0-100.0)
== END ==
PROVIDERS: PCP Family Medicine; Referring Provider Internal Medicine Nephrology; Visit Provider Internal Medicine Nephrology
DX: N18.31 Chronic kidney disease, stage 3a (principal)
CPT/HCPCS: 36415; 80048; 82040; 82306; 82607; 82746; 83735; 83970; 84100

== ENCOUNTER → 2022-12-30 10:59 | Outpatient (CLI) | payer MEDICARE, OTHER, SELFPAY ==
[2020-01-24 11:30] VITALS: BMI 34.3
[2022-12-30 12:24] LABS: Erythrocyte Sedimentation Rate 18 MM/HR (0-20)
[2022-12-30 12:31] LABS: C-Reactive Protein Quant < 0.5 mg/dL (<1.0)
[2022-12-30 12:32] LABS: Rheumatoid Factor < 8.6 IU/mL (<12.0)
[2023-01-01 14:34] LABS: ANA Screen, IFA Negative (.)
[2023-01-07 14:39] LABS: HLA B27 Negative (.)
== END ==
PROVIDERS: PCP Family Medicine; Referring Provider Family Medicine; Visit Provider Family Medicine
DX: R25.2 Cramp and spasm (principal); M65.30 Trigger finger, unspecified finger; M25.60 Stiffness of unspecified joint, not elsewhere classified; M47.816 Spondylosis without myelopathy or radiculopathy, lumbar region; M45.9 Ankylosing spondylitis of unspecified sites in spine
CPT/HCPCS: 36415; 81374; 85651; 86038; 86140; 86430

== ENCOUNTER → 2023-03-19 07:59 | Outpatient (CLI) | payer MEDICARE, OTHER, SELFPAY ==
[2020-01-24 11:30] VITALS: BMI 34.3
--- NOTE | 2023-03-19 | DI.MG.S_ITS ---
BILATERAL DIGITAL SCREENING MAMMOGRAM 3D/2D WITH CAD: 03/19/2023 CLINICAL: Routine screening. Family history of breast cancer. Comparison is made to exams dated: 03/17/2022 mammogram, 03/24/2021 mammogram, and 02/28/2020 mammogram - [facility]. Both breasts are heterogeneously dense, which may obscure small masses (category c / 51-75% glandular tissue). Current study was also evaluated with a Computer Aided Detection (CAD) system. There are benign calcifications in both breasts. There also are benign vascular calcifications in both breasts. No significant masses, calcifications, or other findings are seen in either breast. There has been no significant interval change. IMPRESSION: BENIGN There is no mammographic evidence of malignancy. A 1 year screening mammogram is recommended. Based on the Tyrer Cuzick model (a risk assessment model) the patient's lifetime risk is 4.1% and her 10 year risk is 3.3%. According to the ACR, ACS, and NCCN guidelines, an annual breast MRI exam along with mammogram is recommended if the patient's lifetime risk is 20% or greater. This exam was interpreted at Station ID: [id number]. NOTE: For mammograms, a report in lay terms will be sent to the patient. Approximately 15% of breast malignancies will not be visualized mammographically. In the management of a palpable breast mass, a negative mammogram must not discourage biopsy of a clinically suspicious lesion. Electronically Signed By: Riley barry/margie:03/21/2023 09:11:19 letter sent: Normal Exam ACR BI-RADS Category 2: Benign Finding(s) 3342F
[2023-03-19 09:29] LABS: Add Manual Diff / Slide Review NO; Basophils Absolute Auto 0 /uL (0-100); Basophils Percent Auto 0.4 % (0-2); Eosinophils Absolute Auto 300 /uL (0-450); Eosinophils Percent Auto 4.6 % (2-4); Hematocrit 35.7 % (36-46); Hemoglobin 11.9 g/dL (12.0-16.0); Lymphocytes Absolute Auto 1800 /uL (1100-4500); Lymphocytes Percent Auto 30.8 % (25-40); Mean Corpuscular HGB Conc 33.3 % (30-36); Mean Corpuscular Hemoglobin 30.3 PG (26-34); Monocytes Absolute Auto 600 /uL (0-900); Monocytes Percent Auto 9.5 % (3-14); Neutrophils Absolute Auto 3200 /uL (1500-7000); Neutrophils Percent Auto 54.7 % (50-75); Platelet Count 292 X10^3/uL (150-400); Red Blood Cell Count 3.92 X10^6/uL (4.0-5.2); Red Cell Distribution Width 14.3 % (11.6-14.8); White Blood Cell Count 5.8 X10^3/uL (4.5-11.0)
[2023-03-19 09:41] LABS: Albumin 4.5 g/dL (3.5-5.0); BUN Creatinine Ratio 22.7 (6-22); Blood Urea Nitrogen 29 mg/dL (7-17); Calcium 9.8 mg/dL (8.4-10.2); Carbon Dioxide 25 mmol/L (22-32); Chloride 103 mmol/L (98-107); Estimated Glomerular Filt Rate 44 mL/min (>60); Glucose 133 mg/dL (80-110); HEMOLYSIS < 15 (0-50); Phosphorous 3.6 mg/dL (2.8-4.1); Potassium 4.8 mmol/L (3.4-5.1); Sodium 137 mmol/L (137-145); Uric Acid 6.8 mg/dL (2.5-6.2)
[2023-03-19 09:54] LABS: Microalbumin Urine Random 7.4 mg/dL (0-1.6)
[2023-03-19 10:08] LABS: Vitamin D 25 Hydroxy (D3) 27.6 ng/mL (30.0-100.0)
[2023-03-22 06:32] LABS: Parathyroid Hormone Int 73 pg/mL (15-65)
== END ==
LOC: MAMMO 08:05
PROVIDERS: PCP Family Medicine; Referring Provider Family Medicine; Visit Provider Family Medicine
DX: Z12.31 Encounter for screening mammogram for malignant neoplasm of breast (principal); Z80.3 Family history of malignant neoplasm of breast; N18.32 Chronic kidney disease, stage 3b; R92.333 Mammographic heterogeneous density, bilateral breasts
CPT/HCPCS: 36415; 77063; 77067; 80048; 82040; 82043; 82306; 82570; 83735; 83970; 84100; 84550; 85025

== ENCOUNTER → 2023-04-09 10:48 | Outpatient (CLI) | payer MEDICARE, OTHER, SELFPAY ==
[2020-01-24 11:30] VITALS: BMI 34.3
[2023-04-09 11:28] LABS: Lipase 97 U/L (23-300)
[2023-04-09 11:43] LABS: Free T4, Direct Thyroxine 0.75 ng/dL (0.78-2.19)
[2023-04-09 11:57] LABS: Thyroid Stimulating Hormone 1.17 uIU/mL (0.47-4.68)
== END ==
LOC: LAB 10:50
PROVIDERS: PCP Family Medicine; Referring Provider Internal Medicine Endocrinology, Diabetes & Metabolism; Visit Provider Internal Medicine Endocrinology, Diabetes & Metabolism
DX: E03.8 Other specified hypothyroidism (principal); E11.22 Type 2 diabetes mellitus with diabetic chronic kidney disease; N18.31 Chronic kidney disease, stage 3a; E78.5 Hyperlipidemia, unspecified; R10.9 Unspecified abdominal pain; Z79.4 Long term (current) use of insulin
CPT/HCPCS: 36415; 83690; 84439; 84443

== ENCOUNTER → 2023-04-14 12:47 | Outpatient (CLI) | payer MEDICARE, OTHER, SELFPAY ==
[2020-01-24 11:30] VITALS: BMI 34.3
--- NOTE | 2023-04-14 | DI.US.S_ITS ---
PROCEDURE: US THYROID INDICATIONS: NONTOXIC MULTINODULAR GOITER TECHNIQUE: Real-time scanning was performed of the thyroid gland, with image documentation. COMPARISON: [facility], US, US THYROID, 09/17/2021, 15:45. FINDINGS: Right: Thyroid lobe measures 5.3 x 1.2 x 1.7 cm, and is homogeneous in echotexture. Left: Thyroid lobe measures 4.1 x 2.0 x 1.6 cm, and is homogenous in echotexture. Isthmus: 0.4 cm thick. Nodule number: 1 Location: Isthmus Size: Stable at 1.3 cm. Composition: Predominantly cystic Echogenicity: Hypoechoic Shape: wider than tall. Margins: Smooth Echogenic foci: None Total points: 3 ACR TI-RADS category: 3 Nodule number: 2 Location: Left mid/superior Size: Stable a 2.2 cm. Composition: Solid Echogenicity: Hypoechoic Shape: wider than tall. Margins: Smooth Echogenic foci: None Total points: 4 ACR TI-RADS category: 4 Nodule number: 3 Location: Left mid/inferior Size: Stable at 0.8 cm. Composition: Solid Echogenicity: Isoechoic Shape: wider than tall. Margins: Ill-defined Echogenic foci: None Total points: 3 ACR TI-RADS category: 3 The nodule labeled 3 on prior exam is not visualized on current exam. IMPRESSION: Stable thyroid nodules compared to prior with one of the nodules on prior exam not visualized on current exam. Nodule #2 qualifies for fine-needle aspiration if not previously performed. ACR TI-RADS definitions and recommendations: TI-RADS 1 (benign): 0 points. FNA not needed. TI-RADS 2 (not suspicious): 2 points. FNA not needed. TI-RADS 3 (mildly suspicious): 3 points. * FNA if 2.5 cm or larger, follow up if 1.5 cm or larger (at 1, 3, and 5 years). TI-RADS 4 (moderately suspicious): 4-6 points. * FNA if 1.5 cm or larger, follow up if 1 cm or larger (at 1, 2, 3, and 5 years). TI-RADS 5 (highly suspicious): 7 points or more. * FNA if 1 cm or larger, follow up if 0.5 cm or larger (every year for 5 years). Dictated by: Yong Crook M.D. on 04/14/2023 at 15:28 Approved by: Yong Crook M.D. on 04/14/2023 at 15:34
== END ==
LOC: US 12:48
PROVIDERS: PCP Family Medicine; Referring Provider Internal Medicine Endocrinology, Diabetes & Metabolism; Visit Provider Internal Medicine Endocrinology, Diabetes & Metabolism
DX: E03.8 Other specified hypothyroidism (principal); E04.2 Nontoxic multinodular goiter
CPT/HCPCS: 76536

== ENCOUNTER → 2023-05-26 09:27 | Outpatient (CLI) | payer MEDICARE, OTHER, SELFPAY ==
[2020-01-24 11:30] VITALS: BMI 34.3
[2023-05-26 09:58] LABS: Add Manual Diff / Slide Review NO; Basophils Absolute Auto 0 /uL (0-100); Basophils Percent Auto 0.7 % (0-2); Eosinophils Absolute Auto 200 /uL (0-450); Eosinophils Percent Auto 4.5 % (2-4); Hematocrit 34.7 % (36-46); Hemoglobin 11.8 g/dL (12.0-16.0); Lymphocytes Absolute Auto 1900 /uL (1100-4500); Lymphocytes Percent Auto 35.3 % (25-40); Mean Corpuscular HGB Conc 33.9 % (30-36); Mean Corpuscular Hemoglobin 30.5 PG (26-34); Mean Corpuscular Volume 89.9 fL (80-100); Monocytes Absolute Auto 600 /uL (0-900); Neutrophils Absolute Auto 2600 /uL (1500-7000); Neutrophils Percent Auto 47.5 % (50-75); Platelet Count 294 X10^3/uL (150-400); Red Blood Cell Count 3.86 X10^6/uL (4.0-5.2); Red Cell Distribution Width 13.8 % (11.6-14.8); White Blood Cell Count 5.4 X10^3/uL (4.5-11.0)
[2023-05-26 10:22] LABS: Hemoglobin A1C% w Est Avg Glu 6.3 % (4.0-6.0)
[2023-05-26 10:30] LABS: BUN Creatinine Ratio 24.8 (6-22); Blood Urea Nitrogen 30 mg/dL (7-17); Calcium 9.6 mg/dL (8.4-10.2); Carbon Dioxide 22 mmol/L (22-32); Chloride 109 mmol/L (98-107); Cholesterol 131 mg/dL (140-199); Estimated Glomerular Filt Rate 47 mL/min (>60); Glucose 130 mg/dL (80-110); HDL Cholesterol 60 mg/dL (40-60); HEMOLYSIS < 15 (0-50); LDL Cholesterol Calculated 58 mg/dL (<100); Potassium 4.2 mmol/L (3.4-5.1); Sodium 140 mmol/L (137-145); Triglycerides 63 mg/dL (35-150)
== END ==
PROVIDERS: PCP Family Medicine; Referring Provider Internal Medicine Cardiovascular Disease; Visit Provider Internal Medicine Cardiovascular Disease
DX: I10 Essential (primary) hypertension (principal); E11.9 Type 2 diabetes mellitus without complications
CPT/HCPCS: 36415; 80048; 80061; 83036; 85025

== ENCOUNTER → 2023-09-09 14:02 | Outpatient (CLI) | payer MEDICARE, OTHER, SELFPAY ==
[2020-01-24 11:30] VITALS: BMI 34.3
--- NOTE | 2023-09-09 14:03 | DI.US.S_ITS ---
PROCEDURE: US THYROID INDICATIONS: Nontoxic multinodular goiter TECHNIQUE: Real-time scanning was performed of the thyroid gland, with image documentation. COMPARISON: [facility], US, US THYROID, 04/14/2023, 13:21. FINDINGS: Thyroid: Right lobe measures 4.6 x 2.1 x 2.0 cm. Left lobe measures 3.7 x 1.6 x 2.0 cm. Isthmus is 0.6 cm thick. Echotexture is heterogeneous. Multiple thyroid nodules which do not meet size criteria for follow-up. These are no longer reported. Nodule number: 2 Location: Left superior pole Size: 2.1 x 1.6 x 1.3 cm. Previously 2.2 x 2.0 x 1.1 centimeters, and biopsied. Composition: Mixed cystic and solid Echogenicity: Hypoechoic Shape: Taller than wide Margins: Smooth Echogenic foci: None Total points: 3 ACR TI-RADS category: 3 IMPRESSION: Heterogeneous thyroid, consistent with thyroiditis. Previously biopsied thyroid nodule 2 has not demonstrated interval growth to warrant additional biopsy. ACR TI-RADS definitions and recommendations: TI-RADS 1 (benign): 0 points. FNA not needed. TI-RADS 2 (not suspicious): 2 points. FNA not needed. TI-RADS 3 (mildly suspicious): 3 points. * FNA if 2.5 cm or larger, follow up if 1.5 cm or larger (at 1, 3, and 5 years). TI-RADS 4 (moderately suspicious): 4-6 points. * FNA if 1.5 cm or larger, follow up if 1 cm or larger (at 1, 2, 3, and 5 years). TI-RADS 5 (highly suspicious): 7 points or more. * FNA if 1 cm or larger, follow up if 0.5 cm or larger (every year for 5 years). Dictated by: West Dawson M.D. on 09/09/2023 at 17:04 Approved by: West Dawson M.D. on 09/09/2023 at 17:07
== END ==
PROVIDERS: PCP Family Medicine; Referring Provider Internal Medicine Endocrinology, Diabetes & Metabolism; Visit Provider Internal Medicine Endocrinology, Diabetes & Metabolism
DX: E04.2 Nontoxic multinodular goiter (principal); E03.8 Other specified hypothyroidism
CPT/HCPCS: 76536

== ENCOUNTER → 2023-09-22 09:18 | Outpatient (CLI) | payer MEDICARE, OTHER, SELFPAY ==
[2020-01-24 11:30] VITALS: BMI 34.3
[2023-09-22 11:05] LABS: Lipase 121 U/L (23-300)
[2023-09-22 13:34] LABS: Free T4, Direct Thyroxine 1.31 ng/dL (0.78-2.19)
[2023-09-22 13:48] LABS: Thyroid Stimulating Hormone 1.15 uIU/mL (0.47-4.68)
== END ==
LOC: LAB 09:22
PROVIDERS: PCP Family Medicine; Referring Provider Internal Medicine Endocrinology, Diabetes & Metabolism; Visit Provider Internal Medicine Endocrinology, Diabetes & Metabolism
DX: E03.8 Other specified hypothyroidism (principal); E11.22 Type 2 diabetes mellitus with diabetic chronic kidney disease; N18.31 Chronic kidney disease, stage 3a; Z94.4 Liver transplant status; I10 Essential (primary) hypertension; R10.9 Unspecified abdominal pain; E78.5 Hyperlipidemia, unspecified
CPT/HCPCS: 36415; 83690; 84439; 84443

== ENCOUNTER → 2023-10-13 10:00 | Outpatient (CLI) | payer MEDICARE, OTHER, SELFPAY ==
[2020-01-24 11:30] VITALS: BMI 34.3
[2023-10-13 11:03] LABS: Albumin 4.5 g/dL (3.5-5.0); BUN Creatinine Ratio 21.2 (6-22); Blood Urea Nitrogen 24 mg/dL (7-17); Calcium 9.5 mg/dL (8.4-10.2); Carbon Dioxide 23 mmol/L (22-32); Chloride 106 mmol/L (98-107); Estimated Glomerular Filt Rate 51 mL/min (>60); Glucose 131 mg/dL (80-110); HEMOLYSIS < 15 (0-50); Magnesium 1.8 mg/dL (1.6-2.3); Potassium 4.5 mmol/L (3.4-5.1); Sodium 137 mmol/L (137-145)
[2023-10-13 11:05] LABS: Creatinine Urine Random 67.31 mg/dL
[2023-10-13 11:09] LABS: Microalbumin Urine Random 10.5 mg/dL (0-1.6)
[2023-10-13 16:42] LABS: Vitamin D 25 Hydroxy (D3) 27.4 ng/mL (30.0-100.0)
[2023-10-14 08:36] LABS: Parathyroid Hormone Int 46 pg/mL (15-65)
== END ==
PROVIDERS: PCP Family Medicine; Referring Provider Internal Medicine Nephrology; Visit Provider Internal Medicine Nephrology
DX: N18.32 Chronic kidney disease, stage 3b (principal)
CPT/HCPCS: 36415; 80048; 82040; 82043; 82306; 82570; 83735; 83970

== ENCOUNTER → 2024-01-12 06:57 | Outpatient (CLI) | payer MEDICARE, OTHER, SELFPAY ==
[2020-01-24 11:30] VITALS: BMI 34.3
--- NOTE | 2024-01-12 06:58 | DI.ECHO.S_ITS ---
[place] [facility]---------+ [facility] : : [address] : : [address] : : [id number] : : Phone: [phone] Echocardiogram Report + + :Name: ABELARDO LAMA Study Date: 01/12/2024 Height: 64 in : :[facility] ReadingLocation: Weight: 175 lb : : Gender: Female BSA: 1.8 m2 : :: 1950 Age: 73 yrs BP: 151/77 mmHg: :Reason For Study: NONRHEUMATIC AORTIC VALVE INSUFFICIENCY : :Ordering Physician: WILMER, : :KATHRYN Performed By: Davon Alvarado : :Referring: KATHRYN HERNANDEZ : + + Interpretation Summary 1) Normal left ventricular size with normal systolic function (EF 55-60%). 2) Septal motion is consistent with conduction abnormality. 3) Normal right ventricular size and function. 4) There is mild-moderate aortic regurgitation. 5) Compared to the Echo done 02/02/2022, no significant change. Procedure: A two-dimensional transthoracic echocardiogram with color flow and Doppler was performed. The study quality was technically good. Comparison is made with the echocardiogram of 02/02/2022. The patient was in normal sinus rhythm during the exam. Left Ventricle: The left ventricle is normal in size. Left ventricular wall thickness is mildly increased. There is no ventricular septal defect visualized. The ejection fraction is estimated to be 55-60%. Septal motion is consistent with conduction abnormality. Right Ventricle: The right ventricle is normal in size and function. Atria: The left atrial size is normal. Right atrial size is normal. There is no Doppler evidence for an atrial septal defect. Mitral Valve: The mitral valve is normal in structure and function. There is mild mitral regurgitation. Aortic Valve: The aortic valve is trileaflet. The aortic valve opens well. The aortic valve is mildly calcified. There is no aortic valve stenosis. There is mild to moderate aortic regurgitation. Tricuspid Valve: The tricuspid valve is normal in structure and function. There is mild tricuspid regurgitation. The right ventricular systolic pressure is estimated to be at least 29 mmHg based on an estimated right atrial pressure of 3 mm Hg. Pulmonic Valve: The pulmonic valve is not well visualized. There is no pulmonic valvular regurgitation. Great Vessels: The aortic root is normal size. The dimensions of the ascending aorta are normal. The pulmonary artery is normal size. The IVC is of normal diameter and collapses greater than 50% with a sniff. This suggests a low right atrial pressure of 3 mm Hg. Pericardium/ Pleura There is no pericardial effusion. There is no pleural effusion. MMode/2D Measurements & Calculations LVIDd: 4.2 cm LVOT diam: 2.1 cm LVIDs: 2.9 cm Ao root diam: 3.0 cm FS: 29.3 % asc Aorta Diam: 3.2 cm EPSS: 0.84 cm IVSd: 1.2 cm LVPWd: 1.3 cm LV whitaker. diameter/BSA (cm/m^2): 2.3 LV sys. diameter/BSA (cm/m^2): 1.6 LA A2 area: 19.0 cm2 RA long axis: 4.1 cm LA A4 area: 18.0 cm2 RA area: 10.1 cm2 LA length (vol): 5.3 cm RA vol: 21.2 ml LA vol: 54.6 ml RA : 11.5 ml/m2 LA vol index: 29.5 ml/m2 IVC diam: 1.2 cm RVD1 (basal): 3.4 cm RVD2 (mid): 3.0 cm TAPSE: 2.9 cm Doppler Measurements & Calculations Ao V2 max: 169.7 cm/sec LVOT Max Jonny: 106.8 cm/sec Ao V2 mean: 120.8 cm/sec LV V1 max P.6 mmHg Ao max P.5 mmHg LV V1 VTI: 26.3 cm Ao mean P.7 mmHg ROYAL(I,D): 2.2 cm2 Ao V2 VTI: 41.4 cm ROYAL(V,D): 2.2 cm2 sev ratio: 0.64 ROYAL indexed to BSA (cm^2/m^2): 1.2 AI P1/2t: 429.3 msec AI dec slope: 274.0 cm/sec2 MV E max jonny: 66.3 cm/sec TR max jonny: 256.3 cm/sec MV A max jonny: 86.9 cm/sec TR max P.3 mmHg MV E/A: 0.76 PA V2 max: 92.5 cm/sec Med Peak E' Jonny: 5.1 cm/sec PA V2 mean: 60.8 cm/sec E/E' med: 13.0 PA mean P.7 mmHg Lat Peak E' Jonny: 5.0 cm/sec PA pr(Accel): 60.2 mmHg E/E' lat: 13.3 E/e' average: 13.1 MV dec time: 0.19 sec SV(LVOT): 92.4 ml Reading Physician:11:08 AM
== END ==
PROVIDERS: PCP Family Medicine; Referring Provider Internal Medicine Cardiovascular Disease; Visit Provider Internal Medicine Cardiovascular Disease
DX: I08.3 Combined rheumatic disorders of mitral, aortic and tricuspid valves (principal)
CPT/HCPCS: 93306

== ENCOUNTER → 2024-01-26 16:32 | Outpatient (CLI) | payer MEDICARE, OTHER, SELFPAY ==
[2020-01-24 11:30] VITALS: BMI 34.3
== END ==
PROVIDERS: PCP Family Medicine; Visit Provider Physician Assistant
DX: R30.0 Dysuria (principal)
CPT/HCPCS: 87077; 87086; 87186

== ENCOUNTER → 2024-03-20 15:39 | Outpatient (CLI) | payer MEDICARE, OTHER, SELFPAY ==
[2020-01-24 11:30] VITALS: BMI 34.3
--- NOTE | 2024-03-20 15:40 | DI.MG.S_ITS ---
BILATERAL DIGITAL SCREENING MAMMOGRAM 3D/2D WITH CAD: 03/20/2024 CLINICAL: Routine screening. Comparison is made to exams dated: 03/19/2023 mammogram, 03/17/2022 mammogram, and 03/24/2021 mammogram - [facility]. There are scattered areas of fibroglandular density (category b / 25%-50% glandular tissue). Current study was also evaluated with a Computer Aided Detection (CAD) system. There are benign calcifications in both breasts. There also are benign vascular calcifications in both breasts. No significant masses, calcifications, or other findings are seen in either breast. There has been no significant interval change. IMPRESSION: BENIGN There is no mammographic evidence of malignancy. A 1 year screening mammogram is recommended. Based on the Tyrer Cuzick model (a risk assessment model) the patient's lifetime risk is 2.5% and her 10 year risk is 2.2%. According to the ACR, ACS, and NCCN guidelines, an annual breast MRI exam along with mammogram is recommended if the patient's lifetime risk is 20% or greater. This exam was interpreted at Station ID: [id number]. NOTE: For mammograms, a report in lay terms will be sent to the patient. Approximately 15% of breast malignancies will not be visualized mammographically. In the management of a palpable breast mass, a negative mammogram must not discourage biopsy of a clinically suspicious lesion. Electronically Signed By: Lesly obregon/margie:03/21/2024 14:27:15 letter sent: Normal Exam ACR BI-RADS Category 2: Benign
== END ==
PROVIDERS: PCP Family Medicine; Referring Provider Family Medicine; Visit Provider Family Medicine
DX: Z12.31 Encounter for screening mammogram for malignant neoplasm of breast (principal)
CPT/HCPCS: 77063; 77067

== ENCOUNTER → 2024-03-30 14:56 | Outpatient (CLI) | payer MEDICARE, OTHER, SELFPAY ==
[2020-01-24 11:30] VITALS: BMI 34.3
[2024-03-30 17:15] LABS: Hemoglobin A1C% w Est Avg Glu 6.3 % (4.0-6.0)
== END ==
PROVIDERS: PCP Family Medicine; Referring Provider Family Medicine; Visit Provider Family Medicine
DX: E11.9 Type 2 diabetes mellitus without complications (principal)
CPT/HCPCS: 36415; 83036

== ENCOUNTER → 2024-04-12 11:49 | Outpatient (CLI) | payer MEDICARE, OTHER, SELFPAY ==
[2020-01-24 11:30] VITALS: BMI 34.3
--- NOTE | 2024-04-12 11:52 | DI.MRI.S_ITS ---
PROCEDURE: MR LUMBAR SPINE WO CON INDICATIONS: numbness in hands, cramping, TECHNIQUE: Noncontrast sagittal T1 spin echo and T2 fast echo, sagittal STIR, and T2 fast spin echo through the lumbar spine. In cases with scoliosis, additional coronal T2 fast spin echo may be performed. COMPARISON: [facility], CT, CT LUMBAR SPINE WO CON, 10/25/2018, 14:07. [facility], CR, XR LUMBAR SPINE 2 OR 3 VIEWS, 04/14/2021, 11:26. [facility], CT, CT ABDOMEN PELVIS WITH CONTRAST, 01/06/2021, 14:17. [facility], MR, MR LUMBAR SPINE WO CON, 08/27/2022, 13:10. [facility], MR, MR HEAD/BRAIN WO CON, 04/12/2024, 12:22. [facility], MR, MR CERVICAL SPINE WO CON, 04/12/2024, 12:22. [facility], MR, MR LUMBAR SPINE WO CON, 02/17/2018, 8:36. FINDINGS: Image quality: There is artifact associated with the metallic hardware. This examination is limited by involuntary motion artifact. Alignment and Curvature: [id number] levoconvex thoracolumbar scoliotic curvature is seen. There is minimal retrolisthesis at T12-L1, with mild retrolisthesis at L1-L2 and L2-L3. Bone Marrow: Marrow is of normal overall signal. No acute vertebral body compression fractures. Spinal Cord: Conus medullaris terminates at the L1 level. Visualized cord demonstrates normal signal and size. Paraspinous Soft Tissues: No paravertebral masses. Postoperative changes are seen, with bilateral pedicle screws L3 through S1. Vertical fixation rods are seen. Disc spacers are seen at L3-L4, L4-L5, and at L5-S1. T12-L1: At least moderate loss of disc height and disc signal can be seen. Bridging endplate osteophytes are seen. Mild to moderate disc bulge is seen, with a central disc protrusion. There is at least moderate right-sided and no significant left-sided neural foraminal narrowing. No central canal narrowing is seen. When comparison is made with the prior images, these findings are similar. L1-L2: There is at least moderate loss of disc height and disc signal seen on the right-side. Reactive marrow endplate changes are seen, which are hyperintense on T1-weighted and T2-weighted imaging and most consistent with fatty metaplasia (Modic type II changes). Moderate generalized disc bulge is seen. There is a central disc osteophyte protrusion. Mild facet joint hypertrophy is seen. There is moderate right-sided and mild left-sided neural foraminal narrowing. Mild central canal narrowing is seen. When comparison is made with the prior images, these findings are similar. L2-L3: Moderate to severe loss of disc height and disc signal can be seen. Reactive marrow endplate changes are seen, which demonstrate mixed T1 weighted and T2-weighted signal, and are attributed to a combination of edema and fatty metaplasia (Modic type I and Modic type II changes). Moderate generalized disc bulge is seen. There is a central disc osteophyte protrusion. At least moderate facet hypertrophy can be seen. There is at least moderate right-sided and moderate to severe left-sided neural foraminal narrowing. Moderate to severe central canal narrowing is seen at this level. When comparison is made with the prior images, these findings are similar. L3-L4: Postoperative changes are seen at this level. Mild to moderate disc bulge is seen, with a central/right disc osteophyte protrusion. Moderate facet joint hypertrophy is seen. There is moderate left-sided and [id number] right-sided neural foraminal narrowing. No significant central canal narrowing is seen. When comparison is made with the prior images, these findings are similar. L4-L5: Postoperative change is seen at this level. Mild generalized disc bulge is seen. Moderate facet joint hypertrophy is seen. There is mild to moderate right-sided and at least moderate left-sided neural foraminal narrowing. No significant central canal narrowing is seen. No significant change from the prior. L5-S1: Postoperative change can be seen at this level. Mild generalized disc bulge is seen. Moderate facet joint hypertrophy is seen. There is moderate right-sided and at least moderate left-sided neural foraminal narrowing. No significant central canal narrowing is seen at this level. No significant change from the prior. IMPRESSION: L3 through S1 postoperative change can be seen. Multiple levels of degenerative change can be seen, without significant progression compared to the 2022 MRI. [id number] levoconvex thoracolumbar scoliosis. Dictated by: Laurent Rhoades M.D. on 04/12/2024 at 13:01 Approved by: Laurent Rhoades M.D. on 04/12/2024 at 13:10
--- NOTE | 2024-04-12 11:52 | DI.MRI.S_ITS ---
PROCEDURE: MR CERVICAL SPINE WO CON INDICATIONS: numbness in hands, cramping, TECHNIQUE: Noncontrast sagittal T1 spin echo and T2 fast spin echo, sagittal STIR, foraminal oblique sagittal T2 fast spin echo, and axial gradient echo or T2 fast spin echo through the cervical spine. COMPARISON: None. FINDINGS: Image quality: Diagnostic, with note made of motion artifact. Alignment and Curvature: There is overall straightening of the normal cervical lordosis. No focal AP alignment abnormality is seen. Bone Marrow: Marrow demonstrates normal overall signal. Spinal Cord: Visualized spinal cord has normal size and signal. No cerebellar tonsillar herniation. Paraspinous Soft Tissues: No paravertebral masses. Prevertebral soft tissues are normal in thickness. C2-C3: The disc height and disk signal are well-preserved. A mild degree of generalized disc osteophyte complex is seen. There is moderate right-sided and mild left-sided facet hypertrophy. There is moderate to severe right-sided and no significant left-sided neural foraminal narrowing. Minimal central canal narrowing is seen. C3-C4: The disc height and disk signal are relatively well-preserved. Moderate disc osteophyte complex is seen. Mild to moderate facet hypertrophy is seen. There is at least moderate right-sided and moderate to severe left-sided neural foraminal narrowing. Mild central canal narrowing is seen. C4-C5: At least moderate loss of disc height and disc signal can be seen. Reactive marrow endplate changes are seen, which demonstrate mixed T1 weighted and T2-weighted signal, and are attributed to a combination of edema and fatty metaplasia (Modic type I and Modic type II changes). Moderate disc osteophyte complex is seen. There is a central disc osteophyte protrusion. Uncovertebral joint hypertrophy is seen at this level. Mild to moderate facet hypertrophy is seen. There is moderate to severe bilateral neural foraminal narrowing. At least moderate central canal narrowing is seen, with associated mass effect upon the ventral spinal cord. C5-C6: There is at least moderate loss of disc height and disc signal seen. Moderate disc osteophyte complex is seen, which is eccentric to the left. There is a central/left disc osteophyte protrusion. Mild to moderate facet hypertrophy is seen. There is moderate to severe bilateral neural foraminal narrowing. At least moderate central canal narrowing is seen. There is associated mass effect upon the ventral spinal cord. C6-C7: At least moderate loss of disc height and disc signal can be seen. Moderate disc osteophyte complex is seen, with a central disc osteophyte protrusion. Mild facet joint hypertrophy is seen. There is at least moderate right-sided and moderate to severe left-sided neural foraminal narrowing. At least moderate central canal narrowing is seen. There is associated mass effect upon the ventral spinal cord. C7-T1: Moderate loss of disc height is seen. Loss of disc signal is seen. Mild to moderate disc osteophyte complex is seen. Mild facet joint hypertrophy is seen. Moderate bilateral neural foraminal narrowing is seen. Mild central canal narrowing is seen. IMPRESSION: Multiple levels of cervical spine degenerative change can be seen, which are overall worst involving the mid cervical spine. Straightening of the normal cervical lordosis is seen, which is commonly observed in patients with muscular spasm. Dictated by: Laurent Rhoades M.D. on 04/12/2024 at 12:56 Approved by: Laurent Rhoades M.D. on 04/12/2024 at 13:01
--- NOTE | 2024-04-12 11:52 | DI.MRI.S_ITS ---
PROCEDURE: MR HEAD/BRAIN WO CON INDICATIONS: numbness in hands, cramping, TECHNIQUE: Non-contrast axial T1 spin echo, axial T2 fast spin echo, sagittal and axial FLAIR, coronal T2 fast spin echo, axial gradient echo, axial diffusion and ADC through the brain. COMPARISON: , MR, MR HEAD/BRAIN WO CON, 03/30/2018, 14:28. , MR, MR LUMBAR SPINE WO CON, 04/12/2024, 12:22. , MR, MR CERVICAL SPINE WO CON, 04/12/2024, 12:22. FINDINGS: Image quality: Excellent. CSF spaces: Ventricles appear symmetric in size and shape. Basal cisterns are patent. No extra-axial fluid collections. Brain: No intracranial bleeds or mass effects. There is cerebral volume loss for age. There are periventricular and deep white matter chronic small vessel ischemic changes. Brainstem appears normal. Diffusion-weighted images show no acute infarct. No chronic ischemic insults. Normal intravascular flow voids are present. Skull and face: Calvarial bone marrow is normal in signal. Orbits are normal. Note is made of bilateral lens replacements. Incidental note is made of hyperostosis frontalis. This is not considered to be pathologic in a woman of this age. Sinuses: Sinuses and mastoids are clear. IMPRESSION: No imaging explanation is found for this patient's presenting symptoms. No findings of acute or subacute infarction can be seen. To the limits of this noncontrast study, no findings of intracranial masses or mass effect can be seen. Dictated by: Laurent Rhoades M.D. on 04/12/2024 at 13:10 Approved by: Laurent Rhoades M.D. on 04/12/2024 at 13:12
== END ==
LOC: MRI 11:50
PROVIDERS: PCP Family Medicine; Referring Provider Family Medicine; Visit Provider Family Medicine
DX: M47.812 Spondylosis without myelopathy or radiculopathy, cervical region (principal); R20.0 Anesthesia of skin; M47.816 Spondylosis without myelopathy or radiculopathy, lumbar region; M47.817 Spondylosis without myelopathy or radiculopathy, lumbosacral region; M41.9 Scoliosis, unspecified; R25.2 Cramp and spasm; Z98.1 Arthrodesis status
CPT/HCPCS: 70551; 72141; 72148

== ENCOUNTER → 2024-04-17 12:03 | Outpatient (CLI) | payer MEDICARE, OTHER, SELFPAY ==
[2020-01-24 11:30] VITALS: BMI 34.3
[2024-04-17 13:15] LABS: Albumin 4.6 g/dL (3.5-5.0); BUN Creatinine Ratio 19.7 (6-22); Blood Urea Nitrogen 24 mg/dL (7-17); Calcium 9.5 mg/dL (8.4-10.2); Carbon Dioxide 23 mmol/L (22-32); Chloride 105 mmol/L (98-107); Estimated Glomerular Filt Rate 47 mL/min (>60); Glucose 113 mg/dL (80-110); HEMOLYSIS < 15 (0-50); Magnesium 1.6 mg/dL (1.6-2.3); Potassium 4.2 mmol/L (3.4-5.1); Sodium 137 mmol/L (137-145)
[2024-04-17 14:15] LABS: Creatinine Urine Random 65.27 mg/dL
[2024-04-17 14:19] LABS: Microalbumin Urine Random 8.9 mg/dL (0-1.6)
[2024-04-17 14:31] LABS: Vitamin D 25 Hydroxy (D3) 25.5 ng/mL (30.0-100.0)
== END ==
PROVIDERS: PCP Family Medicine; Referring Provider Internal Medicine Nephrology; Visit Provider Internal Medicine Nephrology
DX: N18.31 Chronic kidney disease, stage 3a (principal)
CPT/HCPCS: 36415; 80048; 82040; 82043; 82306; 82570; 83735

== ENCOUNTER → 2024-05-22 09:21 | Outpatient (CLI) | payer MEDICARE, OTHER, SELFPAY ==
[2020-01-24 11:30] VITALS: BMI 34.3
[2024-05-22 10:21] LABS: Hemoglobin 11.8 g/dL (12.0-16.0); Mean Corpuscular HGB Conc 33.8 % (30-36); Mean Corpuscular Hemoglobin 30.7 PG (26-34); Mean Corpuscular Volume 90.8 fL (80-100); Platelet Count 305 X10^3/uL (150-400); Red Blood Cell Count 3.86 X10^6/uL (4.0-5.2); Red Cell Distribution Width 13.8 % (11.6-14.8)
[2024-05-22 11:30] LABS: Cholesterol 143 mg/dL (140-199); HDL Cholesterol 55 mg/dL (40-60); LDL Cholesterol Calculated 65 mg/dL (<100); Triglycerides 114 mg/dL (35-150)
== END ==
PROVIDERS: PCP Family Medicine; Referring Provider Internal Medicine Cardiovascular Disease; Visit Provider Internal Medicine Cardiovascular Disease
DX: E78.5 Hyperlipidemia, unspecified (principal); I10 Essential (primary) hypertension
CPT/HCPCS: 36415; 80061; 85027

== ENCOUNTER → 2024-09-19 16:50 | Outpatient (CLI) | payer MEDICARE, OTHER, SELFPAY ==
[2020-01-24 11:30] VITALS: BMI 34.3
[2024-09-19 17:57] LABS: Blood Urea Nitrogen 26 mg/dL (7-17); Calcium 9.6 mg/dL (8.4-10.2); Carbon Dioxide 22 mmol/L (22-32); Chloride 107 mmol/L (98-107); Estimated Glomerular Filt Rate 44 mL/min (>60); Glucose 95 mg/dL (70-99); HEMOLYSIS < 15 (0-50); Potassium 4.7 mmol/L (3.4-5.1); Sodium 137 mmol/L (137-145)
== END ==
PROVIDERS: PCP Family Medicine; Referring Provider Internal Medicine Nephrology; Visit Provider Internal Medicine Nephrology
DX: N18.32 Chronic kidney disease, stage 3b (principal)
CPT/HCPCS: 36415; 80048

== ENCOUNTER → 2024-10-04 09:31 | Outpatient (CLI) | payer MEDICARE, OTHER, SELFPAY ==
[2020-01-24 11:30] VITALS: BMI 34.3
[2024-10-04 10:20] LABS: Hemoglobin A1C% w Est Avg Glu 6.9 % (4.0-6.0)
== END ==
PROVIDERS: PCP Family Medicine; Referring Provider Family Medicine; Visit Provider Family Medicine
DX: E11.9 Type 2 diabetes mellitus without complications (principal)
CPT/HCPCS: 36415; 83036

== ENCOUNTER → 2024-10-10 10:23 | Outpatient (CLI) | payer MEDICARE, OTHER, SELFPAY ==
[2020-01-24 11:30] VITALS: BMI 34.3
[2024-10-10 10:53] LABS: Culture Indicated Urine Specimen Cultured
== END ==
PROVIDERS: PCP Family Medicine; Referring Provider Physician Assistant; Visit Provider Physician Assistant
DX: R35.0 Frequency of micturition (principal); R82.90 Unspecified abnormal findings in urine
CPT/HCPCS: 81015; 87077; 87086; 87186

== ENCOUNTER → 2025-01-29 10:38 | Outpatient (CLI) | payer MEDICARE, OTHER, SELFPAY ==
[2020-01-24 11:30] VITALS: BMI 34.3
--- NOTE | 2025-01-29 10:42 | DI.US.S_ITS ---
PROCEDURE: US THYROID INDICATIONS: MULTINODULAR GOITER TECHNIQUE: Real-time scanning was performed of the thyroid gland, with image documentation. COMPARISON: [facility], US, US FINE NEEDLE ASPIRATION, 09/30/2021, 14:19. [facility], US, US THYROID, 09/21/2018, 11:22. [facility], US, US THYROID, 08/31/2019, 13:01. [facility], US, US THYROID, 09/29/2020, 14:14. [facility], US, US THYROID, 09/09/2023, 14:38. [facility], US, US THYROID, 04/14/2023, 13:21. [facility], US, US THYROID, 09/17/2021, 15:45. FINDINGS: Thyroid: Right lobe measures 5.1 x 1.5 x 1.7 cm. Left lobe measures 3.3 x 1.5 x 2 cm. Isthmus is 0.6 cm thick. Echotexture is diffusely heterogeneous. The thyroid is mildly hypervascular. Nodule number: 1 Location: Superior left thyroid Size: 2.4 x 1.4 x 1.1 cm, prior 2.1 x 1.6 x 1.3 cm. Composition: Predominantly solid Echogenicity: Hypoechoic Shape: wider than tall. Margins: Smooth with Echogenic foci: Punctate, with comet tail artifact Total points: 7 ACR TI-RADS category: 5 IMPRESSION: Stable left thyroid nodule. This thyroid was previously biopsied in 2021 in 2019 with benign results. ACR TI-RADS definitions and recommendations: TI-RADS 1 (benign): 0 points. FNA not needed. TI-RADS 2 (not suspicious): 2 points. FNA not needed. TI-RADS 3: 3 points. * FNA if 2.5 cm or larger, follow up if 1.5 cm or larger (at 1, 3, and 5 years). TI-RADS 4: 4-6 points. * FNA if 1.5 cm or larger, follow up if 1 cm or larger (at 1, 2, 3, and 5 years). TI-RADS 5: 7 points or more. * FNA if 1 cm or larger, follow up if 0.5 cm or larger (every year for 5 years). Dictated by: Laurent Rhoades M.D. on 01/29/2025 at 15:23 Approved by: Laurent Rhoades M.D. on 01/29/2025 at 15:25
== END ==
LOC: US 10:42
PROVIDERS: PCP Family Medicine; Referring Provider Internal Medicine Endocrinology, Diabetes & Metabolism; Visit Provider Internal Medicine Endocrinology, Diabetes & Metabolism
DX: E03.8 Other specified hypothyroidism (principal); E04.2 Nontoxic multinodular goiter
CPT/HCPCS: 76536